=== PATIENT | female | born 1940 | race Caucasian/White ===

== ENCOUNTER → 2016-06-30 | Outpatient (CLI) | payer OTHER ==
[2015-09-18 11:22] VITALS: BP 104/57
[~2016-06-30] MED LIST: ALBU2.5V5 NEB; ALPR0.25 PO; AMLO5TAB2 PO; ASPI81TA9 PO; ATOR40TA59 PO; BUPR150T11 PO; BUTA1TAB23 PO; ESCI10TA PO; IPRA3AMP NEB; LEVO50TA5 PO; LEVO75TA5 PO; LOSA100T6 PO; NICO1PAT25 TP; RANI150C PO; TOPI25TA32 PO; TRAM-29 PO; WARF5TAB PO
--- NOTE | 2016-07-01 10:13 | RAD ---
APPROVED REPORT Patient Location: OUT-PATIENT Laterality:Bilateral Indications pvd Doppler Spectral Velocity Analysis Right Left pCCA 90/15 cm/spCCA 51/07 cm/s mCCA 76/16 cm/smCCA 47/07 cm/s dCCA 72/12 cm/sdCCA 28/05 cm/s Bulb 63/16 cm/sBulb 30/07 cm/s ECA 78/ cm/sECA 111/ cm/s pICA 80/27 cm/spICA Caryn 135/28 cm/smICA dICA 76/20 cm/sdICA Vert. 53/ cm/sVert. 52/ cm/s Subcl. 165/ cm/sSubcl. 145/ cm/s ICA/CCA 1.50ICA/CCA Findings Grayscale images of the bilateral carotid arterial vessels was performed including the external and i nternal kart arteries as well as a vertebral vessels. Grayscale imaging reveals moderate diffuse aft er squatting plaque in the carotid bulbs. On the left the internal carotid artery appears to be occl uded. On the right internal carotid artery appears to have mild to moderate disease. Based on spectral tracing in velocity profiles the right internal carotid artery has approximately a 50-69% stenosis but the vessel was not well visualized distally due to tortuosity. The left internal carotid artery appears to be occluded in the proximal to mid segment. The bilateral external caroti d arteries are patent and have minimally elevated velocities. The bilateral vertebral arteries are antegrade and patent. Critical Notification Critical Value: Yes <Conclusion> 1. Left internal carotid artery occlusion. 2. Moderate disease noted in the right internal carotid artery.
== END | disposition home or self-care (01) ==
LOC: US 07:45
PROVIDERS: ATTEND Internal Medicine Cardiovascular Disease
DX: I65.22 Occlusion and stenosis of left carotid artery (principal)
CPT/HCPCS: 93880

== ENCOUNTER → 2016-12-09 | Outpatient (CLI) | payer OTHER ==
[2015-09-18 11:22] VITALS: BP 104/57
[~2016-12-09] MED LIST changes: +ASPI-612 PO; -ASPI81TA9 PO; -ESCI10TA PO; +ESCITALOPRAM OX10 MG PO; +IOHEXOL 300 MG/ML 75 ML VIAL IV ONE; -TOPI25TA32 PO; +TOPI25TA52 PO; -TRAM-29 PO; +TRAM-48 PO; +WARF-78 PO; -WARF5TAB PO
[2016-12-09 15:31] LABS: CREATININE 0.7 mg/dL (0.6-1.0); GFR 81.8
--- NOTE | 2016-12-09 16:09 | RAD ---
Indication: Pain and swelling to bilateral lower extremities. Grayscale, color-flow and duplex Doppler evaluation of bilateral lower extremity deep venous systems was performed. FINDINGS: There is no evidence of right or left lower extremity DVT. Both lower extremity deep venous systems showed normal compressibility with normal response to augmentation and Valsalva. No fluid collection or mass is detected. IMPRESSION: No evidence of right or left lower extremity DVT.
--- NOTE | 2016-12-09 16:30 | RAD ---
Indication: Elevated d-dimer and shortness of breath. Axial imaging through the chest was performed after the administration of intravenous contrast and utilizing the CT angiography protocol. Multiplanar, 3-D and MIP reformations were also performed. Evaluation of the pulmonary arterial system demonstrates the main pulmonary artery as well as right and left branches to be dilated, perhaps on the basis of pulmonary arterial hypertension. No filling defects are seen to suggest pulmonary emboli. The thoracic aorta demonstrates atherosclerotic changes but is nonaneurysmal. No dissection is identified. No pericardial or pleural fluid is identified. Parenchymal evaluation demonstrates linear scarring or atelectasis in bilateral upper lobes. No infiltrate, nodule or mass is seen. The upper abdomen is unremarkable. Impression: 1. No evidence of pulmonary embolism. 2. Dilatation of the pulmonary arteries, perhaps on the basis of pulmonary arterial hypertension. PQRS Compliance Statement: One or more of the following individualized dose reduction techniques were utilized for this examination: 1. Automated exposure control 2. Adjustment of the mA and/or kV according to patient size 3. Use of iterative reconstruction technique
== END | disposition home or self-care (01) ==
LOC: CT 13:58
PROVIDERS: ATTEND Nurse Practitioner
DX: M79.604 Pain in right leg (principal); M79.605 Pain in left leg; M79.89 Other specified soft tissue disorders; R06.02 Shortness of breath; R79.1 Abnormal coagulation profile
CPT/HCPCS: 36415; 71275; 82565; 84520; 93970; Q9967

== ENCOUNTER → 2017-02-18 | Outpatient (CLI) | payer OTHER ==
[2015-09-18 11:22] VITALS: BP 104/57
[~2017-02-18] MED LIST changes: -IOHEXOL 300 MG/ML 75 ML VIAL IV ONE
--- NOTE | 2017-02-19 10:49 | RAD ---
Bilateral lower extremity arterial ultrasound with ankle-brachial indices, 02/18/2017: History: Peripheral arterial disease Duplex evaluation of the major arteries in both lower extremities was performed including grayscale, color-flow and spectral Doppler analysis. There are mild scattered atherosclerotic plaques bilaterally. The right common femoral artery demonstrates a biphasic Doppler waveform. A mildly elevated velocity reading of 193 cm/s was noted in the right common femoral artery. The color images did not suggest high-grade stenosis at this level. The right superficial femoral and popliteal arteries demonstrate biphasic Doppler waveforms. No significant velocity acceleration is seen through those regions to suggest high-grade stenosis. Patent posterior tibial, peroneal and anterior tibial arteries are present in the right lower leg demonstrating predominantly biphasic Doppler waveforms. The right dorsalis pedis artery is patent demonstrating a good amplitude biphasic Doppler waveform. On the left, the common femoral artery demonstrates a biphasic Doppler waveform. No significant velocity acceleration is seen in the left femoral or popliteal arteries to suggest high-grade stenosis. The distal left superficial femoral and popliteal Doppler waveforms are triphasic. In the left lower leg the posterior tibial and peroneal arteries are patent demonstrating biphasic Doppler waveforms. The left anterior tibial and dorsalis pedis arteries demonstrate monophasic Doppler waveforms. The peak systolic velocity in the left dorsalis pedis artery is 35 cm/s compared to a value of 75 cm/s on the right. Resting MELISA measurements were also obtained. The right MELISA of 1.05 is in the normal range. The left MELISA of 0.89 is at the lower limits of normal. IMPRESSION: 1. Mild scattered atherosclerotic plaquing without evidence of high-grade femoral-popliteal arterial stenosis. 2. Normal right resting MELISA of 1.05. 3. Mild degradation of the distal Doppler waveforms on the left with a borderline low left resting MELISA measurement of 0.89.
== END | disposition home or self-care (01) ==
LOC: US 15:08
PROVIDERS: ATTEND Internal Medicine
DX: I73.9 Peripheral vascular disease, unspecified (principal)
CPT/HCPCS: 93922; 93925

== ENCOUNTER → 2017-04-04 | Outpatient (CLI) | payer OTHER ==
[2015-09-18 11:22] VITALS: BP 104/57
--- NOTE | 2017-04-04 12:38 | KCIC ---
EXAM: Lumbar spine MRI without contrast. HISTORY: Pain. TECHNIQUE: Multiplanar, multisequence magnetic resonance imaging of the lumbar spine was performed without contrast. COMPARISON: 06/16/2011. FINDINGS: There is mild lumbar levoscoliosis. There is grade 1 anterolisthesis of L4 and L5, measuring 2 mm. There is degenerative endplate remodeling with disc space narrowing and osteophytosis primarily at L2-L3 and L3-L4. There is disc desiccation at multiple levels. The conus terminates at L1. Epidural lipomatosis contributing to narrowing of the thecal sac at multiple levels. There are few hemangiomas. No suspicious osseous lesion is seen. There is a suspected 1.5 cm left adrenal nodule. At T10-T11, there is a large right facet joint osteophytes or complex synovial cyst projecting into the right lateral central canal. This results in suspected mild right foraminal stenosis, incompletely evaluated on the current field of view. At T11-T12, there is a broad-based posterior central to left paracentral disc protrusion with extrusion exerting 7 mm superior and 3 mm inferior to the disc space. This results in deformation of the left ventral aspect of the spinal cord and mild central canal stenosis. At T12-L1, there is a disc bulge and endplate remodeling. There is mild facet arthropathy. There is no stenosis. At L1-L2, there is a disc bulge and endplate remodeling. There is mild facet arthropathy. There is no stenosis. At L2-L3, there is a broad-based left paracentral disc protrusion superimposed on a diffuse disc bulge and endplate osteophytosis. There is mild bilateral facet arthropathy. There is hypertrophy of the ligamentum flavum. There is epidural lipomatosis. There is mild left foraminal stenosis with abutment of the exiting left L2 nerve root. There is moderate central canal stenosis. At L3-L4, there is a right foraminal to lateral disc protrusion superimposed on a right lateral predominant disc bulge and endplate osteophytosis. There is moderate facet arthropathy. There is epidural lipomatosis. There is mild right foraminal stenosis with abutment of the exiting right L3 nerve root. At L4-L5, there is a left foraminal to extraforaminal disc protrusion superimposed on a left lateral predominant disc bulge and endplate osteophytosis. There is moderate facet arthropathy. There is hypertrophy of the ligamentum flavum. There is grade 1 anterolisthesis. There is mild left foraminal stenosis with abutment of the exiting left L4 nerve root. There is mild to moderate central canal stenosis. At L5-S1, there is a left foraminal to lateral disc protrusion. There is moderate facet arthropathy. There is mild left foraminal stenosis with abutment of the exiting left L5 nerve root. IMPRESSION: 1. Multilevel degenerative change throughout the lower thoracic and lumbar spine, described in detail above. This results in suspected mild right foraminal stenosis at T10-T11, mild central canal stenosis at T11-T12, mild left foraminal and moderate central canal stenosis at L2-L3, mild right foraminal stenosis at L3-L4, mild left foraminal and [id number] central canal stenosis at L4-L5, and mild left foraminal stenosis at L5-S1. These findings are stable to slightly progressed at the majority of the thoracic and lumbar levels compared to the prior study. 2. Grade 1 anterolisthesis of L4 on L5 and mild scoliosis, minimally increased compared to the prior study. 3. Epidural lipomatosis, contributing to narrowing of the thecal sac at all lumbar levels. This is increased compared to the prior study. 4. Suspected 1.5 cm left adrenal nodule. This is excluded from the [id number] on the prior study. This can be assessed with an adrenal protocol CT or MRI. Electronically signed by: Keiko Tejada MD (04/04/2017 12:35 PM) [facility] [place]
== END | disposition home or self-care (01) ==
LOC: KCIC MRI 11:26
PROVIDERS: ATTEND Internal Medicine
DX: M51.36 Other intervertebral disc degeneration, lumbar region (principal); M48.061 Spinal stenosis, lumbar region without neurogenic claudication; M41.86 Other forms of scoliosis, lumbar region; E88.2 Lipomatosis, not elsewhere classified
CPT/HCPCS: 72148

== ENCOUNTER 2019-02-17 19:37 | Inpatient (IN) | payer OTHER ==
[~2019-02-17] VITALS: Ht 154.9 cm; Wt 89.1 kg
[~2019-02-17 19:37] MED LIST changes: +ACET325T9 PO; +ALPR0.5T6 PO; +AMLO10TA4 PO; +AMLO5TAB10 PO; -AMLO5TAB2 PO; +AMOX1TAB61 PO; +ASPI-630 PO; +BUDE10.22 IH; +CARV12.511 PO; +CLOP75TA PO; +ESCITALOPRAM OX20 MG PO; +FLUT1DIS3 IH; +FURO20TA3 PO; +GUAI5SYR PO; +HYDR-2761 PO; -IPRA3AMP NEB; +IPRA3AMP29 NEB; +LEVO88TA4 PO; +LINE600T37 PO; +LORA0.5T PO; +LOSA100T14 PO; -LOSA100T6 PO; +POTA10TA12 PO; +TRIA1CAP3 PO
[2019-02-17 20:15] LABS: BASO % 1 % (0-3); EOS # 0.6 x10^3/uL (0.0-0.7); EOS % 7 % (0-3); HEMATOCRIT 40.4 % (36.0-47.0); HEMOGLOBIN 13.8 g/dL (12.0-15.5); LYMPH # 1.4 x10^3/uL (1.0-4.8); LYMPH % 18 % (24-48); MEAN CORPUSCULAR HEMOGLOBIN 34 pg (25-35); MEAN CORPUSCULAR HGB CONC 34 g/dL (31-37); MEAN CORPUSCULAR VOLUME 98 fL (79-100); MONO # 0.5 x10^3/uL (0.0-1.1); MONO % 7 % (0-9); NEUT # 5.2 x10^3/uL (1.8-7.7); NEUT % 67 % (31-73); PLATELET COUNT 194 x10^3/uL (140-400); RED BLOOD COUNT 4.11 x10^6/uL (3.50-5.40); RED CELL DISTRIBUTION WIDTH 14.4 % (11.5-14.5); WHITE BLOOD COUNT 7.7 x10^3/uL (4.0-11.0)
[2019-02-17 20:23] LABS: PROTHROMBIN TIME PATIENT 12.1 SEC (11.7-14.0)
[2019-02-17 20:24] LABS: CALCIUM 8.8 mg/dL (8.5-10.1); CREATININE 0.8 mg/dL (0.6-1.0); GFR 69.6; POTASSIUM 3.9 mmol/L (3.5-5.1)
[2019-02-17 20:30] LABS: ALBUMIN 3.1 g/dL (3.4-5.0); ALBUMIN/GLOBULIN RATIO 0.8 (1.0-1.7); TOTAL BILIRUBIN 0.4 mg/dL (0.2-1.0); TOTAL PROTEIN 6.8 g/dL (6.4-8.2)
--- NOTE | 2019-02-17 20:33 | RAD ---
AP portable chest radiograph 02/17/2019 Clinical History: Chest heaviness. An AP erect portable digital radiograph of the chest was obtained. Comparison study is dated 11/21/2018. Patient is post right shoulder joint replacement. The cardiac silhouette is mildly enlarged. The thoracic aorta is tortuous. Atherosclerotic calcification of the thoracic aorta is seen. Right inferior hilar fullness is unchanged. No acute pulmonary infiltrate is noted. No pneumothorax or pleural effusion is seen. The osseous structures are unchanged. Impression: No acute abnormality is seen. Electronically signed by: Blaine Rodrigues MD (02/17/2019 8:30 PM) [facility]
--- NOTE | 2019-02-17 21:57 | PHYS DOC ---
Past Medical History Past Medical History: Anxiety, CAD, COPD, Depression, High Cholesterol, Hypertension, Hypothyroid, Other Additional Past Medical Histor: SLEEP APNEA,CHRONIC BACK PAIN,SCIATICA,CELLULITIS Past Surgical History: Cholecystectomy Additional Past Surgical Histo: APNEA,R SHOULDER SX Alcohol Use: None Drug Use: None Adult General Chief Complaint Chief Complaint: SHORTNESS OF BREATH [facility] HPI Patient is a 79 year old [female] who presents with [several days history of chest heaviness, SOA. Patient reports she has been under a lot of additional stress, reports she has had some issues with her her home. Patient reports she has issues like this nearly every day, and today and yesterday were no different than normal. [facility] was continuing to have some discomfort and she wanted a break from her situation at home to see if that would improve. Patient denies any nausea. Denies any dizziness. States she has a history of anxiety, has been taking anxiety medications at home, has taken 2 of her lorazepam today without with anxiety. Patient states this does feel like her normal anxiety, which causes her to have the similar discomfort in her chest that she always has] Review of Systems Review of Systems Constitutional: Denies fever or chills [] Eyes: Denies change in visual acuity, redness, or eye pain [] HENT: Denies nasal congestion or sore throat [] Respiratory: Denies cough or shortness of breath does report she feels some heaviness on her chest, but reports this is unchanged today from any other day [] Cardiovascular: No additional information not addressed in HPI [] GI: Denies abdominal pain, nausea, vomiting, bloody stools or diarrhea [] : Denies dysuria or hematuria [] Musculoskeletal: Denies back pain or joint pain [] Integument: Denies rash or skin lesions [] Neurologic: Denies headache, focal weakness or sensory changes [] Endocrine: Denies polyuria or polydipsia [] All other systems were reviewed and found to be within normal limits, except as documented in this note. Allergies Allergies Allergies Coded Allergies Type Severity Reaction Last Updated Verified naproxen Allergy Severe Hives 11/07/14 Yes morphine Adverse Reaction Severe vomiting 11/18/18 Yes Physical Exam Physical Exam Constitutional: Well developed, well nourished, no acute distress, non-toxic appearance. [] HENT: Normocephalic, atraumatic, bilateral external ears normal, oropharynx moist, no oral exudates, nose normal. [] Eyes: PERRLA, EOMI, conjunctiva normal, no discharge. [] Neck: Normal range of motion, no tenderness, supple, no stridor. [] Cardiovascular:Heart rate regular rhythm, no murmur [] Lungs & Thorax: Bilateral breath sounds clear to auscultation [] Abdomen: Bowel sounds normal, soft, no tenderness, no masses, no pulsatile masses. [] Skin: Warm, dry, no erythema, no rash. [] Back: No tenderness, no CVA tenderness. [] Extremities: No tenderness, no cyanosis, no clubbing, ROM intact, no edema. [] Neurologic: Alert and oriented X 3, normal motor function, normal sensory function, no focal deficits noted. [] Psychologic: Affect normal, judgement normal, mood normal. Anxious[] Current Patient Data Vital Signs Vital Signs Date Time Temp Pulse Resp B/P (MAP) Pulse Ox O2 Delivery O2 Flow Rate FiO2 02/17/19 21:07 81 20 154/73 (100) 98 Nasal Cannula 2.5 02/17/19 19:40 98.3 98.3 Lab Values Laboratory Tests Test 02/17/19 20:04 White Blood Count 7.7 x10^3/uL (4.0-11.0) Red Blood Count 4.11 x10^6/uL (3.50-5.40) Hemoglobin 13.8 g/dL (12.0-15.5) Hematocrit 40.4 % (36.0-47.0) Mean Corpuscular Volume 98 fL (79-100) Mean Corpuscular Hemoglobin 34 pg (25-35) Mean Corpuscular Hemoglobin Concent 34 g/dL (31-37) Red Cell Distribution Width 14.4 % (11.5-14.5) Platelet Count 194 x10^3/uL (140-400) Neutrophils (%) (Auto) 67 % (31-73) Lymphocytes (%) (Auto) 18 % (24-48) L Monocytes (%) (Auto) 7 % (0-9) Eosinophils (%) (Auto) 7 % (0-3) H Basophils (%) (Auto) 1 % (0-3) Neutrophils # (Auto) 5.2 x10^3/uL (1.8-7.7) Lymphocytes # (Auto) 1.4 x10^3/uL (1.0-4.8) Monocytes # (Auto) 0.5 x10^3/uL (0.0-1.1) Eosinophils # (Auto) 0.6 x10^3/uL (0.0-0.7) Basophils # (Auto) 0.0 x10^3/uL (0.0-0.2) Prothrombin Time 12.1 SEC (11.7-14.0) Prothrombin Time INR 0.9 (0.8-1.1) Sodium Level 144 mmol/L (136-145) Potassium Level 3.9 mmol/L (3.5-5.1) Chloride Level 105 mmol/L (98-107) Carbon Dioxide Level 33 mmol/L (21-32) H Anion Gap 6 (6-14) Blood Urea Nitrogen 18 mg/dL (7-20) Creatinine 0.8 mg/dL (0.6-1.0) Estimated GFR (Cockcroft-Gault) 69.6 BUN/Creatinine Ratio 23 (6-20) H Glucose Level 120 mg/dL (70-99) H Calcium Level 8.8 mg/dL (8.5-10.1) Total Bilirubin 0.4 mg/dL (0.2-1.0) Aspartate Amino Transferase (AST) 14 U/L (15-37) L Alanine Aminotransferase (ALT) 17 U/L (14-59) Alkaline Phosphatase 94 U/L (46-116) Troponin I Quantitative < 0.017 ng/mL (0.000-0.055) JG-Pfa-J-Type Natriuretic Peptide 1096 pg/mL (0-449) H Total Protein 6.8 g/dL (6.4-8.2) Albumin 3.1 g/dL (3.4-5.0) L Albumin/Globulin Ratio 0.8 (1.0-1.7) L Laboratory Tests 02/17/19 20:04 Laboratory Tests 02/17/19 20:04 EKG EKG Sinus rhythm, NO Stemi @ [address] Jimenes[] Radiology/Procedures Radiology/Procedures No acute abnormality is seen. Per Dr Blaine Rodrigues[] Course & Med Decision Making Course & Med Decision Making Pertinent Labs and Imaging studies reviewed. (See chart for details) [Discussed findings with patient, with her clinician for observation for cardiac. Patient in agreement with this plan, will discuss with Dr. Law.] Discussed with Dr. aLw, agrees to admit patient for observation. We'll continue cardiac evaluation and trend troponins overnight. Dragon Disclaimer Dragon Disclaimer This electronic medical record was generated, in whole or in part, using a voice recognition dictation system. Departure Departure Impression: Primary Impression: Chest pain Additional Impression: Shortness of breath Disposition: ADMITTED INPATIENT Admitting Physician: JACQUELINE Condition: STABLE Referrals: MORE NICHOLSON MD (PCP) Problem Qualifiers Primary Impression: Chest pain Chest pain type: other chest pain Qualified Codes: R07.89 - Other chest pain SANDEEP ALLISON PRESS MAINTAINER Feb 17, 2019 21:57
[2019-02-17] MEDS ORDERED: MORPHINE SULFATE 2 MG/ML VIAL. IV PRN (22:15)
[2019-02-17] MEDS: IV NORMAL SALINE 1000ML BAG 1,000 ML IV SCH (22:15)
[2019-02-17] MEDS ORDERED: LORazepam 0.5 MG TABLET PO ONE (22:15)
[2019-02-17] MEDS ORDERED: ONDANSETRON PF 4 MG/2 ML VIAL. IV PRN (22:15)
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
[2019-02-18] VITALS (7 sets, daily range): BP systolic 114–175; BP diastolic 51–77
[2019-02-18] MEDS: NICOTINE 14MG PATCH. TD SCH ×2 (00:56→08:39)
[2019-02-18] MEDS: ZOLPIDEM 5 MG TABLET. PO PRN ×2 (00:56→20:58)
[2019-02-18] MEDS ORDERED: LORA0.5T PO (03:55)
[2019-02-18] MEDS ORDERED: HYDR-2763 PO (03:55)
[2019-02-18] MEDS ORDERED: LEVO100T5 PO (03:56)
[2019-02-18 05:56] LABS: CALCIUM 8.5 mg/dL (8.5-10.1); CREATININE 0.8 mg/dL (0.6-1.0); GFR 69.6; POTASSIUM 3.9 mmol/L (3.5-5.1)
[2019-02-18 06:34] LABS: BASO % 1 % (0-3); EOS # 0.6 x10^3/uL (0.0-0.7); EOS % 8 % (0-3); HEMATOCRIT 37.7 % (36.0-47.0); HEMOGLOBIN 12.6 g/dL (12.0-15.5); LYMPH # 1.5 x10^3/uL (1.0-4.8); LYMPH % 19 % (24-48); MEAN CORPUSCULAR HEMOGLOBIN 33 pg (25-35); MEAN CORPUSCULAR HGB CONC 33 g/dL (31-37); MEAN CORPUSCULAR VOLUME 99 fL (79-100); MONO # 0.7 x10^3/uL (0.0-1.1); MONO % 9 % (0-9); NEUT % 64 % (31-73); PLATELET COUNT 163 x10^3/uL (140-400); RED BLOOD COUNT 3.81 x10^6/uL (3.50-5.40); WHITE BLOOD COUNT 7.8 x10^3/uL (4.0-11.0)
[2019-02-18] MEDS: IPRATRPIUM/ALBUTEROL 0.5/2.5MG 3 ML NEBU. NEB SCH ×4 (07:22→19:44)
[2019-02-18] MEDS: ACETAMINOPHEN 325 MG TABLET. PO PRN (08:39)
[2019-02-18] MEDS: NYSTATIN TOPICAL POWDER 15GM BOTTLE. TP SCH ×2 (09:00→20:58)
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
[2019-02-18] MEDS ORDERED: NITROGLYCERIN SUBLINGUAL 0.4 MG BOTTLE OF 25. SL ONE (10:19)
[2019-02-18] MEDS: CARVEDILOL 12.5 MG TABLET. PO SCH ×2 (10:26→17:02)
[2019-02-18] MEDS: LOSARTAN POTASSIUM 50 MG TABLET. PO SCH (10:26)
[2019-02-18] MEDS: LORazepam 0.5 MG TABLET PO PRN ×2 (10:28→20:58)
--- NOTE | 2019-02-18 10:29 | NUR ---
PATIENT REFUSING MORPHINE BECAUSE IT MAKES HER THROW UP AND IS REFUSING NITRO BECAUSE IT GIVES HER A TERRIBLE HEADACHE
[2019-02-18] MEDS ORDERED: NITROGLYCERIN SUBLINGUAL 0.4 MG BOTTLE OF 25. SL PRN (10:30)
[2019-02-18] MEDS ORDERED: hydrALAZINE 20 MG/ML VIAL. IVP PRN (10:45)
--- NOTE | 2019-02-18 10:47 | EKG ---
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
[2019-02-18] MEDS: IV NORMAL SALINE 1000ML BAG 1,000 ML IV SCH (11:35)
[2019-02-18] MEDS ORDERED: guaiFENesin DM 200MG/20MG 10 ML SYRUP PO PRN (14:45)
[2019-02-18] MEDS ORDERED: ACETAMINOPHEN 325 MG TABLET. PO PRN (14:45)
[2019-02-18] MEDS ORDERED: HYDROcodone/APAP 7.5/325MG 1 TAB TABLET PO PRN (14:45)
--- NOTE | 2019-02-18 14:49 | RAD ---
AP portable chest radiograph 02/28/2019 Clinical History: Chest pain. An AP erect portable digital radiograph of the chest was obtained. Comparison study is dated 02/17/2019. Patient is post right shoulder joint replacement. The cardiac silhouette is mildly enlarged. The thoracic aorta is tortuous. Atherosclerotic calcification of the thoracic aorta is seen. Subsegmental atelectasis is seen involving the right upper lobe. No area of consolidation is seen. No pneumothorax is noted. There may be a small left pleural effusion, unchanged. The osseous structures are unchanged. Impression: Right upper lobe subsegmental atelectasis. Electronically signed by: Blaine Rodrigues MD (02/18/2019 2:46 PM) [facility] [place]
[2019-02-18] MEDS ORDERED: NICOTINE 14MG PATCH. TD SCH (15:00)
[2019-02-18] MEDS: FUROSEMIDE 20 MG TABLET PO SCH (15:00)
[2019-02-18] MEDS: LEVOTHYROXINE 100 MCG TABLET PO SCH (15:00)
[2019-02-18] MEDS ORDERED: IPRATRPIUM/ALBUTEROL 0.5/2.5MG 3 ML NEBU. NEB SCH (16:00)
[2019-02-18] MEDS: CLOPIDOGREL BISULFATE 75 MG TABLET PO SCH (17:00)
[2019-02-18] MEDS: ASPIRIN CHEWABLE 81 MG TABLET. PO SCH (17:01)
[2019-02-18] MEDS: ENOXAPARIN 40 MG/0.4 ML SYRINGE. SQ SCH (17:04)
[2019-02-18 17:29] LABS: BASE EXCESS COOX 3 mmol/L (-3-3); HCO3 COOX 29 mmol/L (21-28); METHEMOGLOBIN 0.5 % (0.0-1.9); OXYHEMOGLOBIN 94.9 %; PCO2 COOX 50 mmHg (35-46); PO2 COOX 82 mmHg (65-108); SAT O2 COOX 96 % (92-99)
[2019-02-18] MEDS: BUDESONIDE 0.5 MG/2 ML NEBU. NEB SCH (19:44)
[2019-02-19 03:10] VITALS: BP 165/59
[2019-02-19] MEDS: ACETAMINOPHEN 325 MG TABLET. PO PRN (05:16)
[2019-02-19 07:00] VITALS: BP 167/69
[2019-02-19] MEDS: IPRATRPIUM/ALBUTEROL 0.5/2.5MG 3 ML NEBU. NEB SCH ×4 (07:17→19:26)
[2019-02-19] MEDS: BUDESONIDE 0.5 MG/2 ML NEBU. NEB SCH ×2 (08:00→19:26)
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
[2019-02-19] MEDS: FAMOTIDINE 20 MG TABLET. PO PRN (08:50)
[2019-02-19] MEDS: CARVEDILOL 12.5 MG TABLET. PO SCH ×2 (08:50→17:05)
[2019-02-19] MEDS: LOSARTAN POTASSIUM 50 MG TABLET. PO SCH (08:51)
[2019-02-19] MEDS: CLOPIDOGREL BISULFATE 75 MG TABLET PO SCH (08:51)
[2019-02-19] MEDS: ASPIRIN CHEWABLE 81 MG TABLET. PO SCH (08:51)
[2019-02-19] MEDS: FUROSEMIDE 20 MG TABLET PO SCH (08:52)
[2019-02-19] MEDS: NICOTINE 14MG PATCH. TD SCH (08:53)
[2019-02-19 09:50] LABS: CHOLESTEROL/HDL RATIO 3.8
[2019-02-19 11:00] VITALS: BP 151/58
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
[2019-02-19] MEDS: LEVOTHYROXINE 100 MCG TABLET PO SCH (11:16)
[2019-02-19] MEDS: NYSTATIN TOPICAL POWDER 15GM BOTTLE. TP SCH ×2 (11:16→21:45)
[2019-02-19] MEDS: LORazepam 0.5 MG TABLET PO PRN ×2 (11:20→20:37)
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
[2019-02-19 15:00] VITALS: BP 149/60
[2019-02-19] MEDS: PARoxetine 10 MG TABLET PO SCH (15:38)
[2019-02-19] MEDS: ENOXAPARIN 40 MG/0.4 ML SYRINGE. SQ SCH (15:41)
--- NOTE | 2019-02-19 19:50 | NUR ---
Pt in bed assessment completed vss poc explained pt anxious re: home situation will give pt anxiety medication and continue to monitor pt call light in reach will resume care .
[2019-02-19 20:14] VITALS: BP 175/71
[2019-02-19] MEDS: ZOLPIDEM 5 MG TABLET. PO PRN (21:50)
[2019-02-19 22:43] VITALS: BP 156/64
[2019-02-20 03:02] VITALS: BP 140/55
[2019-02-20 07:00] VITALS: BP 175/77
[2019-02-20] MEDS: IPRATRPIUM/ALBUTEROL 0.5/2.5MG 3 ML NEBU. NEB SCH ×2 (07:41→11:41)
[2019-02-20] MEDS: BUDESONIDE 0.5 MG/2 ML NEBU. NEB SCH (07:41)
[2019-02-20] MEDS: FAMOTIDINE 20 MG TABLET. PO PRN (09:14)
[2019-02-20] MEDS: NICOTINE 14MG PATCH. TD SCH (09:14)
[2019-02-20] MEDS: ASPIRIN CHEWABLE 81 MG TABLET. PO SCH (09:14)
[2019-02-20] MEDS: LOSARTAN POTASSIUM 50 MG TABLET. PO SCH (09:15)
[2019-02-20] MEDS: PARoxetine 10 MG TABLET PO SCH (09:15)
[2019-02-20] MEDS: FUROSEMIDE 20 MG TABLET PO SCH (09:15)
[2019-02-20] MEDS: CARVEDILOL 12.5 MG TABLET. PO SCH (09:16)
[2019-02-20] MEDS: CLOPIDOGREL BISULFATE 75 MG TABLET PO SCH (09:16)
[2019-02-20] MEDS: NYSTATIN TOPICAL POWDER 15GM BOTTLE. TP SCH (09:24)
[2019-02-20] MEDS: LORazepam 0.5 MG TABLET PO PRN (10:04)
[2019-02-20 11:00] VITALS: BP 145/68
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
--- NOTE | 2019-02-20 12:42 | NUR ---
SS following up with discharge planning. PT/OT recommended home independent. SS notarized power of collections attorney paperwork at pt's request. Pt will discharge to home with daughter. Pt's RN notified.
[2019-02-20] MEDS: LEVOTHYROXINE 100 MCG TABLET PO SCH (13:42)
--- NOTE | 2019-02-20 14:10 | NUR ---
Discharged patient to home. Discharge instruction given and patient verbalized understanding. PIV and heart monitor removed. escorted patient per wheelchair to east entrance into a private vehicle.
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
--- NOTE | 2019-02-21 23:07 | DS ---
DATE OF DISCHARGE: 02/20/2019 ADMISSION DIAGNOSIS: Chest pain. DISCHARGE DIAGNOSIS: Atypical chest pain. CONSULTS: Cardiology. PROCEDURES: None. HOSPITAL COURSE: The patient is a pleasant 79-year-old female who presented with chest pain. We admitted the patient. We did serial enzymes, serial EKGs, cardiac monitoring, consulted Cardiology. Her workup was negative. We discharged her home with close outpatient followup. DISPOSITION: Home. ACTIVITY: As tolerated. DIET: Low sodium. MEDICATIONS: Please see the MRAD. TOTAL TIME: 44 minutes. DANIEL SLATER DO DR: BENIGNO/kalpana JOB#: [id number] / [id number]
--- NOTE | 2019-02-22 13:21 | RAD ---
Examination: DOPPLER CAROTID BILAT History: Carotid artery disease Comparison/Correlation: 06/30/2016 carotid ultrasound exam FINDINGS: RIGHT: The peak systolic velocity within the common carotid artery is 118.5 cm/sec. The peak systolic velocity within the internal carotid artery is 132.5 cm/sec and the end diastolic velocity within the internal carotid artery is 33.3 cm/sec. The ICA/CCA ratio is 1.12. Grayscale images demonstrate minimal calcific involvement of the right common carotid artery. Atheromatous involvement of the right internal carotid arteries present and chronic in appearance. Minimal calcification associated with the plaque noted. LEFT: The peak systolic velocity within the common carotid artery is 64.3 cm/sec. Flow is not identified involving the left internal carotid artery. Grayscale images demonstrate calcified plaque throughout the left internal carotid artery. Left external carotid artery was 147 cm/s identified. There is antegrade flow within both vertebral arteries. IMPRESSION: Left internal carotid artery occlusion is again identified. Right internal carotid artery peak systolic velocity of 132.5 cm/s corresponds to 50 percent to 69 percent stenosis. PQRS Compliance Statement - Stenosis calculations for CT, MR and conventional angiography are based upon measurement of the distal ICA diameter in accordance with the NASCET methodology. Stenosis calculations for carotid ultrasound studies are derived from validated velocity criteria which are known to correlate with the NASCET methodology. Electronically signed by: Jose Long MD (02/22/2019 1:18 PM) [facility]
== END 2019-02-20 14:10 | disposition home or self-care (01) | DRG 311 ==
LOC: ER 19:37 → 2 NORTH 21:58 → EEVIPCON 21:58 → 2 NORTH 22:56 → OBSVTOIN 02-18 19:13
PROVIDERS: ADMIT Family Medicine; ATTEND Family Medicine
PROC: 5A09357 Assistance with Respiratory Ventilation, Less than 24 Consecutive Hours, Continuous Positive Airway Pressure (ICD-10-PCS; principal; 2019-02-18)
PROC: 5A09357 Assistance with Respiratory Ventilation, Less than 24 Consecutive Hours, Continuous Positive Airway Pressure (ICD-10-PCS; 2019-02-19)
DX: I24.8 Other forms of acute ischemic heart disease (principal); I50.32 Chronic diastolic (congestive) heart failure; L03.90 Cellulitis, unspecified; I25.10 Atherosclerotic heart disease of native coronary artery without angina pectoris; R07.89 Other chest pain; K74.60 Unspecified cirrhosis of liver; E03.9 Hypothyroidism, unspecified; E66.01 Morbid (severe) obesity due to excess calories; E78.00 Pure hypercholesterolemia, unspecified; E78.5 Hyperlipidemia, unspecified; F17.210 Nicotine dependence, cigarettes, uncomplicated; F41.1 Generalized anxiety disorder; G47.33 Obstructive sleep apnea (adult) (pediatric); I11.0 Hypertensive heart disease with heart failure; I16.0 Hypertensive urgency; I27.20 Pulmonary hypertension, unspecified; I73.9 Peripheral vascular disease, unspecified; J44.9 Chronic obstructive pulmonary disease, unspecified; M48.061 Spinal stenosis, lumbar region without neurogenic claudication; Z68.37 Body mass index [BMI] 37.0-37.9, adult; Z73.3 Stress, not elsewhere classified; Z83.3 Family history of diabetes mellitus; Z91.19 Patient's noncompliance with other medical treatment and regimen; Z91.81 History of falling; F32.9 Major depressive disorder, single episode, unspecified; G43.909 Migraine, unspecified, not intractable, without status migrainosus; K29.70 Gastritis, unspecified, without bleeding; M48.07 Spinal stenosis, lumbosacral region; M54.30 Sciatica, unspecified side; R09.02 Hypoxemia; G89.29 Other chronic pain
CPT/HCPCS: 36415; 36600; 71045; 80048; 80053; 80061; 82805; 83880; 84443; 84484; 85025; 85610; 93005; 93880; 94640; 94660; G0378; G0379; J0360; J1650; J7620; J7626; 99285-25

== ENCOUNTER → 2019-02-20 | Outpatient (CLI) | payer OTHER ==
[~2019-02-20] MED LIST changes: +HYDR-2763 PO; +LEVO100T5 PO
[2019-02-20 11:00] VITALS: BP 145/68
--- NOTE | 2019-02-21 13:00 | SLEEP ---
DATE OF STUDY: 02/20/2019 HOME SLEEP STUDY REFERRING PHYSICIAN: More Barth MD The patient is a 79-year-old who weighs 194 pounds with a BMI of 36.7. The patient's Clifton score was 16. The patient underwent home sleep study performed at [facility]. Total recording time was 273 minutes. During the night study, the patient had 34 obstructive apneas, no central apneas, 9 mixed apneas and 60 hypopneas. The patient's apnea hypopnea index was 22.6 per hour. Nocturnal oximetry study revealed an average oxygen saturation of 84%; the lowest of 75%. 230 minutes were spent in oxygen saturation less than 90%. Mean heart rate was 72 beats per minute. IMPRESSION: 1. Moderate sleep apnea-hypopnea syndrome at an AHI of 22.6 per hour. 2. Moderate to severe nocturnal hypoxia secondary obstructive sleep apnea and suspected hypoventilation. RECOMMENDATIONS: 1. The patient is clinically symptomatic with an Clifton score of 16. I would recommend the patient returned to the sleep lab for CPAP titration. 2. Once the patient's sleep apnea is treated with CPAP, then follow up in 4-6 weeks to assess compliance and to document clinical improvement. 3. Weight loss is advised. 4. Avoid [employer] depressants. 5. Caution regarding driving until symptoms of sleep apnea resolve with the use of CPAP. MERCY CHOI MD DR: YOHANA/kalpana JOB#: [id number] / [id number] [facility] MORE BARTH MD
== END | disposition home or self-care (01) ==
LOC: RT 12:40
PROVIDERS: ATTEND Internal Medicine
DX: G47.33 Obstructive sleep apnea (adult) (pediatric) (principal); G47.34 Idiopathic sleep related nonobstructive alveolar hypoventilation
CPT/HCPCS: G0399 ×2

== ENCOUNTER 2019-06-16 09:45 | Inpatient (IN) | payer MEDICARE, OTHER ==
[~2019-06-16] VITALS: Ht 157.5 cm; Wt 91.2 kg
[~2019-06-16 09:45] MED LIST changes: +LINE600T12 PO; -LINE600T37 PO
[2019-06-16 10:44] LABS: BASO % 0 % (0-3); EOS # 0.6 x10^3/uL (0.0-0.7); EOS % 7 % (0-3); HEMOGLOBIN 12.3 g/dL (12.0-15.5); LYMPH % 12 % (24-48); MEAN CORPUSCULAR HEMOGLOBIN 32 pg (25-35); MEAN CORPUSCULAR HGB CONC 33 g/dL (31-37); MEAN CORPUSCULAR VOLUME 96 fL (79-100); MONO # 0.5 x10^3/uL (0.0-1.1); MONO % 7 % (0-9); NEUT # 5.9 x10^3/uL (1.8-7.7); NEUT % 73 % (31-73); PLATELET COUNT 212 x10^3/uL (140-400); RED BLOOD COUNT 3.85 x10^6/uL (3.50-5.40); RED CELL DISTRIBUTION WIDTH 14.2 % (11.5-14.5)
--- NOTE | 2019-06-16 10:58 | PHYS DOC ---
Past Medical History Past Medical History: Anxiety, CAD, COPD, Depression, High Cholesterol, Hypertension, Hypothyroid, Other Additional Past Medical Histor: SLEEP APNEA,CHRONIC BACK PAIN,SCIATICA,CELLULITIS Past Surgical History: Cholecystectomy Additional Past Surgical Histo: APNEA,R SHOULDER SX Alcohol Use: None Drug Use: None Adult General Chief Complaint Chief Complaint: SHORTNESS OF BREATH HPI HPI Patient is a 79 year old female with past medical history of coronary artery disease, COPD, and CHF presents today with increased shortness of breath over the last 2 days. The patient denies any chest pain or palpitations, but she does admit to not taking her Lasix since she was prescribed them on her last hospital visit. In addition, she is concerned with persistent incontinence which has been ongoing for several months. She was scheduled for an MRI today for this issue. However, her daughter brought her into the emergency department due to the concern for shortness of breath. She denies any nausea, vomiting, fever, chills, diarrhea, palpitations, lightheadedness, or dizziness. Review of Systems Review of Systems Constitutional: Denies fever or chills Eyes: Denies redness or eye pain HENT: Denies nasal congestion or sore throat Respiratory: Reports dry cough and shortness of breath Cardiovascular: Denies chest pain or palpitations GI: Denies abdominal pain, nausea, or vomiting : Denies dysuria or hematuria. Reports urinary incontinence. Musculoskeletal: Reports back pain consistent with her spinal stenosis diagnosis. Integument: Reports increased redness of her lower legs, worse on the right. Neurologic: Denies headache, focal weakness or sensory changes Complete systems were reviewed and found to be within normal limits, except as documented in this note. Current Medications Current Medications Current Medications Medications (Trade) Dose Ordered Sig/Derek Start Time Stop Time Status Last Admin Dose Admin Acetaminophen (Tylenol) 500 mg 1X ONCE 06/16/19 12:30 06/16/19 12:31 DC Albuterol/ Ipratropium (Duoneb) 3 ml 1X ONCE 06/16/19 11:00 06/16/19 11:01 DC 06/16/19 10:41 3 ML Aspirin (Omid Aspirin) 325 mg 1X ONCE 06/16/19 11:00 06/16/19 11:01 DC 06/16/19 10:51 325 MG Clindamycin Phosphate 50 ml @ 100 mls/hr 1X ONCE 06/16/19 13:00 06/16/19 13:29 Fentanyl Citrate (Fentanyl 2ml Vial) 50 mcg PRN Q2HR PRN 06/16/19 12:45 Furosemide (Lasix) 40 mg 1X ONCE 06/16/19 12:30 06/16/19 12:31 DC 06/16/19 12:38 40 MG Hydralazine HCl (Apresoline Inj) 20 mg 1X ONCE 06/16/19 11:30 06/16/19 11:31 DC 06/16/19 11:44 20 MG Labetalol HCl (Normodyne Iv Push) 10 mg 1X ONCE 06/16/19 11:00 06/16/19 11:01 DC 06/16/19 10:51 10 MG Nitroglycerin (Nitro-Bid Oint) 1 inch 1X ONCE 06/16/19 11:00 06/16/19 11:01 DC 06/16/19 10:50 1 INCH Ondansetron HCl (Zofran) 4 mg PRN Q8HRS PRN 06/16/19 12:45 06/17/19 12:44 Allergies Allergies Allergies Coded Allergies Type Severity Reaction Last Updated Verified naproxen Allergy Severe Hives 11/07/14 Yes morphine Adverse Reaction Severe vomiting 11/18/18 Yes Physical Exam Physical Exam Constitutional: 79yo obese female in respiratory distress HENT: Normocephalic, atraumatic, oropharynx moist Eyes: conjunctiva normal, no discharge Cardiovascular: Heart rate normal, regular rhythm Lungs & Thorax: Wheezing present in upper lobes b/l. Crackles auscultated in lower lobes b/l. Skin: Right lower leg erythematous, hot. Extremities: No tenderness, ROM intact, no edema Neurologic: Alert and oriented X 3, normal motor function, normal sensory function, no focal deficits noted Psychologic: Affect normal, judgement normal. Current Patient Data Vital Signs Vital Signs Date Time Temp Pulse Resp B/P (MAP) Pulse Ox O2 Delivery O2 Flow Rate FiO2 06/16/19 11:58 68 20 177/74 (108) 98 Nasal Cannula 3.0 06/16/19 09:47 97.6 97.6 Lab Values Laboratory Tests Test 06/16/19 10:00 06/16/19 10:20 06/16/19 11:14 06/16/19 11:42 Prothrombin Time 12.6 SEC (11.7-14.0) Prothrombin Time INR 1.0 (0.8-1.1) Activated Partial Thromboplast Time 25 SEC (24-38) White Blood Count 8.0 x10^3/uL (4.0-11.0) Red Blood Count 3.85 x10^6/uL (3.50-5.40) Hemoglobin 12.3 g/dL (12.0-15.5) Hematocrit 37.0 % (36.0-47.0) Mean Corpuscular Volume 96 fL (79-100) Mean Corpuscular Hemoglobin 32 pg (25-35) Mean Corpuscular Hemoglobin Concent 33 g/dL (31-37) Red Cell Distribution Width 14.2 % (11.5-14.5) Platelet Count 212 x10^3/uL (140-400) Neutrophils (%) (Auto) 73 % (31-73) Lymphocytes (%) (Auto) 12 % (24-48) L Monocytes (%) (Auto) 7 % (0-9) Eosinophils (%) (Auto) 7 % (0-3) H Basophils (%) (Auto) 0 % (0-3) Neutrophils # (Auto) 5.9 x10^3/uL (1.8-7.7) Lymphocytes # (Auto) 1.0 x10^3/uL (1.0-4.8) Monocytes # (Auto) 0.5 x10^3/uL (0.0-1.1) Eosinophils # (Auto) 0.6 x10^3/uL (0.0-0.7) Basophils # (Auto) 0.0 x10^3/uL (0.0-0.2) Sodium Level 140 mmol/L (136-145) Potassium Level 3.9 mmol/L (3.5-5.1) Chloride Level 103 mmol/L (98-107) Carbon Dioxide Level 30 mmol/L (21-32) Anion Gap 7 (6-14) Blood Urea Nitrogen 19 mg/dL (7-20) Creatinine 1.0 mg/dL (0.6-1.0) Estimated GFR (Cockcroft-Gault) 53.8 BUN/Creatinine Ratio 19 (6-20) Glucose Level 115 mg/dL (70-99) H Lactic Acid Level 0.8 mmol/L (0.4-2.0) Calcium Level 8.8 mg/dL (8.5-10.1) Magnesium Level 2.0 mg/dL (1.8-2.4) Total Bilirubin 0.5 mg/dL (0.2-1.0) Aspartate Amino Transferase (AST) 14 U/L (15-37) L Alanine Aminotransferase (ALT) 28 U/L (14-59) Alkaline Phosphatase 127 U/L (46-116) H Creatine Kinase 20 U/L (26-192) L Creatine Kinase MB (Mass) 0.9 ng/mL (0.0-3.6) Creatine Kinase MB Relative Index % (0-4) Troponin I Quantitative < 0.017 ng/mL (0.000-0.055) KW-Mny-K-Type Natriuretic Peptide 3423 pg/mL (0-449) H Total Protein 6.7 g/dL (6.4-8.2) Albumin 3.1 g/dL (3.4-5.0) L Albumin/Globulin Ratio 0.9 (1.0-1.7) L Lipase 50 U/L (73-393) L Urine Collection Type U cath Urine Color Yellow Urine Clarity Clear Urine pH 8.0 Urine Specific [place] 1.010 Urine Protein Negative mg/dL (NEG-TRACE) Urine Glucose (UA) Negative mg/dL (NEG) Urine Ketones (Stick) Negative mg/dL (NEG) Urine Blood Negative (NEG) Urine Nitrite Negative (NEG) Urine Bilirubin Negative (NEG) Urine Urobilinogen Dipstick 0.2 mg/dL (0.2 mg/dL) Urine Leukocyte Esterase Negative (NEG) Urine RBC 1-2 /HPF (0-2) Urine WBC Occ /HPF (0-4) Urine Squamous Epithelial Cells Few /LPF Urine Bacteria 0 /HPF (0-FEW) Urine Hyaline Casts Few /HPF Urine Mucus Slight /LPF Laboratory Tests 06/16/19 10:20 Laboratory Tests 06/16/19 11:14 EKG EKG 06/16/2019 @10:08 shows NSR at 74bpm. No ST elevations. Irregular R-R interval present on V2, V3. Radiology/Procedures Radiology/Procedures PROCEDURE: VENOUS LOWER EXTREMITY RIGHT EXAM: Right lower extremity venous Doppler. HISTORY: Right lower extremity redness, pain and swelling. COMPARISON: None. FINDINGS: Grayscale and Doppler analysis of the right lower extremity deep venous system was performed with graded compression and augmentation. The common femoral, greater saphenous, superficial femoral, popliteal and calf veins were assessed. There is no evidence of deep venous thrombosis. Subcutaneous edema is noted. IMPRESSION: 1. No evidence of deep venous thrombosis. Electronically signed by: Janes Silva MD (06/16/2019 12:26 PM) [facility] [] PROCEDURE: CHEST PA & LATERAL PA and lateral chest. HISTORY: Short of breath PA and lateral views were taken of the chest. The heart is enlarged. Mild fullness at the hilum of the lung on the right unchanged from old studies. There is a shoulder prosthesis on the right. There is a small nodule or focal atelectasis in the left midlung laterally which is new since the prior study follow-up would be recommended. There are no other confluent areas of infiltrate. There is dorsal kyphosis. There is no pleural effusion. IMPRESSION: 1. Small nodule versus focal atelectasis left lung. 2. No other new infiltrates. 3. Cardiomegaly. Electronically signed by: Héctor Fleming MD (06/16/2019 10:54 AM) [facility] Course & Med Decision Making Course & Med Decision Making Patient is a 79-year-old female with past medical history of CAD, COPD, and CHF who presents with shortness of breath ongoing for 2 days. The patient is not complaining of any chest pain or palpitations at this time. The patient was satting in the low 90's on room air upon arrival, which increased steadily after her first breathing treatment. The patient's blood pressure was significantly elevated, prompting her administration of labetalol 10 mg IV. In addition, patient appeared fluid overloaded based on lung and lower extremity exam, prompting application of Nitropaste over the patient's chest. Patient's blood pressure remained elevated after Labetolol administration, so 20mg of Hydralazine was given, which successfully dropped her blood pressure to a safe level. Chest x-ray only showed a small lung nodule in the left lower lobe. Patient was advised on following up outpatient. EKG was not concerning. Clindamycin was administered due to patient's right lower extremity showing signs concerning for cellulitis. Patient requiring admission for further evaluation and treatment. Discussed with Dr. Law who is in agreement with admission. Discussed findings and plan with patient and family, who acknowledge understanding and agreement. Dragon Disclaimer Dragon Disclaimer This electronic medical record was generated, in whole or in part, using a voice recognition dictation system. Departure Departure Impression: Primary Impression: Hypoxia Additional Impressions: CHF exacerbation Cellulitis Abnormal radiologic finding of lung field Disposition: ADMITTED INPATIENT Admitting Physician: JACQUELINE (Rodrigo Law) Condition: GUARDED Referrals: MORE NICHOLSON MD (PCP) Problem Qualifiers Additional Impressions: CHF exacerbation Heart failure type: unspecified Qualified Codes: I50.9 - Heart failure, unspecified Cellulitis Site of cellulitis: extremity Site of cellulitis of extremity: lower extremity Laterality: right Qualified Codes: L03.115 - Cellulitis of right lower limb PAMELA BANKS DO Jun 16, 2019 10:58
[2019-06-16] MEDS ORDERED: IPRATRPIUM/ALBUTEROL 0.5/2.5MG 3 ML NEBU. NEB ONE (11:00)
[2019-06-16] MEDS ORDERED: LABETALOL 20 MG/4 ML DISP.SYRIN. IVP ONE (11:00)
[2019-06-16] MEDS ORDERED: NITROGLYCERIN OINT 1 GM PACKET. TP ONE (11:00)
[2019-06-16] MEDS ORDERED: ASPIRIN 325 MG TABLET PO ONE (11:00)
[2019-06-16 11:30] LABS: PROTHROMBIN TIME PATIENT 12.6 SEC (11.7-14.0)
[2019-06-16] MEDS ORDERED: hydrALAZINE 20 MG/ML VIAL. IVP ONE (11:30)
[2019-06-16 11:43] LABS: CALCIUM 8.8 mg/dL (8.5-10.1); GFR 53.8; POTASSIUM 3.9 mmol/L (3.5-5.1)
[2019-06-16 11:50] LABS: ALBUMIN 3.1 g/dL (3.4-5.0); ALBUMIN/GLOBULIN RATIO 0.9 (1.0-1.7); TOTAL BILIRUBIN 0.5 mg/dL (0.2-1.0); TOTAL PROTEIN 6.7 g/dL (6.4-8.2)
[2019-06-16 11:57] LABS: CREATINE KINASE 20 U/L (26-192)
[2019-06-16 12:11] LABS: BILIRUBIN,URINE NEGATIVE (NEG); CLARITY,URINE CLEAR; COLOR,URINE YELLOW; NITRITE,URINE NEGATIVE (NEG); PROTEIN,URINE NEGATIVE (NEG-TRACE); UROBILINOGEN,URINE 0.2 mg/dL (0.2 mg/dL)
[2019-06-16 12:27] LABS: HYALINE CASTS, URINE FEW /HPF; SQUAMOUS EPITHELIAL CELL,UR FEW /LPF
[2019-06-16 12:28] LABS: BACTERIA,URINE 0 /HPF (0-FEW); WBC,URINE OCC /HPF (0-4)
--- NOTE | 2019-06-16 12:28 | RAD ---
EXAM: Right lower extremity venous Doppler. HISTORY: Right lower extremity redness, pain and swelling. COMPARISON: None. FINDINGS: Grayscale and Doppler analysis of the right lower extremity deep venous system was performed with graded compression and augmentation. The common femoral, greater saphenous, superficial femoral, popliteal and calf veins were assessed. There is no evidence of deep venous thrombosis. Subcutaneous edema is noted. IMPRESSION: 1. No evidence of deep venous thrombosis. Electronically signed by: Janes Silva MD (06/16/2019 12:26 PM) [facility]
[2019-06-16] MEDS ORDERED: ACETAMINOPHEN 500 MG TABLET PO ONE (12:30)
[2019-06-16] MEDS ORDERED: fentaNYL PF VIAL 100 MCG/2 ML VIAL IV ONE (12:30)
[2019-06-16] MEDS ORDERED: FUROSEMIDE 40 MG/4 ML VIAL. IVP ONE (12:30)
[2019-06-16] MEDS ORDERED: fentaNYL PF VIAL 100 MCG/2 ML VIAL ONE (12:32)
[2019-06-16] MEDS ORDERED: fentaNYL PF VIAL 100 MCG/2 ML VIAL IV PRN (12:45)
[2019-06-16] MEDS ORDERED: ONDANSETRON PF 4 MG/2 ML VIAL. IV PRN ×2 (12:45→21:00)
[2019-06-16] MEDS ORDERED: CLINDAMYCIN 600MG PREMIX 50 ML IV ONE (13:00)
--- NOTE | 2019-06-16 13:03 | PDOC1 ---
History and Physical Date of Admission Date of Admission DATE: 06/16/19 TIME: 13:03 Identification/Chief Complaint Chief Complaint seen in er ,79 year old female with past medical history of coronary artery disease, COPD, and CHF presents today with increased shortness of breath over the last 2 days. The patient denies any chest pain or palpitations, but she does admit to not taking her Lasix since she was prescribed them on her last hospital visit. In addition, she is concerned with persistent incontinence which has been ongoing for several months. She was scheduled for an MRI today for this issue. However, her daughter brought her into the emergency department due to the concern for shortness of breath. She denies any nausea, vomiting, fever, chills, diarrhea, palpitations, lightheadedness, or dizziness. Past Medical History Past Medical History Past Medical History Past Medical History Past Medical History: Anxiety, CAD, COPD, Depression, High Cholesterol, Hypertension, Hypothyroid, Other Additional Past Medical Histor: SLEEP APNEA,CHRONIC BACK PAIN,SCIATICA,CELLULITIS Past Surgical History: Cholecystectomy Additional Past Surgical Histo: APNEA,R SHOULDER SX Alcohol Use: None Drug Use: None fhx obesity Cardiovascular: HTN, Hyperlipidemia, Pulmonary hypertension, Other Pulmonary: COPD, Other CENTRAL NERVOUS SYSTEM: Other GI: Gastritis Heme/Onc: No pertinent hx Hepatobiliary: Cirrhosis Psych: Anxiety, Depression Musculoskeletal: low back pain Rheumatologic: No pertinent hx Infectious disease: No pertinent hx Renal/: No pertinent hx Endocrine: Hypothyroidism Past Surgical History Past Surgical History: Cholecystectomy, Other Family History Family History: Diabetes Social History Smoke: No ALCOHOL: none Drugs: None Current Problem List Problem List Problems Medical Problems: (1) Cellulitis Status: Acute (2) CHF exacerbation Status: Acute (3) Hypoxia Status: Acute Current Medications Current Medications Current Medications Albuterol/ Ipratropium (Duoneb) 3 ml 1X ONCE NEB Last administered on 06/16/19at 10:41; Start 06/16/19 at 11:00; Stop 06/16/19 at 11:01; Status DC Nitroglycerin (Nitro-Bid Oint) 1 inch 1X ONCE TP Last administered on 06/16/19at 10:50; Start 06/16/19 at 11:00; Stop 06/16/19 at 11:01; Status DC Labetalol HCl (Normodyne Iv Push) 10 mg 1X ONCE IVP Last administered on 06/16/19at 10:51; Start 06/16/19 at 11:00; Stop 06/16/19 at 11:01; Status DC Aspirin (Omid Aspirin) 325 mg 1X ONCE PO Last administered on 06/16/19at 10:51; Start 06/16/19 at 11:00; Stop 06/16/19 at 11:01; Status DC Hydralazine HCl (Apresoline Inj) 20 mg 1X ONCE IVP Last administered on 06/16/19at 11:44; Start 06/16/19 at 11:30; Stop 06/16/19 at 11:31; Status DC Acetaminophen (Tylenol) 500 mg 1X ONCE PO ; Start 06/16/19 at 12:30; Stop 06/16/19 at 12:31; Status DC Furosemide (Lasix) 40 mg 1X ONCE IVP Last administered on 06/16/19at 12:38; Start 06/16/19 at 12:30; Stop 06/16/19 at 12:31; Status DC Fentanyl Citrate (Fentanyl 2ml Vial) 50 mcg 1X ONCE IV Last administered on 06/16/19at 12:38; Start 06/16/19 at 12:30; Stop 06/16/19 at 12:31; Status DC Fentanyl Citrate (Fentanyl 2ml Vial) 100 mcg STK-MED ONCE .ROUTE ; Start 06/16/19 at 12:32; Stop 06/16/19 at 12:32; Status DC Ondansetron HCl (Zofran) 4 mg PRN Q8HRS PRN IV NAUSEA/VOMITING; Start 06/16/19 at 12:45; Stop 06/17/19 at 12:44 Fentanyl Citrate (Fentanyl 2ml Vial) 50 mcg PRN Q2HR PRN IV PAIN; Start 06/16/19 at 12:45 Clindamycin Phosphate 50 ml @ 100 mls/hr 1X ONCE IV ; Start 06/16/19 at 13:00; Stop 06/16/19 at 13:29 Active Scripts Active Guaifenesin Dm Syrup (Guaifenesin/Dextromethorphan) 5 Ml Syrup 10 Ml PO PRN Q6HRS PRN MDD 1 7 Days Duoneb 0.5-3(2.5) Mg/3 Ml (Albuterol/Ipratropium) 3 Ml Ampul.neb 3 Ml NEB RTQID MDD 1 NICODERM CQ 14mg (Nicotine) 1 Each Patch.td24 1 Patch TP DAILY Reported Levothyroxine Sodium 100 Mcg Tablet 1 Tab PO DAILY Hydrocodone-Acetamin 7.5-325 (Hydrocodone/Acetaminophen) 1 Each Tablet 1 Tab PO PRN Q6HRS PRN Lorazepam 0.5 Mg Tablet 0.5 Mg PO BID PRN Carvedilol (Carvedilol) 12.5 Mg Tablet 12.5 Mg PO BIDWMEALS Aspirin 81 Mg Tab.chew 2 Tab PO DAILY Symbicort 80-4.5 Mcg Inhaler (Budesonide/Formoterol Fumarate) 10.2 Gm Hfa.aer.ad 2 Puff IH BID Tylenol (Acetaminophen) 325 Mg Tablet 2 Tab PO PRN Q6HRS Furosemide 20 Mg Tablet 1 Tab PO DAILY Clopidogrel (Clopidogrel Bisulfate) 75 Mg Tablet 1 Tab PO DAILY Losartan Potassium 100 Mg Tablet 100 Mg PO DAILY Ranitidine Hcl 150 Mg Capsule 150 Mg PO PRN BID PRN Allergies Allergies: Coded Allergies: naproxen (Verified Allergy, Severe, Hives, 11/07/14) "CAUSES CARDIAC ARREST" morphine (Verified Adverse Reaction, Severe, vomiting, 11/18/18) Pt states she can't have causes severe vomiting. ROS Review of System Review of Systems Review of Systems Constitutional: Denies fever or chills Eyes: Denies redness or eye pain HENT: Denies nasal congestion or sore throat Respiratory: Reports dry cough and shortness of breath Cardiovascular: Denies chest pain or palpitations GI: Denies abdominal pain, nausea, or vomiting : Denies dysuria or hematuria. Reports urinary incontinence. Musculoskeletal: Reports back pain consistent with her spinal stenosis diagnosis. Integument: Reports increased redness of her lower legs, worse on the right. Neurologic: Denies headache, focal weakness or sensory changes 14 pt systems were reviewed and found to be within normal limits, except as documented Respiratory: YES: Cough Musculoskeletal: Yes Joint Stiffness Physical Exam Physical Exam Physical Exam Physical Exam Constitutional: 79yo obese female in respiratory distress HENT: Normocephalic, atraumatic, oropharynx moist Eyes: conjunctiva normal, no discharge Cardiovascular: Heart rate normal, regular rhythm Lungs & Thorax: Wheezing present in upper lobes b/l. Crackles auscultated in lower lobes b/l. Skin: Right lower leg erythematous, hot. Extremities: No tenderness, ROM intact, no edema Neurologic: Alert and oriented X 3, normal motor function, normal sensory function, no focal deficits noted Psychologic: Affect normal, judgement normal. General: Alert, Oriented X3, Cooperative Breasts: Not examined Abdomen: Normal bowel sounds, Soft Vitals Vitals Vital Signs Date Time Temp Pulse Resp B/P (MAP) Pulse Ox O2 Delivery O2 Flow Rate FiO2 06/16/19 11:58 68 20 177/74 (108) 98 Nasal Cannula 3.0 06/16/19 09:47 97.6 97.6 Labs Labs Laboratory Tests Test 06/16/19 10:00 06/16/19 10:20 06/16/19 11:14 06/16/19 11:42 Prothrombin Time 12.6 SEC (11.7-14.0) Prothromb Time International Ratio 1.0 (0.8-1.1) Activated Partial Thromboplast Time 25 SEC (24-38) White Blood Count 8.0 x10^3/uL (4.0-11.0) Red Blood Count 3.85 x10^6/uL (3.50-5.40) Hemoglobin 12.3 g/dL (12.0-15.5) Hematocrit 37.0 % (36.0-47.0) Mean Corpuscular Volume 96 fL (79-100) Mean Corpuscular Hemoglobin 32 pg (25-35) Mean Corpuscular Hemoglobin Concent 33 g/dL (31-37) Red Cell Distribution Width 14.2 % (11.5-14.5) Platelet Count 212 x10^3/uL (140-400) Neutrophils (%) (Auto) 73 % (31-73) Lymphocytes (%) (Auto) 12 % (24-48) Monocytes (%) (Auto) 7 % (0-9) Eosinophils (%) (Auto) 7 % (0-3) Basophils (%) (Auto) 0 % (0-3) Neutrophils # (Auto) 5.9 x10^3/uL (1.8-7.7) Lymphocytes # (Auto) 1.0 x10^3/uL (1.0-4.8) Monocytes # (Auto) 0.5 x10^3/uL (0.0-1.1) Eosinophils # (Auto) 0.6 x10^3/uL (0.0-0.7) Basophils # (Auto) 0.0 x10^3/uL (0.0-0.2) Sodium Level 140 mmol/L (136-145) Potassium Level 3.9 mmol/L (3.5-5.1) Chloride Level 103 mmol/L (98-107) Carbon Dioxide Level 30 mmol/L (21-32) Anion Gap 7 (6-14) Blood Urea Nitrogen 19 mg/dL (7-20) Creatinine 1.0 mg/dL (0.6-1.0) Estimated GFR (Cockcroft-Gault) 53.8 BUN/Creatinine Ratio 19 (6-20) Glucose Level 115 mg/dL (70-99) Lactic Acid Level 0.8 mmol/L (0.4-2.0) Calcium Level 8.8 mg/dL (8.5-10.1) Magnesium Level 2.0 mg/dL (1.8-2.4) Total Bilirubin 0.5 mg/dL (0.2-1.0) Aspartate Amino Transf (AST/SGOT) 14 U/L (15-37) Alanine Aminotransferase (ALT/SGPT) 28 U/L (14-59) Alkaline Phosphatase 127 U/L (46-116) Creatine Kinase 20 U/L (26-192) Creatine Kinase MB (Mass) 0.9 ng/mL (0.0-3.6) Creatine Kinase MB Relative Index % (0-4) Troponin I Quantitative < 0.017 ng/mL (0.000-0.055) UJ-Yra-V-Type Natriuretic Peptide 3423 pg/mL (0-449) Total Protein 6.7 g/dL (6.4-8.2) Albumin 3.1 g/dL (3.4-5.0) Albumin/Globulin Ratio 0.9 (1.0-1.7) Lipase 50 U/L (73-393) Urine Collection Type U cath Urine Color Yellow Urine Clarity Clear Urine pH 8.0 Urine Specific [place] 1.010 Urine Protein Negative mg/dL (NEG-TRACE) Urine Glucose (UA) Negative mg/dL (NEG) Urine Ketones (Stick) Negative mg/dL (NEG) Urine Blood Negative (NEG) Urine Nitrite Negative (NEG) Urine Bilirubin Negative (NEG) Urine Urobilinogen Dipstick 0.2 mg/dL (0.2 mg/dL) Urine Leukocyte Esterase Negative (NEG) Urine RBC 1-2 /HPF (0-2) Urine WBC Occ /HPF (0-4) Urine Squamous Epithelial Cells Few /LPF Urine Bacteria 0 /HPF (0-FEW) Urine Hyaline Casts Few /HPF Urine Mucus Slight /LPF Laboratory Tests Test 06/16/19 10:00 06/16/19 10:20 06/16/19 11:14 06/16/19 11:42 Prothrombin Time 12.6 SEC (11.7-14.0) Prothromb Time International Ratio 1.0 (0.8-1.1) Activated Partial Thromboplast Time 25 SEC (24-38) White Blood Count 8.0 x10^3/uL (4.0-11.0) Red Blood Count 3.85 x10^6/uL (3.50-5.40) Hemoglobin 12.3 g/dL (12.0-15.5) Hematocrit 37.0 % (36.0-47.0) Mean Corpuscular Volume 96 fL (79-100) Mean Corpuscular Hemoglobin 32 pg (25-35) Mean Corpuscular Hemoglobin Concent 33 g/dL (31-37) Red Cell Distribution Width 14.2 % (11.5-14.5) Platelet Count 212 x10^3/uL (140-400) Neutrophils (%) (Auto) 73 % (31-73) Lymphocytes (%) (Auto) 12 % (24-48) Monocytes (%) (Auto) 7 % (0-9) Eosinophils (%) (Auto) 7 % (0-3) Basophils (%) (Auto) 0 % (0-3) Neutrophils # (Auto) 5.9 x10^3/uL (1.8-7.7) Lymphocytes # (Auto) 1.0 x10^3/uL (1.0-4.8) Monocytes # (Auto) 0.5 x10^3/uL (0.0-1.1) Eosinophils # (Auto) 0.6 x10^3/uL (0.0-0.7) Basophils # (Auto) 0.0 x10^3/uL (0.0-0.2) Sodium Level 140 mmol/L (136-145) Potassium Level 3.9 mmol/L (3.5-5.1) Chloride Level 103 mmol/L (98-107) Carbon Dioxide Level 30 mmol/L (21-32) Anion Gap 7 (6-14) Blood Urea Nitrogen 19 mg/dL (7-20) Creatinine 1.0 mg/dL (0.6-1.0) Estimated GFR (Cockcroft-Gault) 53.8 BUN/Creatinine Ratio 19 (6-20) Glucose Level 115 mg/dL (70-99) Lactic Acid Level 0.8 mmol/L (0.4-2.0) Calcium Level 8.8 mg/dL (8.5-10.1) Magnesium Level 2.0 mg/dL (1.8-2.4) Total Bilirubin 0.5 mg/dL (0.2-1.0) Aspartate Amino Transf (AST/SGOT) 14 U/L (15-37) Alanine Aminotransferase (ALT/SGPT) 28 U/L (14-59) Alkaline Phosphatase 127 U/L (46-116) Creatine Kinase 20 U/L (26-192) Creatine Kinase MB (Mass) 0.9 ng/mL (0.0-3.6) Creatine Kinase MB Relative Index % (0-4) Troponin I Quantitative < 0.017 ng/mL (0.000-0.055) MO-Spb-I-Type Natriuretic Peptide 3423 pg/mL (0-449) Total Protein 6.7 g/dL (6.4-8.2) Albumin 3.1 g/dL (3.4-5.0) Albumin/Globulin Ratio 0.9 (1.0-1.7) Lipase 50 U/L (73-393) Urine Collection Type U cath Urine Color Yellow Urine Clarity Clear Urine pH 8.0 Urine Specific [place] 1.010 Urine Protein Negative mg/dL (NEG-TRACE) Urine Glucose (UA) Negative mg/dL (NEG) Urine Ketones (Stick) Negative mg/dL (NEG) Urine Blood Negative (NEG) Urine Nitrite Negative (NEG) Urine Bilirubin Negative (NEG) Urine Urobilinogen Dipstick 0.2 mg/dL (0.2 mg/dL) Urine Leukocyte Esterase Negative (NEG) Urine RBC 1-2 /HPF (0-2) Urine WBC Occ /HPF (0-4) Urine Squamous Epithelial Cells Few /LPF Urine Bacteria 0 /HPF (0-FEW) Urine Hyaline Casts Few /HPF Urine Mucus Slight /LPF Images Images PA and lateral chest. HISTORY: Short of breath PA and lateral views were taken of the chest. The heart is enlarged. Mild fullness at the hilum of the lung on the right unchanged from old studies. There is a shoulder prosthesis on the right. There is a small nodule or focal atelectasis in the left midlung laterally which is new since the prior study follow-up would be recommended. There are no other confluent areas of infiltrate. There is dorsal kyphosis. There is no pleural effusion. IMPRESSION: 1. Small nodule versus focal atelectasis left lung. 2. No other new infiltrates. 3. Cardiomegaly. Electronically signed by: Héctor Fleming MD (06/16/2019 10:54 AM) [id number] DICTATED and SIGNED BY: HÉCTOR FLEMING MD DATE: 06/16/19 1054 EFT VENTRICLE The Left Ventricle is mildly dilated. There is mild to moderate concentric left ventricular hypertrophy. The left ventricular systolic function is normal. The Ejection Fraction is 60-65%. There is normal LV segmental wall motion. RIGHT VENTRICLE The right ventricle is normal size. The right ventricle is borderline hypertrophied. The right ventricular systolic function is normal. ATRIA The left atrium is mildly dilated. The right atrium size is normal. AORTIC VALVE The aortic valve is thickened but opens well. Doppler and Color Flow revealed trace aortic regurgitation. There is no significant aortic valvular stenosis. MITRAL VALVE The mitral valve is normal in structure and function. There is no evidence of mitral valve prolapse. There is no mitral valve stenosis. Doppler and Color-flow revealed trace mitral regurgitation. TRICUSPID VALVE The tricuspid valve is normal in structure and function. Doppler and Color Flow revealed trace tricuspid regurgitation with an estimated PAP of 36 mmHg. There is no tricuspid valve stenosis. PULMONIC VALVE The pulmonic valve is not well visualized. Doppler and Color Flow revealed no pulmonic valvular regurgitation. GREAT VESSELS The aortic root is normal in size. The IVC was not well visualized. PERICARDIAL EFFUSION There is no evidence of significant pericardial effusion. Critical Notification Critical Value: No <Conclusion> The left ventricular systolic function is normal. The Ejection Fraction is 60-65%. There is normal LV segmental wall motion. Trace mitral regurgitation. Trace tricuspid regurgitation with an estimated PAP of 36 mmHg. There is no evidence of significant pericardial effusion. Signed by : Meng Gustafson, Electronically Approved : 11/17/2018 09:50:03 DICTATED and SIGNED BY: MENG GUSTAFSON MD DATE: 11/17/18 0950 VTE Prophylaxis Ordered VTE Prophylaxis Devices: Contraindicated VTE Pharmacological Prophylaxi: Yes Assessment/Plan Assessment/Plan Impression: Hypoxia acute hypoxic resp failure CHF exacerbation Cellulitis, right lower leg Abnormal radiologic finding of lung field Small nodule versus focal atelectasis left lung. morbid obesity HX COPD ADMITTED TELE cardiology consult ID CONSULT DVT PROPHYLAXIS O2 SUPPORT IV LASI X 1 IV ANCEF 1 GM Q 8 HRS PEGGY TORREZ MD Jun 16, 2019 13:03
--- NOTE | 2019-06-16 13:45 | EKG ---
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
[2019-06-16 14:11] VITALS: BP 166/74
[2019-06-16] MEDS ORDERED: LOSA-73 PO (15:16)
[2019-06-16] MEDS ORDERED: ESCITALOPRAM OX20 MG PO (15:16)
[2019-06-16] MEDS ORDERED: LEVO125T5 PO (15:16)
[2019-06-16] MEDS ORDERED: LORazepam 0.5 MG TABLET PO PRN (15:30)
[2019-06-16] MEDS ORDERED: ACETAMINOPHEN 325 MG TABLET. PO PRN (15:30)
[2019-06-16] MEDS: NICOTINE 14MG PATCH. TD SCH (16:00)
[2019-06-16] MEDS ORDERED: FAMOTIDINE 20 MG TABLET. PO PRN (16:00)
[2019-06-16] MEDS: FUROSEMIDE 20 MG TABLET PO SCH (16:00)
[2019-06-16] MEDS: CITALOPRAM 20 MG TABLET. PO SCH (16:21)
[2019-06-16] MEDS: IPRATRPIUM/ALBUTEROL 0.5/2.5MG 3 ML NEBU. NEB SCH ×3 (16:23→23:52)
[2019-06-16 18:34] VITALS: BP 168/70
[2019-06-16] MEDS: BUDESONIDE 0.5 MG/2 ML NEBU. NEB SCH (20:31)
[2019-06-16] MEDS ORDERED: 0.9 % SODIUM CHLORIDE 10 ML DISP.SYRIN. IV PRN (21:00)
[2019-06-16] MEDS ORDERED: guaiFENesin ORAL 200 MG/10 ML LIQUID. PO PRN (21:00)
[2019-06-16] MEDS: ACETAMINOPHEN 325 MG TABLET. PO PRN (21:49)
[2019-06-16] MEDS: LORazepam 0.5 MG TABLET PO PRN (21:50)
[2019-06-16] MEDS: ceFAZolin SODIUM IV Push 1 GM VIAL. IVP SCH (21:51)
[2019-06-16 23:11] VITALS: BP 160/69
[2019-06-17] MEDS: IPRATRPIUM/ALBUTEROL 0.5/2.5MG 3 ML NEBU. NEB SCH ×5 (01:14→22:00)
[2019-06-17 03:35] VITALS: BP 182/77
[2019-06-17] MEDS: cloNIDine HCL 0.1 MG TABLET PO PRN (04:32)
[2019-06-17] MEDS: LORazepam 0.5 MG TABLET PO PRN ×2 (04:32→21:57)
[2019-06-17] MEDS: ceFAZolin SODIUM IV Push 1 GM VIAL. IVP SCH (04:44)
[2019-06-17] MEDS: LEVOTHYROXINE 125 MCG TABLET PO SCH (05:36)
[2019-06-17] MEDS: NICOTINE 14MG PATCH. TD SCH (05:39)
[2019-06-17 05:59] LABS: CHOLESTEROL/HDL RATIO 3.4
[2019-06-17 06:46] VITALS: BP 149/64
[2019-06-17] MEDS: BUDESONIDE 0.5 MG/2 ML NEBU. NEB SCH ×2 (07:47→19:45)
[2019-06-17] MEDS: FUROSEMIDE 20 MG TABLET PO SCH (08:46)
[2019-06-17] MEDS: ASPIRIN CHEWABLE 81 MG TABLET. PO SCH (08:46)
[2019-06-17] MEDS: CITALOPRAM 20 MG TABLET. PO SCH (08:47)
[2019-06-17] MEDS: ENOXAPARIN 40 MG/0.4 ML SYRINGE. SQ SCH (08:49)
[2019-06-17] MEDS: LOSARTAN POTASSIUM 50 MG TABLET. PO SCH (08:50)
--- NOTE | 2019-06-17 09:55 | PDOC ---
PROGRESS NOTES History of Present Illness History of Present Illness VTE Prophylaxis Ordered VTE Prophylaxis Devices: Contraindicated VTE Pharmacological Prophylaxi: Yes Assessment/Plan Assessment/Plan Impression: Hypoxia acute hypoxic resp failure CHF exacerbation Cellulitis, right lower leg Abnormal radiologic finding of lung field Small nodule versus focal atelectasis left lung. morbid obesity HX COPD ADMITTED TELE cardiology consult ID CONSULT DVT PROPHYLAXIS O2 SUPPORT IV LASI X 1 IV ANCEF 1 GM Q 8 HRS d/c and observe pulm consult Vitals Vitals Vital Signs Date Time Temp Pulse Resp B/P (MAP) Pulse Ox O2 Delivery O2 Flow Rate FiO2 06/17/19 08:50 72 149/64 06/17/19 07:54 96 Nasal Cannula 2.5 06/17/19 06:46 97.4 16 97.4 Physical Exam General: Alert, Oriented X3, Cooperative Lungs: Clear, Crackles Abdomen: Normal bowel sounds, Soft Labs LABS SPEC #: [id number] ESTER: 06/16/19 STATUS: RES REQ #: [id number] RECD: 06/16/19-[address]: PAMELA BANKS DO SOURCE: BLOOD ENTR: 06/16/19-[address]: [facility]SON [facility]: BC[facility] Procedure Result BLOOD CULTURE Preliminary NO GROWTH AFTER 1 DAY TDI E/Lateral E' 19.8 E/Medial E' 15.7 Pulmonary Valve PV Peak Velocity 119.8cm/s PV Peak Grad. 6mmHg Tricuspid Valve TR P. Velocity 286cm/s RAP ESTIMATE 3mmHg TR Peak Gr. 33mmHg RVSP 36mmHg Pulmonary Vein S1 Velocity 48.6cm/s D2 Velocity 42.0cm/s PVa duration 152msec LEFT VENTRICLE The Left Ventricle is mildly dilated. There is mild to moderate concentric left ventricular hypertrophy. The left ventricular systolic function is normal. The Ejection Fraction is 60-65%. There is normal LV segmental wall motion. RIGHT VENTRICLE The right ventricle is normal size. The right ventricle is borderline hypertrophied. The right ventricular systolic function is normal. ATRIA The left atrium is mildly dilated. The right atrium size is normal. AORTIC VALVE The aortic valve is thickened but opens well. Doppler and Color Flow revealed trace aortic regurgitation. There is no significant aortic valvular stenosis. MITRAL VALVE The mitral valve is normal in structure and function. There is no evidence of mitral valve prolapse. There is no mitral valve stenosis. Doppler and Color-flow revealed trace mitral regurgitation. TRICUSPID VALVE The tricuspid valve is normal in structure and function. Doppler and Color Flow revealed trace tricuspid regurgitation with an estimated PAP of 36 mmHg. There is no tricuspid valve stenosis. PULMONIC VALVE The pulmonic valve is not well visualized. Doppler and Color Flow revealed no pulmonic valvular regurgitation. GREAT VESSELS The aortic root is normal in size. The IVC was not well visualized. PERICARDIAL EFFUSION There is no evidence of significant pericardial effusion. Critical Notification Critical Value: No <Conclusion> The left ventricular systolic function is normal. The Ejection Fraction is 60-65%. There is normal LV segmental wall motion. Trace mitral regurgitation. Trace tricuspid regurgitation with an estimated PAP of 36 mmHg. There is no evidence of significant pericardial effusion. Signed by : Yousuf Izaguirre, Electronically Approved : 11/17/2018 09:50:03 Laboratory Tests Test 06/16/19 10:00 06/16/19 10:20 06/16/19 11:14 06/16/19 11:42 Prothrombin Time 12.6 SEC (11.7-14.0) Prothromb Time International Ratio 1.0 (0.8-1.1) Activated Partial Thromboplast Time 25 SEC (24-38) White Blood Count 8.0 x10^3/uL (4.0-11.0) Red Blood Count 3.85 x10^6/uL (3.50-5.40) Hemoglobin 12.3 g/dL (12.0-15.5) Hematocrit 37.0 % (36.0-47.0) Mean Corpuscular Volume 96 fL (79-100) Mean Corpuscular Hemoglobin 32 pg (25-35) Mean Corpuscular Hemoglobin Concent 33 g/dL (31-37) Red Cell Distribution Width 14.2 % (11.5-14.5) Platelet Count 212 x10^3/uL (140-400) Neutrophils (%) (Auto) 73 % (31-73) Lymphocytes (%) (Auto) 12 % (24-48) Monocytes (%) (Auto) 7 % (0-9) Eosinophils (%) (Auto) 7 % (0-3) Basophils (%) (Auto) 0 % (0-3) Neutrophils # (Auto) 5.9 x10^3/uL (1.8-7.7) Lymphocytes # (Auto) 1.0 x10^3/uL (1.0-4.8) Monocytes # (Auto) 0.5 x10^3/uL (0.0-1.1) Eosinophils # (Auto) 0.6 x10^3/uL (0.0-0.7) Basophils # (Auto) 0.0 x10^3/uL (0.0-0.2) Sodium Level 140 mmol/L (136-145) Potassium Level 3.9 mmol/L (3.5-5.1) Chloride Level 103 mmol/L (98-107) Carbon Dioxide Level 30 mmol/L (21-32) Anion Gap 7 (6-14) Blood Urea Nitrogen 19 mg/dL (7-20) Creatinine 1.0 mg/dL (0.6-1.0) Estimated GFR (Cockcroft-Gault) 53.8 BUN/Creatinine Ratio 19 (6-20) Glucose Level 115 mg/dL (70-99) Lactic Acid Level 0.8 mmol/L (0.4-2.0) Calcium Level 8.8 mg/dL (8.5-10.1) Magnesium Level 2.0 mg/dL (1.8-2.4) Total Bilirubin 0.5 mg/dL (0.2-1.0) Aspartate Amino Transf (AST/SGOT) 14 U/L (15-37) Alanine Aminotransferase (ALT/SGPT) 28 U/L (14-59) Alkaline Phosphatase 127 U/L (46-116) Creatine Kinase 20 U/L (26-192) Creatine Kinase MB (Mass) 0.9 ng/mL (0.0-3.6) Creatine Kinase MB Relative Index % (0-4) Troponin I Quantitative < 0.017 ng/mL (0.000-0.055) JS-Ytx-[id number]-Type Natriuretic Peptide 3423 pg/mL (0-449) Total Protein 6.7 g/dL (6.4-8.2) Albumin 3.1 g/dL (3.4-5.0) Albumin/Globulin Ratio 0.9 (1.0-1.7) Lipase 50 U/L (73-393) Urine Collection Type U cath Urine Color Yellow Urine Clarity Clear Urine pH 8.0 Urine Specific [place] 1.010 Urine Protein Negative mg/dL (NEG-TRACE) Urine Glucose (UA) Negative mg/dL (NEG) Urine Ketones (Stick) Negative mg/dL (NEG) Urine Blood Negative (NEG) Urine Nitrite Negative (NEG) Urine Bilirubin Negative (NEG) Urine Urobilinogen Dipstick 0.2 mg/dL (0.2 mg/dL) Urine Leukocyte Esterase Negative (NEG) Urine RBC 1-2 /HPF (0-2) Urine WBC Occ /HPF (0-4) Urine Squamous Epithelial Cells Few /LPF Urine Bacteria 0 /HPF (0-FEW) Urine Hyaline Casts Few /HPF Urine Mucus Slight /LPF Test 06/16/19 16:15 06/16/19 20:44 06/17/19 04:39 Troponin I Quantitative < 0.017 ng/mL (0.000-0.055) < 0.017 ng/mL (0.000-0.055) Triglycerides Level 50 mg/dL (0-150) Cholesterol Level 175 mg/dL (0-200) LDL Cholesterol, Calculated 113 mg/dL (0-100) VLDL Cholesterol, Calculated 10 mg/dL (0-40) Non-HDL Cholesterol Calculated 123 mg/dL (0-129) HDL Cholesterol 52 mg/dL (40-60) Cholesterol/HDL Ratio 3.4 Assessment and Plan Assessmemt and Plan Problems Medical Problems: (1) Abnormal radiologic finding of lung field Status: Acute (2) Cellulitis Status: Acute (3) CHF exacerbation Status: Acute (4) Hypoxia Status: Acute Comment Review of Relevant I have reviewed the following items vitaly (where applicable) has been applied. Labs Laboratory Tests Test 06/16/19 10:00 06/16/19 10:20 06/16/19 11:14 06/16/19 11:42 Prothrombin Time 12.6 SEC (11.7-14.0) Prothromb Time International Ratio 1.0 (0.8-1.1) Activated Partial Thromboplast Time 25 SEC (24-38) White Blood Count 8.0 x10^3/uL (4.0-11.0) Red Blood Count 3.85 x10^6/uL (3.50-5.40) Hemoglobin 12.3 g/dL (12.0-15.5) Hematocrit 37.0 % (36.0-47.0) Mean Corpuscular Volume 96 fL (79-100) Mean Corpuscular Hemoglobin 32 pg (25-35) Mean Corpuscular Hemoglobin Concent 33 g/dL (31-37) Red Cell Distribution Width 14.2 % (11.5-14.5) Platelet Count 212 x10^3/uL (140-400) Neutrophils (%) (Auto) 73 % (31-73) Lymphocytes (%) (Auto) 12 % (24-48) Monocytes (%) (Auto) 7 % (0-9) Eosinophils (%) (Auto) 7 % (0-3) Basophils (%) (Auto) 0 % (0-3) Neutrophils # (Auto) 5.9 x10^3/uL (1.8-7.7) Lymphocytes # (Auto) 1.0 x10^3/uL (1.0-4.8) Monocytes # (Auto) 0.5 x10^3/uL (0.0-1.1) Eosinophils # (Auto) 0.6 x10^3/uL (0.0-0.7) Basophils # (Auto) 0.0 x10^3/uL (0.0-0.2) Sodium Level 140 mmol/L (136-145) Potassium Level 3.9 mmol/L (3.5-5.1) Chloride Level 103 mmol/L (98-107) Carbon Dioxide Level 30 mmol/L (21-32) Anion Gap 7 (6-14) Blood Urea Nitrogen 19 mg/dL (7-20) Creatinine 1.0 mg/dL (0.6-1.0) Estimated GFR (Cockcroft-Gault) 53.8 BUN/Creatinine Ratio 19 (6-20) Glucose Level 115 mg/dL (70-99) Lactic Acid Level 0.8 mmol/L (0.4-2.0) Calcium Level 8.8 mg/dL (8.5-10.1) Magnesium Level 2.0 mg/dL (1.8-2.4) Total Bilirubin 0.5 mg/dL (0.2-1.0) Aspartate Amino Transf (AST/SGOT) 14 U/L (15-37) Alanine Aminotransferase (ALT/SGPT) 28 U/L (14-59) Alkaline Phosphatase 127 U/L (46-116) Creatine Kinase 20 U/L (26-192) Creatine Kinase MB (Mass) 0.9 ng/mL (0.0-3.6) Creatine Kinase MB Relative Index % (0-4) Troponin I Quantitative < 0.017 ng/mL (0.000-0.055) QT-Fsd-W-Type Natriuretic Peptide 3423 pg/mL (0-449) Total Protein 6.7 g/dL (6.4-8.2) Albumin 3.1 g/dL (3.4-5.0) Albumin/Globulin Ratio 0.9 (1.0-1.7) Lipase 50 U/L (73-393) Urine Collection Type U cath Urine Color Yellow Urine Clarity Clear Urine pH 8.0 Urine Specific [place] 1.010 Urine Protein Negative mg/dL (NEG-TRACE) Urine Glucose (UA) Negative mg/dL (NEG) Urine Ketones (Stick) Negative mg/dL (NEG) Urine Blood Negative (NEG) Urine Nitrite Negative (NEG) Urine Bilirubin Negative (NEG) Urine Urobilinogen Dipstick 0.2 mg/dL (0.2 mg/dL) Urine Leukocyte Esterase Negative (NEG) Urine RBC 1-2 /HPF (0-2) Urine WBC Occ /HPF (0-4) Urine Squamous Epithelial Cells Few /LPF Urine Bacteria 0 /HPF (0-FEW) Urine Hyaline Casts Few /HPF Urine Mucus Slight /LPF Test 06/16/19 16:15 06/16/19 20:44 06/17/19 04:39 Troponin I Quantitative < 0.017 ng/mL (0.000-0.055) < 0.017 ng/mL (0.000-0.055) Triglycerides Level 50 mg/dL (0-150) Cholesterol Level 175 mg/dL (0-200) LDL Cholesterol, Calculated 113 mg/dL (0-100) VLDL Cholesterol, Calculated 10 mg/dL (0-40) Non-HDL Cholesterol Calculated 123 mg/dL (0-129) HDL Cholesterol 52 mg/dL (40-60) Cholesterol/HDL Ratio 3.4 Laboratory Tests Test 06/16/19 10:00 06/16/19 10:20 06/16/19 11:14 06/16/19 11:42 Prothrombin Time 12.6 SEC (11.7-14.0) Prothromb Time International Ratio 1.0 (0.8-1.1) Activated Partial Thromboplast Time 25 SEC (24-38) White Blood Count 8.0 x10^3/uL (4.0-11.0) Red Blood Count 3.85 x10^6/uL (3.50-5.40) Hemoglobin 12.3 g/dL (12.0-15.5) Hematocrit 37.0 % (36.0-47.0) Mean Corpuscular Volume 96 fL (79-100) Mean Corpuscular Hemoglobin 32 pg (25-35) Mean Corpuscular Hemoglobin Concent 33 g/dL (31-37) Red Cell Distribution Width 14.2 % (11.5-14.5) Platelet Count 212 x10^3/uL (140-400) Neutrophils (%) (Auto) 73 % (31-73) Lymphocytes (%) (Auto) 12 % (24-48) Monocytes (%) (Auto) 7 % (0-9) Eosinophils (%) (Auto) 7 % (0-3) Basophils (%) (Auto) 0 % (0-3) Neutrophils # (Auto) 5.9 x10^3/uL (1.8-7.7) Lymphocytes # (Auto) 1.0 x10^3/uL (1.0-4.8) Monocytes # (Auto) 0.5 x10^3/uL (0.0-1.1) Eosinophils # (Auto) 0.6 x10^3/uL (0.0-0.7) Basophils # (Auto) 0.0 x10^3/uL (0.0-0.2) Sodium Level 140 mmol/L (136-145) Potassium Level 3.9 mmol/L (3.5-5.1) Chloride Level 103 mmol/L (98-107) Carbon Dioxide Level 30 mmol/L (21-32) Anion Gap 7 (6-14) Blood Urea Nitrogen 19 mg/dL (7-20) Creatinine 1.0 mg/dL (0.6-1.0) Estimated GFR (Cockcroft-Gault) 53.8 BUN/Creatinine Ratio 19 (6-20) Glucose Level 115 mg/dL (70-99) Lactic Acid Level 0.8 mmol/L (0.4-2.0) Calcium Level 8.8 mg/dL (8.5-10.1) Magnesium Level 2.0 mg/dL (1.8-2.4) Total Bilirubin 0.5 mg/dL (0.2-1.0) Aspartate Amino Transf (AST/SGOT) 14 U/L (15-37) Alanine Aminotransferase (ALT/SGPT) 28 U/L (14-59) Alkaline Phosphatase 127 U/L (46-116) Creatine Kinase 20 U/L (26-192) Creatine Kinase MB (Mass) 0.9 ng/mL (0.0-3.6) Creatine Kinase MB Relative Index % (0-4) Troponin I Quantitative < 0.017 ng/mL (0.000-0.055) CB-Tzi-D-Type Natriuretic Peptide 3423 pg/mL (0-449) Total Protein 6.7 g/dL (6.4-8.2) Albumin 3.1 g/dL (3.4-5.0) Albumin/Globulin Ratio 0.9 (1.0-1.7) Lipase 50 U/L (73-393) Urine Collection Type U cath Urine Color Yellow Urine Clarity Clear Urine pH 8.0 Urine Specific [place] 1.010 Urine Protein Negative mg/dL (NEG-TRACE) Urine Glucose (UA) Negative mg/dL (NEG) Urine Ketones (Stick) Negative mg/dL (NEG) Urine Blood Negative (NEG) Urine Nitrite Negative (NEG) Urine Bilirubin Negative (NEG) Urine Urobilinogen Dipstick 0.2 mg/dL (0.2 mg/dL) Urine Leukocyte Esterase Negative (NEG) Urine RBC 1-2 /HPF (0-2) Urine WBC Occ /HPF (0-4) Urine Squamous Epithelial Cells Few /LPF Urine Bacteria 0 /HPF (0-FEW) Urine Hyaline Casts Few /HPF Urine Mucus Slight /LPF Test 06/16/19 16:15 06/16/19 20:44 06/17/19 04:39 Troponin I Quantitative < 0.017 ng/mL (0.000-0.055) < 0.017 ng/mL (0.000-0.055) Triglycerides Level 50 mg/dL (0-150) Cholesterol Level 175 mg/dL (0-200) LDL Cholesterol, Calculated 113 mg/dL (0-100) VLDL Cholesterol, Calculated 10 mg/dL (0-40) Non-HDL Cholesterol Calculated 123 mg/dL (0-129) HDL Cholesterol 52 mg/dL (40-60) Cholesterol/HDL Ratio 3.4 Medications Current Medications Albuterol/ Ipratropium (Duoneb) 3 ml 1X ONCE NEB Last administered on 06/16/19at 10:41; Start 06/16/19 at 11:00; Stop 06/16/19 at 11:01; Status DC Nitroglycerin (Nitro-Bid Oint) 1 inch 1X ONCE TP Last administered on 06/16/19at 10:50; Start 06/16/19 at 11:00; Stop 06/16/19 at 11:01; Status DC Labetalol HCl (Normodyne Iv Push) 10 mg 1X ONCE IVP Last administered on 06/16/19at 10:51; Start 06/16/19 at 11:00; Stop 06/16/19 at 11:01; Status DC Aspirin (Omid Aspirin) 325 mg 1X ONCE PO Last administered on 06/16/19at 10:51; Start 06/16/19 at 11:00; Stop 06/16/19 at 11:01; Status DC Hydralazine HCl (Apresoline Inj) 20 mg 1X ONCE IVP Last administered on 06/16/19at 11:44; Start 06/16/19 at 11:30; Stop 06/16/19 at 11:31; Status DC Acetaminophen (Tylenol) 500 mg 1X ONCE PO Last administered on 06/16/19at 13:53; Start 06/16/19 at 12:30; Stop 06/16/19 at 12:31; Status DC Furosemide (Lasix) 40 mg 1X ONCE IVP Last administered on 06/16/19at 12:38; Start 06/16/19 at 12:30; Stop 06/16/19 at 12:31; Status DC Fentanyl Citrate (Fentanyl 2ml Vial) 50 mcg 1X ONCE IV Last administered on 06/16/19at 12:38; Start 06/16/19 at 12:30; Stop 06/16/19 at 12:31; Status DC Fentanyl Citrate (Fentanyl 2ml Vial) 100 mcg STK-MED ONCE .ROUTE ; Start 06/16/19 at 12:32; Stop 06/16/19 at 12:32; Status DC Ondansetron HCl (Zofran) 4 mg PRN Q8HRS PRN IV NAUSEA/VOMITING; Start 06/16/19 at 12:45; Stop 06/16/19 at 21:10; Status DC Fentanyl Citrate (Fentanyl 2ml Vial) 50 mcg PRN Q2HR PRN IV PAIN; Start 06/16/19 at 12:45 Clindamycin Phosphate 50 ml @ 100 mls/hr 1X ONCE IV Last administered on 06/16/19at 13:12; Start 06/16/19 at 13:00; Stop 06/16/19 at 13:29; Status DC Acetaminophen (Tylenol) 650 mg PRN Q6HRS PRN PO MILD PAIN / TEMP; Start 06/16/19 at 15:30; Stop 06/16/19 at 21:10; Status DC Aspirin (Children'S Aspirin) 162 mg DAILY PO Last administered on 06/17/19at 08:46; Start 06/17/19 at 09:00 Furosemide (Lasix) 20 mg DAILY PO Last administered on 06/17/19at 08:46; Start 06/16/19 at 16:00 Acetaminophen/ Hydrocodone Bitart (Lortab 7.5/325) 1 tab PRN Q6HRS PRN PO PAIN; Start 06/16/19 at 15:30 Albuterol/ Ipratropium (Duoneb) 3 ml RTQID NEB Last administered on 06/16/19at 20:28; Start 06/16/19 at 16:00; Stop 06/16/19 at 21:10; Status DC Levothyroxine Sodium (Synthroid) 125 mcg DAILY06 PO Last administered on 06/17/19at 05:36; Start 06/17/19 at 06:00 Lorazepam (Ativan) 0.5 mg BID PRN PO ANXIETY / AGITATION Last administered on 06/16/19at 16:26; Start 06/16/19 at 15:30; Stop 06/16/19 at 21:10; Status DC Losartan Potassium (Cozaar) 100 mg DAILY PO Last administered on 06/17/19at 08:50; Start 06/17/19 at 09:00 Nicotine (Nicoderm Cq 14mg) 1 patch DAILY TD Last administered on 06/17/19at 05:39; Start 06/16/19 at 16:00 Budesonide (Pulmicort) 0.5 mg RTBID NEB Last administered on 06/17/19at 07:47; Start 06/16/19 at 20:00 Citalopram Hydrobromide (CeleXA) 40 mg DAILY PO Last administered on 06/17/19at 08:47; Start 06/16/19 at 16:00 Famotidine (Pepcid) 20 mg PRN BID PRN PO HEARTBURN / GAS; Start 06/16/19 at 16:00 Cefazolin Sodium 50 ml @ 100 mls/hr Q8HRS IV ; Start 06/16/19 at 22:00; Status UNV Cefazolin Sodium (Ancef) 1 gm Q8HRS IVP Last administered on 06/17/19at 04:44; Start 06/16/19 at 22:00 Sodium Chloride (Normal Saline Flush) 3 ml QSHIFT PRN IV AFTER MEDS AND BLOOD DRAWS; Start 06/16/19 at 21:00 Ondansetron HCl (Zofran) 4 mg PRN Q4HRS PRN IV NAUSEA/VOMITING 1ST CHOICE; Start 1/4/20 at 21:00 Acetaminophen (Tylenol) 650 mg PRN Q4HRS PRN PO TEMP OVER 100.4F OR MILD PAIN Last administered on 06/16/19at 21:49; Start 06/16/19 at 21:00 Clonidine HCl (Catapres) 0.1 mg PRN Q6HRS PRN PO SBP>160 OR DBP>90 Last administered on 06/17/19at 04:32; Start 06/16/19 at 21:00 Docusate Sodium (Colace) 100 mg PRN BID PRN PO CONSTIPATION 1ST CHOICE; Start 06/16/19 at 21:00 Albuterol/ Ipratropium (Duoneb) 3 ml Q4HRS W/A NEB Last administered on 06/17/19at 07:49; Start 06/16/19 at 22:00 Guaifenesin (Robitussin) 200 mg PRN Q4HRS PRN PO COUGH Last administered on 06/16/19at 21:51; Start 06/16/19 at 21:00 Lorazepam (Ativan) 0.5 mg PRN Q4HRS PRN PO ANXIETY / AGITATION Last administered on 06/17/19at 04:32; Start 06/16/19 at 21:00 Enoxaparin Sodium (Lovenox 40mg Syringe) 40 mg DAILY SQ Last administered on 06/17/19at 08:49; Start 06/17/19 at 09:00 Active Scripts Active Duoneb 0.5-3(2.5) Mg/3 Ml (Albuterol/Ipratropium) 3 Ml Ampul.neb 3 Ml NEB RTQID MDD 1 NICODERM CQ 14mg (Nicotine) 1 Each Patch.td24 1 Patch TP DAILY Reported Escitalopram Oxalate 20 Mg Tablet 20 Mg PO DAILY Levothyroxine Sodium 125 Mcg Tablet 125 Mcg PO DAILYAC Losartan Potassium 50 Mg Tablet 100 Mg PO DAILY Hydrocodone-Acetamin 7.5-325 (Hydrocodone/Acetaminophen) 1 Each Tablet 1 Tab PO PRN Q6HRS PRN Lorazepam 0.5 Mg Tablet 0.5 Mg PO BID PRN Aspirin 81 Mg Tab.chew 2 Tab PO DAILY Symbicort 80-4.5 Mcg Inhaler (Budesonide/Formoterol Fumarate) 10.2 Gm Hfa.aer.ad 2 Puff IH BID Tylenol (Acetaminophen) 325 Mg Tablet 2 Tab PO PRN Q6HRS Furosemide 20 Mg Tablet 1 Tab PO DAILY Ranitidine Hcl 150 Mg Capsule 150 Mg PO PRN BID PRN Vitals/I & O Vital Sign - Last 24 Hours 06/16/19 06/16/19 06/16/19 06/16/19 10:05 10:44 10:48 10:50 Pulse 74 73 73 Resp 20 20 B/P (MAP) 234/112 (152) 209/85 (126) 209/95 Pulse Ox 96 99 O2 Delivery Nasal Cannula Nasal Cannula Nasal Cannula O2 Flow Rate 3.0 3.0 3.0 06/16/19 06/16/19 06/16/19 06/16/19 10:51 11:01 11:17 11:42 Pulse 73 65 63 67 Resp 20 20 20 B/P (MAP) 209/95 191/78 (115) 216/93 (134) 209/81 (123) Pulse Ox 96 96 96 O2 Delivery Nasal Cannula Nasal Cannula Nasal Cannula O2 Flow Rate 3.0 3.0 3.0 06/16/19 06/16/19 06/16/19 06/16/19 11:44 11:53 11:58 12:38 Pulse 67 64 68 75 Resp 20 20 20 B/P (MAP) 209/91 183/77 (112) 177/74 (108) 188/78 (114) Pulse Ox 96 98 95 O2 Delivery Nasal Cannula Nasal Cannula Nasal Cannula O2 Flow Rate 3.0 3.0 3.0 06/16/19 06/16/19 06/16/19 06/16/19 13:25 13:50 14:11 15:30 Temp 97.4 97.4 Pulse 70 75 70 Resp 20 20 18 B/P (MAP) 188/78 (114) 166/73 (104) 166/74 (104) Pulse Ox 96 96 95 O2 Delivery Nasal Cannula Nasal Cannula Nasal Cannula Nasal Cannula O2 Flow Rate 3.0 3.0 2.5 2.5 06/16/19 06/16/19 06/16/19 06/16/19 16:24 18:34 20:15 20:30 Temp 97.7 97.7 Pulse 76 Resp 18 B/P (MAP) 168/70 (102) Pulse Ox 95 O2 Delivery Nasal Cannula Nasal Cannula Nasal Cannula Nasal Cannula O2 Flow Rate 2.0 2.5 2.5 2.0 06/16/19 06/17/19 06/17/19 06/17/19 23:11 01:15 03:35 04:32 Temp 98.2 97.5 98.2 97.5 Pulse 85 67 67 Resp 18 18 B/P (MAP) 160/69 (99) 182/77 (112) 182/77 Pulse Ox 92 95 98 O2 Delivery Nasal Cannula Nasal Cannula Nasal Cannula O2 Flow Rate 2.5 2.5 2.5 06/17/19 06/17/19 06/17/19 06/17/19 06:46 07:53 07:54 08:50 Temp 97.4 97.4 Pulse 64 72 Resp 16 B/P (MAP) 149/64 (92) 149/64 Pulse Ox 98 96 96 O2 Delivery Nasal Cannula Nasal Cannula Nasal Cannula O2 Flow Rate 2.5 2.5 2.5 Intake and Output 06/16/19 06/16/19 06/17/19 15:00 23:00 07:00 Intake Total 50 ml 660 ml Output Total 950 ml 725 ml Balance 50 ml -950 ml -65 ml PEGGY TORREZ MD Jun 17, 2019 09:55
[2019-06-17 10:36] VITALS: BP 131/61
--- NOTE | 2019-06-17 11:57 | PDOC2 ---
CONSULT Date of Consult Date of Consult DATE: 06/17/19 TIME: 11:57 Reason for Consult Reason for Consult: Congestive heart failure Referring Physician Referring Physician: Dr. Law Identification/Chief Complaint Chief Complaint Shortness of breath Source Source: Chart review, Patient History of Present Illness Reason for Visit: 79-year-old female presented with progressive shortness of breath associated with chest pain. She denied any orthopnea/PND, palpitations or syncope. According to her family, patient apparently was not taking her Lasix due to her incontinence. Past Medical History Cardiovascular: HTN, Hyperlipidemia, Pulmonary hypertension, Other Pulmonary: COPD, Other CENTRAL NERVOUS SYSTEM: Other GI: Gastritis Heme/Onc: No pertinent hx Hepatobiliary: Cirrhosis Psych: Anxiety, Depression Musculoskeletal: low back pain Rheumatologic: No pertinent hx Infectious disease: No pertinent hx Renal/: No pertinent hx Endocrine: Hypothyroidism Past Surgical History Past Surgical History: Cholecystectomy, Other Family History Family History: Diabetes Social History No ALCOHOL: none Drugs: None Lives: with Family Current Problem List Problem List Problems Medical Problems: (1) Abnormal radiologic finding of lung field Status: Acute (2) Cellulitis Status: Acute (3) CHF exacerbation Status: Acute (4) Hypoxia Status: Acute Current Medications Current Medications Current Medications Albuterol/ Ipratropium (Duoneb) 3 ml 1X ONCE NEB Last administered on 06/16/19at 10:41; Start 06/16/19 at 11:00; Stop 06/16/19 at 11:01; Status DC Nitroglycerin (Nitro-Bid Oint) 1 inch 1X ONCE TP Last administered on 06/16/19at 10:50; Start 06/16/19 at 11:00; Stop 06/16/19 at 11:01; Status DC Labetalol HCl (Normodyne Iv Push) 10 mg 1X ONCE IVP Last administered on 06/16/19at 10:51; Start 06/16/19 at 11:00; Stop 06/16/19 at 11:01; Status DC Aspirin (Omid Aspirin) 325 mg 1X ONCE PO Last administered on 06/16/19at 10:51; Start 06/16/19 at 11:00; Stop 06/16/19 at 11:01; Status DC Hydralazine HCl (Apresoline Inj) 20 mg 1X ONCE IVP Last administered on 06/16/19at 11:44; Start 06/16/19 at 11:30; Stop 06/16/19 at 11:31; Status DC Acetaminophen (Tylenol) 500 mg 1X ONCE PO Last administered on 06/16/19at 13:53; Start 06/16/19 at 12:30; Stop 06/16/19 at 12:31; Status DC Furosemide (Lasix) 40 mg 1X ONCE IVP Last administered on 06/16/19at 12:38; Start 06/16/19 at 12:30; Stop 06/16/19 at 12:31; Status DC Fentanyl Citrate (Fentanyl 2ml Vial) 50 mcg 1X ONCE IV Last administered on 06/16/19at 12:38; Start 06/16/19 at 12:30; Stop 06/16/19 at 12:31; Status DC Fentanyl Citrate (Fentanyl 2ml Vial) 100 mcg STK-MED ONCE .ROUTE ; Start 06/16/19 at 12:32; Stop 06/16/19 at 12:32; Status DC Ondansetron HCl (Zofran) 4 mg PRN Q8HRS PRN IV NAUSEA/VOMITING; Start 06/16/19 at 12:45; Stop 06/16/19 at 21:10; Status DC Fentanyl Citrate (Fentanyl 2ml Vial) 50 mcg PRN Q2HR PRN IV PAIN; Start 06/16/19 at 12:45 Clindamycin Phosphate 50 ml @ 100 mls/hr 1X ONCE IV Last administered on 06/16/19at 13:12; Start 06/16/19 at 13:00; Stop 06/16/19 at 13:29; Status DC Acetaminophen (Tylenol) 650 mg PRN Q6HRS PRN PO MILD PAIN / TEMP; Start 06/16/19 at 15:30; Stop 06/16/19 at 21:10; Status DC Aspirin (Children'S Aspirin) 162 mg DAILY PO Last administered on 06/17/19at 08:46; Start 06/17/19 at 09:00 Furosemide (Lasix) 20 mg DAILY PO Last administered on 06/17/19at 08:46; Start 06/16/19 at 16:00 Acetaminophen/ Hydrocodone Bitart (Lortab 7.5/325) 1 tab PRN Q6HRS PRN PO PAIN; Start 06/16/19 at 15:30 Albuterol/ Ipratropium (Duoneb) 3 ml RTQID NEB Last administered on 06/16/19at 20:28; Start 06/16/19 at 16:00; Stop 06/16/19 at 21:10; Status DC Levothyroxine Sodium (Synthroid) 125 mcg DAILY06 PO Last administered on 06/17/19at 05:36; Start 06/17/19 at 06:00 Lorazepam (Ativan) 0.5 mg BID PRN PO ANXIETY / AGITATION Last administered on 06/16/19at 16:26; Start 06/16/19 at 15:30; Stop 06/16/19 at 21:10; Status DC Losartan Potassium (Cozaar) 100 mg DAILY PO Last administered on 06/17/19at 08:50; Start 06/17/19 at 09:00 Nicotine (Nicoderm Cq 14mg) 1 patch DAILY TD Last administered on 06/17/19at 05:39; Start 06/16/19 at 16:00 Budesonide (Pulmicort) 0.5 mg RTBID NEB Last administered on 06/17/19at 07:47; Start 06/16/19 at 20:00 Citalopram Hydrobromide (CeleXA) 40 mg DAILY PO Last administered on 06/17/19at 08:47; Start 06/16/19 at 16:00 Famotidine (Pepcid) 20 mg PRN BID PRN PO HEARTBURN / GAS; Start 06/16/19 at 16:00 Cefazolin Sodium 50 ml @ 100 mls/hr Q8HRS IV ; Start 06/16/19 at 22:00; Status UNV Cefazolin Sodium (Ancef) 1 gm Q8HRS IVP Last administered on 06/17/19at 04:44; Start 06/16/19 at 22:00 Sodium Chloride (Normal Saline Flush) 3 ml QSHIFT PRN IV AFTER MEDS AND BLOOD DRAWS; Start 06/16/19 at 21:00 Ondansetron HCl (Zofran) 4 mg PRN Q4HRS PRN IV NAUSEA/VOMITING 1ST CHOICE; Start 06/16/19 at 21:00 Acetaminophen (Tylenol) 650 mg PRN Q4HRS PRN PO TEMP OVER 100.4F OR MILD PAIN Last administered on 06/16/19at 21:49; Start 06/16/19 at 21:00 Clonidine HCl (Catapres) 0.1 mg PRN Q6HRS PRN PO SBP>160 OR DBP>90 Last administered on 06/17/19at 04:32; Start 06/16/19 at 21:00 Docusate Sodium (Colace) 100 mg PRN BID PRN PO CONSTIPATION 1ST CHOICE; Start 06/16/19 at 21:00 Albuterol/ Ipratropium (Duoneb) 3 ml Q4HRS W/A NEB Last administered on 06/17/19at 07:49; Start 06/16/19 at 22:00 Guaifenesin (Robitussin) 200 mg PRN Q4HRS PRN PO COUGH Last administered on 06/16/19at 21:51; Start 06/16/19 at 21:00 Lorazepam (Ativan) 0.5 mg PRN Q4HRS PRN PO ANXIETY / AGITATION Last administered on 06/17/19at 04:32; Start 06/16/19 at 21:00 Enoxaparin Sodium (Lovenox 40mg Syringe) 40 mg DAILY SQ Last administered on 06/17/19at 08:49; Start 06/17/19 at 09:00 Lactobacillus Rhamnosus (Culturelle) 1 cap BID PO ; Start 06/17/19 at 21:00 Active Scripts Active Duoneb 0.5-3(2.5) Mg/3 Ml (Albuterol/Ipratropium) 3 Ml Ampul.neb 3 Ml NEB RTQID MDD 1 NICODERM CQ 14mg (Nicotine) 1 Each Patch.td24 1 Patch TP DAILY Reported Escitalopram Oxalate 20 Mg Tablet 20 Mg PO DAILY Levothyroxine Sodium 125 Mcg Tablet 125 Mcg PO DAILYAC Losartan Potassium 50 Mg Tablet 100 Mg PO DAILY Hydrocodone-Acetamin 7.5-325 (Hydrocodone/Acetaminophen) 1 Each Tablet 1 Tab PO PRN Q6HRS PRN Lorazepam 0.5 Mg Tablet 0.5 Mg PO BID PRN Aspirin 81 Mg Tab.chew 2 Tab PO DAILY Symbicort 80-4.5 Mcg Inhaler (Budesonide/Formoterol Fumarate) 10.2 Gm Hfa.aer.ad 2 Puff IH BID Tylenol (Acetaminophen) 325 Mg Tablet 2 Tab PO PRN Q6HRS Furosemide 20 Mg Tablet 1 Tab PO DAILY Ranitidine Hcl 150 Mg Capsule 150 Mg PO PRN BID PRN Allergies Allergies: Coded Allergies: naproxen (Verified Allergy, Severe, Hives, 11/07/14) "CAUSES CARDIAC ARREST" morphine (Verified Adverse Reaction, Severe, vomiting, 11/18/18) Pt states she can't have causes severe vomiting. ROS PSYCHOLOGICAL ROS: No: Hallucinations Eyes: No Loss of vision HEENT: No: Epistaxis Respiratory: YES: Shortness of breath Cardiovascular: No Chest Pain Gastrointestinal: No Vomiting Genitourinary: No Hematuria Neurological: No Seizures Skin: No Rash Physical Exam General: Alert HEENT: Atraumatic Lungs: Other (bilateral basal crepitations) Heart: Regular rate Abdomen: Soft Extremities: Other (trace edema) Psych/Mental Status: Mood NL Vitals VITALS Vital Signs Date Time Temp Pulse Resp B/P (MAP) Pulse Ox O2 Delivery O2 Flow Rate FiO2 06/17/19 10:36 97.5 63 16 131/61 (84) 94 Nasal Cannula 2.5 97.5 Labs Labs Laboratory Tests Test 06/16/19 10:00 06/16/19 10:20 06/16/19 11:14 06/16/19 11:42 Prothrombin Time 12.6 SEC (11.7-14.0) Prothromb Time International Ratio 1.0 (0.8-1.1) Activated Partial Thromboplast Time 25 SEC (24-38) White Blood Count 8.0 x10^3/uL (4.0-11.0) Red Blood Count 3.85 x10^6/uL (3.50-5.40) Hemoglobin 12.3 g/dL (12.0-15.5) Hematocrit 37.0 % (36.0-47.0) Mean Corpuscular Volume 96 fL (79-100) Mean Corpuscular Hemoglobin 32 pg (25-35) Mean Corpuscular Hemoglobin Concent 33 g/dL (31-37) Red Cell Distribution Width 14.2 % (11.5-14.5) Platelet Count 212 x10^3/uL (140-400) Neutrophils (%) (Auto) 73 % (31-73) Lymphocytes (%) (Auto) 12 % (24-48) Monocytes (%) (Auto) 7 % (0-9) Eosinophils (%) (Auto) 7 % (0-3) Basophils (%) (Auto) 0 % (0-3) Neutrophils # (Auto) 5.9 x10^3/uL (1.8-7.7) Lymphocytes # (Auto) 1.0 x10^3/uL (1.0-4.8) Monocytes # (Auto) 0.5 x10^3/uL (0.0-1.1) Eosinophils # (Auto) 0.6 x10^3/uL (0.0-0.7) Basophils # (Auto) 0.0 x10^3/uL (0.0-0.2) Sodium Level 140 mmol/L (136-145) Potassium Level 3.9 mmol/L (3.5-5.1) Chloride Level 103 mmol/L (98-107) Carbon Dioxide Level 30 mmol/L (21-32) Anion Gap 7 (6-14) Blood Urea Nitrogen 19 mg/dL (7-20) Creatinine 1.0 mg/dL (0.6-1.0) Estimated GFR (Cockcroft-Gault) 53.8 BUN/Creatinine Ratio 19 (6-20) Glucose Level 115 mg/dL (70-99) Lactic Acid Level 0.8 mmol/L (0.4-2.0) Calcium Level 8.8 mg/dL (8.5-10.1) Magnesium Level 2.0 mg/dL (1.8-2.4) Total Bilirubin 0.5 mg/dL (0.2-1.0) Aspartate Amino Transf (AST/SGOT) 14 U/L (15-37) Alanine Aminotransferase (ALT/SGPT) 28 U/L (14-59) Alkaline Phosphatase 127 U/L (46-116) Creatine Kinase 20 U/L (26-192) Creatine Kinase MB (Mass) 0.9 ng/mL (0.0-3.6) Creatine Kinase MB Relative Index % (0-4) Troponin I Quantitative < 0.017 ng/mL (0.000-0.055) AE-Uui-I-Type Natriuretic Peptide 3423 pg/mL (0-449) Total Protein 6.7 g/dL (6.4-8.2) Albumin 3.1 g/dL (3.4-5.0) Albumin/Globulin Ratio 0.9 (1.0-1.7) Lipase 50 U/L (73-393) Urine Collection Type U cath Urine Color Yellow Urine Clarity Clear Urine pH 8.0 Urine Specific [place] 1.010 Urine Protein Negative mg/dL (NEG-TRACE) Urine Glucose (UA) Negative mg/dL (NEG) Urine Ketones (Stick) Negative mg/dL (NEG) Urine Blood Negative (NEG) Urine Nitrite Negative (NEG) Urine Bilirubin Negative (NEG) Urine Urobilinogen Dipstick 0.2 mg/dL (0.2 mg/dL) Urine Leukocyte Esterase Negative (NEG) Urine RBC 1-2 /HPF (0-2) Urine WBC Occ /HPF (0-4) Urine Squamous Epithelial Cells Few /LPF Urine Bacteria 0 /HPF (0-FEW) Urine Hyaline Casts Few /HPF Urine Mucus Slight /LPF Test 06/16/19 16:15 06/16/19 20:44 06/17/19 04:39 Troponin I Quantitative < 0.017 ng/mL (0.000-0.055) < 0.017 ng/mL (0.000-0.055) Triglycerides Level 50 mg/dL (0-150) Cholesterol Level 175 mg/dL (0-200) LDL Cholesterol, Calculated 113 mg/dL (0-100) VLDL Cholesterol, Calculated 10 mg/dL (0-40) Non-HDL Cholesterol Calculated 123 mg/dL (0-129) HDL Cholesterol 52 mg/dL (40-60) Cholesterol/HDL Ratio 3.4 Laboratory Tests Test 06/16/19 16:15 06/16/19 20:44 06/17/19 04:39 Troponin I Quantitative < 0.017 ng/mL (0.000-0.055) < 0.017 ng/mL (0.000-0.055) Triglycerides Level 50 mg/dL (0-150) Cholesterol Level 175 mg/dL (0-200) LDL Cholesterol, Calculated 113 mg/dL (0-100) VLDL Cholesterol, Calculated 10 mg/dL (0-40) Non-HDL Cholesterol Calculated 123 mg/dL (0-129) HDL Cholesterol 52 mg/dL (40-60) Cholesterol/HDL Ratio 3.4 Assessment/Plan Assessment/Plan 1. Congestive heart failure, acute on chronic diastolic secondary to no ncompliance with diuretics. Continue diuresis with Lasix. Recent 2-D echo November 2018 showed LVEF 60-65%. 2. Chest pain with atypical features. Myocardial infarction has been ruled out. Plan ischemic workup in the form of stress test as outpatient. 3. Accelerated hypertension: Better controlled since admission. Continue current medical regimen. 4. Cellulitis right lower extremity: Treat per ID 5. Hypothyroidism: On levo thyroxine Thank you for your consultation MENG GUSTFASON MD Jun 17, 2019 11:57
--- NOTE | 2019-06-17 13:40 | PDOC ---
Infectious Disease Note Vital Sign Vital Signs Vital Signs Date Time Temp Pulse Resp B/P (MAP) Pulse Ox O2 Delivery O2 Flow Rate FiO2 06/17/19 10:36 97.5 63 16 131/61 (84) 94 Nasal Cannula 2.5 97.5 Labs Lab Laboratory Tests Test 06/16/19 16:15 06/16/19 20:44 06/17/19 04:39 Troponin I Quantitative < 0.017 ng/mL (0.000-0.055) < 0.017 ng/mL (0.000-0.055) Triglycerides Level 50 mg/dL (0-150) Cholesterol Level 175 mg/dL (0-200) LDL Cholesterol, Calculated 113 mg/dL (0-100) VLDL Cholesterol, Calculated 10 mg/dL (0-40) Non-HDL Cholesterol Calculated 123 mg/dL (0-129) HDL Cholesterol 52 mg/dL (40-60) Cholesterol/HDL Ratio 3.4 Micro Microbiology 06/16/19 Blood Culture - Preliminary, Resulted NO GROWTH AFTER 1 DAY Objective Assessment pt seen, consult dictated Plan Plan of Care / ROSIBEL ABBOTT MD Jun 17, 2019 13:40
[2019-06-17 14:06] VITALS: BP 104/51
--- NOTE | 2019-06-17 16:56 | NUR ---
Spoke with patients daughter at bedside who requested to speak to social work by telephone before social works speaks to patient. Patient currently lives independent living side at [facility] and is in need of of assisted living. She stated that [facility] is no longer offering assisted living therefore patient needs help finding a new place to move that offers assisted living. Patients daughters name is Keiko Ruiz and her phone # is [phone]
[2019-06-17 19:30] VITALS: BP 151/67
[2019-06-17] MEDS: LACTOBACILLUS RHAMNOSUS GG 1 CAPSULE. PO SCH (21:57)
[2019-06-17] MEDS: HYDROcodone/APAP 7.5/325MG 1 TAB TABLET PO PRN (22:01)
[2019-06-17 23:15] VITALS: BP 155/65
--- NOTE | 2019-06-17 23:34 | CONS ---
DATE OF CONSULTATION: 06/17/2019 REQUESTING PHYSICIAN: Dr. Law. REASON FOR CONSULTATION: Cellulitis. HISTORY OF PRESENT ILLNESS: This is a 79-year-old female with multiple medical problems who lives in a high-rise independent living who came in with shortness of breath, putting on weight with swelling, anxiety, maybe redness of the leg, just worried that she is getting worse. The patient denies fever, denies any nausea, vomiting, diarrhea. Denies any chest pain, shortness of breath, abdominal pain, urinary symptoms or bowel symptoms. PAST MEDICAL HISTORY: Positive for coronary artery disease, COPD, hyperlipidemia, hypertension, pulmonary hypertension and sleep apnea. SOCIAL HISTORY: Negative for smoking, alcohol, illicit drug use. ALLERGIES: No known drug allergies. CURRENT MEDICATIONS: Reviewed. The patient is on cefazolin. REVIEW OF SYSTEMS: As per HPI, all other systems reviewed are negative. PHYSICAL EXAMINATION: GENERAL: Alert, oriented female, not in distress. VITAL SIGNS: Stable, afebrile. HEENT: NAD. NECK: Supple, no JVP, no lymphadenopathy. LUNGS: Clear. HEART: S1, S2 regular. ABDOMEN: Benign. EXTREMITIES: The patient does have extremity that is red, but cold, not warm. On elevation of the leg, the redness improves. There is no open wound. This is chronic stasis dermatitis and dependent rubor. The patient cannot elevate the leg because of her body habitus and breathing problems. NEUROLOGIC: The patient is alert, awake and appropriate. No focal neurologic deficit. LABORATORY DATA: White count is 8000. BUN and creatinine is normal. Lactic acid is normal. Urinalysis unremarkable. Blood culture done so far negative. Ultrasound done, which is negative for DVT. Chest x-ray is no acute change. IMPRESSION: 1. Lower extremity redness is stasis dermatitis and dependent rubor. There is no cellulitis. 2. Congestive heart failure. 3. Hypertension. 4. Pulmonary hypertension. 5. Obesity. 6. Anxiety disorder. RECOMMENDATIONS: We do not see the need for any antibiotics. The patient is advised to leg elevate, although she clearly says she cannot do because of her breathing. Supportive care, maybe support hose might help. Thank you very much, Dr. Law, for giving me the opportunity to participate in this patient's care. ROSIBEL ABBOTT MD DR: KIM/kalpana JOB#: [id number] / [id number]
[2019-06-18 03:15] VITALS: BP 157/71
[2019-06-18] MEDS: LEVOTHYROXINE 125 MCG TABLET PO SCH (06:44)
[2019-06-18 07:00] VITALS: BP 155/70
[2019-06-18] MEDS: BUDESONIDE 0.5 MG/2 ML NEBU. NEB SCH ×2 (08:17→19:47)
[2019-06-18] MEDS: IPRATRPIUM/ALBUTEROL 0.5/2.5MG 3 ML NEBU. NEB SCH ×5 (08:17→22:00)
[2019-06-18] MEDS: NICOTINE 14MG PATCH. TD SCH (08:33)
[2019-06-18] MEDS: ASPIRIN CHEWABLE 81 MG TABLET. PO SCH (08:33)
[2019-06-18] MEDS: LACTOBACILLUS RHAMNOSUS GG 1 CAPSULE. PO SCH ×2 (08:34→21:33)
[2019-06-18] MEDS: FUROSEMIDE 20 MG TABLET PO SCH (08:34)
[2019-06-18] MEDS: LOSARTAN POTASSIUM 50 MG TABLET. PO SCH (08:35)
[2019-06-18] MEDS: CITALOPRAM 20 MG TABLET. PO SCH (08:35)
[2019-06-18] MEDS: ENOXAPARIN 40 MG/0.4 ML SYRINGE. SQ SCH (08:35)
--- NOTE | 2019-06-18 08:39 | PDOC ---
PROGRESS NOTES Chief Complaint Chief Complaint A/P: acute hypoxic resp failure CHF exacerbation - BNP 3423 Lymphedema right lower leg Abnormal radiologic finding of lung field Small nodule versus focal atelectasis left lung. morbid obesity HX COPD Smoker ADMITTED TELE cardiology consult ID CONSULT DVT PROPHYLAXIS O2 SUPPORT IV LASI X 1 IV ANCEF 1 GM Q 8 HRS d/c and observe pulm consult History of Present Illness History of Present Illness Ms Lewis is a 79 yo female w/ PMHx COPD, CAD, HLD, HTN, Pulm HTN, Sleep apnea who lives in a high-rise independent living who came in with shortness of breath, putting on weight with swelling, anxiety, maybe redness of the leg, just worried that she is getting worse. The patient denies fever, denies any nausea, vomiting, diarrhea. Denies any chest pain, shortness of breath, abdominal pain, urinary symptoms or bowel symptoms. Seen by ID, ruled out cellulitis. Still with good UOP, has damon in place. Labs pending. No CP. Still short of breath. Vitals Vitals Vital Signs Date Time Temp Pulse Resp B/P (MAP) Pulse Ox O2 Delivery O2 Flow Rate FiO2 06/18/19 08:19 Nasal Cannula 3.0 06/18/19 03:15 97.8 57 22 157/71 (99) 99 97.8 Physical Exam General: Alert Heart: Regular rate Lungs: Clear, Crackles Abdomen: Soft Extremities: Other (trace edema) Assessment and Plan Assessmemt and Plan Problems Medical Problems: (1) Abnormal radiologic finding of lung field Status: Acute (2) Cellulitis Status: Acute (3) CHF exacerbation Status: Acute (4) Hypoxia Status: Acute Comment Review of Relevant I have reviewed the following items vitaly (where applicable) has been applied. Labs Laboratory Tests Test 06/16/19 10:00 06/16/19 10:20 06/16/19 11:14 06/16/19 11:42 Prothrombin Time 12.6 SEC (11.7-14.0) Prothromb Time International Ratio 1.0 (0.8-1.1) Activated Partial Thromboplast Time 25 SEC (24-38) White Blood Count 8.0 x10^3/uL (4.0-11.0) Red Blood Count 3.85 x10^6/uL (3.50-5.40) Hemoglobin 12.3 g/dL (12.0-15.5) Hematocrit 37.0 % (36.0-47.0) Mean Corpuscular Volume 96 fL (79-100) Mean Corpuscular Hemoglobin 32 pg (25-35) Mean Corpuscular Hemoglobin Concent 33 g/dL (31-37) Red Cell Distribution Width 14.2 % (11.5-14.5) Platelet Count 212 x10^3/uL (140-400) Neutrophils (%) (Auto) 73 % (31-73) Lymphocytes (%) (Auto) 12 % (24-48) Monocytes (%) (Auto) 7 % (0-9) Eosinophils (%) (Auto) 7 % (0-3) Basophils (%) (Auto) 0 % (0-3) Neutrophils # (Auto) 5.9 x10^3/uL (1.8-7.7) Lymphocytes # (Auto) 1.0 x10^3/uL (1.0-4.8) Monocytes # (Auto) 0.5 x10^3/uL (0.0-1.1) Eosinophils # (Auto) 0.6 x10^3/uL (0.0-0.7) Basophils # (Auto) 0.0 x10^3/uL (0.0-0.2) Sodium Level 140 mmol/L (136-145) Potassium Level 3.9 mmol/L (3.5-5.1) Chloride Level 103 mmol/L (98-107) Carbon Dioxide Level 30 mmol/L (21-32) Anion Gap 7 (6-14) Blood Urea Nitrogen 19 mg/dL (7-20) Creatinine 1.0 mg/dL (0.6-1.0) Estimated GFR (Cockcroft-Gault) 53.8 BUN/Creatinine Ratio 19 (6-20) Glucose Level 115 mg/dL (70-99) Lactic Acid Level 0.8 mmol/L (0.4-2.0) Calcium Level 8.8 mg/dL (8.5-10.1) Magnesium Level 2.0 mg/dL (1.8-2.4) Total Bilirubin 0.5 mg/dL (0.2-1.0) Aspartate Amino Transf (AST/SGOT) 14 U/L (15-37) Alanine Aminotransferase (ALT/SGPT) 28 U/L (14-59) Alkaline Phosphatase 127 U/L (46-116) Creatine Kinase 20 U/L (26-192) Creatine Kinase MB (Mass) 0.9 ng/mL (0.0-3.6) Creatine Kinase MB Relative Index % (0-4) Troponin I Quantitative < 0.017 ng/mL (0.000-0.055) PN-Uuf-S-Type Natriuretic Peptide 3423 pg/mL (0-449) Total Protein 6.7 g/dL (6.4-8.2) Albumin 3.1 g/dL (3.4-5.0) Albumin/Globulin Ratio 0.9 (1.0-1.7) Lipase 50 U/L (73-393) Urine Collection Type U cath Urine Color Yellow Urine Clarity Clear Urine pH 8.0 Urine Specific Isabel 1.010 Urine Protein Negative mg/dL (NEG-TRACE) Urine Glucose (UA) Negative mg/dL (NEG) Urine Ketones (Stick) Negative mg/dL (NEG) Urine Blood Negative (NEG) Urine Nitrite Negative (NEG) Urine Bilirubin Negative (NEG) Urine Urobilinogen Dipstick 0.2 mg/dL (0.2 mg/dL) Urine Leukocyte Esterase Negative (NEG) Urine RBC 1-2 /HPF (0-2) Urine WBC Occ /HPF (0-4) Urine Squamous Epithelial Cells Few /LPF Urine Bacteria 0 /HPF (0-FEW) Urine Hyaline Casts Few /HPF Urine Mucus Slight /LPF Test 06/16/19 16:15 06/16/19 20:44 06/17/19 04:39 Troponin I Quantitative < 0.017 ng/mL (0.000-0.055) < 0.017 ng/mL (0.000-0.055) Triglycerides Level 50 mg/dL (0-150) Cholesterol Level 175 mg/dL (0-200) LDL Cholesterol, Calculated 113 mg/dL (0-100) VLDL Cholesterol, Calculated 10 mg/dL (0-40) Non-HDL Cholesterol Calculated 123 mg/dL (0-129) HDL Cholesterol 52 mg/dL (40-60) Cholesterol/HDL Ratio 3.4 Microbiology 06/16/19 Blood Culture - Preliminary, Resulted NO GROWTH AFTER 1 DAY Medications Current Medications Albuterol/ Ipratropium (Duoneb) 3 ml 1X ONCE NEB Last administered on 06/16/19at 10:41; Start 06/16/19 at 11:00; Stop 06/16/19 at 11:01; Status DC Nitroglycerin (Nitro-Bid Oint) 1 inch 1X ONCE TP Last administered on 06/16/19at 10:50; Start 06/16/19 at 11:00; Stop 06/16/19 at 11:01; Status DC Labetalol HCl (Normodyne Iv Push) 10 mg 1X ONCE IVP Last administered on 06/16/19at 10:51; Start 06/16/19 at 11:00; Stop 06/16/19 at 11:01; Status DC Aspirin (Omid Aspirin) 325 mg 1X ONCE PO Last administered on 06/16/19at 10:51; Start 06/16/19 at 11:00; Stop 06/16/19 at 11:01; Status DC Hydralazine HCl (Apresoline Inj) 20 mg 1X ONCE IVP Last administered on 06/16/19at 11:44; Start 06/16/19 at 11:30; Stop 06/16/19 at 11:31; Status DC Acetaminophen (Tylenol) 500 mg 1X ONCE PO Last administered on 06/16/19at 13:53; Start 06/16/19 at 12:30; Stop 06/16/19 at 12:31; Status DC Furosemide (Lasix) 40 mg 1X ONCE IVP Last administered on 06/16/19at 12:38; Start 06/16/19 at 12:30; Stop 06/16/19 at 12:31; Status DC Fentanyl Citrate (Fentanyl 2ml Vial) 50 mcg 1X ONCE IV Last administered on 06/16/19at 12:38; Start 06/16/19 at 12:30; Stop 06/16/19 at 12:31; Status DC Fentanyl Citrate (Fentanyl 2ml Vial) 100 mcg STK-MED ONCE .ROUTE ; Start 06/16/19 at 12:32; Stop 06/16/19 at 12:32; Status DC Ondansetron HCl (Zofran) 4 mg PRN Q8HRS PRN IV NAUSEA/VOMITING; Start 06/16/19 at 12:45; Stop 06/16/19 at 21:10; Status DC Fentanyl Citrate (Fentanyl 2ml Vial) 50 mcg PRN Q2HR PRN IV PAIN; Start 06/16/19 at 12:45 Clindamycin Phosphate 50 ml @ 100 mls/hr 1X ONCE IV Last administered on 06/16/19at 13:12; Start 06/16/19 at 13:00; Stop 06/16/19 at 13:29; Status DC Acetaminophen (Tylenol) 650 mg PRN Q6HRS PRN PO MILD PAIN / TEMP; Start 06/16/19 at 15:30; Stop 06/16/19 at 21:10; Status DC Aspirin (Children'S Aspirin) 162 mg DAILY PO Last administered on 06/17/19at 08:46; Start 06/17/19 at 09:00 Furosemide (Lasix) 20 mg DAILY PO Last administered on 06/17/19at 08:46; Start 06/16/19 at 16:00 Acetaminophen/ Hydrocodone Bitart (Lortab 7.5/325) 1 tab PRN Q6HRS PRN PO PAIN Last administered on 06/17/19at 22:01; Start 06/16/19 at 15:30 Albuterol/ Ipratropium (Duoneb) 3 ml RTQID NEB Last administered on 06/16/19at 20:28; Start 06/16/19 at 16:00; Stop 06/16/19 at 21:10; Status DC Levothyroxine Sodium (Synthroid) 125 mcg DAILY06 PO Last administered on 06/18/19at 06:44; Start 06/17/19 at 06:00 Lorazepam (Ativan) 0.5 mg BID PRN PO ANXIETY / AGITATION Last administered on 06/16/19at 16:26; Start 06/16/19 at 15:30; Stop 06/16/19 at 21:10; Status DC Losartan Potassium (Cozaar) 100 mg DAILY PO Last administered on 06/17/19at 08:50; Start 06/17/19 at 09:00 Nicotine (Nicoderm Cq 14mg) 1 patch DAILY TD Last administered on 06/17/19at 05:39; Start 06/16/19 at 16:00 Budesonide (Pulmicort) 0.5 mg RTBID NEB Last administered on 06/18/19at 08:17; Start 06/16/19 at 20:00 Citalopram Hydrobromide (CeleXA) 40 mg DAILY PO Last administered on 06/17/19at 08:47; Start 06/16/19 at 16:00 Famotidine (Pepcid) 20 mg PRN BID PRN PO HEARTBURN / GAS; Start 06/16/19 at 16:00 Cefazolin Sodium 50 ml @ 100 mls/hr Q8HRS IV ; Start 06/16/19 at 22:00; Status UNV Cefazolin Sodium (Ancef) 1 gm Q8HRS IVP Last administered on 06/17/19at 04:44; Start 06/16/19 at 22:00; Stop 06/17/19 at 13:41; Status DC Sodium Chloride (Normal Saline Flush) 3 ml QSHIFT PRN IV AFTER MEDS AND BLOOD DRAWS; Start 06/16/19 at 21:00 Ondansetron HCl (Zofran) 4 mg PRN Q4HRS PRN IV NAUSEA/VOMITING 1ST CHOICE; Start 06/16/19 at 21:00 Acetaminophen (Tylenol) 650 mg PRN Q4HRS PRN PO TEMP OVER 100.4F OR MILD PAIN Last administered on 06/16/19at 21:49; Start 06/16/19 at 21:00 Clonidine HCl (Catapres) 0.1 mg PRN Q6HRS PRN PO SBP>160 OR DBP>90 Last administered on 06/17/19at 04:32; Start 06/16/19 at 21:00 Docusate Sodium (Colace) 100 mg PRN BID PRN PO CONSTIPATION 1ST CHOICE; Start 06/16/19 at 21:00 Albuterol/ Ipratropium (Duoneb) 3 ml Q4HRS W/A NEB Last administered on 06/18/19at 08:17; Start 06/16/19 at 22:00 Guaifenesin (Robitussin) 200 mg PRN Q4HRS PRN PO COUGH Last administered on 06/16/19 21:51; Start 06/16/19 at 21:00 Lorazepam (Ativan) 0.5 mg PRN Q4HRS PRN PO ANXIETY / AGITATION Last administered on 06/17/19 21:57; Start 06/16/19 at 21:00 Enoxaparin Sodium (Lovenox 40mg Syringe) 40 mg DAILY SQ Last administered on 1/5/20at 08:49; Start 06/17/19 at 09:00 Lactobacillus Rhamnosus (Culturelle) 1 cap BID PO Last administered on 06/17/19at 21:57; Start 06/17/19 at 21:00 Active Scripts Active Duoneb 0.5-3(2.5) Mg/3 Ml (Albuterol/Ipratropium) 3 Ml Ampul.neb 3 Ml NEB RTQID MDD 1 NICODERM CQ 14mg (Nicotine) 1 Each Patch.td24 1 Patch TP DAILY Reported Escitalopram Oxalate 20 Mg Tablet 20 Mg PO DAILY Levothyroxine Sodium 125 Mcg Tablet 125 Mcg PO DAILYAC Losartan Potassium 50 Mg Tablet 100 Mg PO DAILY Hydrocodone-Acetamin 7.5-325 (Hydrocodone/Acetaminophen) 1 Each Tablet 1 Tab PO PRN Q6HRS PRN Lorazepam 0.5 Mg Tablet 0.5 Mg PO BID PRN Aspirin 81 Mg Tab.chew 2 Tab PO DAILY Symbicort 80-4.5 Mcg Inhaler (Budesonide/Formoterol Fumarate) 10.2 Gm Hfa.aer.ad 2 Puff IH BID Tylenol (Acetaminophen) 325 Mg Tablet 2 Tab PO PRN Q6HRS Furosemide 20 Mg Tablet 1 Tab PO DAILY Ranitidine Hcl 150 Mg Capsule 150 Mg PO PRN BID PRN Vitals/I & O Vital Sign - Last 24 Hours 06/17/19 06/17/19 06/17/19 06/17/19 08:50 10:36 13:57 14:06 Temp 97.5 98.2 97.5 98.2 Pulse 72 63 70 Resp 16 16 B/P (MAP) 149/64 131/61 (84) 104/51 (68) Pulse Ox 94 96 95 O2 Delivery Nasal Cannula Nasal Cannula Nasal Cannula O2 Flow Rate 2.5 2.5 2.5 06/17/19 06/17/19 06/17/19 06/17/19 19:30 19:45 19:46 20:00 Temp 98.3 98.3 Pulse 71 Resp 20 B/P (MAP) 151/67 (95) Pulse Ox 97 95 95 O2 Delivery Nasal Cannula Nasal Cannula Nasal Cannula Nasal Cannula O2 Flow Rate 2.5 3.0 3.0 2.5 06/17/19 06/17/19 06/17/19 06/18/19 22:01 23:01 23:15 03:15 Temp 97.8 97.8 97.8 97.8 Pulse 67 57 Resp 20 20 18 22 B/P (MAP) 155/65 (95) 157/71 (99) Pulse Ox 95 98 98 99 O2 Delivery Nasal Cannula Nasal Cannula Nasal Cannula Nasal Cannula O2 Flow Rate 3.0 2.5 2.5 2.5 06/18/19 08:19 O2 Delivery Nasal Cannula O2 Flow Rate 3.0 Intake and Output 06/17/19 06/17/19 06/18/19 15:00 23:00 07:00 Intake Total 500 ml 400 ml Output Total 300 ml 450 ml Balance 200 ml -50 ml RONAK CAMPBELL MD Jun 18, 2019 08:39
[2019-06-18] MEDS ORDERED: DICLOFENAC SODIUM 1% TOPICAL GEL 100GM TUBE. TP SCH (09:00)
--- NOTE | 2019-06-18 09:00 | NUR ---
Wound Care Pt seen for wound care consultation re: BLE cellulitis. Pt assessed, no cellulitis or open wounds noted, pt has some pink, pigmented areas on bilateral pre-tibial region. Will sign off at this time.
[2019-06-18 11:00] VITALS: BP 150/64
[2019-06-18] MEDS: HYDROcodone/APAP 7.5/325MG 1 TAB TABLET PO PRN (11:27)
[2019-06-18] MEDS ORDERED: FUROSEMIDE 20 MG/2 ML VIAL. IVP ONE (14:15)
[2019-06-18 15:00] VITALS: BP 114/54
--- NOTE | 2019-06-18 16:03 | NUR ---
SS following for discharge planning. SS reviewed pt chart. Pt is from [facility] and is currently requiring oxygen. PT/OT recommended detention unit. SS met with pt to discuss detention unit and discharge planning. Pt reported that she was at [facility] in November 2018. Pt reported that she is unsure that detention unit would be beneficial to her and requested time to discuss with her daughter. SS will continue to follow for discharge planning.
--- NOTE | 2019-06-18 16:26 | PDOC ---
PULMONARY PROGRESS NOTES Vitals Vital Signs Date Time Temp Pulse Resp B/P (MAP) Pulse Ox O2 Delivery O2 Flow Rate FiO2 06/18/19 15:16 97 Nasal Cannula 3.0 06/18/19 15:00 98.0 67 20 114/54 (74) 98.0 General: Alert, No acute distress HEENT: Other Lungs: Clear, Crackles Cardiovascular: S1, S2 Abdomen: Soft, Non-tender Extremities: Other Labs Laboratory Tests Test 06/16/19 20:44 06/17/19 04:39 Troponin I Quantitative < 0.017 ng/mL (0.000-0.055) Triglycerides Level 50 mg/dL (0-150) Cholesterol Level 175 mg/dL (0-200) LDL Cholesterol, Calculated 113 mg/dL (0-100) VLDL Cholesterol, Calculated 10 mg/dL (0-40) Non-HDL Cholesterol Calculated 123 mg/dL (0-129) HDL Cholesterol 52 mg/dL (40-60) Cholesterol/HDL Ratio 3.4 Medications Active Scripts Medications Dose Route/Sig Max Daily Dose Days Date Category Escitalopram Oxalate 20 Mg Tablet 20 Mg PO DAILY 06/16/19 Reported Levothyroxine Sodium 125 Mcg Tablet 125 Mcg PO DAILYAC 06/16/19 Reported Losartan Potassium 50 Mg Tablet 100 Mg PO DAILY 06/16/19 Reported Hydrocodone-Acetamin 7.5-325 (Hydrocodone/Acetaminophen) 1 Each Tablet 1 Tab PO PRN Q6HRS PRN 02/18/19 Reported Lorazepam 0.5 Mg Tablet 0.5 Mg PO BID PRN 02/18/19 Reported Duoneb 0.5-3(2.5) Mg/3 Ml (Albuterol/Ipratropium) 3 Ml Ampul.neb 3 Ml NEB RTQID MDD 1 11/20/18 Rx Aspirin 81 Mg Tab.chew 2 Tab PO DAILY 01/13/18 Reported Symbicort 80-4.5 Mcg Inhaler (Budesonide/Formoterol Fumarate) 10.2 Gm Hfa.aer.ad 2 Puff IH BID 08/21/17 Reported Tylenol (Acetaminophen) 325 Mg Tablet 2 Tab PO PRN Q6HRS 08/21/17 Reported Furosemide 20 Mg Tablet 1 Tab PO DAILY 08/21/17 Reported NICODERM CQ 14mg (Nicotine) 1 Each Patch.td24 1 Patch TP DAILY 09/18/15 Rx Ranitidine Hcl 150 Mg Capsule 150 Mg PO PRN BID PRN 11/07/14 Reported Impression . FULL NOTE DICTATED OUT PT SLEEP STUDY WILL CHECK MY OFFICE RECORDS AGREE WITH CURRENT RX THANKS KENISHA SWIFT MD Jun 18, 2019 16:26
[2019-06-18] MEDS: DICLOFENAC SODIUM 1% TOPICAL GEL 100GM TUBE. TP SCH ×2 (17:11→21:33)
--- NOTE | 2019-06-18 17:48 | PDOC ---
PROGRESS NOTES Subjective Subjective Feeling better with improvement in dyspnea Objective Objective Vital Signs Date Time Temp Pulse Resp B/P (MAP) Pulse Ox O2 Delivery O2 Flow Rate FiO2 06/18/19 15:16 97 Nasal Cannula 3.0 06/18/19 15:00 98.0 67 20 114/54 (74) 98.0 Intake and Output 06/18/19 07:00 Intake Total 900 ml Output Total 750 ml Balance 150 ml Intake Oral 900 ml Output Urine Total 750 ml Physical Exam Abdomen: Soft Heart: Regular rate Extremities: Other (trace edema) General: Alert HEENT: Atraumatic Lungs: Other (bilateral basal crepitations) MUSCULOSKELETAL: Osteoarthritic changes both hands Psych/Mental Status: Mood NL Assessment Assessment 1. Congestive heart failure, acute on chronic diastolic secondary to noncompliance with diuretics. Better compensated with diuresis. Recent 2-D echo November 2018 showed LVEF 60-65%. 2. Chest pain with atypical features. Myocardial infarction has been ruled out. Plan ischemic workup in the form of stress test as outpatient. 3. Accelerated hypertension: Better controlled since admission. Continue current medical regimen. 4. Cellulitis right lower extremity: Treat per ID 5. Hypothyroidism: On levo thyroxine Plan Plan of Care Problems Medical Problems: (1) Abnormal radiologic finding of lung field Status: Acute (2) Cellulitis Status: Acute (3) CHF exacerbation Status: Acute (4) Hypoxia Status: Acute Comment Review of Relevant I have reviewed the following items vitaly (where applicable) has been applied. Labs Microbiology 06/16/19 Blood Culture - Preliminary, Resulted NO GROWTH AFTER 2 DAYS Medications Current Medications Diclofenac Sodium (Voltaren) 1 jason BID TP Last administered on 06/18/19at 09:20; Start 06/18/19 at 09:00; Stop 06/18/19 at 14:01; Status DC Diclofenac Sodium (Voltaren) 1 jason QID TP Last administered on 06/18/19at 17:11; Start 06/18/19 at 17:00 Furosemide (Lasix) 20 mg 1X ONCE IVP Last administered on 06/18/19at 15:43; Start 06/18/19 at 14:15; Stop 06/18/19 at 14:16; Status DC Lactobacillus Rhamnosus (Culturelle) 1 cap BID PO Last administered on 06/18/19at 08:34; Start 06/17/19 at 21:00 Vitals/I & O Vital Sign - Last 24 Hours 06/17/19 06/17/19 06/17/19 06/17/19 19:30 19:45 19:46 20:00 Temp 98.3 98.3 Pulse 71 Resp 20 B/P (MAP) 151/67 (95) Pulse Ox 97 95 95 O2 Delivery Nasal Cannula Nasal Cannula Nasal Cannula Nasal Cannula O2 Flow Rate 2.5 3.0 3.0 2.5 06/17/19 06/17/19 06/17/19 06/18/19 22:01 23:01 23:15 03:15 Temp 97.8 97.8 97.8 97.8 Pulse 67 57 Resp 20 20 18 22 B/P (MAP) 155/65 (95) 157/71 (99) Pulse Ox 95 98 98 99 O2 Delivery Nasal Cannula Nasal Cannula Nasal Cannula Nasal Cannula O2 Flow Rate 3.0 2.5 2.5 2.5 06/18/19 06/18/19 06/18/19 06/18/19 07:00 08:00 08:19 08:35 Temp 97.2 97.2 Pulse 67 66 Resp 22 B/P (MAP) 155/70 (98) 155/70 Pulse Ox 93 O2 Delivery Nasal Cannula Nasal Cannula Nasal Cannula O2 Flow Rate 2.5 2.5 3.0 06/18/19 06/18/19 06/18/19 11:00 15:00 15:16 Temp 97.4 98.0 97.4 98.0 Pulse 67 67 Resp 22 20 B/P (MAP) 150/64 (92) 114/54 (74) Pulse Ox 96 96 97 O2 Delivery Nasal Cannula Nasal Cannula Nasal Cannula O2 Flow Rate 2.5 2.5 3.0 Intake and Output 06/17/19 06/17/19 06/18/19 15:00 23:00 07:00 Intake Total 500 ml 400 ml Output Total 300 ml 450 ml Balance 200 ml -50 ml MENG GUSTAFSON MD Jun 18, 2019 17:48
[2019-06-18 19:25] VITALS: BP 143/60
[2019-06-18] MEDS: ACETAMINOPHEN 325 MG TABLET. PO PRN (21:33)
[2019-06-18] MEDS ORDERED: LORazepam 0.5 MG TABLET PO PRN (22:00)
[2019-06-18] MEDS: LORazepam 0.5 MG TABLET PO PRN (22:19)
[2019-06-18 22:45] VITALS: BP 158/61
--- NOTE | 2019-06-19 00:50 | CONS ---
DATE OF CONSULTATION: 06/18/2019 ATTENDING PHYSICIAN: Rodrigo Law MD REASON FOR CONSULTATION: The patient is seen in pulmonary consultation at the request of Dr. Law for COPD. HISTORY OF PRESENT ILLNESS: The patient is a 79-year-old well known to me from hospitalization and from previous ER outpatient department. She has obstructive sleep apnea. She is scheduled to undergo a repeat sleep study. She wears chronic oxygen at home at 2.5 liters, presenting with increasing shortness of breath, lower extremity edema, some cellulitis. She has been seen by the Infectious Disease Service and is currently being treated for cellulitis and congestive heart failure. She had a chest x-ray, which revealed no significant infiltrates. There was evidence of possibility of small nodule versus focal atelectasis in the left lung. She had venous Dopplers of the lower extremities, which were negative for DVT. She denies fever, chills, or night sweats. She is up-to-date on pneumonia and flu vaccination. She quit tobacco back in 04/2019. PAST MEDICAL HISTORY: COPD, tobacco dependence, in remission, quit in 04/2019, coronary artery disease, pulmonary hypertension, sleep apnea, hyperlipidemia and chronic diastolic heart failure. PAST SURGICAL HISTORY: No recent major surgeries. SOCIAL HISTORY: She quit tobacco. CURRENT MEDICATIONS: List was reviewed ALLERGIES: TO MORPHINE AND NAPROSYN. REVIEW OF SYSTEMS: CONSTITUTIONAL: No fever or chills. EYES: No change in visual acuity. HENT: No nasal congestion or sore throat. PULMONARY: As indicated above. CARDIOVASCULAR: No chest pain or pressure. GASTROINTESTINAL: No nausea, vomiting, or diarrhea. GENITOURINARY: No dysuria or frequency. MUSCULOSKELETAL: No localized muscle aches or joint pains. SKIN: No new skin rashes. NEUROLOGIC: No headaches, diplopia or blurred vision. PHYSICAL EXAMINATION: VITAL SIGNS: Stable. O2 saturation was greater than 92% on 2.5 liters. HEENT: Eyes, the sclerae were nonicteric. NECK: Jugular venous distention was not elevated. No lymphadenopathy. CHEST: Full expansion. LUNGS: Coarse breath sounds, no wheezes. CARDIOVASCULAR: Regular rate and rhythm with S1, S2, no S3. ABDOMEN: Soft, nontender, nondistended. EXTREMITIES: No clubbing, cyanosis or edema. There was some cellulitis of the lower extremities. LABORATORY DATA: White count was normal. Electrolytes were noted. IMPRESSION: 1. Progressive dyspnea secondary to acute exacerbation of chronic obstructive pulmonary disease. 2. Acute on chronic diastolic heart failure. 3. Small pulmonary nodule and questionable atelectasis, left lung. 4. Secondary pulmonary hypertension. 5. Obstructive sleep apnea. 6. Lower extremity venous dermatitis. PLAN: 1. Continue current support. 2. Nebulized treatments. 3. Follow up in the office with repeat sleep study. 4. If the patient has not had a CT scan within the last 12 months, we will proceed with an outpatient CT chest. I do appreciate the privilege in sharing in patient's care. KENISHA SWIFT MD DR: DIANE/kalpana JOB#: [id number] / [id number]
[2019-06-19 03:15] VITALS: BP 176/76
[2019-06-19] MEDS: cloNIDine HCL 0.1 MG TABLET PO PRN (03:32)
[2019-06-19] MEDS: LEVOTHYROXINE 125 MCG TABLET PO SCH (05:57)
[2019-06-19 06:36] LABS: CREATININE 1.2 mg/dL (0.6-1.0); GFR 43.6; MAGNESIUM 2.2 mg/dL (1.8-2.4); POTASSIUM 4.1 mmol/L (3.5-5.1)
[2019-06-19 07:00] VITALS: BP 186/76
--- NOTE | 2019-06-19 07:53 | PDOC ---
PROGRESS NOTES Chief Complaint Chief Complaint A/P: acute hypoxic resp failure CHF exacerbation - BNP 3423 Lymphedema right lower leg Abnormal radiologic finding of lung field Small nodule versus focal atelectasis left lung. morbid obesity HX COPD Smoker ADMITTED TELE cardiology consult DVT PROPHYLAXIS O2 SUPPORT IV LASI X 1 pulm consult History of Present Illness History of Present Illness Ms Lewis is a 79 yo female w/ PMHx COPD, CAD, HLD, HTN, Pulm HTN, Sleep apnea who lives in a high-rise independent living who came in with shortness of breath, putting on weight with swelling, anxiety, maybe redness of the leg, just worried that she is getting worse. The patient denies fever, denies any nausea, vomiting, diarrhea. Denies any chest pain, shortness of breath, abdominal pain, urinary symptoms or bowel symptoms. Seen by ID, ruled out cellulitis. Still with good UOP, has damon in place. Labs stable. No CP. Still short of breath on exertion. She feels her primary problem is incontinence. I have suggested acute rehab/SNF per PT/OT recommendations. Transitioned to PO meds. Vitals Vitals Vital Signs Date Time Temp Pulse Resp B/P (MAP) Pulse Ox O2 Delivery O2 Flow Rate FiO2 06/19/19 03:32 69 176/76 06/19/19 03:15 98.1 20 97 Nasal Cannula 2.5 98.1 Physical Exam General: Alert Heart: Regular rate Lungs: Clear, Crackles Abdomen: Soft Extremities: Other (trace edema) Labs LABS Laboratory Tests Test 06/19/19 05:00 Sodium Level 140 mmol/L (136-145) Potassium Level 4.1 mmol/L (3.5-5.1) Chloride Level 102 mmol/L (98-107) Carbon Dioxide Level 34 mmol/L (21-32) Anion Gap 4 (6-14) Blood Urea Nitrogen 28 mg/dL (7-20) Creatinine 1.2 mg/dL (0.6-1.0) Estimated GFR (Cockcroft-Gault) 43.6 Glucose Level 100 mg/dL (70-99) Calcium Level 8.0 mg/dL (8.5-10.1) Magnesium Level 2.2 mg/dL (1.8-2.4) Assessment and Plan Assessmemt and Plan Problems Medical Problems: (1) Abnormal radiologic finding of lung field Status: Acute (2) Cellulitis Status: Acute (3) CHF exacerbation Status: Acute (4) Hypoxia Status: Acute Comment Review of Relevant I have reviewed the following items vitaly (where applicable) has been applied. Labs Laboratory Tests Test 06/19/19 05:00 Sodium Level 140 mmol/L (136-145) Potassium Level 4.1 mmol/L (3.5-5.1) Chloride Level 102 mmol/L (98-107) Carbon Dioxide Level 34 mmol/L (21-32) Anion Gap 4 (6-14) Blood Urea Nitrogen 28 mg/dL (7-20) Creatinine 1.2 mg/dL (0.6-1.0) Estimated GFR (Cockcroft-Gault) 43.6 Glucose Level 100 mg/dL (70-99) Calcium Level 8.0 mg/dL (8.5-10.1) Magnesium Level 2.2 mg/dL (1.8-2.4) Laboratory Tests Test 06/19/19 05:00 Sodium Level 140 mmol/L (136-145) Potassium Level 4.1 mmol/L (3.5-5.1) Chloride Level 102 mmol/L (98-107) Carbon Dioxide Level 34 mmol/L (21-32) Anion Gap 4 (6-14) Blood Urea Nitrogen 28 mg/dL (7-20) Creatinine 1.2 mg/dL (0.6-1.0) Estimated GFR (Cockcroft-Gault) 43.6 Glucose Level 100 mg/dL (70-99) Calcium Level 8.0 mg/dL (8.5-10.1) Magnesium Level 2.2 mg/dL (1.8-2.4) Microbiology 06/16/19 Blood Culture - Preliminary, Resulted NO GROWTH AFTER 2 DAYS Medications Current Medications Albuterol/ Ipratropium (Duoneb) 3 ml 1X ONCE NEB Last administered on 06/16/19at 10:41; Start 06/16/19 at 11:00; Stop 06/16/19 at 11:01; Status DC Nitroglycerin (Nitro-Bid Oint) 1 inch 1X ONCE TP Last administered on 06/16/19at 10:50; Start 06/16/19 at 11:00; Stop 06/16/19 at 11:01; Status DC Labetalol HCl (Normodyne Iv Push) 10 mg 1X ONCE IVP Last administered on 06/16/19at 10:51; Start 06/16/19 at 11:00; Stop 06/16/19 at 11:01; Status DC Aspirin (Omid Aspirin) 325 mg 1X ONCE PO Last administered on 06/16/19at 10:51; Start 06/16/19 at 11:00; Stop 06/16/19 at 11:01; Status DC Hydralazine HCl (Apresoline Inj) 20 mg 1X ONCE IVP Last administered on 06/16/19at 11:44; Start 06/16/19 at 11:30; Stop 06/16/19 at 11:31; Status DC Acetaminophen (Tylenol) 500 mg 1X ONCE PO Last administered on 06/16/19at 13:53; Start 06/16/19 at 12:30; Stop 06/16/19 at 12:31; Status DC Furosemide (Lasix) 40 mg 1X ONCE IVP Last administered on 06/16/19at 12:38; Start 06/16/19 at 12:30; Stop 06/16/19 at 12:31; Status DC Fentanyl Citrate (Fentanyl 2ml Vial) 50 mcg 1X ONCE IV Last administered on 06/16/19at 12:38; Start 06/16/19 at 12:30; Stop 06/16/19 at 12:31; Status DC Fentanyl Citrate (Fentanyl 2ml Vial) 100 mcg STK-MED ONCE .ROUTE ; Start 06/16/19 at 12:32; Stop 06/16/19 at 12:32; Status DC Ondansetron HCl (Zofran) 4 mg PRN Q8HRS PRN IV NAUSEA/VOMITING; Start 06/16/19 at 12:45; Stop 06/16/19 at 21:10; Status DC Fentanyl Citrate (Fentanyl 2ml Vial) 50 mcg PRN Q2HR PRN IV PAIN; Start 06/16/19 at 12:45 Clindamycin Phosphate 50 ml @ 100 mls/hr 1X ONCE IV Last administered on 06/16/19at 13:12; Start 06/16/19 at 13:00; Stop 06/16/19 at 13:29; Status DC Acetaminophen (Tylenol) 650 mg PRN Q6HRS PRN PO MILD PAIN / TEMP; Start 06/16/19 at 15:30; Stop 06/16/19 at 21:10; Status DC Aspirin (Children'S Aspirin) 162 mg DAILY PO Last administered on 06/18/19 08:33; Start 06/17/19 at 09:00 Furosemide (Lasix) 20 mg DAILY PO Last administered on 06/18/19at 08:34; Start 06/16/19 at 16:00 Acetaminophen/ Hydrocodone Bitart (Lortab 7.5/325) 1 tab PRN Q6HRS PRN PO PAIN Last administered on 06/18/19at 11:27; Start 06/16/19 at 15:30 Albuterol/ Ipratropium (Duoneb) 3 ml RTQID NEB Last administered on 06/16/19at 20:28; Start 06/16/19 at 16:00; Stop 06/16/19 at 21:10; Status DC Levothyroxine Sodium (Synthroid) 125 mcg DAILY06 PO Last administered on 06/19/19at 05:57; Start 06/17/19 at 06:00 Lorazepam (Ativan) 0.5 mg BID PRN PO ANXIETY / AGITATION Last administered on 06/16/19at 16:26; Start 06/16/19 at 15:30; Stop 06/16/19 at 21:10; Status DC Losartan Potassium (Cozaar) 100 mg DAILY PO Last administered on 06/18/19at 08:35; Start 06/17/19 at 09:00 Nicotine (Nicoderm Cq 14mg) 1 patch DAILY TD Last administered on 06/18/19at 08:33; Start 06/16/19 at 16:00 Budesonide (Pulmicort) 0.5 mg RTBID NEB Last administered on 06/18/19at 19:47; Start 06/16/19 at 20:00 Citalopram Hydrobromide (CeleXA) 40 mg DAILY PO Last administered on 06/18/19at 08:35; Start 06/16/19 at 16:00 Famotidine (Pepcid) 20 mg PRN BID PRN PO HEARTBURN / GAS; Start 06/16/19 at 16:00 Cefazolin Sodium 50 ml @ 100 mls/hr Q8HRS IV ; Start 06/16/19 at 22:00; Status UNV Cefazolin Sodium (Ancef) 1 gm Q8HRS IVP Last administered on 06/17/19at 04:44; Start 06/16/19 at 22:00; Stop 06/17/19 at 13:41; Status DC Sodium Chloride (Normal Saline Flush) 3 ml QSHIFT PRN IV AFTER MEDS AND BLOOD DRAWS; Start 06/16/19 at 21:00 Ondansetron HCl (Zofran) 4 mg PRN Q4HRS PRN IV NAUSEA/VOMITING 1ST CHOICE; Start 06/16/19 at 21:00 Acetaminophen (Tylenol) 650 mg PRN Q4HRS PRN PO TEMP OVER 100.4F OR MILD PAIN Last administered on 06/18/19 21:33; Start 06/16/19 at 21:00 Clonidine HCl (Catapres) 0.1 mg PRN Q6HRS PRN PO SBP>160 OR DBP>90 Last administered on 06/19/19at 03:32; Start 06/16/19 at 21:00 Docusate Sodium (Colace) 100 mg PRN BID PRN PO CONSTIPATION 1ST CHOICE; Start 06/16/19 at 21:00 Albuterol/ Ipratropium (Duoneb) 3 ml Q4HRS W/A NEB Last administered on 06/18/19at 19:47; Start 06/16/19 at 22:00 Guaifenesin (Robitussin) 200 mg PRN Q4HRS PRN PO COUGH Last administered on 06/16/19 21:51; Start 06/16/19 at 21:00 Lorazepam (Ativan) 0.5 mg PRN Q4HRS PRN PO ANXIETY / AGITATION Last administered on 06/17/19 21:57; Start 06/16/19 at 21:00; Stop 06/18/19 at 14:11; Status DC Enoxaparin Sodium (Lovenox 40mg Syringe) 40 mg DAILY SQ Last administered on 06/18/19at 08:35; Start 06/17/19 at 09:00 Lactobacillus Rhamnosus (Culturelle) 1 cap BID PO Last administered on 06/18/19 21:33; Start 06/17/19 at 21:00 Diclofenac Sodium (Voltaren) 1 jason BID TP Last administered on 06/18/19 09:20; Start 06/18/19 at 09:00; Stop 06/18/19 at 14:01; Status DC Diclofenac Sodium (Voltaren) 1 jason QID TP Last administered on 06/18/19at 21:33; Start 06/18/19 at 17:00 Furosemide (Lasix) 20 mg 1X ONCE IVP Last administered on 06/18/19at 15:43; Start 06/18/19 at 14:15; Stop 06/18/19 at 14:16; Status DC Lorazepam (Ativan) 0.5 mg PRN Q8HRS PRN PO ANXIETY / AGITATION Last administered on 06/18/19at 22:19; Start 06/18/19 at 22:00 Lorazepam (Ativan) 0.5 mg PRN Q8HRS PRN PO ANXIETY / AGITATION; Start 06/18/19 at 22:00; Status UNV Active Scripts Active Duoneb 0.5-3(2.5) Mg/3 Ml (Albuterol/Ipratropium) 3 Ml Ampul.neb 3 Ml NEB RTQID MDD 1 NICODERM CQ 14mg (Nicotine) 1 Each Patch.td24 1 Patch TP DAILY Reported Escitalopram Oxalate 20 Mg Tablet 20 Mg PO DAILY Levothyroxine Sodium 125 Mcg Tablet 125 Mcg PO DAILYAC Losartan Potassium 50 Mg Tablet 100 Mg PO DAILY Hydrocodone-Acetamin 7.5-325 (Hydrocodone/Acetaminophen) 1 Each Tablet 1 Tab PO PRN Q6HRS PRN Lorazepam 0.5 Mg Tablet 0.5 Mg PO BID PRN Aspirin 81 Mg Tab.chew 2 Tab PO DAILY Symbicort 80-4.5 Mcg Inhaler (Budesonide/Formoterol Fumarate) 10.2 Gm Hfa.aer.ad 2 Puff IH BID Tylenol (Acetaminophen) 325 Mg Tablet 2 Tab PO PRN Q6HRS Furosemide 20 Mg Tablet 1 Tab PO DAILY Ranitidine Hcl 150 Mg Capsule 150 Mg PO PRN BID PRN Vitals/I & O Vital Sign - Last 24 Hours 06/18/19 06/18/19 06/18/19 06/18/19 08:00 08:19 08:35 11:00 Temp 97.4 97.4 Pulse 66 67 Resp 22 B/P (MAP) 155/70 150/64 (92) Pulse Ox 96 O2 Delivery Nasal Cannula Nasal Cannula Nasal Cannula O2 Flow Rate 2.5 3.0 2.5 1/6/20 06/18/19 06/18/19 06/18/19 15:00 15:16 19:25 19:47 Temp 98.0 98.5 98.0 98.5 Pulse 67 67 Resp 20 18 B/P (MAP) 114/54 (74) 143/60 (87) Pulse Ox 96 97 95 95 O2 Delivery Nasal Cannula Nasal Cannula Nasal Cannula Nasal Cannula O2 Flow Rate 2.5 3.0 2.5 3.0 06/18/19 06/18/19 06/19/19 06/19/19 20:05 22:45 03:15 03:32 Temp 97.8 98.1 97.8 98.1 Pulse 64 64 69 Resp 20 20 B/P (MAP) 158/61 (93) 176/76 (109) 176/76 Pulse Ox 96 97 O2 Delivery Nasal Cannula Nasal Cannula Nasal Cannula O2 Flow Rate 2.5 2.5 2.5 Intake and Output 06/18/19 06/18/19 06/19/19 15:00 23:00 07:00 Intake Total 500 ml 150 ml 1020 ml Output Total 1100 ml 350 ml Balance 500 ml -950 ml 670 ml RONAK CAMPBELL MD Jun 19, 2019 07:53
[2019-06-19] MEDS ORDERED: ALBUTEROL SULFATE 2.5 MG/3 ML NEBU. NEB PRN (08:00)
[2019-06-19] MEDS: BUDESONIDE 0.5 MG/2 ML NEBU. NEB SCH ×2 (08:24→21:13)
[2019-06-19] MEDS: IPRATRPIUM/ALBUTEROL 0.5/2.5MG 3 ML NEBU. NEB SCH ×4 (08:24→21:12)
[2019-06-19] MEDS: LOSARTAN POTASSIUM 50 MG TABLET. PO SCH (08:41)
[2019-06-19] MEDS: ASPIRIN CHEWABLE 81 MG TABLET. PO SCH (08:41)
[2019-06-19] MEDS: LACTOBACILLUS RHAMNOSUS GG 1 CAPSULE. PO SCH ×2 (08:42→21:03)
[2019-06-19] MEDS: HYDROcodone/APAP 7.5/325MG 1 TAB TABLET PO PRN (08:42)
[2019-06-19] MEDS: CITALOPRAM 20 MG TABLET. PO SCH (08:42)
[2019-06-19] MEDS: FUROSEMIDE 20 MG TABLET PO SCH (08:42)
[2019-06-19] MEDS: predniSONE 20 MG TABLET PO SCH (08:42)
[2019-06-19] MEDS: NICOTINE 14MG PATCH. TD SCH (08:43)
[2019-06-19] MEDS: ENOXAPARIN 40 MG/0.4 ML SYRINGE. SQ SCH (08:43)
[2019-06-19] MEDS: DICLOFENAC SODIUM 1% TOPICAL GEL 100GM TUBE. TP SCH ×4 (09:00→21:00)
[2019-06-19] MEDS ORDERED: PRED20TA PO (10:41)
[2019-06-19] MEDS ORDERED: MONT10TA49 PO (10:41)
[2019-06-19] MEDS ORDERED: DICL100G18 TP (10:41)
--- NOTE | 2019-06-19 10:44 | SNU/HH DC ---
DISCHARGE WITH HOME HEALTH DISCHARGE INFORMATION: Discharge Date: Jun 19, 2019 Final Diagnosis: Problems Medical Problems: (1) Abnormal radiologic finding of lung field Status: Acute (2) Cellulitis Status: Acute (3) CHF exacerbation Status: Acute (4) Hypoxia Status: Acute Condition on Discharge: Stable CODE STATUS: Code Status: Full HOME HEALTH: Face to Face: I certify this patient is under my care and that I, or a nurse practitioner or physician's programs assistant working with me, had a face to face encounter that meets the physician face to face encounter requirements with this patient on 06/19/2019. Medical Complications: CHF, COPD, Other (Urinary incontinence) RN For Eval/Treatment: Yes Physical Therapy For: Evalulation/Treatment Occupational Therapy For: Evaluation/Treatment Pt Meets Homebound Status: Unsteady balance w/ amb, POST DISCHARGE ORDERS: Activity Instructions for Disc: Activity as tolerated Weight Bearing Status after Di: As tolerated DIET AFTER DISCHARGE: Cardiac CHECKS AFTER DISCHARGE: Checks after discharge: Check blood press - daily, Weigh Yourself Daily FOLLOW-UP: Follow up with: [facility] [place] Urology - Dr. Mendoza TREATMENT/EQUIPMENT ORDERS: Adaptive Equipment Issued: None Discharge Respiratory Equipmen: Oxygen, Nebulizer, MDI CERTIFICATION STATEMENT: Certification Statement: Certification Statement: Based on the above finding, I certify that this patient is confined to the home and needs intermittent fdc care, physical therapy and/or speech therapy, or continues to need occupational therapy.~ This patient is under my care, and I have initiated the establishment of the plan of care.~ This patient will be followed by myself or a community physician who will periodically review the plan of care. Home Meds Active Scripts Montelukast Sodium (MONTELUKAST SODIUM TABLET ) 10 Mg Tablet, 10 MG PO QHS for COPD for 30 Days, #30 TAB 3 Refills Prov:RONAK CAMPBELL MD 06/19/19 Prednisone (PREDNISONE) 20 Mg Tablet, 20 MG PO DAILY for COPD for 4 Days, #4 TAB Prov:RONAK CAMPBELL MD 06/19/19 Diclofenac Sodium (VOLTAREN) 100 Gm Gel..gram., 1 EVAN TP QID for Osteoarthritis for 30 Days, #120 EACH 3 Refills Prov:RONAK CAMPBELL MD 06/19/19 Ipratropium/Albuterol Sulfate (DUONEB 0.5-3(2.5) MG/3 ML) 3 Ml Ampul.neb, 3 ML NEB RTQID for soa MDD 1, #60 EACH Prov:GALO NAIK MD 11/20/18 Nicotine (NICODERM CQ 14mg) 1 Each Patch.td24, 1 PATCH TP DAILY, #14 PATCH Prov:BRODERICK CRUZ MD 09/18/15 Reported Medications Escitalopram Oxalate (ESCITALOPRAM OXALATE) 20 Mg Tablet, 20 MG PO DAILY for ANTI-DEPRESSANT, TAB 0 Refills 06/16/19 Levothyroxine Sodium (LEVOTHYROXINE SODIUM) 125 Mcg Tablet, 125 MCG PO DAILYAC for THYROID SUPPLEMENT, #30 TAB 0 Refills 06/16/19 Losartan Potassium (LOSARTAN POTASSIUM) 50 Mg Tablet, 100 MG PO DAILY for HYPERTENSION, TAB 06/16/19 Hydrocodone/Acetaminophen (Hydrocodone-Acetamin 7.5-325) 1 Each Tablet, 1 TAB PO PRN Q6HRS PRN for PAIN 02/18/19 Lorazepam (LORAZEPAM) 0.5 Mg Tablet, 0.5 MG PO BID PRN for ANXIETY / AGITATION 02/18/19 Aspirin (ASPIRIN) 81 Mg Tab.chew, 2 TAB PO DAILY, #90 TAB 3 Refills 01/13/18 Budesonide/Formoterol Fumarate (SYMBICORT 80-4.5 MCG INHALER) 10.2 Gm Hfa.aer.ad, 2 PUFF IH BID, #10.2 GM 5 Refills 08/21/17 Acetaminophen (TYLENOL) 325 Mg Tablet, 2 TAB PO PRN Q6HRS, #30 TAB 08/21/17 Furosemide (FUROSEMIDE) 20 Mg Tablet, 1 TAB PO DAILY, #90 TAB 1 Refill 08/21/17 Ranitidine Hcl (RANITIDINE HCL) 150 Mg Capsule, 150 MG PO PRN BID PRN for H EARTBURN / GAS, TAB 11/07/14 Discontinued Reported Medications Levothyroxine Sodium (LEVOTHYROXINE SODIUM) 100 Mcg Tablet, 1 TAB PO DAILY for Thyroid supplement 02/18/19 Carvedilol (CARVEDILOL ) 12.5 Mg Tablet, 12.5 MG PO BIDWMEALS, TAB 01/13/18 Losartan Potassium (LOSARTAN POTASSIUM) 100 Mg Tablet, 100 MG PO DAILY, TAB 11/07/14 RONAK CAMPBELL MD Jun 19, 2019 10:44
[2019-06-19 11:00] VITALS: BP 161/70
[2019-06-19] MEDS: OXYBUTYNIN CHLORIDE 5 MG TABLET PO SCH ×3 (11:41→21:03)
--- NOTE | 2019-06-19 13:19 | PDOC ---
ANKUR ARGUELLES CUTTER DOWN 06/19/19 1319: CARDIO Progress Notes Date and Time Date of Service 06/19/19 Time of Evaluation 1310 Subjective Subjective: No Chest Pain, No shortness of breath, No Palpitations, Other (slightly dizzy today) Vitals Vitals Vital Signs Date Time Temp Pulse Resp B/P (MAP) Pulse Ox O2 Delivery O2 Flow Rate FiO2 06/19/19 12:10 96 Nasal Cannula 3.0 06/19/19 11:00 98.0 69 20 161/70 (100) 98.0 Weight Weight [ ] Input and Output Intake and Output Intake and Output 06/19/19 07:00 Intake Total 1670 ml Output Total 1450 ml Balance 220 ml Intake Oral 1670 ml Output Urine Total 1450 ml Laboratory Labs Laboratory Tests Test 06/19/19 05:00 Sodium Level 140 mmol/L (136-145) Potassium Level 4.1 mmol/L (3.5-5.1) Chloride Level 102 mmol/L (98-107) Carbon Dioxide Level 34 mmol/L (21-32) Anion Gap 4 (6-14) Blood Urea Nitrogen 28 mg/dL (7-20) Creatinine 1.2 mg/dL (0.6-1.0) Estimated GFR (Cockcroft-Gault) 43.6 Glucose Level 100 mg/dL (70-99) Calcium Level 8.0 mg/dL (8.5-10.1) Magnesium Level 2.2 mg/dL (1.8-2.4) Microbiology Micro Microbiology 06/16/19 Blood Culture - Preliminary, Resulted NO GROWTH AFTER 3 DAYS Physical Exam HEENT: Neck Supple W Full Motion Chest: Symmetric LUNGS: Clear to Auscultation Heart: S1S2, RRR Abdomen: Soft N/T Extremities: Other (trace - 1+ bilateral LE edema ) Neurology: alert, oriented, follow commands Assessment Assessment 1. Dyspnea with AE COPD and a/c CHF 2. Acute on chronic diastolic CHF secondary to noncompliance with diuretics. Better compensated with diuresis. Recent 2-D echo November 2018 showed LVEF 60-65%. 3. Chest pain with atypical features. Myocardial infarction has been ruled out. 4. Accelerated hypertension: labile 5. Hypothyroidism: On levo thyroxine 6. Dizziness; ? vertigo Recommendations Continue oral Lasix therapy Additional PRN TSH Add Norvasc for BP control Consider meclizine if dizziness persists Plan ischemic workup in the form of stress test as outpatient. MENG GUSTAFSON MD 06/19/19 1733: CARDIO Progress Notes Assessment Assessment Patient seen and examined. Agree with ORTHOTIC/PROSTHETIC CLINICIAN's assessment and plan. Acute on chronic diastolic heart failure better compensated Blood pressure better controlled Plan ischemic evaluation as an outpatient ANKUR ARGUELLES APRN Jun 19, 2019 13:19 MENG GUSTAFSON MD Jun 19, 2019 17:33
--- NOTE | 2019-06-19 14:21 | PDOC ---
PULMONARY PROGRESS NOTES Subjective no jason feels dizzy Vitals Vital Signs Date Time Temp Pulse Resp B/P (MAP) Pulse Ox O2 Delivery O2 Flow Rate FiO2 06/19/19 12:10 96 Nasal Cannula 3.0 06/19/19 11:00 98.0 69 20 161/70 (100) 98.0 General: Alert, No acute distress HEENT: Other Lungs: Clear Cardiovascular: S1, S2 Abdomen: Soft, Non-tender Neuro Exam: Alert Extremities: No Edema Labs Laboratory Tests Test 06/19/19 05:00 Sodium Level 140 mmol/L (136-145) Potassium Level 4.1 mmol/L (3.5-5.1) Chloride Level 102 mmol/L (98-107) Carbon Dioxide Level 34 mmol/L (21-32) Anion Gap 4 (6-14) Blood Urea Nitrogen 28 mg/dL (7-20) Creatinine 1.2 mg/dL (0.6-1.0) Estimated GFR (Cockcroft-Gault) 43.6 Glucose Level 100 mg/dL (70-99) Calcium Level 8.0 mg/dL (8.5-10.1) Magnesium Level 2.2 mg/dL (1.8-2.4) Laboratory Tests Test 06/19/19 05:00 Sodium Level 140 mmol/L (136-145) Potassium Level 4.1 mmol/L (3.5-5.1) Chloride Level 102 mmol/L (98-107) Carbon Dioxide Level 34 mmol/L (21-32) Anion Gap 4 (6-14) Blood Urea Nitrogen 28 mg/dL (7-20) Creatinine 1.2 mg/dL (0.6-1.0) Estimated GFR (Cockcroft-Gault) 43.6 Glucose Level 100 mg/dL (70-99) Calcium Level 8.0 mg/dL (8.5-10.1) Magnesium Level 2.2 mg/dL (1.8-2.4) Medications Active Scripts Medications Dose Route/Sig Max Daily Dose Days Date Category Escitalopram Oxalate 20 Mg Tablet 20 Mg PO DAILY 06/16/19 Reported Levothyroxine Sodium 125 Mcg Tablet 125 Mcg PO DAILYAC 06/16/19 Reported Losartan Potassium 50 Mg Tablet 100 Mg PO DAILY 06/16/19 Reported Hydrocodone-Acetamin 7.5-325 (Hydrocodone/Acetaminophen) 1 Each Tablet 1 Tab PO PRN Q6HRS PRN 02/18/19 Reported Lorazepam 0.5 Mg Tablet 0.5 Mg PO BID PRN 02/18/19 Reported Duoneb 0.5-3(2.5) Mg/3 Ml (Albuterol/Ipratropium) 3 Ml Ampul.neb 3 Ml NEB RTQID MDD 1 11/20/18 Rx Aspirin 81 Mg Tab.chew 2 Tab PO DAILY 01/13/18 Reported Symbicort 80-4.5 Mcg Inhaler (Budesonide/Formoterol Fumarate) 10.2 Gm Hfa.aer.ad 2 Puff IH BID 08/21/17 Reported Tylenol (Acetaminophen) 325 Mg Tablet 2 Tab PO PRN Q6HRS 08/21/17 Reported Furosemide 20 Mg Tablet 1 Tab PO DAILY 08/21/17 Reported NICODERM CQ 14mg (Nicotine) 1 Each Patch.td24 1 Patch TP DAILY 09/18/15 Rx Ranitidine Hcl 150 Mg Capsule 150 Mg PO PRN BID PRN 11/07/14 Reported Impression . 1. Progressive dyspnea secondary to acute exacerbation of chronic obstructive pulmonary disease. 2. Acute on chronic diastolic heart failure. 3. Small pulmonary nodule and questionable atelectasis, left lung. 4. Secondary pulmonary hypertension. 5. Obstructive sleep apnea. claustrophobic to CPAP 6. Lower extremity venous dermatitis. Plan . 1. Continue current support. 2. Nebulized treatments. 3. Follow up in the office with repeat sleep study if patient desires nasal pillows 4. CT chest. MERCY CHOI MD Jun 19, 2019 14:21
[2019-06-19 15:00] VITALS: BP 149/67
--- NOTE | 2019-06-19 15:33 | NUR ---
SS following up with discharge planning. SS met with pt and pt's daughter in room to discuss discharge planning and correction unit. Pt and pt's daughter agreeable to [facility], ; fax [phone]. SS phoned and faxed referral to [facility]. SS will await acceptance decision and insurance determination and will proceed accordingly with discharge planning.
[2019-06-19] MEDS ORDERED: FAMOTIDINE 20 MG TABLET. PO PRN (17:00)
--- NOTE | 2019-06-19 17:16 | RAD ---
Examination: CT CHEST WO CONTRAST History: Lung nodule Comparison/Correlation: 06/16/2019 two-view chest x-ray exam Findings: Axial images of the chest were obtained without contrast. Sagittal and coronal reformatted images were provided. Right shoulder joint prosthesis is present with associated streak artifact limiting evaluation of the base of the neck. Tracheobronchial tree is unremarkable. Minimal bibasilar costophrenic sulcus atelectasis is present. Linear atelectasis involving the lingula and right middle lobe also noted. Minimal centrilobular emphysematous involvement of the lung ross noted. Cardiomegaly is present. Coronary arterial calcification is present particularly involving the proximal left anterior descending this region. No enlarged thoracic lymph nodes. Nodular contour of the liver is present compatible with cirrhosis or other hepatic fibrotic process. Cholecystectomy evident. Bony structures are unremarkable. Impression: Linear atelectasis of the lung ross noted. No suspicious pulmonary nodule or mass. Finding on 06/16/2019 chest x-ray exam corresponds to atelectasis. Nodular contour of the liver of concern for hepatic cirrhosis or other hepatic fibrotic process. PQRS Compliance Statement: One or more of the following individualized dose reduction techniques were utilized for this examination: 1. Automated exposure control 2. Adjustment of the mA and/or kV according to patient size 3. Use of iterative reconstruction technique Electronically signed by: Jose Long MD (06/19/2019 5:14 PM) [facility]
[2019-06-19 19:00] VITALS: BP 164/50
[2019-06-19] MEDS: MONTELUKAST SODIUM 10 MG TABLET. PO SCH (21:03)
[2019-06-19] MEDS: ATORVASTATIN CALCIUM 10 MG TABLET. PO SCH (21:03)
[2019-06-19] MEDS: LORazepam 0.5 MG TABLET PO PRN (21:06)
[2019-06-19 23:00] VITALS: BP 62/50
[2019-06-20 03:00] VITALS: BP 151/51
[2019-06-20] MEDS: IPRATRPIUM/ALBUTEROL 0.5/2.5MG 3 ML NEBU. NEB SCH ×4 (06:00→21:18)
[2019-06-20] MEDS: LEVOTHYROXINE 125 MCG TABLET PO SCH (06:23)
[2019-06-20 07:00] VITALS: BP 131/41
[2019-06-20] MEDS: BUDESONIDE 0.5 MG/2 ML NEBU. NEB SCH ×2 (07:01→21:18)
[2019-06-20] MEDS: DICLOFENAC SODIUM 1% TOPICAL GEL 100GM TUBE. TP SCH ×4 (08:11→21:00)
--- NOTE | 2019-06-20 08:18 | PDOC ---
PROGRESS NOTES Chief Complaint Chief Complaint A/P: acute hypoxic resp failure CHF exacerbation - BNP 3423 Lymphedema right lower leg Abnormal radiologic finding of lung field Small nodule versus focal atelectasis left lung. morbid obesity HX COPD Smoker ADMITTED TELE cardiology consult DVT PROPHYLAXIS O2 SUPPORT IV LASI X 1 pulm consult History of Present Illness History of Present Illness Ms Lewis is a 79 yo female w/ PMHx COPD, CAD, HLD, HTN, Pulm HTN, Sleep apnea who lives in a high-rise independent living who came in with shortness of breath, putting on weight with swelling, anxiety, maybe redness of the leg, just worried that she is getting worse. The patient denies fever, denies any nausea, vomiting, diarrhea. Denies any chest pain, shortness of breath, abdominal pain, urinary symptoms or bowel symptoms. Seen by ID, ruled out cellulitis. 06/19: Still with good UOP, has damon removed. Labs stable. No CP. Still short of breath on exertion. CT chest found Nodular contour of the liver of concern for hepatic cirrhosis or other hepatic fibrotic process, no suspicious pulmonary process She feels her primary problem is incontinence. I have suggested acute rehab/SNF per PT/OT recommendations. Transitioned to PO meds. CT chest reviewed. She still requires a lot of assistance with ambulation. Vitals Vitals Vital Signs Date Time Temp Pulse Resp B/P (MAP) Pulse Ox O2 Delivery O2 Flow Rate FiO2 06/20/19 07:02 98 Nasal Cannula 3.0 06/20/19 07:00 97.7 64 18 131/41 (71) 97.7 Physical Exam General: Alert Heart: Regular rate Lungs: Clear Abdomen: Soft Extremities: Other (trace edema) Assessment and Plan Assessmemt and Plan Problems Medical Problems: (1) Abnormal radiologic finding of lung field Status: Acute (2) Cellulitis Status: Acute (3) CHF exacerbation Status: Acute (4) Hypoxia Status: Acute Comment Review of Relevant I have reviewed the following items vitaly (where applicable) has been applied. Labs Laboratory Tests Test 06/19/19 05:00 Sodium Level 140 mmol/L (136-145) Potassium Level 4.1 mmol/L (3.5-5.1) Chloride Level 102 mmol/L (98-107) Carbon Dioxide Level 34 mmol/L (21-32) Anion Gap 4 (6-14) Blood Urea Nitrogen 28 mg/dL (7-20) Creatinine 1.2 mg/dL (0.6-1.0) Estimated GFR (Cockcroft-Gault) 43.6 Glucose Level 100 mg/dL (70-99) Calcium Level 8.0 mg/dL (8.5-10.1) Magnesium Level 2.2 mg/dL (1.8-2.4) Microbiology 06/16/19 Blood Culture - Preliminary, Resulted NO GROWTH AFTER 3 DAYS Medications Current Medications Albuterol/ Ipratropium (Duoneb) 3 ml 1X ONCE NEB Last administered on 06/16/19 10:41; Start 06/16/19 at 11:00; Stop 06/16/19 at 11:01; Status DC Nitroglycerin (Nitro-Bid Oint) 1 inch 1X ONCE TP Last administered on 06/16/19at 10:50; Start 06/16/19 at 11:00; Stop 06/16/19 at 11:01; Status DC Labetalol HCl (Normodyne Iv Push) 10 mg 1X ONCE IVP Last administered on 06/16/19at 10:51; Start 06/16/19 at 11:00; Stop 06/16/19 at 11:01; Status DC Aspirin (Omid Aspirin) 325 mg 1X ONCE PO Last administered on 06/16/19at 10:51; Start 06/16/19 at 11:00; Stop 06/16/19 at 11:01; Status DC Hydralazine HCl (Apresoline Inj) 20 mg 1X ONCE IVP Last administered on 06/16/19at 11:44; Start 06/16/19 at 11:30; Stop 06/16/19 at 11:31; Status DC Acetaminophen (Tylenol) 500 mg 1X ONCE PO Last administered on 06/16/19at 13:53; Start 06/16/19 at 12:30; Stop 06/16/19 at 12:31; Status DC Furosemide (Lasix) 40 mg 1X ONCE IVP Last administered on 06/16/19at 12:38; Start 06/16/19 at 12:30; Stop 06/16/19 at 12:31; Status DC Fentanyl Citrate (Fentanyl 2ml Vial) 50 mcg 1X ONCE IV Last administered on 06/16/19at 12:38; Start 06/16/19 at 12:30; Stop 06/16/19 at 12:31; Status DC Fentanyl Citrate (Fentanyl 2ml Vial) 100 mcg STK-MED ONCE .ROUTE ; Start 06/16/19 at 12:32; Stop 06/16/19 at 12:32; Status DC Ondansetron HCl (Zofran) 4 mg PRN Q8HRS PRN IV NAUSEA/VOMITING; Start 06/16/19 a t 12:45; Stop 06/16/19 at 21:10; Status DC Fentanyl Citrate (Fentanyl 2ml Vial) 50 mcg PRN Q2HR PRN IV PAIN; Start 06/16/19 at 12:45 Clindamycin Phosphate 50 ml @ 100 mls/hr 1X ONCE IV Last administered on 06/16/19at 13:12; Start 06/16/19 at 13:00; Stop 06/16/19 at 13:29; Status DC Acetaminophen (Tylenol) 650 mg PRN Q6HRS PRN PO MILD PAIN / TEMP; Start 06/16/19 at 15:30; Stop 06/16/19 at 21:10; Status DC Aspirin (Children'S Aspirin) 162 mg DAILY PO Last administered on 06/19/19at 08:41; Start 06/17/19 at 09:00 Furosemide (Lasix) 20 mg DAILY PO Last administered on 06/19/19at 08:42; Start 06/16/19 at 16:00 Acetaminophen/ Hydrocodone Bitart (Lortab 7.5/325) 1 tab PRN Q6HRS PRN PO PAIN Last administered on 06/19/19at 08:42; Start 06/16/19 at 15:30 Albuterol/ Ipratropium (Duoneb) 3 ml RTQID NEB Last administered on 06/16/19at 20:28; Start 06/16/19 at 16:00; Stop 06/16/19 at 21:10; Status DC Levothyroxine Sodium (Synthroid) 125 mcg DAILY06 PO Last administered on 06/20/19at 06:23; Start 06/17/19 at 06:00 Lorazepam (Ativan) 0.5 mg BID PRN PO ANXIETY / AGITATION Last administered on 06/16/19at 16:26; Start 06/16/19 at 15:30; Stop 06/16/19 at 21:10; Status DC Losartan Potassium (Cozaar) 100 mg DAILY PO Last administered on 06/19/19 08:41; Start 06/17/19 at 09:00 Nicotine (Nicoderm Cq 14mg) 1 patch DAILY TD Last administered on 06/19/19 08:43; Start 06/16/19 at 16:00 Budesonide (Pulmicort) 0.5 mg RTBID NEB Last administered on 06/20/19 07:01; Start 06/16/19 at 20:00 Citalopram Hydrobromide (CeleXA) 40 mg DAILY PO Last administered on 06/19/19 08:42; Start 06/16/19 at 16:00 Famotidine (Pepcid) 20 mg PRN BID PRN PO HEARTBURN / GAS; Start 06/16/19 at 16:00; Stop 06/19/19 at 16:52; Status DC Cefazolin Sodium 50 ml @ 100 mls/hr Q8HRS IV ; Start 06/16/19 at 22:00; Status UNV Cefazolin Sodium (Ancef) 1 gm Q8HRS IVP Last administered on 06/17/19at 04:44; Start 06/16/19 at 22:00; Stop 06/17/19 at 13:41; Status DC Sodium Chloride (Normal Saline Flush) 3 ml QSHIFT PRN IV AFTER MEDS AND BLOOD DRAWS; Start 06/16/19 at 21:00 Ondansetron HCl (Zofran) 4 mg PRN Q4HRS PRN IV NAUSEA/VOMITING 1ST CHOICE; Start 06/16/19 at 21:00 Acetaminophen (Tylenol) 650 mg PRN Q4HRS PRN PO TEMP OVER 100.4F OR MILD PAIN Last administered on 06/18/19at 21:33; Start 06/16/19 at 21:00 Clonidine HCl (Catapres) 0.1 mg PRN Q6HRS PRN PO SBP>160 OR DBP>90 Last administered on 06/19/19at 03:32; Start 06/16/19 at 21:00 Docusate Sodium (Colace) 100 mg PRN BID PRN PO CONSTIPATION 1ST CHOICE; Start 06/16/19 at 21:00 Albuterol/ Ipratropium (Duoneb) 3 ml Q4HRS W/A NEB Last administered on 06/20/19 06:00; Start 06/16/19 at 22:00 Guaifenesin (Robitussin) 200 mg PRN Q4HRS PRN PO COUGH Last administered on 06/16/19 21:51; Start 06/16/19 at 21:00 Lorazepam (Ativan) 0.5 mg PRN Q4HRS PRN PO ANXIETY / AGITATION Last administered on 06/17/19 21:57; Start 06/16/19 at 21:00; Stop 06/18/19 at 14:11; Status DC Enoxaparin Sodium (Lovenox 40mg Syringe) 40 mg DAILY SQ Last administered on 06/19/19 08:43; Start 06/17/19 at 09:00 Lactobacillus Rhamnosus (Culturelle) 1 cap BID PO Last administered on 06/19/19 21:03; Start 06/17/19 at 21:00 Diclofenac Sodium (Voltaren) 1 dorian BID TP Last administered on 06/18/19 09:20; Start 06/18/19 at 09:00; Stop 06/18/19 at 14:01; Status DC Diclofenac Sodium (Voltaren) 1 dorian QID TP Last administered on 06/19/19at 14:00; Start 06/18/19 at 17:00 Furosemide (Lasix) 20 mg 1X ONCE IVP Last administered on 06/18/19at 15:43; Start 06/18/19 at 14:15; Stop 06/18/19 at 14:16; Status DC Lorazepam (Ativan) 0.5 mg PRN Q8HRS PRN PO ANXIETY / AGITATION Last administered on 06/19/19at 21:06; Start 06/18/19 at 22:00 Lorazepam (Ativan) 0.5 mg PRN Q8HRS PRN PO ANXIETY / AGITATION; Start 06/18/19 at 22:00; Status UNV Montelukast Sodium (Singulair) 10 mg QHS PO Last administered on 06/19/19 21:03; Start 06/19/19 at 21:00 Albuterol Sulfate (Ventolin Neb Soln) 2.5 mg PRN Q4HRS PRN NEB SHORTNESS OF BREATH; Start 06/19/19 at 08:00 Prednisone (Prednisone) 20 mg DAILY PO Last administered on 1/7/20at 08:42; Start 06/19/19 at 09:00; Stop 06/23/19 at 09:01 Oxybutynin Chloride (Ditropan) 5 mg QAI410 PO Last administered on 06/19/19at 21:03; Start 06/19/19 at 10:45 Famotidine (Pepcid) 20 mg PRN DAILY PRN PO HEARTBURN / GAS; Start 06/19/19 at 17:00 Amlodipine Besylate (Norvasc) 5 mg DAILY PO ; Start 06/20/19 at 09:00 Atorvastatin Calcium (Lipitor) 10 mg QHS PO Last administered on 06/19/19at 21:03; Start 06/19/19 at 21:00 Active Scripts Active Montelukast Sodium Tablet (Montelukast Sodium) 10 Mg Tablet 10 Mg PO QHS 30 Days Prednisone 20 Mg Tablet 20 Mg PO DAILY 4 Days Voltaren (Diclofenac Sodium) 100 Gm Gel..gram. 1 Dorian TP QID 30 Days Duoneb 0.5-3(2.5) Mg/3 Ml (Albuterol/Ipratropium) 3 Ml Ampul.neb 3 Ml NEB RTQID MDD 1 NICODERM CQ 14mg (Nicotine) 1 Each Patch.td24 1 Patch TP DAILY Reported Escitalopram Oxalate 20 Mg Tablet 20 Mg PO DAILY Levothyroxine Sodium 125 Mcg Tablet 125 Mcg PO DAILYAC Losartan Potassium 50 Mg Tablet 100 Mg PO DAILY Hydrocodone-Acetamin 7.5-325 (Hydrocodone/Acetaminophen) 1 Each Tablet 1 Tab PO PRN Q6HRS PRN Lorazepam 0.5 Mg Tablet 0.5 Mg PO BID PRN Aspirin 81 Mg Tab.chew 2 Tab PO DAILY Symbicort 80-4.5 Mcg Inhaler (Budesonide/Formoterol Fumarate) 10.2 Gm Hfa.aer.ad 2 Puff IH BID Tylenol (Acetaminophen) 325 Mg Tablet 2 Tab PO PRN Q6HRS Furosemide 20 Mg Tablet 1 Tab PO DAILY Ranitidine Hcl 150 Mg Capsule 150 Mg PO PRN BID PRN Vitals/I & O Vital Sign - Last 24 Hours 06/19/19 06/19/19 06/19/19 06/19/19 08:26 08:41 11:00 12:10 Temp 98.0 98.0 Pulse 68 69 Resp 20 B/P (MAP) 186/76 161/70 (100) Pulse Ox 96 95 96 O2 Delivery Nasal Cannula Nasal Cannula Nasal Cannula O2 Flow Rate 3.0 2.5 3.0 06/19/19 06/19/19 06/19/19 06/19/19 15:00 16:36 19:00 20:00 Temp 97.5 97.9 97.5 97.9 Pulse 75 85 Resp 20 18 B/P (MAP) 149/67 (94) 164/50 (88) Pulse Ox 92 96 96 O2 Delivery Nasal Cannula Nasal Cannula Nasal Cannula Nasal Cannula O2 Flow Rate 2.5 3.0 2.5 2.5 06/19/19 06/19/19 06/19/19 06/20/19 21:12 21:15 23:00 03:00 Temp 97.9 97.5 97.9 97.5 Pulse 85 69 Resp 18 18 B/P (MAP) 62/50 (54) 151/51 (84) Pulse Ox 98 98 98 99 O2 Delivery Nasal Cannula Nasal Cannula Nasal Cannula Nasal Cannula O2 Flow Rate 3.0 3.0 2.5 2.5 06/20/19 06/20/19 07:00 07:02 Temp 97.7 97.7 Pulse 64 Resp 18 B/P (MAP) 131/41 (71) Pulse Ox 96 98 O2 Delivery Nasal Cannula Nasal Cannula O2 Flow Rate 2.5 3.0 Intake and Output 06/19/19 06/19/19 06/20/19 15:00 23:00 07:00 Intake Total 550 ml 250 ml 100 ml Balance 550 ml 250 ml [address] chest - Linear atelectasis of the lung ross noted. No suspicious pulmonary nodule or mass. Finding on 06/16/2019 chest x-ray exam corresponds to atelectasis. Nodular contour of the liver of concern for hepatic cirrhosis or other hepatic fibrotic process. RONAK CAMPBELL MD Jun 20, 2019 08:18
[2019-06-20] MEDS: amLODIPine BESYLATE 5 MG TABLET PO SCH (08:44)
[2019-06-20] MEDS: predniSONE 20 MG TABLET PO SCH (08:45)
[2019-06-20] MEDS: OXYBUTYNIN CHLORIDE 5 MG TABLET PO SCH ×3 (08:45→21:18)
[2019-06-20] MEDS: ASPIRIN CHEWABLE 81 MG TABLET. PO SCH (08:45)
[2019-06-20] MEDS: LOSARTAN POTASSIUM 50 MG TABLET. PO SCH (08:45)
[2019-06-20] MEDS: LACTOBACILLUS RHAMNOSUS GG 1 CAPSULE. PO SCH ×2 (08:45→21:18)
[2019-06-20] MEDS: FUROSEMIDE 20 MG TABLET PO SCH (08:45)
[2019-06-20] MEDS: CITALOPRAM 20 MG TABLET. PO SCH (08:45)
[2019-06-20] MEDS: ENOXAPARIN 40 MG/0.4 ML SYRINGE. SQ SCH (08:46)
[2019-06-20] MEDS: NICOTINE 14MG PATCH. TD SCH (08:46)
[2019-06-20 11:00] VITALS: BP 126/46
--- NOTE | 2019-06-20 11:33 | PDOC ---
PULMONARY PROGRESS NOTES Subjective no jason feels BETTER Vitals Vital Signs Date Time Temp Pulse Resp B/P (MAP) Pulse Ox O2 Delivery O2 Flow Rate FiO2 06/20/19 08:45 64 131/41 06/20/19 08:00 Nasal Cannula 2.5 06/20/19 07:02 98 06/20/19 07:00 97.7 18 97.7 General: Alert, No acute distress HEENT: Other Lungs: Clear Cardiovascular: S1, S2 Abdomen: Soft, Non-tender Neuro Exam: Alert Extremities: No Edema Labs Laboratory Tests Test 06/19/19 05:00 Sodium Level 140 mmol/L (136-145) Potassium Level 4.1 mmol/L (3.5-5.1) Chloride Level 102 mmol/L (98-107) Carbon Dioxide Level 34 mmol/L (21-32) Anion Gap 4 (6-14) Blood Urea Nitrogen 28 mg/dL (7-20) Creatinine 1.2 mg/dL (0.6-1.0) Estimated GFR (Cockcroft-Gault) 43.6 Glucose Level 100 mg/dL (70-99) Calcium Level 8.0 mg/dL (8.5-10.1) Magnesium Level 2.2 mg/dL (1.8-2.4) Medications Active Scripts Medications Dose Route/Sig Max Daily Dose Days Date Category Escitalopram Oxalate 20 Mg Tablet 20 Mg PO DAILY 06/16/19 Reported Levothyroxine Sodium 125 Mcg Tablet 125 Mcg PO DAILYAC 06/16/19 Reported Losartan Potassium 50 Mg Tablet 100 Mg PO DAILY 06/16/19 Reported Hydrocodone-Acetamin 7.5-325 (Hydrocodone/Acetaminophen) 1 Each Tablet 1 Tab PO PRN Q6HRS PRN 02/18/19 Reported Lorazepam 0.5 Mg Tablet 0.5 Mg PO BID PRN 02/18/19 Reported Duoneb 0.5-3(2.5) Mg/3 Ml (Albuterol/Ipratropium) 3 Ml Ampul.neb 3 Ml NEB RTQID MDD 1 11/20/18 Rx Aspirin 81 Mg Tab.chew 2 Tab PO DAILY 01/13/18 Reported Symbicort 80-4.5 Mcg Inhaler (Budesonide/Formoterol Fumarate) 10.2 Gm Hfa.aer.ad 2 Puff IH BID 08/21/17 Reported Tylenol (Acetaminophen) 325 Mg Tablet 2 Tab PO PRN Q6HRS 08/21/17 Reported Furosemide 20 Mg Tablet 1 Tab PO DAILY 08/21/17 Reported NICODERM CQ 14mg (Nicotine) 1 Each Patch.td24 1 Patch TP DAILY 09/18/15 Rx Ranitidine Hcl 150 Mg Capsule 150 Mg PO PRN BID PRN 11/07/14 Reported Impression . 1. Progressive dyspnea secondary to acute exacerbation of chronic obstructive pulmonary disease. RESOLVED 2. Acute on chronic diastolic heart failure. 3. Small pulmonary nodule and questionable atelectasis, left lung. 4. Secondary pulmonary hypertension. 5. Obstructive sleep apnea. claustrophobic to CPAP 6. Lower extremity venous dermatitis. Plan . 1. Continue current support. 2. Nebulized treatments. 3. Follow up in the office with repeat sleep study if patient desires nasal pillows 4. CT chest 06/19 WITH ATELECTASIS OK WITH [facility] MD Jun 20, 2019 11:32
--- NOTE | 2019-06-20 14:45 | NUR ---
JAMIL following. Discussed with RN, pt has been accepted at [facility], pending insurance auth. [facility] requested pt bring Symbicort inhaler from home. JAMIL spoke with pt's daughter, Keiko ([phone]), Keiko is agreeable and can bring inhaler from home. JAMIL awaiting insurance auth. RN notified.
[2019-06-20 15:00] VITALS: BP 154/55
[2019-06-20 19:00] VITALS: BP 146/51
[2019-06-20] MEDS: ATORVASTATIN CALCIUM 10 MG TABLET. PO SCH (21:18)
[2019-06-20] MEDS: LORazepam 0.5 MG TABLET PO PRN (21:18)
[2019-06-20] MEDS: MONTELUKAST SODIUM 10 MG TABLET. PO SCH (21:18)
[2019-06-20 23:00] VITALS: BP 127/42
[2019-06-21 03:00] VITALS: BP 121/45
[2019-06-21] MEDS: LEVOTHYROXINE 125 MCG TABLET PO SCH (05:46)
[2019-06-21 07:00] VITALS: BP 140/52
[2019-06-21] MEDS: BUDESONIDE 0.5 MG/2 ML NEBU. NEB SCH ×2 (07:09→20:26)
[2019-06-21] MEDS: IPRATRPIUM/ALBUTEROL 0.5/2.5MG 3 ML NEBU. NEB SCH ×5 (07:09→22:00)
[2019-06-21] MEDS: DICLOFENAC SODIUM 1% TOPICAL GEL 100GM TUBE. TP SCH (08:22)
[2019-06-21] MEDS: NICOTINE 14MG PATCH. TD SCH (08:28)
[2019-06-21] MEDS: ASPIRIN CHEWABLE 81 MG TABLET. PO SCH (08:29)
[2019-06-21] MEDS: CITALOPRAM 20 MG TABLET. PO SCH (08:29)
[2019-06-21] MEDS: LOSARTAN POTASSIUM 50 MG TABLET. PO SCH (08:29)
[2019-06-21] MEDS: LACTOBACILLUS RHAMNOSUS GG 1 CAPSULE. PO SCH ×2 (08:29→20:39)
[2019-06-21] MEDS: OXYBUTYNIN CHLORIDE 5 MG TABLET PO SCH ×3 (08:29→20:39)
[2019-06-21] MEDS: predniSONE 20 MG TABLET PO SCH (08:29)
[2019-06-21] MEDS: amLODIPine BESYLATE 5 MG TABLET PO SCH (08:30)
[2019-06-21] MEDS: FUROSEMIDE 20 MG TABLET PO SCH (08:30)
[2019-06-21] MEDS: ENOXAPARIN 40 MG/0.4 ML SYRINGE. SQ SCH (08:30)
[2019-06-21 11:00] VITALS: BP 135/52
[2019-06-21] MEDS ORDERED: DICLOFENAC SODIUM 1% TOPICAL GEL 100GM TUBE. TP PRN (12:15)
--- NOTE | 2019-06-21 12:43 | PDOC ---
PULMONARY PROGRESS NOTES Subjective no jason feels BETTER Vitals Vital Signs Date Time Temp Pulse Resp B/P (MAP) Pulse Ox O2 Delivery O2 Flow Rate FiO2 06/21/19 10:59 99 Nasal Cannula 3.0 06/21/19 08:30 66 140/50 06/21/19 07:00 97.8 18 97.8 General: Alert, No acute distress HEENT: Other Lungs: Clear Cardiovascular: S1, S2 Abdomen: Soft, Non-tender Neuro Exam: Alert Extremities: No Edema Medications Active Scripts Medications Dose Route/Sig Max Daily Dose Days Date Category Escitalopram Oxalate 20 Mg Tablet 20 Mg PO DAILY 06/16/19 Reported Levothyroxine Sodium 125 Mcg Tablet 125 Mcg PO DAILYAC 06/16/19 Reported Losartan Potassium 50 Mg Tablet 100 Mg PO DAILY 06/16/19 Reported Hydrocodone-Acetamin 7.5-325 (Hydrocodone/Acetaminophen) 1 Each Tablet 1 Tab PO PRN Q6HRS PRN 02/18/19 Reported Lorazepam 0.5 Mg Tablet 0.5 Mg PO BID PRN 02/18/19 Reported Duoneb 0.5-3(2.5) Mg/3 Ml (Albuterol/Ipratropium) 3 Ml Ampul.neb 3 Ml NEB RTQID MDD 1 11/20/18 Rx Aspirin 81 Mg Tab.chew 2 Tab PO DAILY 01/13/18 Reported Symbicort 80-4.5 Mcg Inhaler (Budesonide/Formoterol Fumarate) 10.2 Gm Hfa.aer.ad 2 Puff IH BID 08/21/17 Reported Tylenol (Acetaminophen) 325 Mg Tablet 2 Tab PO PRN Q6HRS 08/21/17 Reported Furosemide 20 Mg Tablet 1 Tab PO DAILY 08/21/17 Reported NICODERM CQ 14mg (Nicotine) 1 Each Patch.td24 1 Patch TP DAILY 09/18/15 Rx Ranitidine Hcl 150 Mg Capsule 150 Mg PO PRN BID PRN 11/07/14 Reported Impression . 1. Progressive dyspnea secondary to acute exacerbation of chronic obstructive pulmonary disease. RESOLVED 2. Acute on chronic diastolic heart failure. 3. Small pulmonary nodule and questionable atelectasis, left lung. 4. Secondary pulmonary hypertension. 5. Obstructive sleep apnea. claustrophobic to CPAP 6. Lower extremity venous dermatitis. Plan . 1. Continue current support. 2. Nebulized treatments. 3. Follow up in the office with repeat sleep study if patient desires nasal pillows 4. CT chest 06/19 WITH ATELECTASIS OK WITH [facility] MD Jun 21, 2019 12:43
--- NOTE | 2019-06-21 14:00 | NUR ---
JAMIL following. Pt accepted at [facility] pending insurance auth.
[2019-06-21 15:00] VITALS: BP_SYST 126; BP_SYST 129; BP_DIAS 37; BP_DIAS 39
[2019-06-21] MEDS: DOCUSATE SODIUM 100 MG CAPSULE. PO PRN (18:02)
[2019-06-21 19:00] VITALS: BP 155/57
[2019-06-21] MEDS: MONTELUKAST SODIUM 10 MG TABLET. PO SCH (20:39)
[2019-06-21] MEDS: ATORVASTATIN CALCIUM 10 MG TABLET. PO SCH (20:39)
[2019-06-21] MEDS: HYDROcodone/APAP 7.5/325MG 1 TAB TABLET PO PRN (20:43)
--- NOTE | 2019-06-21 22:05 | PDOC ---
PROGRESS NOTES Chief Complaint Chief Complaint A/P: acute hypoxic resp failure CHF exacerbation - BNP 3423 Lymphedema right lower leg Abnormal radiologic finding of lung field Small nodule versus focal atelectasis left lung. morbid obesity HX COPD Smoker ADMITTED TELE cardiology consult DVT PROPHYLAXIS O2 SUPPORT IV LASI X 1 pulm consult History of Present Illness History of Present Illness Ms Lewis is a 79 yo female w/ PMHx COPD, CAD, HLD, HTN, Pulm HTN, Sleep apnea who lives in a high-rise independent living who came in with shortness of breath, putting on weight with swelling, anxiety, maybe redness of the leg, just worried that she is getting worse. The patient denies fever, denies any nausea, vomiting, diarrhea. Denies any chest pain, shortness of breath, abdominal pain, urinary symptoms or bowel symptoms. Seen by ID, ruled out cellulitis. 06/19: Still with good UOP, has damon removed. Labs stable. No CP. Still short of breath on exertion. CT chest found Nodular contour of the liver of concern for hepatic cirrhosis or other hepatic fibrotic process, no suspicious pulmonary process 06/20: She feels her primary problem is incontinence. I have suggested acute rehab/SNF per PT/OT recommendations. Transitioned to PO meds. CT chest reviewed. She still requires a lot of assistance with ambulation. Incontinence improved with ditropan. She is c/o some weakness and low BP on standing. No CP. SOB is better. cannot get to the restroom without assistance currently. Needs rehab. Vitals Vitals Vital Signs Date Time Temp Pulse Resp B/P (MAP) Pulse Ox O2 Delivery O2 Flow Rate FiO2 06/21/19 20:26 99 Nasal Cannula 3.0 06/21/19 19:00 98.3 63 18 155/57 (89) 98.3 Physical Exam General: Alert Heart: Regular rate Lungs: Clear Abdomen: Soft Extremities: Other (trace edema) Assessment and Plan Assessmemt and Plan Problems Medical Problems: (1) Abnormal radiologic finding of lung field Status: Acute (2) Cellulitis Status: Acute (3) CHF exacerbation Status: Acute (4) Hypoxia Status: Acute Comment Review of Relevant I have reviewed the following items vitaly (where applicable) has been applied. Labs Microbiology 06/16/19 Blood Culture - Final, Complete NO GROWTH AFTER 5 DAYS Medications Current Medications Albuterol/ Ipratropium (Duoneb) 3 ml 1X ONCE NEB Last administered on 06/16/19at 10:41; Start 06/16/19 at 11:00; Stop 06/16/19 at 11:01; Status DC Nitroglycerin (Nitro-Bid Oint) 1 inch 1X ONCE TP Last administered on 06/16/19at 10:50; Start 06/16/19 at 11:00; Stop 06/16/19 at 11:01; Status DC Labetalol HCl (Normodyne Iv Push) 10 mg 1X ONCE IVP Last administered on 06/16/19at 10:51; Start 06/16/19 at 11:00; Stop 06/16/19 at 11:01; Status DC Aspirin (Omid Aspirin) 325 mg 1X ONCE PO Last administered on 06/16/19at 10:51; Start 06/16/19 at 11:00; Stop 06/16/19 at 11:01; Status DC Hydralazine HCl (Apresoline Inj) 20 mg 1X ONCE IVP Last administered on 06/16/19at 11:44; Start 06/16/19 at 11:30; Stop 06/16/19 at 11:31; Status DC Acetaminophen (Tylenol) 500 mg 1X ONCE PO Last administered on 06/16/19at 13:53; Start 06/16/19 at 12:30; Stop 06/16/19 at 12:31; Status DC Furosemide (Lasix) 40 mg 1X ONCE IVP Last administered on 06/16/19at 12:38; Start 06/16/19 at 12:30; Stop 06/16/19 at 12:31; Status DC Fentanyl Citrate (Fentanyl 2ml Vial) 50 mcg 1X ONCE IV Last administered on 06/16/19at 12:38; Start 06/16/19 at 12:30; Stop 06/16/19 at 12:31; Status DC Fentanyl Citrate (Fentanyl 2ml Vial) 100 mcg STK-MED ONCE .ROUTE ; Start 06/16/19 at 12:32; Stop 06/16/19 at 12:32; Status DC Ondansetron HCl (Zofran) 4 mg PRN Q8HRS PRN IV NAUSEA/VOMITING; Start 06/16/19 at 12:45; Stop 06/16/19 at 21:10; Status DC Fentanyl Citrate (Fentanyl 2ml Vial) 50 mcg PRN Q2HR PRN IV PAIN; Start 06/16/19 at 12:45 Clindamycin Phosphate 50 ml @ 100 mls/hr 1X ONCE IV Last administered on 06/16/19at 13:12; Start 06/16/19 at 13:00; Stop 06/16/19 at 13:29; Status DC Acetaminophen (Tylenol) 650 mg PRN Q6HRS PRN PO MILD PAIN / TEMP; Start 06/16/19 at 15:30; Stop 06/16/19 at 21:10; Status DC Aspirin (Children'S Aspirin) 162 mg DAILY PO Last administered on 06/21/19 08:29; Start 06/17/19 at 09:00 Furosemide (Lasix) 20 mg DAILY PO Last administered on 06/21/19 08:30; Start 06/16/19 at 16:00 Acetaminophen/ Hydrocodone Bitart (Lortab 7.5/325) 1 tab PRN Q6HRS PRN PO MODERATE/ SEVERE PAIN Last administered on 06/21/19at 20:43; Start 06/16/19 at 15:30 Albuterol/ Ipratropium (Duoneb) 3 ml RTQID NEB Last administered on 06/16/19 20:28; Start 06/16/19 at 16:00; Stop 06/16/19 at 21:10; Status DC Levothyroxine Sodium (Synthroid) 125 mcg DAILY06 PO Last administered on 06/21/19 05:46; Start 06/17/19 at 06:00 Lorazepam (Ativan) 0.5 mg BID PRN PO ANXIETY / AGITATION Last administered on 06/16/19 16:26; Start 06/16/19 at 15:30; Stop 06/16/19 at 21:10; Status DC Losartan Potassium (Cozaar) 100 mg DAILY PO Last administered on 06/21/19 08:29; Start 06/17/19 at 09:00 Nicotine (Nicoderm Cq 14mg) 1 patch DAILY TD Last administered on 06/21/19 08:28; Start 06/16/19 at 16:00 Budesonide (Pulmicort) 0.5 mg RTBID NEB Last administered on 06/21/19at 20:26; Start 06/16/19 at 20:00 Citalopram Hydrobromide (CeleXA) 40 mg DAILY PO Last administered on 06/21/19 08:29; Start 06/16/19 at 16:00 Famotidine (Pepcid) 20 mg PRN BID PRN PO HEARTBURN / GAS; Start 06/16/19 at 16:0 0; Stop 06/19/19 at 16:52; Status DC Cefazolin Sodium 50 ml @ 100 mls/hr Q8HRS IV ; Start 06/16/19 at 22:00; Status UNV Cefazolin Sodium (Ancef) 1 gm Q8HRS IVP Last administered on 06/17/19at 04:44; Start 06/16/19 at 22:00; Stop 06/17/19 at 13:41; Status DC Sodium Chloride (Normal Saline Flush) 3 ml QSHIFT PRN IV AFTER MEDS AND BLOOD DRAWS; Start 06/16/19 at 21:00 Ondansetron HCl (Zofran) 4 mg PRN Q4HRS PRN IV NAUSEA/VOMITING 1ST CHOICE; Start 06/16/19 at 21:00 Acetaminophen (Tylenol) 650 mg PRN Q4HRS PRN PO TEMP OVER 100.4F OR MILD PAIN Last administered on 06/18/19at 21:33; Start 06/16/19 at 21:00 Clonidine HCl (Catapres) 0.1 mg PRN Q6HRS PRN PO SBP>160 OR DBP>90 Last administered on 06/19/19at 03:32; Start 06/16/19 at 21:00 Docusate Sodium (Colace) 100 mg PRN BID PRN PO CONSTIPATION 1ST CHOICE Last administered on 06/21/19 18:02; Start 06/16/19 at 21:00 Albuterol/ Ipratropium (Duoneb) 3 ml Q4HRS W/A NEB Last administered on 06/21/19 20:26; Start 06/16/19 at 22:00 Guaifenesin (Robitussin) 200 mg PRN Q4HRS PRN PO COUGH Last administered on 06/16/19 21:51; Start 06/16/19 at 21:00 Lorazepam (Ativan) 0.5 mg PRN Q4HRS PRN PO ANXIETY / AGITATION Last administered on 1/5/20at 21:57; Start 06/16/19 at 21:00; Stop 06/18/19 at 14:11; Status DC Enoxaparin Sodium (Lovenox 40mg Syringe) 40 mg DAILY SQ Last administered on 06/21/19at 08:30; Start 06/17/19 at 09:00 Lactobacillus Rhamnosus (Culturelle) 1 cap BID PO Last administered on 06/21/19at 20:39; Start 06/17/19 at 21:00 Diclofenac Sodium (Voltaren) 1 dorian BID TP Last administered on 06/18/19at 09:20; Start 06/18/19 at 09:00; Stop 06/18/19 at 14:01; Status DC Diclofenac Sodium (Voltaren) 1 dorian QID TP Last administered on 06/19/19at 14:00; Start 06/18/19 at 17:00; Stop 06/21/19 at 12:11; Status DC Furosemide (Lasix) 20 mg 1X ONCE IVP Last administered on 06/18/19at 15:43; Start 06/18/19 at 14:15; Stop 06/18/19 at 14:16; Status DC Lorazepam (Ativan) 0.5 mg PRN Q8HRS PRN PO ANXIETY / AGITATION Last administered on 06/20/19at 21:18; Start 06/18/19 at 22:00 Lorazepam (Ativan) 0.5 mg PRN Q8HRS PRN PO ANXIETY / AGITATION; Start 06/18/19 at 22:00; Status UNV Montelukast Sodium (Singulair) 10 mg QHS PO Last administered on 06/21/19at 20:39; Start 06/19/19 at 21:00 Albuterol Sulfate (Ventolin Neb Soln) 2.5 mg PRN Q4HRS PRN NEB SHORTNESS OF BREATH; Start 06/19/19 at 08:00 Prednisone (Prednisone) 20 mg DAILY PO Last administered on 06/21/19at 08:29; Start 06/19/19 at 09:00; Stop 06/23/19 at 09:01 Oxybutynin Chloride (Ditropan) 5 mg [id number] PO Last administered on 06/21/19at 20:39; Start 06/19/19 at 10:45 Famotidine (Pepcid) 20 mg PRN DAILY PRN PO HEARTBURN / GAS Last administered on 06/21/19at 18:02; Start 06/19/19 at 17:00 Amlodipine Besylate (Norvasc) 5 mg DAILY PO Last administered on 06/21/19at 08:30; Start 06/20/19 at 09:00 Atorvastatin Calcium (Lipitor) 10 mg QHS PO Last administered on 06/21/19at 20:39; Start 06/19/19 at 21:00 Diclofenac Sodium (Voltaren) 1 dorian PRN QID PRN TP pain ; Start 06/21/19 at 12:15 Active Scripts Active Montelukast Sodium Tablet (Montelukast Sodium) 10 Mg Tablet 10 Mg PO QHS 30 Days Prednisone 20 Mg Tablet 20 Mg PO DAILY 4 Days Voltaren (Diclofenac Sodium) 100 Gm Gel..gram. 1 Dorian TP QID 30 Days Duoneb 0.5-3(2.5) Mg/3 Ml (Albuterol/Ipratropium) 3 Ml Ampul.neb 3 Ml NEB RTQID MDD 1 NICODERM CQ 14mg (Nicotine) 1 Each Patch.td24 1 Patch TP DAILY Reported Escitalopram Oxalate 20 Mg Tablet 20 Mg PO DAILY Levothyroxine Sodium 125 Mcg Tablet 125 Mcg PO DAILYAC Losartan Potassium 50 Mg Tablet 100 Mg PO DAILY Hydrocodone-Acetamin 7.5-325 (Hydrocodone/Acetaminophen) 1 Each Tablet 1 Tab PO PRN Q6HRS PRN Lorazepam 0.5 Mg Tablet 0.5 Mg PO BID PRN Aspirin 81 Mg Tab.chew 2 Tab PO DAILY Symbicort 80-4.5 Mcg Inhaler (Budesonide/Formoterol Fumarate) 10.2 Gm Hfa.aer.ad 2 Puff IH BID Tylenol (Acetaminophen) 325 Mg Tablet 2 Tab PO PRN Q6HRS Furosemide 20 Mg Tablet 1 Tab PO DAILY Ranitidine Hcl 150 Mg Capsule 150 Mg PO PRN BID PRN Vitals/I & O Vital Sign - Last 24 Hours 06/20/19 06/21/19 06/21/19 06/21/19 23:00 03:00 07:00 07:11 Temp 98.2 98.0 97.8 98.2 98.0 97.8 Pulse 73 70 66 Resp 18 18 18 B/P (MAP) 127/42 (70) 121/45 (70) 140/52 (81) Pulse Ox 97 96 98 99 O2 Delivery Nasal Cannula Nasal Cannula Nasal Cannula Nasal Cannula O2 Flow Rate 2.5 2.5 2.5 3.0 06/21/19 06/21/19 06/21/19 06/21/19 08:00 08:29 08:30 10:59 Pulse 66 66 B/P (MAP) 140/50 140/50 Pulse Ox 99 O2 Delivery Nasal Cannula Nasal Cannula O2 Flow Rate 2.5 3.0 06/21/19 06/21/19 06/21/19 06/21/19 11:00 15:00 15:00 15:26 Temp 98.0 98.0 98.0 98.0 Pulse 71 70 72 Resp 16 16 B/P (MAP) 135/52 (79) 129/37 (67) 126/39 (68) Pulse Ox 93 96 99 O2 Delivery Nasal Cannula Nasal Cannula Nasal Cannula O2 Flow Rate 2.5 2.5 3.0 06/21/19 06/21/19 19:00 20:26 Temp 98.3 98.3 Pulse 63 Resp 18 B/P (MAP) 155/57 (89) Pulse Ox 96 99 O2 Delivery Nasal Cannula Nasal Cannula O2 Flow Rate 2.5 3.0 Intake and Output 06/20/19 06/20/19 06/21/19 15:00 23:00 07:00 Intake Total 260 ml 560 ml 250 ml Balance 260 ml 560 ml 250 ml RONAK CAMPBELL MD Jun 21, 2019 22:05
[2019-06-21 23:00] VITALS: BP 148/53
[2019-06-21] MEDS: ACETAMINOPHEN 325 MG TABLET. PO PRN (23:20)
[2019-06-22 03:00] VITALS: BP 143/78
[2019-06-22] MEDS: LEVOTHYROXINE 125 MCG TABLET PO SCH (05:51)
[2019-06-22] MEDS: IPRATRPIUM/ALBUTEROL 0.5/2.5MG 3 ML NEBU. NEB SCH ×3 (06:00→14:00)
[2019-06-22 07:00] VITALS: BP 145/49
[2019-06-22] MEDS: BUDESONIDE 0.5 MG/2 ML NEBU. NEB SCH ×2 (08:00→11:08)
--- NOTE | 2019-06-22 09:06 | PDOC ---
PROGRESS NOTES Chief Complaint Chief Complaint A/P: Acute hypoxic resp failure CHF exacerbation - BNP 3423 Lymphedema right lower leg Abnormal radiologic finding of lung field Small nodule versus focal atelectasis left lung. morbid obesity HX COPD Smoker ADMITTED TELE cardiology consult DVT PROPHYLAXIS O2 SUPPORT IV LASI X 1 pulm consult History of Present Illness History of Present Illness Ms Lewis is a 79 yo female w/ PMHx COPD, CAD, HLD, HTN, Pulm HTN, Sleep apnea who lives in a high-rise independent living who came in with shortness of breath, putting on weight with swelling, anxiety, maybe redness of the leg, just worried that she is getting worse. The patient denies fever, denies any nausea, vomiting, diarrhea. Denies any chest pain, shortness of breath, abdominal pain, urinary symptoms or bowel symptoms. Seen by ID, ruled out cellulitis. 06/19: Still with good UOP, has damon removed. Labs stable. No CP. Still short of breath on exertion. CT chest found Nodular contour of the liver of concern for hepatic cirrhosis or other hepatic fibrotic process, no suspicious pulmonary process 06/20: She feels her primary problem is incontinence. I have suggested acute rehab/SNF per PT/OT recommendations. Transitioned to PO meds. CT chest reviewed. She still requires a lot of assistance with ambulation. 06/21: Incontinence improved with ditropan. She is c/o some weakness and low BP on standing. No CP. SOB is better. cannot get to the restroom without assistance currently. Needs rehab. Still very weak today. Breathing improved, stable. No CP. Urination improved so far. Plan for d/c to rehab. Vitals Vitals Vital Signs Date Time Temp Pulse Resp B/P (MAP) Pulse Ox O2 Delivery O2 Flow Rate FiO2 06/22/19 03:00 97.8 53 18 143/78 (99) 98 Nasal Cannula 2.5 97.8 Physical Exam General: Alert Heart: Regular rate Lungs: Clear Abdomen: Soft Extremities: Other (trace edema) Assessment and Plan Assessmemt and Plan Problems Medical Problems: (1) Abnormal radiologic finding of lung field Status: Acute (2) Cellulitis Status: Acute (3) CHF exacerbation Status: Acute (4) Hypoxia Status: Acute Comment Review of Relevant I have reviewed the following items vitaly (where applicable) has been applied. Labs Microbiology 06/16/19 Blood Culture - Final, Complete NO GROWTH AFTER 5 DAYS Medications Current Medications Albuterol/ Ipratropium (Duoneb) 3 ml 1X ONCE NEB Last administered on 06/16/19at 10:41; Start 06/16/19 at 11:00; Stop 06/16/19 at 11:01; Status DC Nitroglycerin (Nitro-Bid Oint) 1 inch 1X ONCE TP Last administered on 06/16/19at 10:50; Start 06/16/19 at 11:00; Stop 06/16/19 at 11:01; Status DC Labetalol HCl (Normodyne Iv Push) 10 mg 1X ONCE IVP Last administered on 06/16/19at 10:51; Start 06/16/19 at 11:00; Stop 06/16/19 at 11:01; Status DC Aspirin (Omid Aspirin) 325 mg 1X ONCE PO Last administered on 06/16/19at 10:51; Start 06/16/19 at 11:00; Stop 06/16/19 at 11:01; Status DC Hydralazine HCl (Apresoline Inj) 20 mg 1X ONCE IVP Last administered on 06/16/19at 11:44; Start 06/16/19 at 11:30; Stop 06/16/19 at 11:31; Status DC Acetaminophen (Tylenol) 500 mg 1X ONCE PO Last administered on 06/16/19at 13:53; Start 06/16/19 at 12:30; Stop 06/16/19 at 12:31; Status DC Furosemide (Lasix) 40 mg 1X ONCE IVP Last administered on 06/16/19at 12:38; Start 06/16/19 at 12:30; Stop 06/16/19 at 12:31; Status DC Fentanyl Citrate (Fentanyl 2ml Vial) 50 mcg 1X ONCE IV Last administered on 06/16/19at 12:38; Start 06/16/19 at 12:30; Stop 06/16/19 at 12:31; Status DC Fentanyl Citrate (Fentanyl 2ml Vial) 100 mcg STK-MED ONCE .ROUTE ; Start 06/16/19 at 12:32; Stop 06/16/19 at 12:32; Status DC Ondansetron HCl (Zofran) 4 mg PRN Q8HRS PRN IV NAUSEA/VOMITING; Start 06/16/19 at 12:45; Stop 06/16/19 at 21:10; Status DC Fentanyl Citrate (Fentanyl 2ml Vial) 50 mcg PRN Q2HR PRN IV PAIN; Start 06/16/19 at 12:45 Clindamycin Phosphate 50 ml @ 100 mls/hr 1X ONCE IV Last administered on 06/16/19at 13:12; Start 06/16/19 at 13:00; Stop 06/16/19 at 13:29; Status DC Acetaminophen (Tylenol) 650 mg PRN Q6HRS PRN PO MILD PAIN / TEMP; Start 06/16/19 at 15:30; Stop 06/16/19 at 21:10; Status DC Aspirin (Children'S Aspirin) 162 mg DAILY PO Last administered on 06/21/19at 08:29; Start 06/17/19 at 09:00 Furosemide (Lasix) 20 mg DAILY PO Last administered on 06/21/19at 08:30; Start 06/16/19 at 16:00 Acetaminophen/ Hydrocodone Bitart (Lortab 7.5/325) 1 tab PRN Q6HRS PRN PO MODER ATE/ SEVERE PAIN Last administered on 06/21/19at 20:43; Start 06/16/19 at 15:30 Albuterol/ Ipratropium (Duoneb) 3 ml RTQID NEB Last administered on 06/16/19at 20:28; Start 06/16/19 at 16:00; Stop 06/16/19 at 21:10; Status DC Levothyroxine Sodium (Synthroid) 125 mcg DAILY06 PO Last administered on 06/22/19at 05:51; Start 06/17/19 at 06:00 Lorazepam (Ativan) 0.5 mg BID PRN PO ANXIETY / AGITATION Last administered on 06/16/19 16:26; Start 06/16/19 at 15:30; Stop 06/16/19 at 21:10; Status DC Losartan Potassium (Cozaar) 100 mg DAILY PO Last administered on 06/21/19at 08:29; Start 06/17/19 at 09:00 Nicotine (Nicoderm Cq 14mg) 1 patch DAILY TD Last administered on 06/21/19at 08:28; Start 06/16/19 at 16:00 Budesonide (Pulmicort) 0.5 mg RTBID NEB Last administered on 06/21/19 20:26; Start 06/16/19 at 20:00 Citalopram Hydrobromide (CeleXA) 40 mg DAILY PO Last administered on 06/21/19at 08:29; Start 06/16/19 at 16:00 Famotidine (Pepcid) 20 mg PRN BID PRN PO HEARTBURN / GAS; Start 06/16/19 at 16:00; Stop 06/19/19 at 16:52; Status DC Cefazolin Sodium 50 ml @ 100 mls/hr Q8HRS IV ; Start 06/16/19 at 22:00; Status UNV Cefazolin Sodium (Ancef) 1 gm Q8HRS IVP Last administered on 06/17/19at 04:44; Start 06/16/19 at 22:00; Stop 06/17/19 at 13:41; Status DC Sodium Chloride (Normal Saline Flush) 3 ml QSHIFT PRN IV AFTER MEDS AND BLOOD DRAWS; Start 06/16/19 at 21:00 Ondansetron HCl (Zofran) 4 mg PRN Q4HRS PRN IV NAUSEA/VOMITING 1ST CHOICE; Start 06/16/19 at 21:00 Acetaminophen (Tylenol) 650 mg PRN Q4HRS PRN PO TEMP OVER 100.4F OR MILD PAIN Last administered on 06/21/19 23:20; Start 06/16/19 at 21:00 Clonidine HCl (Catapres) 0.1 mg PRN Q6HRS PRN PO SBP>160 OR DBP>90 Last administered on 06/19/19 03:32; Start 06/16/19 at 21:00 Docusate Sodium (Colace) 100 mg PRN BID PRN PO CONSTIPATION 1ST CHOICE Last administered on 06/21/19 18:02; Start 06/16/19 at 21:00 Albuterol/ Ipratropium (Duoneb) 3 ml Q4HRS W/A NEB Last administered on 06/21/19 20:26; Start 06/16/19 at 22:00 Guaifenesin (Robitussin) 200 mg PRN Q4HRS PRN PO COUGH Last administered on 06/16/19 21:51; Start 06/16/19 at 21:00 Lorazepam (Ativan) 0.5 mg PRN Q4HRS PRN PO ANXIETY / AGITATION Last administered on 06/17/19at 21:57; Start 06/16/19 at 21:00; Stop 06/18/19 at 14:11; Status DC Enoxaparin Sodium (Lovenox 40mg Syringe) 40 mg DAILY SQ Last administered on 06/21/19at 08:30; Start 06/17/19 at 09:00 Lactobacillus Rhamnosus (Culturelle) 1 cap BID PO Last administered on 06/21/19at 20:39; Start 06/17/19 at 21:00 Diclofenac Sodium (Voltaren) 1 dorian BID TP Last administered on 06/18/19at 09:20; Start 06/18/19 at 09:00; Stop 06/18/19 at 14:01; Status DC Diclofenac Sodium (Voltaren) 1 dorian QID TP Last administered on 06/19/19at 14:00; Start 06/18/19 at 17:00; Stop 06/21/19 at 12:11; Status DC Furosemide (Lasix) 20 mg 1X ONCE IVP Last administered on 06/18/19at 15:43; Start 06/18/19 at 14:15; Stop 06/18/19 at 14:16; Status DC Lorazepam (Ativan) 0.5 mg PRN Q8HRS PRN PO ANXIETY / AGITATION Last administered on 06/20/19at 21:18; Start 06/18/19 at 22:00 Lorazepam (Ativan) 0.5 mg PRN Q8HRS PRN PO ANXIETY / AGITATION; Start 06/18/19 at 22:00; Status UNV Montelukast Sodium (Singulair) 10 mg QHS PO Last administered on 06/21/19at 20:39; Start 06/19/19 at 21:00 Albuterol Sulfate (Ventolin Neb Soln) 2.5 mg PRN Q4HRS PRN NEB SHORTNESS OF BREATH; Start 06/19/19 at 08:00 Prednisone (Prednisone) 20 mg DAILY PO Last administered on 06/21/19at 08:29; Start 06/19/19 at 09:00; Stop 06/23/19 at 09:01 Oxybutynin Chloride (Ditropan) 5 mg [id number] PO Last administered on 06/21/19at 20:39; Start 06/19/19 at 10:45 Famotidine (Pepcid) 20 mg PRN DAILY PRN PO HEARTBURN / GAS Last administered on 06/21/19at 18:02; Start 06/19/19 at 17:00 Amlodipine Besylate (Norvasc) 5 mg DAILY PO Last administered on 06/21/19at 08:30; Start 06/20/19 at 09:00 Atorvastatin Calcium (Lipitor) 10 mg QHS PO Last administered on 06/21/19at 20:39; Start 06/19/19 at 21:00 Diclofenac Sodium (Voltaren) 1 dorian PRN QID PRN TP pain ; Start 06/21/19 at 12:15 Active Scripts Active Montelukast Sodium Tablet (Montelukast Sodium) 10 Mg Tablet 10 Mg PO QHS 30 Days Prednisone 20 Mg Tablet 20 Mg PO DAILY 4 Days Voltaren (Diclofenac Sodium) 100 Gm Gel..gram. 1 Dorian TP QID 30 Days Duoneb 0.5-3(2.5) Mg/3 Ml (Albuterol/Ipratropium) 3 Ml Ampul.neb 3 Ml NEB RTQID MDD 1 NICODERM CQ 14mg (Nicotine) 1 Each Patch.td24 1 Patch TP DAILY Reported Escitalopram Oxalate 20 Mg Tablet 20 Mg PO DAILY Levothyroxine Sodium 125 Mcg Tablet 125 Mcg PO DAILYAC Losartan Potassium 50 Mg Tablet 100 Mg PO DAILY Hydrocodone-Acetamin 7.5-325 (Hydrocodone/Acetaminophen) 1 Each Tablet 1 Tab PO PRN Q6HRS PRN Lorazepam 0.5 Mg Tablet 0.5 Mg PO BID PRN Aspirin 81 Mg Tab.chew 2 Tab PO DAILY Symbicort 80-4.5 Mcg Inhaler (Budesonide/Formoterol Fumarate) 10.2 Gm Hfa.aer.ad 2 Puff IH BID Tylenol (Acetaminophen) 325 Mg Tablet 2 Tab PO PRN Q6HRS Furosemide 20 Mg Tablet 1 Tab PO DAILY Ranitidine Hcl 150 Mg Capsule 150 Mg PO PRN BID PRN Vitals/I & O Vital Sign - Last 24 Hours 06/21/19 06/21/19 06/21/19 06/21/19 10:59 11:00 15:00 15:00 Temp 98.0 98.0 98.0 98.0 Pulse 71 70 72 Resp 16 16 B/P (MAP) 135/52 (79) 129/37 (67) 126/39 (68) Pulse Ox 99 93 96 O2 Delivery Nasal Cannula Nasal Cannula Nasal Cannula O2 Flow Rate 3.0 2.5 2.5 06/21/19 06/21/19 06/21/19 06/21/19 15:26 19:00 20:00 20:26 Temp 98.3 98.3 Pulse 63 Resp 18 B/P (MAP) 155/57 (89) Pulse Ox 99 96 99 O2 Delivery Nasal Cannula Nasal Cannula Nasal Cannula Nasal Cannula O2 Flow Rate 3.0 2.5 2.5 3.0 06/21/19 06/22/19 23:00 03:00 Temp 98.1 97.8 98.1 97.8 Pulse 69 53 Resp 18 18 B/P (MAP) 148/53 (84) 143/78 (99) Pulse Ox 96 98 O2 Delivery Nasal Cannula Nasal Cannula O2 Flow Rate 2.5 2.5 Intake and Output 06/21/19 06/21/19 06/22/19 15:00 23:00 07:00 Intake Total 360 ml 300 ml Balance 360 ml 300 ml RONAK CAMPBELL MD Jun 22, 2019 09:06
[2019-06-22] MEDS: OXYBUTYNIN CHLORIDE 5 MG TABLET PO SCH ×2 (09:45→15:09)
[2019-06-22] MEDS: CITALOPRAM 20 MG TABLET. PO SCH (09:45)
[2019-06-22] MEDS: FUROSEMIDE 20 MG TABLET PO SCH (09:45)
[2019-06-22] MEDS: DOCUSATE SODIUM 100 MG CAPSULE. PO PRN (09:45)
[2019-06-22] MEDS: ASPIRIN CHEWABLE 81 MG TABLET. PO SCH (09:45)
[2019-06-22] MEDS: LOSARTAN POTASSIUM 50 MG TABLET. PO SCH (09:45)
[2019-06-22] MEDS: LACTOBACILLUS RHAMNOSUS GG 1 CAPSULE. PO SCH (09:46)
[2019-06-22] MEDS: predniSONE 20 MG TABLET PO SCH (09:46)
[2019-06-22] MEDS: ENOXAPARIN 40 MG/0.4 ML SYRINGE. SQ SCH (09:46)
[2019-06-22] MEDS: amLODIPine BESYLATE 5 MG TABLET PO SCH (09:46)
[2019-06-22] MEDS: NICOTINE 14MG PATCH. TD SCH (09:47)
[2019-06-22 11:00] VITALS: BP 143/52
--- NOTE | 2019-06-22 11:06 | PDOC ---
PULMONARY PROGRESS NOTES Subjective no jason feels BETTER Vitals Vital Signs Date Time Temp Pulse Resp B/P (MAP) Pulse Ox O2 Delivery O2 Flow Rate FiO2 06/22/19 09:46 58 145/49 06/22/19 07:00 97.3 16 97 Nasal Cannula 2.0 97.3 General: Alert, No acute distress HEENT: Other Lungs: Clear Cardiovascular: S1, S2 Abdomen: Soft, Non-tender Neuro Exam: Alert Extremities: No Edema Medications Active Scripts Medications Dose Route/Sig Max Daily Dose Days Date Category Escitalopram Oxalate 20 Mg Tablet 20 Mg PO DAILY 06/16/19 Reported Levothyroxine Sodium 125 Mcg Tablet 125 Mcg PO DAILYAC 06/16/19 Reported Losartan Potassium 50 Mg Tablet 100 Mg PO DAILY 06/16/19 Reported Hydrocodone-Acetamin 7.5-325 (Hydrocodone/Acetaminophen) 1 Each Tablet 1 Tab PO PRN Q6HRS PRN 02/18/19 Reported Lorazepam 0.5 Mg Tablet 0.5 Mg PO BID PRN 02/18/19 Reported Duoneb 0.5-3(2.5) Mg/3 Ml (Albuterol/Ipratropium) 3 Ml Ampul.neb 3 Ml NEB RTQID MDD 1 11/20/18 Rx Aspirin 81 Mg Tab.chew 2 Tab PO DAILY 01/13/18 Reported Symbicort 80-4.5 Mcg Inhaler (Budesonide/Formoterol Fumarate) 10.2 Gm Hfa.aer.ad 2 Puff IH BID 08/21/17 Reported Tylenol (Acetaminophen) 325 Mg Tablet 2 Tab PO PRN Q6HRS 08/21/17 Reported Furosemide 20 Mg Tablet 1 Tab PO DAILY 08/21/17 Reported NICODERM CQ 14mg (Nicotine) 1 Each Patch.td24 1 Patch TP DAILY 09/18/15 Rx Ranitidine Hcl 150 Mg Capsule 150 Mg PO PRN BID PRN 11/07/14 Reported Impression . 1. Progressive dyspnea secondary to acute exacerbation of chronic obstructive pulmonary disease. RESOLVED 2. Acute on chronic diastolic heart failure. 3. Small pulmonary nodule and questionable atelectasis, left lung. 4. Secondary pulmonary hypertension. 5. Obstructive sleep apnea. claustrophobic to CPAP 6. Lower extremity venous dermatitis. 7. ct with cirrhosis Plan . 1. Continue current support. 2. Nebulized treatments. 3. Follow up in the office with repeat sleep study if patient desires nasal pillows 4. CT chest 06/19 WITH ATELECTASIS OK WITH DC pulmonary sherman will sign off MERCY CHOI MD Jun 22, 2019 11:06
--- NOTE | 2019-06-22 11:41 | NUR ---
JAMIL following. HCR advised pt referral bneing reviewed by the insurance medical records manager, awaiting acceptance decision. JAMIL will continue to follow. Addendum: 06/22/19 at 1217 by TRACIE NEGRON Insurance denied SNU placement. Dr. Hutson agreeable to a peer to peer. Garrick Senior Security Engineer setting up peer to peer. Needs to be scheduled by 1630 today and completed by [facility] on Tuesday06/25/2019, number is [phone]. RN notified. JAMIL will continue to follow.
--- NOTE | 2019-06-22 12:11 | NUR ---
Pt requested Tylenol for headache. Went to admin meds, pt was asleep in chair.
--- NOTE | 2019-06-22 14:21 | SNU/HH DC ---
DISCHARGE ORDERS DISCHARGE INFORMATION: DISCHARGE DATE: Jun 22, 2019 FINAL DIAGNOSIS Problems Medical Problems: (1) Abnormal radiologic finding of lung field Status: Acute (2) Cellulitis Status: Acute (3) CHF exacerbation Status: Acute (4) Hypoxia Status: Acute CONDITION ON DISCHARGE: Stable CODE STATUS: Code Status: Full JAIL: SNF STAY <30 DAYS: Yes POST DISCHARGE ORDERS: ACTIVITY ORDERS: Activity as tolerated WEIGHT BEARING STATUS: As tolerated DIET AFTER DISCHARGE: Cardiac CHECKS AFTER DISCHARGE: CHECKS AFTER DISCHARGE: Check blood press - daily, Weigh Yourself Daily FOLLOW-UP: PHYSICIAN FOLLOW-UP: [facility] - Dr. Mendoza TREATMENT/EQUIPMENT ORDERS: ADAPTIVE EQUIPMENT NEEDED: None RESPIRATORY EQUIPMENT NEEDED: Oxygen, Nebulizer, MDI Physical Therapy For: Evalulation/Treatment Occupational Therapy For: Evaluation/Treatment DISCHARGE MEDICATIONS: Home Meds Active Scripts Oxybutynin Chloride (OXYBUTYNIN CHLORIDE) 5 Mg Tablet, 5 MG PO [id number] for Stress incontinence for 30 Days, #90 TAB Prov:RONAK CAMPBELL MD 06/22/19 Montelukast Sodium (MONTELUKAST SODIUM TABLET ) 10 Mg Tablet, 10 MG PO QHS for COPD for 30 Days, #30 TAB 3 Refills Prov:RONAK CAMPBELL MD 06/19/19 Prednisone (PREDNISONE) 20 Mg Tablet, 20 MG PO DAILY for COPD for 4 Days, #4 TAB Prov:RONAK CAMPBELL MD 06/19/19 Diclofenac Sodium (VOLTAREN) 100 Gm Gel..gram., 1 EVAN TP QID for Osteoarthritis for 30 Days, #120 EACH 3 Refills Prov:RONAK CAMPBELL MD 06/19/19 Ipratropium/Albuterol Sulfate (DUONEB 0.5-3(2.5) MG/3 ML) 3 Ml Ampul.neb, 3 ML NEB RTQID for soa MDD 1, #60 EACH Prov:GALO NAIK MD 11/20/18 Nicotine (NICODERM CQ 14mg) 1 Each Patch.td24, 1 PATCH TP DAILY, #14 PATCH Prov:BRODERICK CRUZ MD 09/18/15 Reported Medications Escitalopram Oxalate (ESCITALOPRAM OXALATE) 20 Mg Tablet, 20 MG PO DAILY for ANTI-DEPRESSANT, TAB 0 Refills 06/16/19 Levothyroxine Sodium (LEVOTHYROXINE SODIUM) 125 Mcg Tablet, 125 MCG PO DAILYAC for THYROID SUPPLEMENT, #30 TAB 0 Refills 06/16/19 Losartan Potassium (LOSARTAN POTASSIUM) 50 Mg Tablet, 100 MG PO DAILY for HYPERTENSION, TAB 06/16/19 Hydrocodone/Acetaminophen (Hydrocodone-Acetamin 7.5-325) 1 Each Tablet, 1 TAB PO PRN Q6HRS PRN for PAIN 02/18/19 Lorazepam (LORAZEPAM) 0.5 Mg Tablet, 0.5 MG PO BID PRN for ANXIETY / AGITATION 02/18/19 Aspirin (ASPIRIN) 81 Mg Tab.chew, 2 TAB PO DAILY, #90 TAB 3 Refills 01/13/18 Budesonide/Formoterol Fumarate (SYMBICORT 80-4.5 MCG INHALER) 10.2 Gm Hfa.aer.ad, 2 PUFF IH BID, #10.2 GM 5 Refills 08/21/17 Acetaminophen (TYLENOL) 325 Mg Tablet, 2 TAB PO PRN Q6HRS, #30 TAB 08/21/17 Furosemide (FUROSEMIDE) 20 Mg Tablet, 1 TAB PO DAILY, #90 TAB 1 Refill 08/21/17 Ranitidine Hcl (RANITIDINE HCL) 150 Mg Capsule, 150 MG PO PRN BID PRN for HEARTBURN / GAS, TAB 11/07/14 Discontinued Reported Medications Levothyroxine Sodium (LEVOTHYROXINE SODIUM) 100 Mcg Tablet, 1 TAB PO DAILY for Thyroid supplement 02/18/19 Carvedilol (CARVEDILOL ) 12.5 Mg Tablet, 12.5 MG PO BIDWMEALS, TAB 01/13/18 Losartan Potassium (LOSARTAN POTASSIUM) 100 Mg Tablet, 100 MG PO DAILY, TAB 11/07/14 RONAK CAMPBELL MD Jun 22, 2019 14:21
[2019-06-22 15:00] VITALS: BP 153/61
[2019-06-22] MEDS ORDERED: OXYB5TAB10 PO (18:27)
--- NOTE | 2019-06-22 18:29 | PDOC3 ---
Discharge Summary Visit Information Date of Admission: Jun 16, 2019 Date of Discharge: Jun 22, 2019 Admitting Diagnosis: Acute CHF exacerbation Final Diagnosis Problems Medical Problems: (1) Abnormal radiologic finding of lung field Status: Acute (2) Cellulitis Status: Acute (3) CHF exacerbation Status: Acute (4) Hypoxia Status: Acute Brief Hospital Course Allergies Allergies Coded Allergies Type Severity Reaction Last Updated Verified naproxen Allergy Severe Hives 11/07/14 Yes morphine Adverse Reaction Severe vomiting 11/18/18 Yes Vital Signs Vital Signs Date Time Temp Pulse Resp B/P (MAP) Pulse Ox O2 Delivery O2 Flow Rate FiO2 06/22/19 15:00 97.5 72 18 153/61 (91) 90 Nasal Cannula 2.0 97.5 Brief Hospital Course Ms Lewis is a 79 yo female w/ PMHx COPD, CAD, HLD, HTN, Pulm HTN, Sleep apnea who lives in a high-rise independent living who came in with shortness of breath, putting on weight with swelling, anxiety, maybe redness of the leg, just worried that she is getting worse. The patient denies fever, denies any nausea, vomiting, diarrhea. Denies any chest pain, shortness of breath, abdominal pain, urinary symptoms or bowel symptoms. Seen by ID, ruled out cellulitis. 06/19: Still with good UOP, has damon removed. Labs stable. No CP. Still short of breath on exertion. CT chest found Nodular contour of the liver of concern for hepatic cirrhosis or other hepatic fibrotic process, no suspicious pulmonary process 06/20: She feels her primary problem is incontinence. I have suggested acute rehab/SNF per PT/OT recommendations. Transitioned to PO meds. CT chest reviewed. She still requires a lot of assistance with ambulation. 06/21: Incontinence improved with ditropan. She is c/o some weakness and low BP on standing. No CP. SOB is better. cannot get to the restroom without assistance currently. Needs rehab. Still very weak today. Breathing improved, stable. No CP. Urination improved so far. Plan for d/c to rehab. Problem list: Acute hypoxic resp failure CHF exacerbation - BNP 3423 Lymphedema right lower leg Abnormal radiologic finding of lung field Small nodule versus focal atelectasis left lung. morbid obesity HX COPD Smoker Weakness and debility Stress urinary incontinence Greater than 30 minutes spent on d/c Discharge Information Condition at Discharge: Improved Follow Up: Weeks (2) Disposition/Orders: D/C to Another Facility Scheduled Acetaminophen (Tylenol) 325 Mg Tablet, 2 TAB PO PRN Q6HRS, #30 (Reported) Entered as Reported by: TRINA COOLEY on 08/21/171533 Last Action: Continued on 06/16/191525 by Laquita Marroquin Aspirin (Aspirin) 81 Mg Tab.chew, 2 TAB PO DAILY, #90 Ref 3 (Reported) Entered as Reported by: GHASSAN PATEL on 01/13/18 0115 Last Taken: Unknown Dose on 06/16/19 Last Action: Continued on 06/16/191525 by Laquita Marroquin Budesonide/Formoterol Fumarate (Symbicort 80-4.5 Mcg Inhaler) 10.2 Gm Hfa.aer.ad, 2 PUFF IH BID, #10.2 Ref 5 (Reported) Entered as Reported by: TRINA COOLEY on 08/21/171534 Last Action: Converted on 06/16/191525 by Laquita Marroquin Diclofenac Sodium (Voltaren) 100 Gm Gel..gram., 1 EVAN TP QID for Osteoarthritis for 30 Days, #120 Ref 3 Prescribed by: RONAK CAMPBELL MD on 06/19/19 1041 Escitalopram Oxalate (Escitalopram Oxalate) 20 Mg Tablet, 20 MG PO DAILY for ANTI-DEPRESSANT, Ref 0 (Reported) Entered as Reported by: Laquita Marroquin on 06/16/191515 Last Taken: 20 on Unknown Date & Time Last Action: Converted on 06/16/191525 by Laquita Marroquin Furosemide (Furosemide) 20 Mg Tablet, 1 TAB PO DAILY, #90 Ref 1 (Reported) Entered as Reported by: TRINA COOLEY on 08/21/171533 Last Action: Continued on 06/16/191525 by Laquita Marroquin Ipratropium/Albuterol Sulfate (Duoneb 0.5-3(2.5) Mg/3 Ml) 3 Ml Ampul.neb, 3 ML NEB RTQID for soa MDD 1, #60 Prescribed by: GALO NAIK on 11/20/18 0837 Last Taken: Unknown Dose on 06/16/19 Last Action: Continued on 06/16/191525 by Laquita Marroquin Levothyroxine Sodium (Levothyroxine Sodium) 125 Mcg Tablet, 125 MCG PO DAILYAC for THYROID SUPPLEMENT, #30 Ref 0 (Reported) Entered as Reported by: Laquita Marroquin on 06/16/191515 Last Taken: Unknown Dose on 06/16/19 Last Action: Continued on 06/16/191525 by Laquita Marroquin Losartan Potassium (Losartan Potassium) 50 Mg Tablet, 100 MG PO DAILY for HYPERTENSION, (Reported) Entered as Reported by: Laquita Marroquin on 06/16/191515 Last Taken: Unknown Dose on 06/15/19 Last Action: Continued on 06/16/191525 by Laquita Marroquin Montelukast Sodium (Montelukast Sodium Tablet ) 10 Mg Tablet, 10 MG PO QHS for COPD for 30 Days, #30 Ref 3 Prescribed by: RONAK CAMPBELL MD on 06/19/19 1041 Nicotine (NICODERM CQ 14mg) 1 Each Patch.td24, 1 PATCH TP DAILY, #14 Prescribed by: BRODERICK CRUZ on 09/18/15 0933 Last Taken: Unknown Dose on 06/16/19 Last Action: Continued on 06/16/191525 by Laquita Marroquin Oxybutynin Chloride (Oxybutynin Chloride) 5 Mg Tablet, 5 MG PO [id number] for Stress incontinence for 30 Days, #90 Prescribed by: RONAK CAMPBELL MD on 06/22/19 1827 Prednisone (Prednisone) 20 Mg Tablet, 20 MG PO DAILY for COPD for 4 Days, #4 Prescribed by: RONAK CAMPBELL MD on 06/19/19 1041 Scheduled PRN Hydrocodone/Acetaminophen (Hydrocodone-Acetamin 7.5-325) 1 Each Tablet, 1 TAB PO PRN Q6HRS PRN for PAIN, (Reported) Entered as Reported by: FLACO ESCOBEDO RN on 02/18/19 0355 Last Action: Continued on 06/16/191525 by Laquita Marroquin Lorazepam (Lorazepam) 0.5 Mg Tablet, 0.5 MG PO BID PRN for ANXIETY / AGITATION, (Reported) Entered as Reported by: FLACO ESCOBEDO RN on 02/18/19354 Last Action: Continued on 06/16/191525 by Laquita Marroquin Ranitidine Hcl (Ranitidine Hcl) 150 Mg Capsule, 150 MG PO PRN BID PRN for HEARTBURN / GAS, (Reported) Entered as Reported by: ABRAM RIVAS RN on 11/07/14 437 Last Action: Converted on 06/16/191525 by Laquita Marroquin Discontinued Medications Carvedilol (Carvedilol ) 12.5 Mg Tablet, 12.5 MG PO BIDWMEALS, (Reported) Entered as Reported by: GHASSAN PATEL on 01/13/18114 Last Action: Discontinued on 06/16/191515 by Laquita Marroquin Levothyroxine Sodium (Levothyroxine Sodium) 100 Mcg Tablet, 1 TAB PO DAILY for Thyroid supplement , (Reported) Discontinued Reason: Prescription changed Entered as Reported by: FLACO ESCOBEDO RN on 02/18/19355 Losartan Potassium (Losartan Potassium) 100 Mg Tablet, 100 MG PO DAILY, (Reported) Discontinued Reason: Prescription changed Entered as Reported by: ABRAM RIVAS RN on 11/07/142321 RONAK CAMPBELL MD Jun 22, 2019 18:29
== END 2019-06-22 15:00 | DRG 291 ==
LOC: ER 09:45 → 2 SOUTH 12:39 → 5 SOUTH 06-19 18:35
PROVIDERS: ADMIT Family Medicine; ATTEND Family Medicine
DX: I11.0 Hypertensive heart disease with heart failure (principal); J96.01 Acute respiratory failure with hypoxia; J44.1 Chronic obstructive pulmonary disease with (acute) exacerbation; J98.11 Atelectasis; I50.33 Acute on chronic diastolic (congestive) heart failure; E03.9 Hypothyroidism, unspecified; E66.01 Morbid (severe) obesity due to excess calories; E78.00 Pure hypercholesterolemia, unspecified; E78.5 Hyperlipidemia, unspecified; F17.200 Nicotine dependence, unspecified, uncomplicated; F40.240 Claustrophobia; G47.33 Obstructive sleep apnea (adult) (pediatric); I25.10 Atherosclerotic heart disease of native coronary artery without angina pectoris; I27.29 Other secondary pulmonary hypertension; K74.60 Unspecified cirrhosis of liver; L30.9 Dermatitis, unspecified; Z83.3 Family history of diabetes mellitus; Z91.14 Patient's other noncompliance with medication regimen; Z91.19 Patient's noncompliance with other medical treatment and regimen; Z99.81 Dependence on supplemental oxygen; F32.9 Major depressive disorder, single episode, unspecified; G89.29 Other chronic pain
CPT/HCPCS: 36415; 51702; 71046; 71250; 80048; 80053; 80061; 81001; 82553; 83605; 83690; 83735; 83880; 84484; 85025; 85610; 85730; 87040; 93005; 93971; 94640; 94760; 96365; 96375; J0360; J0690; J1650; J1940; J3010; J3490; J7512; J7620; J7626; 97116; 97530; 97535; 99285-25; G0378

== ENCOUNTER 2019-12-09 17:08 | Inpatient (IN) | payer MEDICARE, OTHER ==
[~2019-12-09] VITALS: Ht 157.5 cm; Wt 96.8 kg
[~2019-12-09 17:08] MED LIST changes: -ASPI-612 PO; +ASPI-886 PO; +DICL100G54 TP; +LEVO125T5 PO; +LOSA-73 PO; +MONT10TA49 PO; +OXYB5TAB10 PO; +PRED20TA PO; -WARF-78 PO; +WARF5TAB2 PO
--- NOTE | 2019-12-09 17:40 | PHYS DOC ---
Past Medical History Past Medical History: Anxiety, CAD, CHF, COPD, Depression, High Cholesterol, Hypertension, Hypothyroid, Other Additional Past Medical Histor: SLEEP APNEA,CHRONIC BACK PAIN,SCIATIC A,CELLULITIS Past Surgical History: Cholecystectomy Additional Past Surgical Histo: APNEA,R SHOULDER SX Smoking Status: Former Smoker Alcohol Use: None Drug Use: None General Adult EDM: Chief Complaint: CHEST PAIN HPI: HPI: Patient is a 79 year old female who presents with here by EMS from [facility] with approximately 1530 had left-sided chest pain that was radiating into the left jaw and neck. [facility] states that they gave her 1 nitro and the pain resolved. Patient states she was also very anxious. The group home states that they gave her Ativan 0.5 mg by mouth prior to coming. Patient states that her pain is now gone after the nitro was given but she still feels slightly short of air. She states she feels anxious. Patient denies nausea, vomiting, abdominal pain, fever, cough, headache, dizziness, vision changes, numbness or tingling, focal weakness, LOC, falls. Review of Systems: Review of Systems: Constitutional: Denies fever or chills. [] Eyes: Denies change in visual acuity. [] HENT: Denies nasal congestion or sore throat. [] Respiratory: Denies cough. +shortness of breath. [] Cardiovascular: chest pain or edema. [] GI: Denies abdominal pain, nausea, vomiting, bloody stools or diarrhea. [] : Denies dysuria. [] Musculoskeletal: Denies back pain or joint pain. [] Integument: Denies rash. [] Neurologic: Denies headache, focal weakness or sensory changes. [] Endocrine: Denies polyuria or polydipsia. [] Lymphatic: Denies swollen glands. [] Psychiatric: Denies depression. +anxiety. [] Heart Score: HEART Score for Chest Pain: HEART Score for Chest Pain Response (Comments) Value History Slighlty/Non-Suspicious 0 ECG Nonspecific Repolarizatio 1 Age > 65 2 Risk Factors >3 Risk Factors or Hx CAD 2 Troponin < Normal Limit 0 Total 5 Risk Factors: Risk Factors: DM, Current or recent (<one month) smoker, HTN, HLP, family history of CAD, obesity. Risk Scores: Score 0 - 3: 2.5% MACE over next 6 weeks - Discharge Home Score 4 - 6: 20.3% MACE over next 6 weeks - Admit for Clinical Observation Score 7 - 10: 72.7% MACE over next 6 weeks - Early Invasive Strategies Allergies: Allergies: Allergies Coded Allergies Type Severity Reaction Last Updated Verified naproxen Allergy Severe Hives 11/07/14 Yes morphine Adverse Reaction Severe vomiting 11/18/18 Yes Physical Exam: PE: Constitutional: Well developed, well nourished, no acute distress, non-toxic appearance. [] HENT: Normocephalic, atraumatic, bilateral external ears normal, oropharynx moist, no oral exudates, nose normal. [] Eyes: PERRLA, EOMI, conjunctiva normal, no discharge. [] Neck: Normal range of motion, no tenderness, supple, no stridor. [] Cardiovascular:Heart rate regular rhythm, no murmur [] Lungs & Thorax: Bilateral upper breath sounds clear and lower diminished to auscultation [] Abdomen: Bowel sounds normal, soft, no tenderness, no masses, no pulsatile masses. [] Skin: Warm, dry, no erythema, no rash. Bilateral lower legs pink and warm. [] Back: No tenderness, no CVA tenderness. [] Extremities: No tenderness, no cyanosis, no clubbing, ROM intact, bilateral lower 2+ edema. [] Neurologic: Alert and oriented X 3, normal motor function, normal sensory function, no focal deficits noted. [] Psychologic: Affect normal, judgement normal, mood normal. [] EKG: EK and read by Dr Saini as Sinus Rhythm and no STEMI[] Radiology/Procedures: Radiology/Procedures: [] Impression: [facility] [id number] [place], [place] [id number] IMAGING REPORT Signed PATIENT: JONNY VACA ACCOUNT: [id number] : 1940 LOCATION: ER AGE: 79 SEX: F EXAM STATUS: PRE ER ORD. PHYSICIAN: KRYSTA SAINI DO REASON: pain PROCEDURE: CHEST AP ONLY Exam: Chest one view INDICATION: Pain TECHNIQUE: Frontal view of the chest Comparisons: 06/16/2019 FINDINGS: Heart is enlarged. Pulmonary vessels are within normal limits. The lung and pleural spaces are clear. Right shoulder arthroplasty again noted. IMPRESSION: Cardiomegaly without acute pulmonary process. Electronically signed by: Joshua Soliman MD (12/09/2019 5:45 PM) [id number] DICTATED and SIGNED BY: JOSHUA SOLIMAN MD DATE: 12/09/19 1745 Course & Med Decision Making: Course & Med Decision Making Pertinent Labs and Imaging studies reviewed. (See chart for details) Alert and oriented. Bilateral lower extremities 2+ edema. Lungs are clear to auscultation upper lobes but diminished in lower lobes. Speaks in full clear sentences. Skin pink warm and dry. She does have bilateral lower extremity pinkness and warmness to the skin but there is no drainage or wounds. Abdomen is soft and nontender. Her chest pain cannot be re-created with palpation or movement. Vital signs are within normal limits. She had a negative cover test 1 month ago. Patient has a history of heart failure, generalized muscle weakness, urinary incontinence, low back pain, anxiety, hypothyroidism, hyperlipidemia, sleep apnea, depression, hypertension, peripheral vascular disease, heart disease, COPD, GERD. I have spoken to Dr Raygoza who states to place the patient on [id number]@75. He states to order a renal ultrasound for in the morning. I spoken to Dr. Hutson for admission. [] Sarah Disclaimer: Sarah Disclaimer: This electronic medical record was generated, in whole or in part, using a voice recognition dictation system. Departure Departure Impression: Primary Impression: Acute renal failure Qualified Codes: N17.9 - Acute kidney failure, unspecified Additional Impression: Chest pain Qualified Codes: R07.9 - Chest pain, unspecified Disposition: ADMITTED INPATIENT Admitting Physician: HIMLydia Condition: STABLE Referrals: MORE NICHOLSON MD (PCP) Justicifation of Admission Dx: Justifications for Admission: Justification of Admission Dx: Yes Comments: CHEST PAIN, LUIZA YOJANA JARAMILLO PRINCIPAL ADMINISTRATIVE CLERK Dec 09, 2019 17:40
--- NOTE | 2019-12-09 17:47 | RAD ---
Exam: Chest one view INDICATION: Pain TECHNIQUE: Frontal view of the chest Comparisons: 06/16/2019 FINDINGS: Heart is enlarged. Pulmonary vessels are within normal limits. The lung and pleural spaces are clear. Right shoulder arthroplasty again noted. IMPRESSION: Cardiomegaly without acute pulmonary process. Electronically signed by: Joshua Reilly MD (12/09/2019 5:45 PM) [id number]
--- NOTE | 2019-12-09 18:01 | PDOC1 ---
History and Physical Date of Admission Date of Admission DATE: 12/09/19 TIME: 18:00 Identification/Chief Complaint Chief Complaint Chest pain Source Source: Patient History of Present Illness History of Present Illness Ms Lewis is a 79 yo female w/ PMHx COPD on 2L NCO2, CAD, HLD, HTN, Pulm HTN, Sleep apnea who lives in [facility] after a June hospital stay, now coming with EMS c/o chest pain. Pain is substernal, sharp, radiates to right jaw. EMS was contacted and she received 324mg ASA and 0.4mg NTG enroute with resolution of her pain. She still does c/o shortness of breath, putting on weight with swelling, anxiety, bilateral redness of the legs, worried that she is getting worse. She has been feeling more short of breath for the past 4 days. Tested negative for COVID 19 1 month ago and is coming from a facility with a very large outbreak 2 months ago. The patient denies fever, denies any nausea, vomiting, diarrhea. Denies abdominal pain or bowel symptoms. She does endorse stress incontinence but wears an adult diaper. CXR unchanged from prior. Bilateral venous lower extremity dopplers positive for soft tissue swelling, negative for DVT. Labs significant for Cr 2.4, up from baseline 1. BNP 1593, down from 3000+ previously. Albumin 3.3, Hb 11.2, WBC 8, Trop negative. EKG sinus rhythm unchanged from prior Admitted for further treatment. Past Medical History Cardiovascular: HTN, Hyperlipidemia, Pulmonary hypertension, Other Pulmonary: COPD, Other CENTRAL NERVOUS SYSTEM: Other GI: Gastritis Heme/Onc: No pertinent hx Hepatobiliary: Cirrhosis Psych: Anxiety, Depression Musculoskeletal: low back pain Rheumatologic: No pertinent hx Infectious disease: No pertinent hx Renal/: No pertinent hx Endocrine: Hypothyroidism Past Surgical History Past Surgical History: Cholecystectomy, Other Family History Family History: Diabetes Social History ALCOHOL: none Drugs: None Current Medications Current Medications Active Scripts Active Oxybutynin Chloride 5 Mg Tablet 5 Mg PO [id number] 30 Days Montelukast Sodium Tablet (Montelukast Sodium) 10 Mg Tablet 10 Mg PO QHS 30 Days Prednisone 20 Mg Tablet 20 Mg PO DAILY 4 Days Voltaren (Diclofenac Sodium) 100 Gm Gel..gram. 1 Dorian TP QID 30 Days Duoneb 0.5-3(2.5) Mg/3 Ml (Albuterol/Ipratropium) 3 Ml Ampul.neb 3 Ml NEB RTQID MDD 1 NICODERM CQ 14mg (Nicotine) 1 Each Patch.td24 1 Patch TP DAILY Reported Escitalopram Oxalate 20 Mg Tablet 20 Mg PO DAILY Levothyroxine Sodium 125 Mcg Tablet 125 Mcg PO DAILYAC Losartan Potassium 50 Mg Tablet 100 Mg PO DAILY Hydrocodone-Acetamin 7.5-325 (Hydrocodone/Acetaminophen) 1 Each Tablet 1 Tab PO PRN Q6HRS PRN Lorazepam 0.5 Mg Tablet 0.5 Mg PO BID PRN Aspirin 81 Mg Tab.chew 2 Tab PO DAILY Symbicort 80-4.5 Mcg Inhaler (Budesonide/Formoterol Fumarate) 10.2 Gm Hfa.aer.ad 2 Puff IH BID Tylenol (Acetaminophen) 325 Mg Tablet 2 Tab PO PRN Q6HRS Furosemide 20 Mg Tablet 1 Tab PO DAILY Ranitidine Hcl 150 Mg Capsule 150 Mg PO PRN BID PRN Allergies Allergies: Coded Allergies: naproxen (Verified Allergy, Severe, Hives, 11/07/14) "CAUSES CARDIAC ARREST" morphine (Verified Adverse Reaction, Severe, vomiting, 11/18/18) Pt states she can't have causes severe vomiting. ROS General: YES: Fatigue, Malaise; No: Chills, Night Sweats, Appetite, Other PSYCHOLOGICAL ROS: YES: Anxiety; No: Behavioral Disorder, Concentration difficultie, Decreased libido, Depression, Disorientation, Hallucinations, Hostility, Irritablity, Memory difficulties, Mood Swings, Obsessive thoughts, Physical abuse, Sexual abuse, Sleep disturbances, Suicidal ideation, Other Eyes: No Blurry vision, No Decreased vision, No Double vision, No Dry eyes, No Excessive tearing, No Eye Pain, No Itchy Eyes, No Loss of vision, No Photophobia, No Scotomata, No Uses contacts, No Uses glasses, No Other HEENT: No: Heacaches, Visual Changes, Hearing change, Nasal congestion, Nasal discharge, Oral lesions, Sinus pain, Sore Throat, Epistaxis, Sneezing, Snoring, Tinnitus, Vertigo, Vocal changes, Other ALLERGY AND IMMUNOLOGY: No: Hives, Insect Bite Sensitivity, Itchy/Watery Eyes, Nasal Congestion, Post Nasal Drip, Seasonal Allergies, Other Hematological and Lymphatic: No: Bleeding Problems, Blood Clots, Blood Transfusions, Brusing, Night Sweats, Pallor, Swollen Lymph Nodes, Other ENDOCRINE: No: Breast Changes, Galactorrhea, Hair Pattern Changes, Hot Flashes, Malaise/lethargy, Mood Swings, Palpitations, Polydipsia/polyuria, Skin Changes, Temperature Intolerance, Unexpected Weight Changes, Other Breast: No New/Changing Breast Lumps, No Nipple changes, No Nipple discharge, No Other Respiratory: YES: Shortness of breath; No: Cough, Hemoptysis, Orthopnea, Pleuritic Pain, SOB with excertion, Sputum Changes, Stridor, Tachypnea, Wheezing, Other Cardiovascular: yes Chest Pain; No Palpitations, No Orthopnea, No Paroxysmal Noc. Dyspnea, No Edema, No Lt Headedness, No Other Gastrointestinal: No Nausea, No Vomiting, No Abdominal Pain, No Diarrhea, No Constipation, No Melena, No Hematochezia, No Other Genitourinary: No Dysuria, No Frequency, No Incontinence, No Hematuria, No Retention, No Discharge, No Urgency, No Pain, No Flank Pain, No Other, No , No , No , No , No , No , No Musculoskeletal: No Gait Disturbance, No Joint Pain, No Joint Stiffness, No Joint Swelling, No Muscle Pain, No Muscular Weakness, No Pain In:, No Swelling In:, No Other Neurological: No Behavorial Changes, No Bowel/Bladder ControlChng, No Confusi on, No Dizziness, No Gait Disturbance, No Headaches, No Impaired Coord/balance, No Memory Loss, No Numbness/Tingling, No Seizures, No Speech Problems, No Tremors, No Visual Changes, No Weakness, No Other Skin: No Dry Skin, No Eczema, No Hair Changes, No Lumps, No Mole Changes, No Mottling, No Nail Changes, No Pruritus, No Rash, No Skin Lesion Changes, No Other, No Acne Physical Exam General: Alert, Oriented X3, Cooperative, mild distress HEENT: Atraumatic, PERRLA, EOMI, Mucous membr. moist/pink Lungs: Other (Prolonged expiratory phase, wheezing) Heart: S1S2, RRR, no thrills, no rubs, no gallops, no murmurs Abdomen: Normal bowel sounds, Soft, No tenderness, No hepatosplenomegaly, No masses Rectal Exam: not examined Extremities: No clubbing, No cyanosis, Normal pulses, No tenderness/swelling, Other (2+ edema) Skin: Other (Venous stasis dermatitis, rubor, no warmth) Neuro: Normal gait, Normal speech, Strength at 5/5 X4 ext, Normal tone, Sensation intact, Cranial nerves 3-12 NL, Reflexes 2+ Psych/Mental Status: Mental status NL, Mood NL Vitals Vitals Vital Signs Date Time Temp Pulse Resp B/P (MAP) Pulse Ox O2 Delivery O2 Flow Rate FiO2 12/09/19 17:10 98.1 66 23 160/70 (100) 100 Nasal Cannula 2.0 98.1 Images Images CXR: Heart is enlarged. Pulmonary vessels are within normal limits. The lung and pleural spaces are clear. Right shoulder arthroplasty again noted. IMPRESSION: Cardiomegaly without acute pulmonary process. Venous Doppler US bilateral LE: RIGHT: No thrombus identified in the common femoral vein, femoral vein, popliteal vein or visualized calf veins. LEFT: No thrombus identified in the common femoral vein, femoral vein, poplitealvein or visualized calf veins. Some limitation and calf veins secondary to overlying structures. IMPRESSION: * No thrombus identified in deep venous system of bilateral lower extremities * Edema of the soft tissues. VTE Prophylaxis Ordered VTE Prophylaxis Devices: Yes VTE Pharmacological Prophylaxi: Yes Assessment/Plan Assessment/Plan A/P: Chest pain - concerning as anginal equivalent with improvement after NTG. Will add imdur and d/c amlodipine in favor of going back on BB (change from coreg to toprol xl given COPD hx) LUIZA - likely vasomotor nephropathy. Will hold diuretics, consult nephrology, IVF overnight for 1 liter. Follow renal function. Renal US ordered. Acute on chronic hypoxic resp failure - with pulmonary HTN, has mostly WHO Group III COPD and NEGAR related issues, will cont nebs, consult pulm. Chronic diastolic CHF - changed to amlodipine from Coreg. Will d/c amlodipine given her LE edema and change to toprol XL. Hold losartan for LUIZA and use hydralazine/imdur combo, ASA, statin Lymphedema bilateral lower legs - does not appear to be currently CHF related. D/c amlodipine, OT for lymphedema wrap, elevate legs Pulm HTN - diagnosed by echo, no RHC on file. Mostly WHO Group III by history with NEGAR and COPD, and some diastolic CHF to contribute to Group II. Treatment as above Obesity - counseled on weight loss, diet, exercise COPD - nebs, pulm consult Smoker - quit last March 2019 Weakness and debility - related to chronic diseases, will try PT Stress urinary incontinence - ditropan has helped, will continue Anxiety - will add zyprexa BID prn NEGAR - stopped using last year and now in SNF, would recommend restarting BIPAP given her pulmonary HTN. Consult pulm for recs Hypothyroidism - on levothyroxine, will check repeat TSH, was elevated at 7 approximately 6 months ago. FEN - Cardiac diet PPX - Heparin CODE - d/w patient in depth, she is FULL CODE Dispo - inpatient for at least 2 midnights. Justicifation of Admission Dx: Justifications for Admission: Justification of Admission Dx: Yes Respiratory Failure: Severe Resp Distress Angina: Symp at Rest RONAK CAMPBELL MD Dec 09, 2019 18:01
[2019-12-09] MEDS ORDERED: fentaNYL PF VIAL 100 MCG/2 ML VIAL IV PRN (18:45)
[2019-12-09] MEDS ORDERED: ONDANSETRON PF 4 MG/2 ML VIAL. IV PRN ×2 (18:45→21:45)
[2019-12-09 19:47] LABS: BASO % 1 % (0-3); EOS # 0.8 x10^3/uL (0.0-0.7); EOS % 10 % (0-3); HEMATOCRIT 32.8 % (36.0-47.0); HEMOGLOBIN 11.2 g/dL (12.0-15.5); LYMPH # 1.4 x10^3/uL (1.0-4.8); LYMPH % 17 % (24-48); MEAN CORPUSCULAR HEMOGLOBIN 33 pg (25-35); MEAN CORPUSCULAR HGB CONC 34 g/dL (31-37); MEAN CORPUSCULAR VOLUME 97 fL (79-100); MONO # 0.6 x10^3/uL (0.0-1.1); MONO % 7 % (0-9); NEUT # 5.3 x10^3/uL (1.8-7.7); NEUT % 65 % (31-73); PLATELET COUNT 196 x10^3/uL (140-400); RED BLOOD COUNT 3.37 x10^6/uL (3.50-5.40); RED CELL DISTRIBUTION WIDTH 13.4 % (11.5-14.5)
[2019-12-09 19:55] LABS: CALCIUM 7.9 mg/dL (8.5-10.1); CREATININE 2.4 mg/dL (0.6-1.0); GFR 19.6; POTASSIUM 4.9 mmol/L (3.5-5.1)
[2019-12-09 20:00] LABS: ALBUMIN 3.3 g/dL (3.4-5.0); ALBUMIN/GLOBULIN RATIO 0.9 (1.0-1.7); TOTAL BILIRUBIN 0.2 mg/dL (0.2-1.0); TOTAL PROTEIN 6.8 g/dL (6.4-8.2)
--- NOTE | 2019-12-09 20:02 | RAD ---
INDICATION: Reason: Swelling, pain, shortness of breath, concern for DVT / Spl. Instructions: / History: COMPARISON: Right leg ultrasound from June 16, 2019 TECHNIQUE: Grayscale, color and doppler ultrasound images were obtained of the bilateral lower extremity venous vasculature. RIGHT: No thrombus identified in the common femoral vein, femoral vein, popliteal vein or visualized calf veins. LEFT: No thrombus identified in the common femoral vein, femoral vein, popliteal vein or visualized calf veins. Some limitation and calf veins secondary to overlying structures. IMPRESSION: * No thrombus identified in deep venous system of bilateral lower extremities. * Edema of the soft tissues. Electronically signed by: Goyo Chen MD (12/09/2019 7:59 PM) [id number]
[2019-12-09] MEDS ORDERED: IV NORMAL SALINE 1000ML BAG 1,000 ML IV ONE ×2 (20:15→20:45)
[2019-12-09 21:20] VITALS: BP 181/57
[2019-12-09 21:38] VITALS: BP 181/57
[2019-12-09] MEDS ORDERED: AMLO10TA8 PO (21:58)
[2019-12-09] MEDS ORDERED: MICO113C TP (21:58)
[2019-12-09] MEDS ORDERED: LOPE2TAB27 PO (21:58)
[2019-12-09] MEDS ORDERED: ACET325T21 PO (21:58)
[2019-12-09] MEDS ORDERED: DOCU100C28 PO (21:58)
[2019-12-09] MEDS ORDERED: HYDR-2761 PO (21:58)
[2019-12-09] MEDS ORDERED: HYDR-2867 PO (21:58)
[2019-12-09] MEDS ORDERED: BUSP5TAB PO (21:58)
[2019-12-09] MEDS ORDERED: POTA10TA12 PO (21:58)
[2019-12-09] MEDS ORDERED: CALC500T31 PO (21:58)
[2019-12-09] MEDS ORDERED: OXYB5TAB10 PO (21:58)
[2019-12-09] MEDS ORDERED: NITROGLYCERIN SUBLINGUAL 0.4 MG BOTTLE OF 25. SL PRN (22:00)
[2019-12-09] MEDS ORDERED: LOPERAMIDE 2 MG CAPSULE PO PRN (22:15)
[2019-12-09] MEDS ORDERED: CALCIUM CARBONATE 500 MG TAB.CHEW PO PRN (22:15)
[2019-12-09] MEDS ORDERED: ALBUTEROL SULFATE 2.5 MG/3 ML NEBU. NEB PRN (22:15)
[2019-12-09] MEDS ORDERED: MINERAL OIL/PETROLATUM TOPICAL CREAM 113GM JAR. TP PRN (22:15)
[2019-12-09] MEDS: PSYLLIUM HUSK (SUGAR FREE) 1 PKT PACKET PO SCH (22:30)
[2019-12-09] MEDS ORDERED: METOPROLOL SUCC 24HR ER 25 MG TAB.ER.24H. PO ONE (22:30)
[2019-12-09] MEDS: HYDROcodone/APAP 5/325MG 1 TAB TABLET PO PRN (22:52)
[2019-12-09] MEDS: OXYBUTYNIN CHLORIDE 5 MG TABLET PO SCH (22:52)
[2019-12-09] MEDS: hydrALAZINE 10 MG TABLET PO SCH (22:53)
[2019-12-09] MEDS: MICONAZOLE NITRATE 2% TOPICAL CREAM 28GM TUBE. TP SCH (22:53)
[2019-12-09] MEDS: busPIRone 5 MG TABLET. PO SCH (22:53)
[2019-12-09 23:00] VITALS: BP 178/65
[2019-12-09] MEDS: HEPARIN for SUB-Q USE 5,000 UNIT/ML VIAL. SQ SCH (23:02)
[2019-12-10] VITALS (8 sets, daily range): BP systolic 140–190; BP diastolic 50–69
[2019-12-10 03:30] LABS: CALCIUM 7.5 mg/dL (8.5-10.1); CREATININE 1.9 mg/dL (0.6-1.0); GFR 25.6; MAGNESIUM 2.2 mg/dL (1.8-2.4); POTASSIUM 4.8 mmol/L (3.5-5.1)
--- NOTE | 2019-12-10 06:25 | RAD ---
Renal ultrasound complete. HISTORY: Acute renal failure Ultrasound was used to evaluate kidneys and bladder. Right kidney is 11.3 cm in length. There is no right hydronephrosis. Kidneys are not optimally evaluated. Left kidney is 10.9 cm in length without hydronephrosis. Bladder was moderately distended. A bladder lesion was not identified. IMPRESSION: 1. No hydronephrosis in the kidneys. 2. Distended bladder. Electronically signed by: Héctor Fleming MD (12/10/2019 6:22 AM) [id number]
[2019-12-10] MEDS: LEVOTHYROXINE 125 MCG TABLET PO SCH (06:43)
[2019-12-10] MEDS: HEPARIN for SUB-Q USE 5,000 UNIT/ML VIAL. SQ SCH ×3 (06:45→21:31)
[2019-12-10] MEDS: BUDESONIDE 0.5 MG/2 ML NEBU. NEB SCH ×2 (07:19→20:58)
[2019-12-10] MEDS: ALBUTEROL SULFATE 2.5 MG/3 ML NEBU. NEB SCH ×4 (07:19→20:58)
[2019-12-10] MEDS: ASPIRIN CHEWABLE 81 MG TABLET. PO SCH (08:12)
[2019-12-10] MEDS: METOPROLOL SUCC 24HR ER 25 MG TAB.ER.24H. PO SCH (08:12)
[2019-12-10] MEDS: CITALOPRAM 20 MG TABLET. PO SCH (08:13)
[2019-12-10] MEDS: ISOSORBIDE MONONITRATE ER 30 MG TAB.ER.24H PO SCH (08:13)
[2019-12-10] MEDS: hydrALAZINE 10 MG TABLET PO SCH ×3 (08:13→21:03)
[2019-12-10] MEDS: MICONAZOLE NITRATE 2% TOPICAL CREAM 28GM TUBE. TP SCH ×2 (08:19→20:55)
[2019-12-10] MEDS: busPIRone 5 MG TABLET. PO SCH ×2 (08:19→20:53)
[2019-12-10] MEDS ORDERED: NON FORMULARY ITEM (Budesonide/Formoterol Fumarate (Symbicort 80-4.5 Mcg Inhaler) 2 PUFF) IH SCH (09:00)
--- NOTE | 2019-12-10 09:26 | PDOC ---
PROGRESS NOTES History of Present Illness History of Present Illness VTE Prophylaxis Ordered VTE Prophylaxis Devices: Yes VTE Pharmacological Prophylaxi: Yes Assessment/Plan Assessment/Plan A/P: Chest pain - concerning as anginal equivalent with improvement after NTG. Will add imdur and d/c amlodipine in favor of going back on BB (change from coreg to toprol xl given COPD hx) LUIZA - likely vasomotor nephropathy. Will hold diuretics, consult nephrology, IVF overnight for 1 liter. Follow renal function. Renal US ordered. No hydronephrosis in the kidneys. 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 Chronic diastolic CHF - changed to amlodipine from Coreg. Will d/c amlodipine given her LE edema and change to toprol XL. Hold losartan for LUIZA and use hydralazine/imdur combo, ASA, statin Lymphedema bilateral lower legs - does not appear to be currently CHF related. D/c amlodipine, OT for lymphedema wrap, elevate legs, stasis dermatitis vs cellulitis Pulm HTN - diagnosed by echo, no RHC on file. Mostly WHO Group III by history with NEGAR and COPD, and some diastolic CHF to contribute to Group II. Treatment as above Obesity - counseled on weight loss, diet, exercise COPD - nebs, pulm consult Smoker - quit last March 2019 Weakness and debility - related to chronic diseases, will try PT Stress urinary incontinence - ditropan has helped, will continue Anxiety - will add zyprexa BID prn NEGAR - stopped using last year and now in SNF, would recommend restarting BIPAP given her pulmonary HTN. Consult pulm for recs Hypothyroidism - on levothyroxine, will check repeat TSH, was elevated at 7 approximately 6 months ago. FEN - Cardiac diet PPX - Heparin CODE - d/w patient in depth, she is FULL CODE Dispo - inpatient for at least 2 midnights. iv ancef 1 gm iv q 8 hrs D/W RN Justicifation of Admission Dx: Justicifation of Admission Dx: Justifications for Admission: Justification of Admission Dx: Yes Respiratory Failure: Severe Resp Distress Angina: Symp at Rest Vitals Vitals Vital Signs Date Time Temp Pulse Resp B/P (MAP) Pulse Ox O2 Delivery O2 Flow Rate FiO2 12/10/19 08:13 70 12/10/19 08:00 Nasal Cannula 2.5 12/10/19 07:21 99 12/10/19 07:00 97.5 20 166/61 (96) 97.5 Physical Exam General: Alert, Oriented X3, Cooperative, mild distress Lungs: Clear Abdomen: Normal bowel sounds, Soft, No tenderness, No hepatosplenomegaly, No masses Extremities: No clubbing, No cyanosis, Normal pulses, No tenderness/swelling, Other (2+ edema) Skin: Other (Venous stasis dermatitis, rubor, no warmth) Labs LABS Exam: Chest one view INDICATION: Pain TECHNIQUE: Frontal view of the chest Comparisons: 06/16/2019 FINDINGS: Heart is enlarged. Pulmonary vessels are within normal limits. The lung and pleural spaces are clear. Right shoulder arthroplasty again noted. IMPRESSION: Cardiomegaly without acute pulmonary process. Electronically signed by: Joshua Soliman MD (12/09/2019 5:45 PM) [id number] DICTATED and SIGNED BY: JOSHUA SOLIMAN MD DATE: 12/09/191744 INDICATION: Reason: Swelling, pain, shortness of breath, concern for DVT / Spl. Instructions: / History: COMPARISON: Right leg ultrasound from June 16, 2019 TECHNIQUE: Grayscale, color and doppler ultrasound images were obtained of the bilateral lower extremity venous vasculature. RIGHT: No thrombus identified in the common femoral vein, femoral vein, popliteal vein or visualized calf veins. LEFT: No thrombus identified in the common femoral vein, femoral vein, popliteal vein or visualized calf veins. Some limitation and calf veins secondary to overlying structures. IMPRESSION: * No thrombus identified in deep venous system of bilateral lower extremities. * Edema of the soft tissues. Electronically signed by: Gurwinder Servin MD (12/09/2019 7:59 PM) [id number] DICTATED and SIGNED BY: GURWINDER SERVIN MD DATE: 12/09/191958 Renal ultrasound complete. HISTORY: Acute renal failure Ultrasound was used to evaluate kidneys and bladder. Right kidney is 11.3 cm in length. There is no right hydronephrosis. Kidneys are not optimally evaluated. Left kidney is 10.9 cm in length without hydronephrosis. Bladder was moderately distended. A bladder lesion was not identified. IMPRESSION: 1. No hydronephrosis in the kidneys. 2. Distended bladder. Electronically signed by: Héctor Fleming MD (12/10/2019 6:22 AM) [id number] DICTATED and SIGNED BY: HÉCTOR FLEMING MD DATE: 12/10/19621 Laboratory Tests Test 12/09/19 19:15 12/10/19 02:48 12/10/19 06:10 White Blood Count 8.0 x10^3/uL (4.0-11.0) Red Blood Count 3.37 x10^6/uL (3.50-5.40) Hemoglobin 11.2 g/dL (12.0-15.5) Hematocrit 32.8 % (36.0-47.0) Mean Corpuscular Volume 97 fL (79-100) Mean Corpuscular Hemoglobin 33 pg (25-35) Mean Corpuscular Hemoglobin Concent 34 g/dL (31-37) Red Cell Distribution Width 13.4 % (11.5-14.5) Platelet Count 196 x10^3/uL (140-400) Neutrophils (%) (Auto) 65 % (31-73) Lymphocytes (%) (Auto) 17 % (24-48) Monocytes (%) (Auto) 7 % (0-9) Eosinophils (%) (Auto) 10 % (0-3) Basophils (%) (Auto) 1 % (0-3) Neutrophils # (Auto) 5.3 x10^3/uL (1.8-7.7) Lymphocytes # (Auto) 1.4 x10^3/uL (1.0-4.8) Monocytes # (Auto) 0.6 x10^3/uL (0.0-1.1) Eosinophils # (Auto) 0.8 x10^3/uL (0.0-0.7) Basophils # (Auto) 0.0 x10^3/uL (0.0-0.2) Sodium Level 140 mmol/L (136-145) 143 mmol/L (136-145) Potassium Level 4.9 mmol/L (3.5-5.1) 4.8 mmol/L (3.5-5.1) Chloride Level 102 mmol/L (98-107) 105 mmol/L (98-107) Carbon Dioxide Level 35 mmol/L (21-32) 31 mmol/L (21-32) Anion Gap 3 (6-14) 7 (6-14) Blood Urea Nitrogen 31 mg/dL (7-20) 29 mg/dL (7-20) Creatinine 2.4 mg/dL (0.6-1.0) 1.9 mg/dL (0.6-1.0) Estimated GFR (Cockcroft-Gault) 19.6 25.6 BUN/Creatinine Ratio 13 (6-20) Glucose Level 103 mg/dL (70-99) 91 mg/dL (70-99) Calcium Level 7.9 mg/dL (8.5-10.1) 7.5 mg/dL (8.5-10.1) Total Bilirubin 0.2 mg/dL (0.2-1.0) Aspartate Amino Transf (AST/SGOT) 28 U/L (15-37) Alanine Aminotransferase (ALT/SGPT) 49 U/L (14-59) Alkaline Phosphatase 167 U/L (46-116) Troponin I Quantitative < 0.017 ng/mL (0.000-0.055) < 0.017 ng/mL (0.000-0.055) < 0.017 ng/mL (0.000-0.055) JY-Zmj-Y-Type Natriuretic Peptide 1593 pg/mL (0-449) Total Protein 6.8 g/dL (6.4-8.2) Albumin 3.3 g/dL (3.4-5.0) Albumin/Globulin Ratio 0.9 (1.0-1.7) Lipase 68 U/L (73-393) Thyroid Stimulating Hormone (TSH) 10.476 uIU/mL (0.358-3.74) Magnesium Level 2.2 mg/dL (1.8-2.4) Assessment and Plan Assessmemt and Plan Problems Medical Problems: (1) Acute renal failure Status: Acute (2) Chest pain Status: Acute Comment Review of Relevant I have reviewed the following items vitaly (where applicable) has been applied. Labs Laboratory Tests Test 12/09/19 19:15 12/10/19 02:48 12/10/19 06:10 White Blood Count 8.0 x10^3/uL (4.0-11.0) Red Blood Count 3.37 x10^6/uL (3.50-5.40) Hemoglobin 11.2 g/dL (12.0-15.5) Hematocrit 32.8 % (36.0-47.0) Mean Corpuscular Volume 97 fL (79-100) Mean Corpuscular Hemoglobin 33 pg (25-35) Mean Corpuscular Hemoglobin Concent 34 g/dL (31-37) Red Cell Distribution Width 13.4 % (11.5-14.5) Platelet Count 196 x10^3/uL (140-400) Neutrophils (%) (Auto) 65 % (31-73) Lymphocytes (%) (Auto) 17 % (24-48) Monocytes (%) (Auto) 7 % (0-9) Eosinophils (%) (Auto) 10 % (0-3) Basophils (%) (Auto) 1 % (0-3) Neutrophils # (Auto) 5.3 x10^3/uL (1.8-7.7) Lymphocytes # (Auto) 1.4 x10^3/uL (1.0-4.8) Monocytes # (Auto) 0.6 x10^3/uL (0.0-1.1) Eosinophils # (Auto) 0.8 x10^3/uL (0.0-0.7) Basophils # (Auto) 0.0 x10^3/uL (0.0-0.2) Sodium Level 140 mmol/L (136-145) 143 mmol/L (136-145) Potassium Level 4.9 mmol/L (3.5-5.1) 4.8 mmol/L (3.5-5.1) Chloride Level 102 mmol/L (98-107) 105 mmol/L (98-107) Carbon Dioxide Level 35 mmol/L (21-32) 31 mmol/L (21-32) Anion Gap 3 (6-14) 7 (6-14) Blood Urea Nitrogen 31 mg/dL (7-20) 29 mg/dL (7-20) Creatinine 2.4 mg/dL (0.6-1.0) 1.9 mg/dL (0.6-1.0) Estimated GFR (Cockcroft-Gault) 19.6 25.6 BUN/Creatinine Ratio 13 (6-20) Glucose Level 103 mg/dL (70-99) 91 mg/dL (70-99) Calcium Level 7.9 mg/dL (8.5-10.1) 7.5 mg/dL (8.5-10.1) Total Bilirubin 0.2 mg/dL (0.2-1.0) Aspartate Amino Transf (AST/SGOT) 28 U/L (15-37) Alanine Aminotransferase (ALT/SGPT) 49 U/L (14-59) Alkaline Phosphatase 167 U/L (46-116) Troponin I Quantitative < 0.017 ng/mL (0.000-0.055) < 0.017 ng/mL (0.000-0.055) < 0.017 ng/mL (0.000-0.055) UK-Yep-B-Type Natriuretic Peptide 1593 pg/mL (0-449) Total Protein 6.8 g/dL (6.4-8.2) Albumin 3.3 g/dL (3.4-5.0) Albumin/Globulin Ratio 0.9 (1.0-1.7) Lipase 68 U/L (73-393) Thyroid Stimulating Hormone (TSH) 10.476 uIU/mL (0.358-3.74) Magnesium Level 2.2 mg/dL (1.8-2.4) Laboratory Tests Test 12/09/19 19:15 12/10/19 02:48 12/10/19 06:10 White Blood Count 8.0 x10^3/uL (4.0-11.0) Red Blood Count 3.37 x10^6/uL (3.50-5.40) Hemoglobin 11.2 g/dL (12.0-15.5) Hematocrit 32.8 % (36.0-47.0) Mean Corpuscular Volume 97 fL (79-100) Mean Corpuscular Hemoglobin 33 pg (25-35) Mean Corpuscular Hemoglobin Concent 34 g/dL (31-37) Red Cell Distribution Width 13.4 % (11.5-14.5) Platelet Count 196 x10^3/uL (140-400) Neutrophils (%) (Auto) 65 % (31-73) Lymphocytes (%) (Auto) 17 % (24-48) Monocytes (%) (Auto) 7 % (0-9) Eosinophils (%) (Auto) 10 % (0-3) Basophils (%) (Auto) 1 % (0-3) Neutrophils # (Auto) 5.3 x10^3/uL (1.8-7.7) Lymphocytes # (Auto) 1.4 x10^3/uL (1.0-4.8) Monocytes # (Auto) 0.6 x10^3/uL (0.0-1.1) Eosinophils # (Auto) 0.8 x10^3/uL (0.0-0.7) Basophils # (Auto) 0.0 x10^3/uL (0.0-0.2) Sodium Level 140 mmol/L (136-145) 143 mmol/L (136-145) Potassium Level 4.9 mmol/L (3.5-5.1) 4.8 mmol/L (3.5-5.1) Chloride Level 102 mmol/L (98-107) 105 mmol/L (98-107) Carbon Dioxide Level 35 mmol/L (21-32) 31 mmol/L (21-32) Anion Gap 3 (6-14) 7 (6-14) Blood Urea Nitrogen 31 mg/dL (7-20) 29 mg/dL (7-20) Creatinine 2.4 mg/dL (0.6-1.0) 1.9 mg/dL (0.6-1.0) Estimated GFR (Cockcroft-Gault) 19.6 25.6 BUN/Creatinine Ratio 13 (6-20) Glucose Level 103 mg/dL (70-99) 91 mg/dL (70-99) Calcium Level 7.9 mg/dL (8.5-10.1) 7.5 mg/dL (8.5-10.1) Total Bilirubin 0.2 mg/dL (0.2-1.0) Aspartate Amino Transf (AST/SGOT) 28 U/L (15-37) Alanine Aminotransferase (ALT/SGPT) 49 U/L (14-59) Alkaline Phosphatase 167 U/L (46-116) Troponin I Quantitative < 0.017 ng/mL (0.000-0.055) < 0.017 ng/mL (0.000-0.055) < 0.017 ng/mL (0.000-0.055) DG-Wdd-V-Type Natriuretic Peptide 1593 pg/mL (0-449) Total Protein 6.8 g/dL (6.4-8.2) Albumin 3.3 g/dL (3.4-5.0) Albumin/Globulin Ratio 0.9 (1.0-1.7) Lipase 68 U/L (73-393) Thyroid Stimulating Hormone (TSH) 10.476 uIU/mL (0.358-3.74) Magnesium Level 2.2 mg/dL (1.8-2.4) Medications Current Medications Ondansetron HCl (Zofran) 4 mg PRN Q8HRS PRN IV NAUSEA/VOMITING; Start 12/09/19 at 18:45; Stop 12/09/19 at 21:44; Status DC Fentanyl Citrate (Fentanyl 2ml Vial) 50 mcg PRN Q1HR PRN IV PAIN; Start 12/09/19 at 18:45; Stop 12/10/19 at 18:44 Sodium Chloride 1,000 ml @ 1,000 mls/hr 1X ONCE IV Last administered on 12/09/19at 21:12; Start 12/09/19 at 20:15; Stop 12/09/19 at 21:14; Status DC Sodium Chloride 1,000 ml @ 75 mls/hr 1X ONCE IV Last administered on 12/09/19at 22:54; Start 12/09/19 at 20:45; Stop 12/10/19 at 10:04 Ondansetron HCl (Zofran) 4 mg PRN Q4HRS PRN IV NAUSEA/VOMITING; Start 12/09/19 at 21:45 Nitroglycerin (Nitrostat) 0.4 mg PRN Q5MIN PRN SL CHEST PAIN; Start 12/09/19 at 22:00 Aspirin (Aspirin Chewable) 162 mg DAILYWBKFT PO Last administered on 12/10/19at 08:12; Start 12/10/19 at 08:00 Buspirone HCl (Buspar) 7.5 mg BID PO Last administered on 12/10/19at 08:19; Start 12/09/19 at 21:30 Calcium Carbonate/ Glycine (Tums) 1,000 mg PRN Q6HRS PRN PO INDIGESTION; Start 12/09/19 at 22:15 Docusate Sodium (Colace) 100 mg QHS PO ; Start 12/10/19 at 21:00 Hydralazine HCl (Apresoline) 10 mg TID PO Last administered on 12/10/19 08:13; Start 12/09/19 at 21:30 Acetaminophen/ Hydrocodone Bitart (Lortab 5/325) 1 tab PRN Q6HRS PRN PO PAIN Last administered on 12/09/19 22:52; Start 12/09/19 at 22:15 Levothyroxine Sodium (Synthroid) 125 mcg DAILY06 PO Last administered on 12/10/19 06:43; Start 12/10/19 at 06:00 Miconazole Nitrate (Monistat-Derm) 1 dorian BID TP Last administered on 12/10/19 08:19; Start 12/09/19 at 21:30 Oxybutynin Chloride (Ditropan) 5 mg QHS PO Last administered on 12/09/19at 22:52; Start 12/09/19 at 21:30 Non-Formulary Medication (Budesonide/ Formoterol Fumarate (Symbicort 80-4.5 Mcg Inhaler)) 2 puff BID IH ; Start 12/10/19 at 09:00; Status UNV Citalopram Hydrobromide (CeleXA) 40 mg DAILY PO Last administered on 12/10/19 08:13; Start 12/10/19 at 09:00 Loperamide HCl (Imodium) 2 mg PRN Q4HRS PRN PO DIARRHEA; Start 12/09/19 at 22:15 Olanzapine (ZyPREXA ZYDIS) 5 mg PRN BID PRN PO ANXIETY / AGITATION Last administered on 12/09/19at 22:52; Start 12/09/19 at 22:15 Psyllium Hydrophilic Mucilloid (Metamucil Fiber Packet) 1 pkt QHS PO ; Start 12/09/19 at 22:30 Heparin Sodium (Porcine) (Heparin Sodium) 5,000 unit Q8HRS SQ Last administered on 12/10/19at 06:45; Start 12/09/19 at 22:15 Albuterol Sulfate (Ventolin Neb Soln) 2.5 mg PRN Q4HRS PRN NEB SHORTNESS OF BREATH; Start 12/09/19 at 22:15 Multi-Ingredient Ointment (Hydrocerin Cream) 1 dorian PRN Q1HR PRN TP DRY SKIN / SCALING; Start 12/09/19 at 22:15 Metoprolol Succinate (Toprol Xl) 12.5 mg 1X ONCE PO Last administered on 12/09/19at 22:52; Start 12/09/19 at 22:30; Stop 12/09/19 at 22:31; Status DC Metoprolol Succinate (Toprol Xl) 25 mg DAILY PO Last administered on 12/10/19at 08:12; Start 12/10/19 at 09:00 Isosorbide Mononitrate (Imdur) 30 mg DAILY PO Last administered on 12/10/19at 08:13; Start 12/10/19 at 09:00 Albuterol Sulfate (Ventolin Neb Soln) 2.5 mg RTQID NEB Last administered on 12/10/19at 07:19; Start 12/10/19 at 08:00 Budesonide (Pulmicort) 0.5 mg RTBID NEB Last administered on 12/10/19at 07:19; Start 12/10/19 at 08:00 Active Scripts Active NICODERM CQ 14mg (Nicotine) 1 Each Patch.td24 1 Patch TP DAILY Reported Oxybutynin Chloride 5 Mg Tablet 5 Mg PO QHS Klor-Con 10 (Potassium Chloride) 10 Meq Tablet.er 10 Meq PO DAILY Loperamide (Loperamide Hcl) 2 Mg Tablet 2 Mg PO PRN Q4HRS PRN Hydrocodone-Apap 5-325 (Hydrocodone Bit/Acetaminophen) 1 Tab Tablet 1 Tab PO PRN Q6HRS PRN Hydralazine Hcl 10 Mg Tablet 1 Tab PO TID Docusate Sodium 100 Mg Capsule 100 Mg PO QHS Buspirone Hcl 5 Mg Tablet 7.5 Mg PO BID Anti-Fungal Cream (Miconazole Nitrate) 113 Gm Cream..g. 1 Dorian TP BID 14 Days Calcium Carbonate 500 Mg Tablet 1,000 Mg PO PRN Q6HRS PRN Amlodipine Besylate 10 Mg Tablet 10 Mg PO DAILY Acetaminophen 325 Mg Tablet 650 Mg PO TID Escitalopram Oxalate 20 Mg Tablet 20 Mg PO DAILY Levothyroxine Sodium 125 Mcg Tablet 125 Mcg PO DAILYAC Losartan Potassium 50 Mg Tablet 100 Mg PO DAILY Lorazepam 0.5 Mg Tablet 0.5 Mg PO PRN Q8HRS PRN Aspirin 81 Mg Tab.chew 2 Tab PO DAILY Symbicort 80-4.5 Mcg Inhaler (Budesonide/Formoterol Fumarate) 10.2 Gm Hfa.aer.ad 2 Puff IH BID Tylenol (Acetaminophen) 325 Mg Tablet 2 Tab PO PRN Q6HRS Furosemide 20 Mg Tablet 2 Tab PO DAILY Vitals/I & O Vital Sign - Last 24 Hours 12/09/19 12/09/19 12/09/19 12/09/19 17:10 17:27 17:57 18:27 Temp 98.1 98.1 Pulse 66 63 78 60 Resp 23 B/P (MAP) 160/70 (100) 160/70 (100) 186/79 (114) 174/74 (107) Pulse Ox 100 100 99 96 O2 Delivery Nasal Cannula Room Air Room Air Room Air O2 Flow Rate 2.0 12/09/19 12/09/19 12/09/19 12/09/19 18:57 19:27 19:57 20:30 Pulse 64 64 64 75 B/P (MAP) 193/82 (119) 183/89 (120) 178/89 (118) 184/79 (114) Pulse Ox 99 99 97 98 O2 Delivery Nasal Cannula Nasal Cannula Nasal Cannula Nasal Cannula O2 Flow Rate 2.5 2.5 2.5 2.5 12/09/19 12/09/19 12/09/19 12/09/19 20:57 21:20 21:30 21:38 Temp 97.9 97.9 97.9 97.9 Pulse 60 72 66 Resp 20 22 B/P (MAP) 179/73 (108) 181/57 (98) 181/57 (98) Pulse Ox 97 96 96 O2 Delivery Nasal Cannula Nasal Cannula Nasal Cannula Nasal Cannula O2 Flow Rate 2.5 2.5 2.5 2.0 12/09/19 12/09/19 12/09/19 12/09/19 22:52 22:52 22:53 23:00 Temp 97.6 97.6 Pulse 66 66 70 Resp 20 20 B/P (MAP) 181/57 181/57 178/65 (102) Pulse Ox 97 98 O2 Delivery Nasal Cannula Nasal Cannula O2 Flow Rate 2.5 2.5 12/10/19 12/10/19 12/10/19 12/10/19 02:55 07:00 07:21 08:00 Temp 97.7 97.5 97.7 97.5 Pulse 64 52 Resp 20 B/P (MAP) 185/56 (99) 166/61 (96) Pulse Ox 97 97 99 O2 Delivery Nasal Cannula Nasal Cannula Nasal Cannula Nasal Cannula O2 Flow Rate 2.5 2.5 2.0 2.5 12/10/19 12/10/19 12/10/19 08:12 08:13 08:13 Pulse 70 70 70 Intake and Output 12/09/19 12/09/19 12/10/19 15:00 23:00 07:00 Intake Total 400 ml Output Total 600 ml Balance -200 ml PEGGY TORREZ MD Dec 10, 2019 09:26
--- NOTE | 2019-12-10 10:53 | PDOC2 ---
CARDIOLOGY CONSULT NOTE CHIEF COMPLAINT: Chest pain HPI: Pleasant 79-year-old woman well-known to our office who comes into the hospital with chest pain. She currently resides at [facility]. She was seen in June 2019 with similar complaints of dyspnea and diagnosed at that time with diastolic heart failure. She was due for an outpatient ischemic evaluation but that has not been completed yet according to our records here. Today the patient reports that there is been no new issues at her nursing facility. She has not had any fevers or chills or cough. She had some progressive dyspnea and chest discomfort. Upon arrival to the hospital here her cardiac enzymes have been negative and she was noted to have acute renal insufficiency. Her medications were adjusted and she has since reported feeling better. She denies any current chest pain. She actually ambulated with the physical therapist and did quite well. She is resting comfortably today. PMHX: 1. Diastolic heart failure with a last ejection fraction of 65% in 2018 2. Hypertension 3. Chronic kidney disease 4. COPD SOCHX: She lives at [facility]. Denies any alcohol, tobacco or illicit drug use FAMHX: Noncontributory CURRENT MEDS: Current Medications Medications (Trade) Dose Ordered Sig/Derek Route PRN Reason Start Time Stop Time Status Last Admin Dose Admin Sodium Chloride 1,000 ml @ 1,000 mls/hr 1X ONCE IV 12/09/19 20:15 12/09/19 21:14 DC 12/09/19 21:12 Sodium Chloride 1,000 ml @ 75 mls/hr 1X ONCE IV 12/09/19 20:45 12/10/19 10:04 DC 12/09/19 22:54 Aspirin (Aspirin Chewable) 162 mg DAILYWBKFT PO 12/10/19 08:00 12/10/19 08:12 Buspirone HCl (Buspar) 7.5 mg BID PO 12/09/19 21:30 12/10/19 08:19 Hydralazine HCl (Apresoline) 10 mg TID PO 12/09/19 21:30 12/10/19 10:39 DC 12/10/19 08:13 Acetaminophen/ Hydrocodone Bitart (Lortab 5/325) 1 tab PRN Q6HRS PRN PO PAIN 12/09/19 22:15 12/09/19 22:52 Levothyroxine Sodium (Synthroid) 125 mcg DAILY06 PO 12/10/19 06:00 12/10/19 06:43 Miconazole Nitrate (Monistat-Derm) 1 jason BID TP 12/09/19 21:30 12/10/19 08:19 Oxybutynin Chloride (Ditropan) 5 mg QHS PO 12/09/19 21:30 12/09/19 22:52 Citalopram Hydrobromide (CeleXA) 40 mg DAILY PO 12/10/19 09:00 12/10/19 08:13 Olanzapine (ZyPREXA ZYDIS) 5 mg PRN BID PRN PO ANXIETY / AGITATION 12/09/19 22:15 12/09/19 22:52 Heparin Sodium (Porcine) (Heparin Sodium) 5,000 unit Q8HRS SQ 12/09/19 22:15 12/10/19 06:45 Metoprolol Succinate (Toprol Xl) 12.5 mg 1X ONCE PO 12/09/19 22:30 12/09/19 22:31 DC 12/09/19 22:52 Metoprolol Succinate (Toprol Xl) 25 mg DAILY PO 12/10/19 09:00 12/10/19 08:12 Isosorbide Mononitrate (Imdur) 30 mg DAILY PO 12/10/19 09:00 12/10/19 08:13 Albuterol Sulfate (Ventolin Neb Soln) 2.5 mg RTQID NEB 12/10/19 08:00 12/10/19 07:19 Budesonide (Pulmicort) 0.5 mg RTBID NEB 12/10/19 08:00 12/10/19 07:19 ALLERGIES: Allergies Coded Allergies Type Severity Reaction Last Updated Verified naproxen Allergy Severe Hives 11/07/14 Yes morphine Adverse Reaction Severe vomiting 11/18/18 Yes ROS: Negative for 10 out of 14 systems reviewed unless otherwise mentioned above in HPI PHYSICAL EXAM: Vital Signs/I&O: Vital Signs Date Time Temp Pulse Resp B/P (MAP) Pulse Ox O2 Delivery O2 Flow Rate FiO2 12/10/19 08:13 70 12/10/19 08:00 Nasal Cannula 2.5 12/10/19 07:21 99 12/10/19 07:00 97.5 20 166/61 (96) 97.5 I & O 12/09/19 12/09/19 12/10/19 15:00 23:00 07:00 Intake Total 400 ml Output Total 600 ml Balance -200 ml Physical Exam: The patient appeared well nourished and normally developed. Head exam is unremarkable. No scleral icterus or corneal arcus noted. Neck is without jugular venous distension, thyromegaly, or carotid bruits. Carotid upstrokes are brisk bilaterally. Lungs are notable for diffuse bilateral rhonchi Cardiac exam reveals the PMI to be normally sized and situated. Rhythm is regular. First and second heart sounds normal. No murmurs, rubs or gallops. Abdominal exam reveals normal bowel sounds, no masses, no organomegaly and no aortic enlargement. Extremities are notable for bilateral venous stasis changes, they are maya thematous up to the mid june. There is 1+ edema bilaterally. 2+ radial and diminished pedal pulses. Msk: No traumua Neuro: No focal deficits DIAGNOSTIC TESTING: Cardiac enzymes negative x2 TSH elevated at 10 EKG is unremarkable bnp at 1500 Lab Laboratory Tests Test 12/09/19 19:15 12/10/19 02:48 White Blood Count 8.0 x10^3/uL (4.0-11.0) Red Blood Count 3.37 x10^6/uL (3.50-5.40) L Hemoglobin 11.2 g/dL (12.0-15.5) L Hematocrit 32.8 % (36.0-47.0) L Mean Corpuscular Volume 97 fL (79-100) Mean Corpuscular Hemoglobin 33 pg (25-35) Mean Corpuscular Hemoglobin Concent 34 g/dL (31-37) Red Cell Distribution Width 13.4 % (11.5-14.5) Platelet Count 196 x10^3/uL (140-400) Neutrophils (%) (Auto) 65 % (31-73) Lymphocytes (%) (Auto) 17 % (24-48) L Monocytes (%) (Auto) 7 % (0-9) Eosinophils (%) (Auto) 10 % (0-3) H Basophils (%) (Auto) 1 % (0-3) Neutrophils # (Auto) 5.3 x10^3/uL (1.8-7.7) Lymphocytes # (Auto) 1.4 x10^3/uL (1.0-4.8) Monocytes # (Auto) 0.6 x10^3/uL (0.0-1.1) Eosinophils # (Auto) 0.8 x10^3/uL (0.0-0.7) H Basophils # (Auto) 0.0 x10^3/uL (0.0-0.2) Sodium Level 140 mmol/L (136-145) 143 mmol/L (136-145) Potassium Level 4.9 mmol/L (3.5-5.1) 4.8 mmol/L (3.5-5.1) Chloride Level 102 mmol/L (98-107) 105 mmol/L (98-107) Carbon Dioxide Level 35 mmol/L (21-32) H 31 mmol/L (21-32) Anion Gap 3 (6-14) L 7 (6-14) Blood Urea Nitrogen 31 mg/dL (7-20) H 29 mg/dL (7-20) H Creatinine 2.4 mg/dL (0.6-1.0) H 1.9 mg/dL (0.6-1.0) H Estimated GFR (Cockcroft-Gault) 19.6 25.6 BUN/Creatinine Ratio 13 (6-20) Glucose Level 103 mg/dL (70-99) H 91 mg/dL (70-99) Calcium Level 7.9 mg/dL (8.5-10.1) L 7.5 mg/dL (8.5-10.1) L Total Bilirubin 0.2 mg/dL (0.2-1.0) Aspartate Amino Transf (AST/SGOT) 28 U/L (15-37) Alkaline Phosphatase 167 U/L (46-116) H Total Protein 6.8 g/dL (6.4-8.2) Albumin 3.3 g/dL (3.4-5.0) L Albumin/Globulin Ratio 0.9 (1.0-1.7) L Lipase 68 U/L (73-393) L Thyroid Stimulating Hormone (TSH) 10.476 uIU/mL (0.358-3.74) H Laboratory Tests 12/09/19 19:15 12/10/19 02:48 ASSESSMENT: 1. Chest pain - Likely due to hypertensive urgency. 2. LUIZA on CKD 3. Acute on chronic diastolic HF 4. HTN 5. COPD PLAN: 1. Currently her EKG, enzymes and symptoms are all reassuring that this is a low risk presentation. Continue med titration for better BP control. She has been able to ambulate without chest pain, and in this setting with LUIZA, would defer invasive assessment. Plan for outpt stress testing. Thanks. Pls call with questions. JAMAL BIANCHI MD Dec 10, 2019 10:53
--- NOTE | 2019-12-10 11:18 | PDOC2 ---
CONSULT Date of Consult Date of Consult DATE: 12/10/19 TIME: 11:05 Reason for Consult Reason for Consult: LUIZA Source Source: Chart review, Patient History of Present Illness Reason for Visit: Pt is a 79 yo CF w/ PMHx COPD on 2L O2 by [place] at home , CAD, , HTN, Pulm HTN, Sleep apnea who lives in [facility] after a June hospital stay, presented with EMS c/o chest pain. Pain was substernal, sharp, radiates to right jaw. She c/o shortness of breath, putting on weight with swelling, , bilateral redness of the legs, . She has been feeling more short of breath for the past 4 days. Tested negative for COVID 19 1 month ago and is coming from a facility with a very large outbreak 2 months ago. She denies fever, denies any nausea, vomiting, diarrhea. Denies abdominal pain or bowel symptoms. She denies any urinary symptoms, No dysuria, hematuria, has chronic incontinence CXR unchanged from prior. Bilateral venous lower extremity dopplers positive for soft tissue swelling, negative for DVT. Currently sleeping in chair, arousable, denies any other new complaints Past Medical History Cardiovascular: HTN, Hyperlipidemia, Pulmonary hypertension, Other Pulmonary: COPD, Other CENTRAL NERVOUS SYSTEM: Other GI: Gastritis Heme/Onc: No pertinent hx Hepatobiliary: Cirrhosis Psych: Anxiety, Depression Musculoskeletal: low back pain Rheumatologic: No pertinent hx Infectious disease: No pertinent hx Renal/: No pertinent hx Endocrine: Hypothyroidism Past Surgical History Past Surgical History: Cholecystectomy, Other Family History Family History: Diabetes Social History ALCOHOL: none Drugs: None Lives: with Family Current Problem List Problem List Problems Medical Problems: (1) Acute renal failure Status: Acute (2) Chest pain Status: Acute Current Medications Current Medications Current Medications Ondansetron HCl (Zofran) 4 mg PRN Q8HRS PRN IV NAUSEA/VOMITING; Start 12/09/19 at 18:45; Stop 12/09/19 at 21:44; Status DC Fentanyl Citrate (Fentanyl 2ml Vial) 50 mcg PRN Q1HR PRN IV PAIN; Start 12/09/19 at 18:45; Stop 12/10/19 at 18:44 Sodium Chloride 1,000 ml @ 1,000 mls/hr 1X ONCE IV Last administered on 12/09/19at 21:12; Start 12/09/19 at 20:15; Stop 12/09/19 at 21:14; Status DC Sodium Chloride 1,000 ml @ 75 mls/hr 1X ONCE IV Last administered on at 22:54; Start 12/09/19 at 20:45; Stop 12/10/19 at 10:04; Status DC Ondansetron HCl (Zofran) 4 mg PRN Q4HRS PRN IV NAUSEA/VOMITING; Start 12/09/19 at 21:45 Nitroglycerin (Nitrostat) 0.4 mg PRN Q5MIN PRN SL CHEST PAIN; Start 12/09/19 at 22:00 Aspirin (Aspirin Chewable) 162 mg DAILYWBKFT PO Last administered on 12/10/19at 08:12; Start 12/10/19 at 08:00 Buspirone HCl (Buspar) 7.5 mg BID PO Last administered on 12/10/19at 08:19; Start 12/09/19 at 21:30 Calcium Carbonate/ Glycine (Tums) 1,000 mg PRN Q6HRS PRN PO INDIGESTION; Start 12/09/19 at 22:15 Docusate Sodium (Colace) 100 mg QHS PO ; Start 12/10/19 at 21:00 Hydralazine HCl (Apresoline) 10 mg TID PO Last administered on 12/10/19at 08:13; Start 12/09/19 at 21:30; Stop 12/10/19 at 10:39; Status DC Acetaminophen/ Hydrocodone Bitart (Lortab 5/325) 1 tab PRN Q6HRS PRN PO PAIN Last administered on 12/09/19at 22:52; Start 12/09/19 at 22:15 Levothyroxine Sodium (Synthroid) 125 mcg DAILY06 PO Last administered on 12/10/19at 06:43; Start 12/10/19 at 06:00 Miconazole Nitrate (Monistat-Derm) 1 dorian BID TP Last administered on 12/10/19at 08:19; Start 12/09/19 at 21:30 Oxybutynin Chloride (Ditropan) 5 mg QHS PO Last administered on 12/09/19at 22:52; Start 12/09/19 at 21:30 Non-Formulary Medication (Budesonide/ Formoterol Fumarate (Symbicort 80-4.5 Mcg Inhaler)) 2 puff BID IH ; Start 12/10/19 at 09:00; Status UNV Citalopram Hydrobromide (CeleXA) 40 mg DAILY PO Last administered on 12/10/19at 08:13; Start 12/10/19 at 09:00 Loperamide HCl (Imodium) 2 mg PRN Q4HRS PRN PO DIARRHEA; Start 12/09/19 at 22:15 Olanzapine (ZyPREXA ZYDIS) 5 mg PRN BID PRN PO ANXIETY / AGITATION Last administered on 12/09/19at 22:52; Start 12/09/19 at 22:15 Psyllium Hydrophilic Mucilloid (Metamucil Fiber Packet) 1 pkt QHS PO ; Start 12/09/19 at 22:30 Heparin Sodium (Porcine) (Heparin Sodium) 5,000 unit Q8HRS SQ Last administered on 12/10/19at 06:45; Start 12/09/19 at 22:15 Albuterol Sulfate (Ventolin Neb Soln) 2.5 mg PRN Q4HRS PRN NEB SHORTNESS OF BREATH; Start 12/09/19 at 22:15 Multi-Ingredient Ointment (Hydrocerin Cream) 1 dorian PRN Q1HR PRN TP DRY SKIN / SCALING; Start 12/09/19 at 22:15 Metoprolol Succinate (Toprol Xl) 12.5 mg 1X ONCE PO Last administered on 12/09/19at 22:52; Start 12/09/19 at 22:30; Stop 12/09/19 at 22:31; Status DC Metoprolol Succinate (Toprol Xl) 25 mg DAILY PO Last administered on 12/10/19at 08:12; Start 12/10/19 at 09:00 Isosorbide Mononitrate (Imdur) 30 mg DAILY PO Last administered on 12/10/19at 08:13; Start 12/10/19 at 09:00 Albuterol Sulfate (Ventolin Neb Soln) 2.5 mg RTQID NEB Last administered on 12/10/19at 07:19; Start 12/10/19 at 08:00 Budesonide (Pulmicort) 0.5 mg RTBID NEB Last administered on 12/10/19at 07:19; Start 12/10/19 at 08:00 Hydralazine HCl (Apresoline) 25 mg TID PO ; Start 12/10/19 at 14:00 Active Scripts Active NICODERM CQ 14mg (Nicotine) 1 Each Patch.td24 1 Patch TP DAILY Reported Oxybutynin Chloride 5 Mg Tablet 5 Mg PO QHS Klor-Con 10 (Potassium Chloride) 10 Meq Tablet.er 10 Meq PO DAILY Loperamide (Loperamide Hcl) 2 Mg Tablet 2 Mg PO PRN Q4HRS PRN Hydrocodone-Apap 5-325 (Hydrocodone Bit/Acetaminophen) 1 Tab Tablet 1 Tab PO PRN Q6HRS PRN Hydralazine Hcl 10 Mg Tablet 1 Tab PO TID Docusate Sodium 100 Mg Capsule 100 Mg PO QHS Buspirone Hcl 5 Mg Tablet 7.5 Mg PO BID Anti-Fungal Cream (Miconazole Nitrate) 113 Gm Cream..g. 1 Dorian TP BID 14 Days Calcium Carbonate 500 Mg Tablet 1,000 Mg PO PRN Q6HRS PRN Amlodipine Besylate 10 Mg Tablet 10 Mg PO DAILY Acetaminophen 325 Mg Tablet 650 Mg PO TID Escitalopram Oxalate 20 Mg Tablet 20 Mg PO DAILY Levothyroxine Sodium 125 Mcg Tablet 125 Mcg PO DAILYAC Losartan Potassium 50 Mg Tablet 100 Mg PO DAILY Lorazepam 0.5 Mg Tablet 0.5 Mg PO PRN Q8HRS PRN Aspirin 81 Mg Tab.chew 2 Tab PO DAILY Symbicort 80-4.5 Mcg Inhaler (Budesonide/Formoterol Fumarate) 10.2 Gm Hfa.aer.ad 2 Puff IH BID Tylenol (Acetaminophen) 325 Mg Tablet 2 Tab PO PRN Q6HRS Furosemide 20 Mg Tablet 2 Tab PO DAILY Allergies Allergies: Coded Allergies: naproxen (Verified Allergy, Severe, Hives, 11/07/14) "CAUSES CARDIAC ARREST" morphine (Verified Adverse Reaction, Severe, vomiting, 11/18/18) Pt states she can't have causes severe vomiting. ROS Review of System Per HPI Physical Exam Physical Exam General: NAD , sleeping in recliner HEENT: OM moist O2 by [place] (chronic) Neck supple Lungs: Decreased at bases, Non labored Heart: S1S2, RRR, Abdomen: Normal bowel sounds, Soft, No tenderness, No hepatosplenomegaly, No masses Extremities: No clubbing, No cyanosis, 1 + LE edema Skin:Venous stasis dermatitis, No rash Neuro: Grossly normal No damon Vital Signs Vital Signs Date Time Temp Pulse Resp B/P (MAP) Pulse Ox O2 Delivery O2 Flow Rate FiO2 12/10/19 10:49 97.8 52 20 159/69 (99) 96 Nasal Cannula 2.5 97.8 Assessment & Plan LUIZA - Suspect Cardiorenal Improving 2.4-->1.9 , baseline Normal Cr in PMC records , agree with holding Losartan E-Lytes aand acid base Normal Renal US- Bladder distended , Recommend Bladder Scan to r/o Retention, Check UA Supportive care, strict I/O, avoid nephrotoxins Chest pain - concerning as anginal equivalent with improvement after NTG. Will add imdur and d/c amlodipine in favor of going back on BB (change from coreg to toprol xl given COPD hx) Acute on chronic hypoxic resp failure - with pulmonary HTN, On Chronic O2 at home Chronic diastolic CHF Lymphedema bilateral lower legs - amlodipine dced Pulm HTN - diagnosed by echo, COPD Smoker - quit last March 2019 Stress urinary incontinence - On ditropan NEGAR - stopped using last year Labs Labs Laboratory Tests Test 12/09/19 19:15 12/10/19 02:48 12/10/19 06:10 White Blood Count 8.0 x10^3/uL (4.0-11.0) Red Blood Count 3.37 x10^6/uL (3.50-5.40) Hemoglobin 11.2 g/dL (12.0-15.5) Hematocrit 32.8 % (36.0-47.0) Mean Corpuscular Volume 97 fL (79-100) Mean Corpuscular Hemoglobin 33 pg (25-35) Mean Corpuscular Hemoglobin Concent 34 g/dL (31-37) Red Cell Distribution Width 13.4 % (11.5-14.5) Platelet Count 196 x10^3/uL (140-400) Neutrophils (%) (Auto) 65 % (31-73) Lymphocytes (%) (Auto) 17 % (24-48) Monocytes (%) (Auto) 7 % (0-9) Eosinophils (%) (Auto) 10 % (0-3) Basophils (%) (Auto) 1 % (0-3) Neutrophils # (Auto) 5.3 x10^3/uL (1.8-7.7) Lymphocytes # (Auto) 1.4 x10^3/uL (1.0-4.8) Monocytes # (Auto) 0.6 x10^3/uL (0.0-1.1) Eosinophils # (Auto) 0.8 x10^3/uL (0.0-0.7) Basophils # (Auto) 0.0 x10^3/uL (0.0-0.2) Sodium Level 140 mmol/L (136-145) 143 mmol/L (136-145) Potassium Level 4.9 mmol/L (3.5-5.1) 4.8 mmol/L (3.5-5.1) Chloride Level 102 mmol/L (98-107) 105 mmol/L (98-107) Carbon Dioxide Level 35 mmol/L (21-32) 31 mmol/L (21-32) Anion Gap 3 (6-14) 7 (6-14) Blood Urea Nitrogen 31 mg/dL (7-20) 29 mg/dL (7-20) Creatinine 2.4 mg/dL (0.6-1.0) 1.9 mg/dL (0.6-1.0) Estimated GFR (Cockcroft-Gault) 19.6 25.6 BUN/Creatinine Ratio 13 (6-20) Glucose Level 103 mg/dL (70-99) 91 mg/dL (70-99) Calcium Level 7.9 mg/dL (8.5-10.1) 7.5 mg/dL (8.5-10.1) Total Bilirubin 0.2 mg/dL (0.2-1.0) Aspartate Amino Transf (AST/SGOT) 28 U/L (15-37) Alanine Aminotransferase (ALT/SGPT) 49 U/L (14-59) Alkaline Phosphatase 167 U/L (46-116) Troponin I Quantitative < 0.017 ng/mL (0.000-0.055) < 0.017 ng/mL (0.000-0.055) < 0.017 ng/mL (0.000-0.055) IG-Mra-K-Type Natriuretic Peptide 1593 pg/mL (0-449) Total Protein 6.8 g/dL (6.4-8.2) Albumin 3.3 g/dL (3.4-5.0) Albumin/Globulin Ratio 0.9 (1.0-1.7) Lipase 68 U/L (73-393) Thyroid Stimulating Hormone (TSH) 10.476 uIU/mL (0.358-3.74) Magnesium Level 2.2 mg/dL (1.8-2.4) Laboratory Tests Test 12/09/19 19:15 12/10/19 02:48 12/10/19 06:10 White Blood Count 8.0 x10^3/uL (4.0-11.0) Red Blood Count 3.37 x10^6/uL (3.50-5.40) Hemoglobin 11.2 g/dL (12.0-15.5) Hematocrit 32.8 % (36.0-47.0) Mean Corpuscular Volume 97 fL (79-100) Mean Corpuscular Hemoglobin 33 pg (25-35) Mean Corpuscular Hemoglobin Concent 34 g/dL (31-37) Red Cell Distribution Width 13.4 % (11.5-14.5) Platelet Count 196 x10^3/uL (140-400) Neutrophils (%) (Auto) 65 % (31-73) Lymphocytes (%) (Auto) 17 % (24-48) Monocytes (%) (Auto) 7 % (0-9) Eosinophils (%) (Auto) 10 % (0-3) Basophils (%) (Auto) 1 % (0-3) Neutrophils # (Auto) 5.3 x10^3/uL (1.8-7.7) Lymphocytes # (Auto) 1.4 x10^3/uL (1.0-4.8) Monocytes # (Auto) 0.6 x10^3/uL (0.0-1.1) Eosinophils # (Auto) 0.8 x10^3/uL (0.0-0.7) Basophils # (Auto) 0.0 x10^3/uL (0.0-0.2) Sodium Level 140 mmol/L (136-145) 143 mmol/L (136-145) Potassium Level 4.9 mmol/L (3.5-5.1) 4.8 mmol/L (3.5-5.1) Chloride Level 102 mmol/L (98-107) 105 mmol/L (98-107) Carbon Dioxide Level 35 mmol/L (21-32) 31 mmol/L (21-32) Anion Gap 3 (6-14) 7 (6-14) Blood Urea Nitrogen 31 mg/dL (7-20) 29 mg/dL (7-20) Creatinine 2.4 mg/dL (0.6-1.0) 1.9 mg/dL (0.6-1.0) Estimated GFR (Cockcroft-Gault) 19.6 25.6 BUN/Creatinine Ratio 13 (6-20) Glucose Level 103 mg/dL (70-99) 91 mg/dL (70-99) Calcium Level 7.9 mg/dL (8.5-10.1) 7.5 mg/dL (8.5-10.1) Total Bilirubin 0.2 mg/dL (0.2-1.0) Aspartate Amino Transf (AST/SGOT) 28 U/L (15-37) Alanine Aminotransferase (ALT/SGPT) 49 U/L (14-59) Alkaline Phosphatase 167 U/L (46-116) Troponin I Quantitative < 0.017 ng/mL (0.000-0.055) < 0.017 ng/mL (0.000-0.055) < 0.017 ng/mL (0.000-0.055) WG-Slg-C-Type Natriuretic Peptide 1593 pg/mL (0-449) Total Protein 6.8 g/dL (6.4-8.2) Albumin 3.3 g/dL (3.4-5.0) Albumin/Globulin Ratio 0.9 (1.0-1.7) Lipase 68 U/L (73-393) Thyroid Stimulating Hormone (TSH) 10.476 uIU/mL (0.358-3.74) Magnesium Level 2.2 mg/dL (1.8-2.4) Review All relevant outside records, renal labs, imaging studies, telemetry/EKG's were reviewed. Images Images CXR: Heart is enlarged. Pulmonary vessels are within normal limits. The lung and pleural spaces are clear. Right shoulder arthroplasty again noted. IMPRESSION: Cardiomegaly without acute pulmonary process. Venous Doppler US bilateral LE: RIGHT: No thrombus identified in the common femoral vein, femoral vein, popliteal vein or visualized calf veins. LEFT: No thrombus identified in the common femoral vein, femoral vein, poplitealvein or visualized calf veins. Some limitation and calf veins secondary to overlying structures. IMPRESSION: * No thrombus identified in deep venous system of bilateral lower extremities * Edema of the soft tissues. MENG LOPEZ MD Dec 10, 2019 11:18
--- NOTE | 2019-12-10 11:36 | EKG ---
[facility] [address] [place] [address] Test Date: 2019-12-09 Test Time: 17:23:47 Pat Name: JONNY VACA Department: Room: 203 1 Gender: F First Leveler: : 1940 Requested By: KRYSTA SAINI Order Number: [id number] Reading MD: Saul Garay MD Measurements Intervals [place] Rate: 62 P: TX: QRS: -1 QRSD: 76 T: 59 QT: 440 QTc: 449 Interpretive Statements CONSIDER ECTOPIC ATRIAL RHYTHM PAC WITH ABERRANT CONDUCTION Electronically Signed On 01-07-2020 9:23:36 CDT by Saul Garay MD
--- NOTE | 2019-12-10 12:27 | PDOC ---
PULMONARY PROGRESS NOTES Vitals Vital Signs Date Time Temp Pulse Resp B/P (MAP) Pulse Ox O2 Delivery O2 Flow Rate FiO2 12/10/19 11:08 94 Nasal Cannula 2.0 12/10/19 10:49 97.8 52 20 159/69 (99) 97.8 General: Alert, No acute distress HEENT: Other Lungs: Clear Cardiovascular: S1, S2 Abdomen: Soft, Non-tender Extremities: No Edema Labs Laboratory Tests Test 12/09/19 19:15 12/10/19 02:48 12/10/19 06:10 White Blood Count 8.0 x10^3/uL (4.0-11.0) Red Blood Count 3.37 x10^6/uL (3.50-5.40) Hemoglobin 11.2 g/dL (12.0-15.5) Hematocrit 32.8 % (36.0-47.0) Mean Corpuscular Volume 97 fL (79-100) Mean Corpuscular Hemoglobin 33 pg (25-35) Mean Corpuscular Hemoglobin Concent 34 g/dL (31-37) Red Cell Distribution Width 13.4 % (11.5-14.5) Platelet Count 196 x10^3/uL (140-400) Neutrophils (%) (Auto) 65 % (31-73) Lymphocytes (%) (Auto) 17 % (24-48) Monocytes (%) (Auto) 7 % (0-9) Eosinophils (%) (Auto) 10 % (0-3) Basophils (%) (Auto) 1 % (0-3) Neutrophils # (Auto) 5.3 x10^3/uL (1.8-7.7) Lymphocytes # (Auto) 1.4 x10^3/uL (1.0-4.8) Monocytes # (Auto) 0.6 x10^3/uL (0.0-1.1) Eosinophils # (Auto) 0.8 x10^3/uL (0.0-0.7) Basophils # (Auto) 0.0 x10^3/uL (0.0-0.2) Sodium Level 140 mmol/L (136-145) 143 mmol/L (136-145) Potassium Level 4.9 mmol/L (3.5-5.1) 4.8 mmol/L (3.5-5.1) Chloride Level 102 mmol/L (98-107) 105 mmol/L (98-107) Carbon Dioxide Level 35 mmol/L (21-32) 31 mmol/L (21-32) Anion Gap 3 (6-14) 7 (6-14) Blood Urea Nitrogen 31 mg/dL (7-20) 29 mg/dL (7-20) Creatinine 2.4 mg/dL (0.6-1.0) 1.9 mg/dL (0.6-1.0) Estimated GFR (Cockcroft-Gault) 19.6 25.6 BUN/Creatinine Ratio 13 (6-20) Glucose Level 103 mg/dL (70-99) 91 mg/dL (70-99) Calcium Level 7.9 mg/dL (8.5-10.1) 7.5 mg/dL (8.5-10.1) Total Bilirubin 0.2 mg/dL (0.2-1.0) Aspartate Amino Transf (AST/SGOT) 28 U/L (15-37) Alanine Aminotransferase (ALT/SGPT) 49 U/L (14-59) Alkaline Phosphatase 167 U/L (46-116) Troponin I Quantitative < 0.017 ng/mL (0.000-0.055) < 0.017 ng/mL (0.000-0.055) < 0.017 ng/mL (0.000-0.055) UT-Hfr-U-Type Natriuretic Peptide 1593 pg/mL (0-449) Total Protein 6.8 g/dL (6.4-8.2) Albumin 3.3 g/dL (3.4-5.0) Albumin/Globulin Ratio 0.9 (1.0-1.7) Lipase 68 U/L (73-393) Vitamin B12 Level 227 pg/mL (247-911) Thyroid Stimulating Hormone (TSH) 10.476 uIU/mL (0.358-3.74) Magnesium Level 2.2 mg/dL (1.8-2.4) Laboratory Tests Test 12/09/19 19:15 12/10/19 02:48 12/10/19 06:10 White Blood Count 8.0 x10^3/uL (4.0-11.0) Red Blood Count 3.37 x10^6/uL (3.50-5.40) Hemoglobin 11.2 g/dL (12.0-15.5) Hematocrit 32.8 % (36.0-47.0) Mean Corpuscular Volume 97 fL (79-100) Mean Corpuscular Hemoglobin 33 pg (25-35) Mean Corpuscular Hemoglobin Concent 34 g/dL (31-37) Red Cell Distribution Width 13.4 % (11.5-14.5) Platelet Count 196 x10^3/uL (140-400) Neutrophils (%) (Auto) 65 % (31-73) Lymphocytes (%) (Auto) 17 % (24-48) Monocytes (%) (Auto) 7 % (0-9) Eosinophils (%) (Auto) 10 % (0-3) Basophils (%) (Auto) 1 % (0-3) Neutrophils # (Auto) 5.3 x10^3/uL (1.8-7.7) Lymphocytes # (Auto) 1.4 x10^3/uL (1.0-4.8) Monocytes # (Auto) 0.6 x10^3/uL (0.0-1.1) Eosinophils # (Auto) 0.8 x10^3/uL (0.0-0.7) Basophils # (Auto) 0.0 x10^3/uL (0.0-0.2) Sodium Level 140 mmol/L (136-145) 143 mmol/L (136-145) Potassium Level 4.9 mmol/L (3.5-5.1) 4.8 mmol/L (3.5-5.1) Chloride Level 102 mmol/L (98-107) 105 mmol/L (98-107) Carbon Dioxide Level 35 mmol/L (21-32) 31 mmol/L (21-32) Anion Gap 3 (6-14) 7 (6-14) Blood Urea Nitrogen 31 mg/dL (7-20) 29 mg/dL (7-20) Creatinine 2.4 mg/dL (0.6-1.0) 1.9 mg/dL (0.6-1.0) Estimated GFR (Cockcroft-Gault) 19.6 25.6 BUN/Creatinine Ratio 13 (6-20) Glucose Level 103 mg/dL (70-99) 91 mg/dL (70-99) Calcium Level 7.9 mg/dL (8.5-10.1) 7.5 mg/dL (8.5-10.1) Total Bilirubin 0.2 mg/dL (0.2-1.0) Aspartate Amino Transf (AST/SGOT) 28 U/L (15-37) Alanine Aminotransferase (ALT/SGPT) 49 U/L (14-59) Alkaline Phosphatase 167 U/L (46-116) Troponin I Quantitative < 0.017 ng/mL (0.000-0.055) < 0.017 ng/mL (0.000-0.055) < 0.017 ng/mL (0.000-0.055) DK-Htt-N-Type Natriuretic Peptide 1593 pg/mL (0-449) Total Protein 6.8 g/dL (6.4-8.2) Albumin 3.3 g/dL (3.4-5.0) Albumin/Globulin Ratio 0.9 (1.0-1.7) Lipase 68 U/L (73-393) Vitamin B12 Level 227 pg/mL (247-911) Thyroid Stimulating Hormone (TSH) 10.476 uIU/mL (0.358-3.74) Magnesium Level 2.2 mg/dL (1.8-2.4) Medications Active Scripts Medications Dose Route/Sig Max Daily Dose Days Date Category Oxybutynin Chloride 5 Mg Tablet 5 Mg PO QHS 12/09/19 Reported Klor-Con 10 (Potassium Chloride) 10 Meq Tablet.er 10 Meq PO DAILY 12/09/19 Reported Loperamide (Loperamide Hcl) 2 Mg Tablet 2 Mg PO PRN Q4HRS PRN 12/09/19 Reported Hydrocodone-Apap 5-325 (Hydrocodone Bit/Acetaminophen) 1 Tab Tablet 1 Tab PO PRN Q6HRS PRN 12/09/19 Reported Hydralazine Hcl 10 Mg Tablet 1 Tab PO TID 12/09/19 Reported Docusate Sodium 100 Mg Capsule 100 Mg PO QHS 12/09/19 Reported Buspirone Hcl 5 Mg Tablet 7.5 Mg PO BID 12/09/19 Reported Anti-Fungal Cream (Miconazole Nitrate) 113 Gm Cream..g. 1 Dorian TP BID 14 12/09/19 Reported Calcium Carbonate 500 Mg Tablet 1,000 Mg PO PRN Q6HRS PRN 12/09/19 Reported Amlodipine Besylate 10 Mg Tablet 10 Mg PO DAILY 12/09/19 Reported Acetaminophen 325 Mg Tablet 650 Mg PO TID 12/09/19 Reported Escitalopram Oxalate 20 Mg Tablet 20 Mg PO DAILY 06/16/19 Reported Levothyroxine Sodium 125 Mcg Tablet 125 Mcg PO DAILYAC 06/16/19 Reported Losartan Potassium 50 Mg Tablet 100 Mg PO DAILY 06/16/19 Reported Lorazepam 0.5 Mg Tablet 0.5 Mg PO PRN Q8HRS PRN 02/18/19 Reported Aspirin 81 Mg Tab.chew 2 Tab PO DAILY 01/13/18 Reported Symbicort 80-4.5 Mcg Inhaler (Budesonide/Formoterol Fumarate) 10.2 Gm Hfa.aer.ad 2 Puff IH BID 08/21/17 Reported Tylenol (Acetaminophen) 325 Mg Tablet 2 Tab PO PRN Q6HRS 08/21/17 Reported Furosemide 20 Mg Tablet 2 Tab PO DAILY 08/21/17 Reported NICODERM CQ 14mg (Nicotine) 1 Each Patch.td24 1 Patch TP DAILY 09/18/15 Rx Impression . FULL NOTED DICTATED CONTINUE THE SAME OK TO DC IN AM FROM MY [facility]ANDPOINT THANKS KENISHA SWIFT MD Dec 10, 2019 12:27
--- NOTE | 2019-12-10 13:55 | NUR ---
SS following for discharge planning. SS reviewed pt chart and discussed with pt RN. Pt is LTC resident from [facility], ; fax [phone]. SS contacted [facility] and verified pt's placement. Pt is currently requiring oxygen. SS will continue to follow for discharge planning.
[2019-12-10 15:43] LABS: BILIRUBIN,URINE NEGATIVE (NEG); CLARITY,URINE CLEAR; COLOR,URINE YELLOW; NITRITE,URINE NEGATIVE (NEG); PH,URINE 6.5 (<5.0-8.0); PROTEIN,URINE NEGATIVE (NEG-TRACE); UROBILINOGEN,URINE 0.2 mg/dL (0.2 mg/dL)
[2019-12-10 15:55] LABS: BACTERIA,URINE FEW /HPF (0-FEW); RBC,URINE RARE /HPF (0-2); SQUAMOUS EPITHELIAL CELL,UR MOD /LPF; WBC,URINE OCC /HPF (0-4)
[2019-12-10] MEDS: ACETAMINOPHEN 325 MG TABLET. PO PRN (16:33)
[2019-12-10] MEDS: ceFAZolin SODIUM IV Push 1 GM VIAL. IVP SCH ×2 (16:34→20:52)
[2019-12-10] MEDS: OXYBUTYNIN CHLORIDE 5 MG TABLET PO SCH (20:54)
[2019-12-10] MEDS: DOCUSATE SODIUM 100 MG CAPSULE. PO SCH (20:54)
[2019-12-10] MEDS: PSYLLIUM HUSK (SUGAR FREE) 1 PKT PACKET PO SCH (20:55)
--- NOTE | 2019-12-10 20:58 | CONS ---
DATE OF CONSULTATION: 12/10/2019 ATTENDING PHYSICIAN: Dr. Hutson. REASON FOR CONSULTATION: The patient seen in pulmonary consultation at the request of Dr. Hutson for increasing shortness of breath. HISTORY OF PRESENT ILLNESS: The patient is a 79-year-old that presented with chest pain 2-3 days and mild shortness of breath. She had mild shortness of breath. No paroxysmal nocturnal dyspnea or pedal edema. No fever, chills or night sweats. She was seen by Cardiology who felt that the chest pain was likely due to hypertensive urgency. She had acute on chronic kidney disease and acute on chronic diastolic heart failure. PAST MEDICAL HISTORY: 1. COPD, quit tobacco in 04/2019. 2. Chronic respiratory failure, on oxygen supplementation at home. 3. Hypertension. 4. Chronic kidney disease. 5. Diastolic heart failure. PAST SURGICAL HISTORY: No recent major surgeries. SOCIAL HISTORY: She resides at [place]. Denies any alcohol intake. FAMILY HISTORY: Noncontributory. ALLERGIES: MORPHINE AND NAPROSYN. REVIEW OF SYSTEMS: As indicated above, otherwise a 10-point system was reviewed and negative. CURRENT MEDICATION: List was reviewed. PHYSICAL EXAMINATION: VITAL SIGNS: Stable. O2 saturation was greater than 92%. HEENT: Eyes, the sclerae were nonicteric. NECK: Jugular venous distention was not elevated. No lymphadenopathy. CHEST: Full expansion. LUNGS: Adequate flow, no wheezes. CARDIOVASCULAR: Regular rate and rhythm with S1, S2. No S3. ABDOMEN: Soft, nontender, and nondistended. EXTREMITIES: No clubbing or cyanosis. Some edema. SKIN: Reveals some skin changes in the lower extremities compatible with venous and arterial insufficiency. LABORATORY DATA: Reviewed. White count was normal. Hemoglobin and hematocrit were noted. Electrolytes were noted. BUN and creatinine were elevated. Troponin was not elevated. BNP was elevated. Chest x-ray revealed cardiomegaly. IMPRESSION: 1. Progressive dyspnea, multifactorial, secondary to acute on chronic diastolic heart failure, underlying chronic obstructive pulmonary disease, morbid obesity, and hypertensive urgency. 2. Hypertensive urgency. 3. Chest pain per Cardiology. 4. Acute on chronic kidney disease. 5. Obesity. 6. Tobacco dependence, in remission. 7. Hypothyroidism. PLAN: 1. Respiratory status appears to be compensated. No need for antibiotics or steroids. 2. Continue current medical management. 3. Okay to discharge in the a.m. 4. Continue home Symbicort and albuterol. 5. Follow up on the thyroid function per PCP. KENISHA SWIFT MD DR: DIANE/kalpana JOB#: [id number] / [id number]
[2019-12-10] MEDS ORDERED: TEMAZEPAM 7.5 MG CAPSULE PO PRN (21:30)
[2019-12-11] VITALS (9 sets, daily range): BP systolic 174–205; BP diastolic 64–102
[2019-12-11] MEDS: LEVOTHYROXINE 125 MCG TABLET PO SCH (05:35)
[2019-12-11] MEDS: HEPARIN for SUB-Q USE 5,000 UNIT/ML VIAL. SQ SCH ×3 (05:35→21:06)
[2019-12-11 06:16] LABS: CALCIUM 8.5 mg/dL (8.5-10.1); CREATININE 1.6 mg/dL (0.6-1.0); GFR 31.3; POTASSIUM 4.4 mmol/L (3.5-5.1)
[2019-12-11] MEDS: ALBUTEROL SULFATE 2.5 MG/3 ML NEBU. NEB SCH ×4 (07:32→20:00)
[2019-12-11] MEDS: BUDESONIDE 0.5 MG/2 ML NEBU. NEB SCH ×2 (07:32→20:00)
--- NOTE | 2019-12-11 08:13 | PDOC ---
PULMONARY PROGRESS NOTES Subjective Patient not more short of air Vitals Vital Signs Date Time Temp Pulse Resp B/P (MAP) Pulse Ox O2 Delivery O2 Flow Rate FiO2 12/11/19 07:36 96 Nasal Cannula 4.0 12/11/19 07:21 97.6 66 22 185/102 (129) 97.6 ROS: No Nausea, No Chest Pain, No Abdominal Pain, No Increase Cough General: Alert, No acute distress HEENT: Other Lungs: Clear Cardiovascular: S1, S2 Abdomen: Soft, Non-tender Extremities: No Edema Labs Laboratory Tests Test 12/09/19 19:15 12/10/19 02:48 12/10/19 06:10 12/10/19 15:29 White Blood Count 8.0 x10^3/uL (4.0-11.0) Red Blood Count 3.37 x10^6/uL (3.50-5.40) Hemoglobin 11.2 g/dL (12.0-15.5) Hematocrit 32.8 % (36.0-47.0) Mean Corpuscular Volume 97 fL (79-100) Mean Corpuscular Hemoglobin 33 pg (25-35) Mean Corpuscular Hemoglobin Concent 34 g/dL (31-37) Red Cell Distribution Width 13.4 % (11.5-14.5) Platelet Count 196 x10^3/uL (140-400) Neutrophils (%) (Auto) 65 % (31-73) Lymphocytes (%) (Auto) 17 % (24-48) Monocytes (%) (Auto) 7 % (0-9) Eosinophils (%) (Auto) 10 % (0-3) Basophils (%) (Auto) 1 % (0-3) Neutrophils # (Auto) 5.3 x10^3/uL (1.8-7.7) Lymphocytes # (Auto) 1.4 x10^3/uL (1.0-4.8) Monocytes # (Auto) 0.6 x10^3/uL (0.0-1.1) Eosinophils # (Auto) 0.8 x10^3/uL (0.0-0.7) Basophils # (Auto) 0.0 x10^3/uL (0.0-0.2) Sodium Level 140 mmol/L (136-145) 143 mmol/L (136-145) Potassium Level 4.9 mmol/L (3.5-5.1) 4.8 mmol/L (3.5-5.1) Chloride Level 102 mmol/L (98-107) 105 mmol/L (98-107) Carbon Dioxide Level 35 mmol/L (21-32) 31 mmol/L (21-32) Anion Gap 3 (6-14) 7 (6-14) Blood Urea Nitrogen 31 mg/dL (7-20) 29 mg/dL (7-20) Creatinine 2.4 mg/dL (0.6-1.0) 1.9 mg/dL (0.6-1.0) Estimated GFR (Cockcroft-Gault) 19.6 25.6 BUN/Creatinine Ratio 13 (6-20) Glucose Level 103 mg/dL (70-99) 91 mg/dL (70-99) Calcium Level 7.9 mg/dL (8.5-10.1) 7.5 mg/dL (8.5-10.1) Total Bilirubin 0.2 mg/dL (0.2-1.0) Aspartate Amino Transf (AST/SGOT) 28 U/L (15-37) Alanine Aminotransferase (ALT/SGPT) 49 U/L (14-59) Alkaline Phosphatase 167 U/L (46-116) Troponin I Quantitative < 0.017 ng/mL (0.000-0.055) < 0.017 ng/mL (0.000-0.055) < 0.017 ng/mL (0.000-0.055) OU-Dfg-J-Type Natriuretic Peptide 1593 pg/mL (0-449) Total Protein 6.8 g/dL (6.4-8.2) Albumin 3.3 g/dL (3.4-5.0) Albumin/Globulin Ratio 0.9 (1.0-1.7) Lipase 68 U/L (73-393) Vitamin B12 Level 227 pg/mL (247-911) Thyroid Stimulating Hormone (TSH) 10.476 uIU/mL (0.358-3.74) Magnesium Level 2.2 mg/dL (1.8-2.4) Urine Collection Type Unknown Urine Color Yellow Urine Clarity Clear Urine pH 6.5 (<5.0-8.0) Urine Specific [place] 1.010 (1.000-1.030) Urine Protein Negative mg/dL (NEG-TRACE) Urine Glucose (UA) Negative mg/dL (NEG) Urine Ketones (Stick) Negative mg/dL (NEG) Urine Blood Negative (NEG) Urine Nitrite Negative (NEG) Urine Bilirubin Negative (NEG) Urine Urobilinogen Dipstick 0.2 mg/dL (0.2 mg/dL) Urine Leukocyte Esterase Negative (NEG) Urine RBC Rare /HPF (0-2) Urine WBC Occ /HPF (0-4) Urine Squamous Epithelial Cells Mod /LPF Urine Bacteria Few /HPF (0-FEW) Test 12/11/19 05:01 Sodium Level 143 mmol/L (136-145) Potassium Level 4.4 mmol/L (3.5-5.1) Chloride Level 105 mmol/L (98-107) Carbon Dioxide Level 30 mmol/L (21-32) Anion Gap 8 (6-14) Blood Urea Nitrogen 29 mg/dL (7-20) Creatinine 1.6 mg/dL (0.6-1.0) Estimated GFR (Cockcroft-Gault) 31.3 Glucose Level 87 mg/dL (70-99) Calcium Level 8.5 mg/dL (8.5-10.1) Laboratory Tests Test 12/10/19 15:29 12/11/19 05:01 Urine Collection Type Unknown Urine Color Yellow Urine Clarity Clear Urine pH 6.5 (<5.0-8.0) Urine Specific [place] 1.010 (1.000-1.030) Urine Protein Negative mg/dL (NEG-TRACE) Urine Glucose (UA) Negative mg/dL (NEG) Urine Ketones (Stick) Negative mg/dL (NEG) Urine Blood Negative (NEG) Urine Nitrite Negative (NEG) Urine Bilirubin Negative (NEG) Urine Urobilinogen Dipstick 0.2 mg/dL (0.2 mg/dL) Urine Leukocyte Esterase Negative (NEG) Urine RBC Rare /HPF (0-2) Urine WBC Occ /HPF (0-4) Urine Squamous Epithelial Cells Mod /LPF Urine Bacteria Few /HPF (0-FEW) Sodium Level 143 mmol/L (136-145) Potassium Level 4.4 mmol/L (3.5-5.1) Chloride Level 105 mmol/L (98-107) Carbon Dioxide Level 30 mmol/L (21-32) Anion Gap 8 (6-14) Blood Urea Nitrogen 29 mg/dL (7-20) Creatinine 1.6 mg/dL (0.6-1.0) Estimated GFR (Cockcroft-Gault) 31.3 Glucose Level 87 mg/dL (70-99) Calcium Level 8.5 mg/dL (8.5-10.1) Medications Active Scripts Medications Dose Route/Sig Max Daily Dose Days Date Category Oxybutynin Chloride 5 Mg Tablet 5 Mg PO QHS 12/09/19 Reported Klor-Con 10 (Potassium Chloride) 10 Meq Tablet.er 10 Meq PO DAILY 12/09/19 Reported Loperamide (Loperamide Hcl) 2 Mg Tablet 2 Mg PO PRN Q4HRS PRN 12/09/19 Reported Hydrocodone-Apap 5-325 (Hydrocodone Bit/Acetaminophen) 1 Tab Tablet 1 Tab PO PRN Q6HRS PRN 12/09/19 Reported Hydralazine Hcl 10 Mg Tablet 1 Tab PO TID 12/09/19 Reported Docusate Sodium 100 Mg Capsule 100 Mg PO QHS 12/09/19 Reported Buspirone Hcl 5 Mg Tablet 7.5 Mg PO BID 12/09/19 Reported Anti-Fungal Cream (Miconazole Nitrate) 113 Gm Cream..g. 1 Dorian TP BID 14 12/09/19 Reported Calcium Carbonate 500 Mg Tablet 1,000 Mg PO PRN Q6HRS PRN 12/09/19 Reported Amlodipine Besylate 10 Mg Tablet 10 Mg PO DAILY 12/09/19 Reported Acetaminophen 325 Mg Tablet 650 Mg PO TID 12/09/19 Reported Escitalopram Oxalate 20 Mg Tablet 20 Mg PO DAILY 06/16/19 Reported Levothyroxine Sodium 125 Mcg Tablet 125 Mcg PO DAILYAC 06/16/19 Reported Losartan Potassium 50 Mg Tablet 100 Mg PO DAILY 06/16/19 Reported Lorazepam 0.5 Mg Tablet 0.5 Mg PO PRN Q8HRS PRN 02/18/19 Reported Aspirin 81 Mg Tab.chew 2 Tab PO DAILY 01/13/18 Reported Symbicort 80-4.5 Mcg Inhaler (Budesonide/Formoterol Fumarate) 10.2 Gm Hfa.aer.ad 2 Puff IH BID 08/21/17 Reported Tylenol (Acetaminophen) 325 Mg Tablet 2 Tab PO PRN Q6HRS 08/21/17 Reported Furosemide 20 Mg Tablet 2 Tab PO DAILY 08/21/17 Reported NICODERM CQ 14mg (Nicotine) 1 Each Patch.td24 1 Patch TP DAILY 09/18/15 Rx Impression . IMPRESSION: 1. Progressive dyspnea, multifactorial, secondary to acute on chronic diastolic heart failure, underlying chronic obstructive pulmonary disease, morbid obesity, and hypertensive urgency. 2. Hypertensive urgency. 3. Chest pain per Cardiology. 4. Acute on chronic kidney disease. 5. Obesity. 6. Tobacco dependence, in remission. 7. Hypothyroidism. . Plan . Okay to discharge continue Symbicort continue PRN albuterol KENISHA SWIFT MD Dec 11, 2019 08:13
[2019-12-11] MEDS: busPIRone 5 MG TABLET. PO SCH ×2 (08:32→21:04)
[2019-12-11] MEDS: ISOSORBIDE MONONITRATE ER 30 MG TAB.ER.24H PO SCH (08:32)
[2019-12-11] MEDS: CITALOPRAM 20 MG TABLET. PO SCH (08:32)
[2019-12-11] MEDS: ceFAZolin SODIUM IV Push 1 GM VIAL. IVP SCH ×2 (08:33→21:10)
[2019-12-11] MEDS: ASPIRIN CHEWABLE 81 MG TABLET. PO SCH (08:33)
[2019-12-11] MEDS: METOPROLOL SUCC 24HR ER 25 MG TAB.ER.24H. PO SCH (08:33)
[2019-12-11] MEDS: MICONAZOLE NITRATE 2% TOPICAL CREAM 28GM TUBE. TP SCH ×2 (08:33→21:00)
[2019-12-11] MEDS: hydrALAZINE 25 MG TABLET PO SCH ×2 (08:56→14:26)
--- NOTE | 2019-12-11 10:05 | PDOC ---
PROGRESS NOTES History of Present Illness History of Present Illness VTE Prophylaxis Ordered VTE Prophylaxis Devices: Yes VTE Pharmacological Prophylaxi: Yes Assessment/Plan Assessment/Plan A/P: Chest pain - concerning as anginal equivalent with improvement after NTG. Will add imdur and d/c amlodipine in favor of going back on BB (change from coreg to toprol xl given COPD hx) LUIZA - likely vasomotor nephropathy. Will hold diuretics, consult nephrology, IVF overnight for 1 liter. Follow renal function. Renal US ordered. No hydronephrosis in the kidneys. 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 Chronic diastolic CHF - changed to amlodipine from Coreg. Will d/c amlodipine given her LE edema and change to toprol XL. Hold losartan for LUIZA and use hydralazine/imdur combo, ASA, statin Lymphedema bilateral lower legs - does not appear to be currently CHF related. D/c amlodipine, OT for lymphedema wrap, elevate legs, stasis dermatitis vs cellulitis Pulm HTN - diagnosed by echo, no RHC on file. Mostly WHO Group III by history with NEGAR and COPD, and some diastolic CHF to contribute to Group II. Treatment as above Obesity - counseled on weight loss, diet, exercise COPD - nebs, pulm consult Smoker - quit last March 2019 Weakness and debility - related to chronic diseases, will try PT Stress urinary incontinence - ditropan has helped, will continue Anxiety - will add zyprexa BID prn NEGAR - stopped using last year and now in SNF, would recommend restarting BIPAP given her pulmonary HTN. Consult pulm for recs Hypothyroidism - on levothyroxine, will check repeat TSH, was elevated at 7 approximately 6 months ago. cellulitis vs stasis dermatitis both lower legs, improving 12/10 with iv ancef Likely moderate inflow disease on the left side and diffuse calcification of vessels leading to monophasic waveforms without any focal obstruction noted by arterial doppler, recent NEGAR needs repeat sleep study, consult DR SWIFT 12/10 c/o restless leg symptoms, pain FEN - Cardiac diet PPX - Heparin CODE - d/w patient in depth, she is FULL CODE Dispo - inpatient for at least 2 midnights. iv ancef 1 gm iv q 8 hrs venous doppler both legs HS CONSTANT NIGHT-TIME OXIMETRY TONIGHT Requip 0.25 mg po hs D/W RN Justicifation of Admission Dx: Justicifation of Admission Dx: Justifications for Admission: Justification of Admission Dx: Yes Respiratory Failure: Severe Resp Distress Angina: Symp at Rest Vitals Vitals Vital Signs Date Time Temp Pulse Resp B/P (MAP) Pulse Ox O2 Delivery O2 Flow Rate FiO2 12/11/19 08:56 70 12/11/19 08:00 Nasal Cannula 2.5 12/11/19 07:36 96 12/11/19 07:21 97.6 22 185/102 (129) 97.6 Physical Exam General: Alert, Oriented X3, Cooperative, No acute distress Heart: Regular rate Lungs: Clear Abdomen: Normal bowel sounds, Soft, No tenderness, No hepatosplenomegaly, No masses Extremities: No clubbing, No cyanosis, Normal pulses, No tenderness/swelling, Other (2+ edema) Skin: No breakdown, Other (Venous stasis dermatitis, rubor, mild warmth, red, tender, improving 12/10) Labs LABS APPROVED REPORT Patient Location: IN-PATIENT Indications Claudication: Edema PAD Risk Factors Hypertension Smoking VELOCITY AND DOPPLER WAVEFORM ANALYSIS RIGHT cm/sec Waveform Severity LEFT cm/sec Waveform Severity pCFA 134.6 Monophasic pCFA 219.7 Monophasic Prof Fem Art. 64.8 Monophasic Prof Fem Art. 69.4 Biphasic Fem Art Prox. 146.2 Monophasic Fem Art Prox. 165.1 Monophasic Fem Art Mid. 129.4 Monophasic Fem Art Mid. 160.9 Monophasic Fem Art Dist. 120.9 Monophasic Fem Art Dist. 126.2 Monophasic Pop Art(Fossa) 91.6 Monophasic Pop Art(AK) 107.3 Monophasic Pop Art(BK) 89.7 Monophasic Pop Art(BK) TRAVEL ATTENDANTS Prox. 79.5 Monophasic TRAVEL ATTENDANTS Prox. 75.2 Monophasic TRAVEL ATTENDANTS Dist. 90.0 Monophasic TRAVEL ATTENDANTS Dist. 77.5 Monophasic Per Art Dist. 36.3 Monophasic Per Art Dist. PRAKASH Dist. 63.1 Monophasic PRAKASH Dist. 88.0 Monophasic DPA 72 Monophasic DPA 57 Monophasic Findings Grayscale images of the bilateral lower extremity arterial vessels reveals diffuse calcification. Spectral waveforms are monophasic from the common femoral artery to both the below-knee vessels. The left common femoral artery velocities are elevated suggestive of more proximal inflow disease likely in the range of 50%. No focal high-grade stenosis is identified. Peroneal artery velocities on the right side are diminished suggestive of diffuse disease. Overall likely moderate diffuse disease and loss of arterial elasticity which is led to monophasic waveforms. Critical Notification Critical Value: No <Conclusion> 1. Likely moderate inflow disease on the left side and diffuse calcification of vessels leading to monophasic waveforms without any focal obstruction noted Signed by : Saul Garay, Electronically Approved : 11/17/2018 16:33:19 Renal ultrasound complete. HISTORY: Acute renal failure Ultrasound was used to evaluate kidneys and bladder. Right kidney is 11.3 cm in length. There is no right hydronephrosis. Kidneys are not optimally evaluated. Left kidney is 10.9 cm in length without hydronephrosis. Bladder was moderately distended. A bladder lesion was not identified. IMPRESSION: 1. No hydronephrosis in the kidneys. 2. Distended bladder. Electronically signed by: Héctor Fleming MD (12/10/2019 6:22 AM) [id number] DICTATED and SIGNED BY: HÉCTOR FLEMING MD DATE: 12/10/19621 INDICATION: Reason: Swelling, pain, shortness of breath, concern for DVT / Spl. Instructions: / History: COMPARISON: Right leg ultrasound from June 16, 2019 TECHNIQUE: Grayscale, color and doppler ultrasound images were obtained of the bilateral lower extremity venous vasculature. RIGHT: No thrombus identified in the common femoral vein, femoral vein, popliteal vein or visualized calf veins. LEFT: No thrombus identified in the common femoral vein, femoral vein, popliteal vein or visualized calf veins. Some limitation and calf veins secondary to overlying structures. IMPRESSION: * No thrombus identified in deep venous system of bilateral lower extremities. * Edema of the soft tissues. Electronically signed by: Gurwinder Servin MD (12/09/2019 7:59 PM) [id number] DICTATED and SIGNED BY: GURWINDER SERVIN MD DATE: 12/09/19 195 Laboratory Tests Test 12/10/19 15:29 12/11/19 05:01 Urine Collection Type Unknown Urine Color Yellow Urine Clarity Clear Urine pH 6.5 (<5.0-8.0) Urine Specific [place] 1.010 (1.000-1.030) Urine Protein Negative mg/dL (NEG-TRACE) Urine Glucose (UA) Negative mg/dL (NEG) Urine Ketones (Stick) Negative mg/dL (NEG) Urine Blood Negative (NEG) Urine Nitrite Negative (NEG) Urine Bilirubin Negative (NEG) Urine Urobilinogen Dipstick 0.2 mg/dL (0.2 mg/dL) Urine Leukocyte Esterase Negative (NEG) Urine RBC Rare /HPF (0-2) Urine WBC Occ /HPF (0-4) Urine Squamous Epithelial Cells Mod /LPF Urine Bacteria Few /HPF (0-FEW) Sodium Level 143 mmol/L (136-145) Potassium Level 4.4 mmol/L (3.5-5.1) Chloride Level 105 mmol/L (98-107) Carbon Dioxide Level 30 mmol/L (21-32) Anion Gap 8 (6-14) Blood Urea Nitrogen 29 mg/dL (7-20) Creatinine 1.6 mg/dL (0.6-1.0) Estimated GFR (Cockcroft-Gault) 31.3 Glucose Level 87 mg/dL (70-99) Calcium Level 8.5 mg/dL (8.5-10.1) Assessment and Plan Assessmemt and Plan Problems Medical Problems: (1) Acute renal failure Status: Acute (2) Chest pain Status: Acute Comment Review of Relevant I have reviewed the following items vitaly (where applicable) has been applied. Labs Laboratory Tests Test 12/09/19 19:15 12/10/19 02:48 12/10/19 06:10 12/10/19 15:29 White Blood Count 8.0 x10^3/uL (4.0-11.0) Red Blood Count 3.37 x10^6/uL (3.50-5.40) Hemoglobin 11.2 g/dL (12.0-15.5) Hematocrit 32.8 % (36.0-47.0) Mean Corpuscular Volume 97 fL (79-100) Mean Corpuscular Hemoglobin 33 pg (25-35) Mean Corpuscular Hemoglobin Concent 34 g/dL (31-37) Red Cell Distribution Width 13.4 % (11.5-14.5) Platelet Count 196 x10^3/uL (140-400) Neutrophils (%) (Auto) 65 % (31-73) Lymphocytes (%) (Auto) 17 % (24-48) Monocytes (%) (Auto) 7 % (0-9) Eosinophils (%) (Auto) 10 % (0-3) Basophils (%) (Auto) 1 % (0-3) Neutrophils # (Auto) 5.3 x10^3/uL (1.8-7.7) Lymphocytes # (Auto) 1.4 x10^3/uL (1.0-4.8) Monocytes # (Auto) 0.6 x10^3/uL (0.0-1.1) Eosinophils # (Auto) 0.8 x10^3/uL (0.0-0.7) Basophils # (Auto) 0.0 x10^3/uL (0.0-0.2) Sodium Level 140 mmol/L (136-145) 143 mmol/L (136-145) Potassium Level 4.9 mmol/L (3.5-5.1) 4.8 mmol/L (3.5-5.1) Chloride Level 102 mmol/L (98-107) 105 mmol/L (98-107) Carbon Dioxide Level 35 mmol/L (21-32) 31 mmol/L (21-32) Anion Gap 3 (6-14) 7 (6-14) Blood Urea Nitrogen 31 mg/dL (7-20) 29 mg/dL (7-20) Creatinine 2.4 mg/dL (0.6-1.0) 1.9 mg/dL (0.6-1.0) Estimated GFR (Cockcroft-Gault) 19.6 25.6 BUN/Creatinine Ratio 13 (6-20) Glucose Level 103 mg/dL (70-99) 91 mg/dL (70-99) Calcium Level 7.9 mg/dL (8.5-10.1) 7.5 mg/dL (8.5-10.1) Total Bilirubin 0.2 mg/dL (0.2-1.0) Aspartate Amino Transf (AST/SGOT) 28 U/L (15-37) Alanine Aminotransferase (ALT/SGPT) 49 U/L (14-59) Alkaline Phosphatase 167 U/L (46-116) Troponin I Quantitative < 0.017 ng/mL (0.000-0.055) < 0.017 ng/mL (0.000-0.055) < 0.017 ng/mL (0.000-0.055) OE-Qes-J-Type Natriuretic Peptide 1593 pg/mL (0-449) Total Protein 6.8 g/dL (6.4-8.2) Albumin 3.3 g/dL (3.4-5.0) Albumin/Globulin Ratio 0.9 (1.0-1.7) Lipase 68 U/L (73-393) Vitamin B12 Level 227 pg/mL (247-911) Thyroid Stimulating Hormone (TSH) 10.476 uIU/mL (0.358-3.74) Magnesium Level 2.2 mg/dL (1.8-2.4) Urine Collection Type Unknown Urine Color Yellow Urine Clarity Clear Urine pH 6.5 (<5.0-8.0) Urine Specific [place] 1.010 (1.000-1.030) Urine Protein Negative mg/dL (NEG-TRACE) Urine Glucose (UA) Negative mg/dL (NEG) Urine Ketones (Stick) Negative mg/dL (NEG) Urine Blood Negative (NEG) Urine Nitrite Negative (NEG) Urine Bilirubin Negative (NEG) Urine Urobilinogen Dipstick 0.2 mg/dL (0.2 mg/dL) Urine Leukocyte Esterase Negative (NEG) Urine RBC Rare /HPF (0-2) Urine WBC Occ /HPF (0-4) Urine Squamous Epithelial Cells Mod /LPF Urine Bacteria Few /HPF (0-FEW) Test 12/11/19 05:01 Sodium Level 143 mmol/L (136-145) Potassium Level 4.4 mmol/L (3.5-5.1) Chloride Level 105 mmol/L (98-107) Carbon Dioxide Level 30 mmol/L (21-32) Anion Gap 8 (6-14) Blood Urea Nitrogen 29 mg/dL (7-20) Creatinine 1.6 mg/dL (0.6-1.0) Estimated GFR (Cockcroft-Gault) 31.3 Glucose Level 87 mg/dL (70-99) Calcium Level 8.5 mg/dL (8.5-10.1) Laboratory Tests Test 12/10/19 15:29 12/11/19 05:01 Urine Collection Type Unknown Urine Color Yellow Urine Clarity Clear Urine pH 6.5 (<5.0-8.0) Urine Specific [place] 1.010 (1.000-1.030) Urine Protein Negative mg/dL (NEG-TRACE) Urine Glucose (UA) Negative mg/dL (NEG) Urine Ketones (Stick) Negative mg/dL (NEG) Urine Blood Negative (NEG) Urine Nitrite Negative (NEG) Urine Bilirubin Negative (NEG) Urine Urobilinogen Dipstick 0.2 mg/dL (0.2 mg/dL) Urine Leukocyte Esterase Negative (NEG) Urine RBC Rare /HPF (0-2) Urine WBC Occ /HPF (0-4) Urine Squamous Epithelial Cells Mod /LPF Urine Bacteria Few /HPF (0-FEW) Sodium Level 143 mmol/L (136-145) Potassium Level 4.4 mmol/L (3.5-5.1) Chloride Level 105 mmol/L (98-107) Carbon Dioxide Level 30 mmol/L (21-32) Anion Gap 8 (6-14) Blood Urea Nitrogen 29 mg/dL (7-20) Creatinine 1.6 mg/dL (0.6-1.0) Estimated GFR (Cockcroft-Gault) 31.3 Glucose Level 87 mg/dL (70-99) Calcium Level 8.5 mg/dL (8.5-10.1) Medications Current Medications Ondansetron HCl (Zofran) 4 mg PRN Q8HRS PRN IV NAUSEA/VOMITING; Start 12/09/19 at 18:45; Stop 12/09/19 at 21:44; Status DC Fentanyl Citrate (Fentanyl 2ml Vial) 50 mcg PRN Q1HR PRN IV PAIN; Start 12/09/19 at 18:45; Stop 12/10/19 at 18:44; Status DC Sodium Chloride 1,000 ml @ 1,000 mls/hr 1X ONCE IV Last administered on 12/09/19at 21:12; Start 12/09/19 at 20:15; Stop 12/09/19 at 21:14; Status DC Sodium Chloride 1,000 ml @ 75 mls/hr 1X ONCE IV Last administered on 12/09/19at 22:54; Start 12/09/19 at 20:45; Stop 12/10/19 at 10:04; Status DC Ondansetron HCl (Zofran) 4 mg PRN Q4HRS PRN IV NAUSEA/VOMITING; Start 12/09/19 at 21:45 Nitroglycerin (Nitrostat) 0.4 mg PRN Q5MIN PRN SL CHEST PAIN; Start 12/09/19 at 22:00 Aspirin (Aspirin Chewable) 162 mg DAILYWBKFT PO Last administered on 12/11/19at 08:33; Start 12/10/19 at 08:00 Buspirone HCl (Buspar) 7.5 mg BID PO Last administered on 12/11/19at 08:32; Start 12/09/19 at 21:30 Calcium Carbonate/ Glycine (Tums) 1,000 mg PRN Q6HRS PRN PO INDIGESTION; Start 12/09/19 at 22:15 Docusate Sodium (Colace) 100 mg QHS PO ; Start 12/10/19 at 21:00 Hydralazine HCl (Apresoline) 10 mg TID PO Last administered on 12/10/19at 08:13; Start 12/09/19 at 21:30; Stop 12/10/19 at 10:39; Status DC Acetaminophen/ Hydrocodone Bitart (Lortab 5/325) 1 tab PRN Q6HRS PRN PO PAIN Last administered on 12/09/19at 22:52; Start 12/09/19 at 22:15 Levothyroxine Sodium (Synthroid) 125 mcg DAILY06 PO Last administered on 12/11/19 05:35; Start 12/10/19 at 06:00 Miconazole Nitrate (Monistat-Derm) 1 dorian BID TP Last administered on 12/11/19at 08:33; Start 12/09/19 at 21:30 Oxybutynin Chloride (Ditropan) 5 mg QHS PO Last administered on 12/10/19at 20:54; Start 12/09/19 at 21:30 Non-Formulary Medication (Budesonide/ Formoterol Fumarate (Symbicort 80-4.5 Mcg Inhaler)) 2 puff BID IH ; Start 12/10/19 at 09:00; Status UNV Citalopram Hydrobromide (CeleXA) 40 mg DAILY PO Last administered on 12/11/19at 08:32; Start 12/10/19 at 09:00 Loperamide HCl (Imodium) 2 mg PRN Q4HRS PRN PO DIARRHEA; Start 12/09/19 at 22:15 Olanzapine (ZyPREXA ZYDIS) 5 mg PRN BID PRN PO ANXIETY / AGITATION Last administered on 12/11/19at 01:17; Start 12/09/19 at 22:15 Psyllium Hydrophilic Mucilloid (Metamucil Fiber Packet) 1 pkt QHS PO ; Start 12/09/19 at 22:30 Heparin Sodium (Porcine) (Heparin Sodium) 5,000 unit Q8HRS SQ Last administered on 12/11/19at 05:35; Start 12/09/19 at 22:15 Albuterol Sulfate (Ventolin Neb Soln) 2.5 mg PRN Q4HRS PRN NEB SHORTNESS OF BREATH; Start 12/09/19 at 22:15 Multi-Ingredient Ointment (Hydrocerin Cream) 1 dorian PRN Q1HR PRN TP DRY SKIN / SCALING; Start 12/09/19 at 22:15 Metoprolol Succinate (Toprol Xl) 12.5 mg 1X ONCE PO Last administered on 12/09/19at 22:52; Start 12/09/19 at 22:30; Stop 12/09/19 at 22:31; Status DC Metoprolol Succinate (Toprol Xl) 25 mg DAILY PO Last administered on 12/11/19 08:33; Start 12/10/19 at 09:00 Isosorbide Mononitrate (Imdur) 30 mg DAILY PO Last administered on 12/11/19at 08:32; Start 12/10/19 at 09:00 Albuterol Sulfate (Ventolin Neb Soln) 2.5 mg RTQID NEB Last administered on 12/11/19at 07:32; Start 12/10/19 at 08:00 Budesonide (Pulmicort) 0.5 mg RTBID NEB Last administered on 12/11/19 07:32; Start 12/10/19 at 08:00 Hydralazine HCl (Apresoline) 25 mg TID PO Last administered on 12/10/19at 21:03; Start 12/10/19 at 14:00; Stop 12/11/19 at 08:50; Status DC Cefazolin Sodium (Ancef) 1 gm Q12HR IVP Last administered on 12/11/19at 08:33; Start 12/10/19 at 16:30 Acetaminophen (Tylenol) 650 mg PRN Q6HRS PRN PO pain/temp Last administered on 12/10/19at 16:33; Start 12/10/19 at 16:30 Temazepam (Restoril) 7.5 mg PRN QHS PRN PO INSOMNIA Last administered on 12/10/19at 21:29; Start 12/10/19 at 21:30 Hydralazine HCl (Apresoline) 25 mg TID PO Last administered on 12/11/19at 08:56; Start 12/11/19 at 09:00 Active Scripts Active NICODERM CQ 14mg (Nicotine) 1 Each Patch.td24 1 Patch TP DAILY Reported Oxybutynin Chloride 5 Mg Tablet 5 Mg PO QHS Klor-Con 10 (Potassium Chloride) 10 Meq Tablet.er 10 Meq PO DAILY Loperamide (Loperamide Hcl) 2 Mg Tablet 2 Mg PO PRN Q4HRS PRN Hydrocodone-Apap 5-325 (Hydrocodone Bit/Acetaminophen) 1 Tab Tablet 1 Tab PO PRN Q6HRS PRN Hydralazine Hcl 10 Mg Tablet 1 Tab PO TID Docusate Sodium 100 Mg Capsule 100 Mg PO QHS Buspirone Hcl 5 Mg Tablet 7.5 Mg PO BID Anti-Fungal Cream (Miconazole Nitrate) 113 Gm Cream..g. 1 Dorian TP BID 14 Days Calcium Carbonate 500 Mg Tablet 1,000 Mg PO PRN Q6HRS PRN Amlodipine Besylate 10 Mg Tablet 10 Mg PO DAILY Acetaminophen 325 Mg Tablet 650 Mg PO TID Escitalopram Oxalate 20 Mg Tablet 20 Mg PO DAILY Levothyroxine Sodium 125 Mcg Tablet 125 Mcg PO DAILYAC Losartan Potassium 50 Mg Tablet 100 Mg PO DAILY Lorazepam 0.5 Mg Tablet 0.5 Mg PO PRN Q8HRS PRN Aspirin 81 Mg Tab.chew 2 Tab PO DAILY Symbicort 80-4.5 Mcg Inhaler (Budesonide/Formoterol Fumarate) 10.2 Gm Hfa.aer.ad 2 Puff IH BID Tylenol (Acetaminophen) 325 Mg Tablet 2 Tab PO PRN Q6HRS Furosemide 20 Mg Tablet 2 Tab PO DAILY Vitals/I & O Vital Sign - Last 24 Hours 12/10/19 12/10/19 12/10/19 12/10/19 10:49 11:08 14:23 15:00 Temp 97.8 97.8 97.8 97.8 Pulse 52 58 50 Resp 20 20 B/P (MAP) 159/69 (99) 155/56 (89) Pulse Ox 96 94 94 O2 Delivery Nasal Cannula Nasal Cannula Nasal Cannula O2 Flow Rate 2.5 2.0 2.5 12/10/19 12/10/19 12/10/19 12/10/19 16:22 18:44 19:28 21:00 Temp 97.8 97.8 Pulse 53 Resp 20 B/P (MAP) 140/50 (80) Pulse Ox 92 93 O2 Delivery Nasal Cannula Nasal Cannula Nasal Cannula Nasal Cannula O2 Flow Rate 2.0 2.5 2.5 2.5 12/10/19 12/10/19 12/10/19 12/10/19 21:03 22:42 22:55 23:10 Temp 97.9 97.9 Pulse 61 62 60 62 Resp 20 B/P (MAP) 199/78 190/62 (104) 165/65 (98) 167/61 (96) Pulse Ox 97 O2 Delivery Nasal Cannula O2 Flow Rate 2.5 12/11/19 12/11/19 12/11/19 12/11/19 02:12 02:21 07:21 07:34 Temp 97.6 97.6 97.6 97.6 Pulse 62 60 66 Resp 20 22 B/P (MAP) 195/64 (107) 196/83 (120) 185/102 (129) Pulse Ox 98 98 96 O2 Delivery Nasal Cannula Nasal Cannula Nasal Cannula O2 Flow Rate 2.5 4.0 4.0 12/11/19 12/11/19 12/11/19 12/11/19 07:36 08:00 08:32 08:33 Pulse 65 65 Pulse Ox 96 O2 Delivery Nasal Cannula Nasal Cannula O2 Flow Rate 4.0 2.5 12/11/19 08:56 Pulse 70 Intake and Output 12/10/19 12/10/19 12/11/19 15:00 23:00 07:00 Intake Total 650 ml 200 ml 200 ml Output Total 400 ml 650 ml Balance 650 ml -200 ml -450 ml PEGGY TORREZ MD Dec 11, 2019 10:05
--- NOTE | 2019-12-11 10:42 | PDOC ---
SUBJECTIVE ROS States doing ok except her mouth is feeling dry, she has been drinking water OBJECTIVE Vital Signs Vital Signs Date Time Temp Pulse Resp B/P (MAP) Pulse Ox O2 Delivery O2 Flow Rate FiO2 12/11/19 08:56 70 12/11/19 08:00 Nasal Cannula 2.5 12/11/19 07:36 96 12/11/19 07:21 97.6 22 185/102 (129) 97.6 I & 0 Intake and Output 12/11/19 07:00 Intake Total 1050 ml Output Total 1050 ml Balance 0 ml Intake Oral 1050 ml Output Urine Total 1050 ml PHYSICAL EXAM Physical Exam General: NAD , sleeping in recliner HEENT: OM moist O2 by NC (chronic) Neck supple Lungs: Decreased at bases, Non labored Heart: S1S2, RRR, Abdomen: Normal bowel sounds, Soft, No tenderness, No hepatosplenomegaly, No masses Extremities: No clubbing, No cyanosis, 1 + LE edema Skin:Venous stasis dermatitis, No rash Neuro: Grossly normal No damon DIAGNOSIS/ASSESSMENT Assessment & Plan LUIZA - Suspect Cardiorenal Improving 2.4-->1.9 , baseline Normal Cr in PMC records, agree with holding Losartan E-Lytes and acid base Normal Renal US- Bladder distended, Bladder Scan for PVR to r/o Retention, UA unremarkable Supportive care, strict I/O, avoid nephrotoxins Chest pain - concerning as anginal equivalent with improvement after NTG. Will add imdur and d/c amlodipine in favor of going back on BB (change from coreg to toprol xl given COPD hx) Acute on chronic hypoxic resp failure - with pulmonary HTN, On Chronic O2 at home Chronic diastolic CHF Lymphedema bilateral lower legs - amlodipine dced Pulm HTN - diagnosed by echo, COPD Smoker - quit last March 2019 Stress urinary incontinence - On ditropan NEGAR - stopped using last year COMMENT/RELEVANT DATA Meds Current Medications Medications (Trade) Dose Ordered Sig/Derek Start Time Stop Time Status Last Admin Dose Admin Acetaminophen (Tylenol) 650 mg PRN Q6HRS PRN 12/10/19 16:30 12/10/19 16:33 650 MG Acetaminophen/ Hydrocodone Bitart (Lortab 5/325) 1 tab PRN Q6HRS PRN 12/09/19 22:15 12/09/19 22:52 1 TAB Albuterol Sulfate (Ventolin Neb Soln) 2.5 mg RTQID 12/10/19 08:00 12/11/19 07:32 2.5 MG Aspirin (Aspirin Chewable) 162 mg DAILYWBKFT 12/10/19 08:00 12/11/19 08:33 162 MG Budesonide (Pulmicort) 0.5 mg RTBID 12/10/19 08:00 12/11/19 07:32 0.5 MG Buspirone HCl (Buspar) 7.5 mg BID 12/09/19 21:30 12/11/19 08:32 7.5 MG Calcium Carbonate/ Glycine (Tums) 1,000 mg PRN Q6HRS PRN 12/09/19 22:15 Cefazolin Sodium (Ancef) 1 gm Q12HR 12/10/19 16:30 12/11/19 08:33 1 GM Citalopram Hydrobromide (CeleXA) 40 mg DAILY 12/10/19 09:00 12/11/19 08:32 40 MG Docusate Sodium (Colace) 100 mg QHS 12/10/19 21:00 Fentanyl Citrate (Fentanyl 2ml Vial) 50 mcg PRN Q1HR PRN 12/09/19 18:45 12/10/19 18:44 DC Heparin Sodium (Porcine) (Heparin Sodium) 5,000 unit Q8HRS 12/09/19 22:15 12/11/19 05:35 5,000 UNIT Hydralazine HCl (Apresoline) 25 mg TID 12/11/19 09:00 12/11/19 08:56 25 MG Isosorbide Mononitrate (Imdur) 30 mg DAILY 12/10/19 09:00 12/11/19 08:32 30 MG Levothyroxine Sodium (Synthroid) 125 mcg DAILY06 12/10/19 06:00 12/11/19 05:35 125 MCG Loperamide HCl (Imodium) 2 mg PRN Q4HRS PRN 12/09/19 22:15 Metoprolol Succinate (Toprol Xl) 25 mg DAILY 12/10/19 09:00 12/11/19 08:33 25 MG Miconazole Nitrate (Monistat-Derm) 1 jason BID 12/09/19 21:30 12/11/19 08:33 1 JASON Multi-Ingredient Ointment (Hydrocerin Cream) 1 jason PRN Q1HR PRN 12/09/19 22:15 Nitroglycerin (Nitrostat) 0.4 mg PRN Q5MIN PRN 12/09/19 22:00 Non-Formulary Medication (Budesonide/ Formoterol Fumarate (Symbicort 80-4.5 Mcg Inhaler)) 2 puff BID 12/10/19 09:00 UNV Olanzapine (ZyPREXA ZYDIS) 5 mg PRN BID PRN 12/09/19 22:15 12/11/19 01:17 5 MG Ondansetron HCl (Zofran) 4 mg PRN Q4HRS PRN 12/09/19 21:45 Oxybutynin Chloride (Ditropan) 5 mg QHS 12/09/19 21:30 12/10/19 20:54 5 MG Psyllium Hydrophilic Mucilloid (Metamucil Fiber Packet) 1 pkt QHS 12/09/19 22:30 Sodium Chloride 1,000 ml @ 75 mls/hr 1X ONCE 12/09/19 20:45 12/10/19 10:04 DC 12/09/19 22:54 75 MLS/HR Temazepam (Restoril) 7.5 mg PRN QHS PRN 12/10/19 21:30 12/10/19 21:29 7.5 MG Lab Laboratory Tests Test 12/10/19 15:29 12/11/19 05:01 Urine Collection Type Unknown Urine Color Yellow Urine Clarity Clear Urine pH 6.5 (<5.0-8.0) Urine Specific [place] 1.010 (1.000-1.030) Urine Protein Negative mg/dL (NEG-TRACE) Urine Glucose (UA) Negative mg/dL (NEG) Urine Ketones (Stick) Negative mg/dL (NEG) Urine Blood Negative (NEG) Urine Nitrite Negative (NEG) Urine Bilirubin Negative (NEG) Urine Urobilinogen Dipstick 0.2 mg/dL (0.2 mg/dL) Urine Leukocyte Esterase Negative (NEG) Urine RBC Rare /HPF (0-2) Urine WBC Occ /HPF (0-4) Urine Squamous Epithelial Cells Mod /LPF Urine Bacteria Few /HPF (0-FEW) Sodium Level 143 mmol/L (136-145) Potassium Level 4.4 mmol/L (3.5-5.1) Chloride Level 105 mmol/L (98-107) Carbon Dioxide Level 30 mmol/L (21-32) Anion Gap 8 (6-14) Blood Urea Nitrogen 29 mg/dL (7-20) Creatinine 1.6 mg/dL (0.6-1.0) Estimated GFR (Cockcroft-Gault) 31.3 Glucose Level 87 mg/dL (70-99) Calcium Level 8.5 mg/dL (8.5-10.1) Results All relevant outside records, renal labs, imaging studies, telemetry/EKG's were reviewed. Justicifation of Admission Dx: Justifications for Admission: Justification of Admission Dx: Yes Respiratory Failure: Severe Resp Distress Angina: Symp at Rest MENG LOPEZ MD Dec 11, 2019 10:42
--- NOTE | 2019-12-11 15:46 | PDOC ---
KATHY YANG TINNER HELPER 12/11/19 1546: CARDIO Progress Notes Date and Time Date of Service 12/11/2019 Time of Evaluation 1500 Subjective Subjective: No Chest Pain, No shortness of breath, No Palpitations Vitals Vitals Vital Signs Date Time Temp Pulse Resp B/P (MAP) Pulse Ox O2 Delivery O2 Flow Rate FiO2 12/11/19 15:27 Nasal Cannula 2.5 12/11/19 14:34 97.8 63 18 177/73 (107) 95 97.8 Weight Weight [ ] Input and Output Intake and Output Intake and Output 12/11/19 07:00 Intake Total 1050 ml Output Total 1050 ml Balance 0 ml Intake Oral 1050 ml Output Urine Total 1050 ml Laboratory Labs Laboratory Tests Test 12/11/19 05:01 Sodium Level 143 mmol/L (136-145) Potassium Level 4.4 mmol/L (3.5-5.1) Chloride Level 105 mmol/L (98-107) Carbon Dioxide Level 30 mmol/L (21-32) Anion Gap 8 (6-14) Blood Urea Nitrogen 29 mg/dL (7-20) Creatinine 1.6 mg/dL (0.6-1.0) Estimated GFR (Cockcroft-Gault) 31.3 Glucose Level 87 mg/dL (70-99) Calcium Level 8.5 mg/dL (8.5-10.1) Physical Exam HEENT: Neck Supple W Full Motion Chest: Symmetric LUNGS: Other (diminished bases) Heart: RRR (SR) Abdomen: Soft N/T Extremities: No Calf Tenderness Neurology: alert, oriented, follow commands Assessment Assessment 1. Chest pain: possibly from uncontrolled HTN 2. Acute on chronic diastolic CHF: appears compensated 3. HTN urgency 4. LUIZA on CKD3: possible from poor hydration 5. Hypothyroidism: on replacement 6. COPD Recommendations 1. Continue current BP regimen and will adjust per BP trend. Hold lasix for now, losartan. Increase imdur and hydralazine. If BP remains labile then will consider changing toprol to coreg. 2. Plan ischemic workup in the form of stress test as outpatient. 4. Follow up with Dr. Bianchi on Jan 22 at 9AM Justicifation of Admission Dx: Justifications for Admission: Justification of Admission Dx: Yes Respiratory Failure: Severe Resp Distress Angina: Symp at Rest JAMAL BIANCHI MD 12/11/19 1745: CARDIO Progress Notes Plan Plan Patient seen and examined. Agree with above nurse practitioner note. Continue medication titration. Supportive care. KATHY YANG APRN Dec 11, 2019 15:46 JAMAL BIANCHI MD Dec 11, 2019 17:45
[2019-12-11] MEDS ORDERED: ISOSORBIDE MONONITRATE ER 30 MG TAB.ER.24H PO ONE (16:00)
[2019-12-11] MEDS: CARVEDILOL 6.25 MG TABLET. PO SCH (16:43)
[2019-12-11] MEDS: HYDROcodone/APAP 5/325MG 1 TAB TABLET PO PRN (16:43)
[2019-12-11] MEDS ORDERED: rOPINIRole 0.25 MG TABLET. PO SCH (21:00)
[2019-12-11] MEDS: PSYLLIUM HUSK (SUGAR FREE) 1 PKT PACKET PO SCH (21:00)
[2019-12-11] MEDS: ACETAMINOPHEN 325 MG TABLET. PO PRN (21:04)
[2019-12-11] MEDS: DOCUSATE SODIUM 100 MG CAPSULE. PO SCH (21:04)
[2019-12-11] MEDS: LACTOBACILLUS RHAMNOSUS GG 1 CAPSULE. PO SCH (21:04)
[2019-12-11] MEDS: OXYBUTYNIN CHLORIDE 5 MG TABLET PO SCH (21:05)
[2019-12-12] MEDS: HYDROcodone/APAP 5/325MG 1 TAB TABLET PO PRN ×2 (00:07→06:07)
[2019-12-12 03:10] VITALS: BP 208/88
[2019-12-12 03:33] VITALS: BP 193/100
[2019-12-12 03:43] VITALS: BP 217/88
[2019-12-12] MEDS ORDERED: amLODIPine BESYLATE 5 MG TABLET PO ONE ×2 (03:45→09:00)
[2019-12-12 05:03] VITALS: BP 204/79
[2019-12-12] MEDS: HEPARIN for SUB-Q USE 5,000 UNIT/ML VIAL. SQ SCH ×2 (06:06→14:00)
[2019-12-12] MEDS: LEVOTHYROXINE 125 MCG TABLET PO SCH (06:07)
[2019-12-12 07:00] VITALS: BP 175/89
[2019-12-12] MEDS: ALBUTEROL SULFATE 2.5 MG/3 ML NEBU. NEB SCH ×2 (07:37→11:31)
[2019-12-12] MEDS: BUDESONIDE 0.5 MG/2 ML NEBU. NEB SCH (07:37)
--- NOTE | 2019-12-12 08:36 | PDOC ---
PULMONARY PROGRESS NOTES Subjective Patient not more short of air Vitals Vital Signs Date Time Temp Pulse Resp B/P (MAP) Pulse Ox O2 Delivery O2 Flow Rate FiO2 12/12/19 07:38 94 Nasal Cannula 3.0 12/12/19 07:00 97.7 78 20 175/89 (117) 97.7 ROS: No Nausea, No Chest Pain, No Abdominal Pain, No Increase Cough General: Alert, No acute distress HEENT: Other Lungs: Clear Cardiovascular: S1, S2 Abdomen: Soft, Non-tender Extremities: No Edema Labs Laboratory Tests Test 12/10/19 15:29 12/11/19 05:01 Urine Collection Type Unknown Urine Color Yellow Urine Clarity Clear Urine pH 6.5 (<5.0-8.0) Urine Specific [place] 1.010 (1.000-1.030) Urine Protein Negative mg/dL (NEG-TRACE) Urine Glucose (UA) Negative mg/dL (NEG) Urine Ketones (Stick) Negative mg/dL (NEG) Urine Blood Negative (NEG) Urine Nitrite Negative (NEG) Urine Bilirubin Negative (NEG) Urine Urobilinogen Dipstick 0.2 mg/dL (0.2 mg/dL) Urine Leukocyte Esterase Negative (NEG) Urine RBC Rare /HPF (0-2) Urine WBC Occ /HPF (0-4) Urine Squamous Epithelial Cells Mod /LPF Urine Bacteria Few /HPF (0-FEW) Sodium Level 143 mmol/L (136-145) Potassium Level 4.4 mmol/L (3.5-5.1) Chloride Level 105 mmol/L (98-107) Carbon Dioxide Level 30 mmol/L (21-32) Anion Gap 8 (6-14) Blood Urea Nitrogen 29 mg/dL (7-20) Creatinine 1.6 mg/dL (0.6-1.0) Estimated GFR (Cockcroft-Gault) 31.3 Glucose Level 87 mg/dL (70-99) Calcium Level 8.5 mg/dL (8.5-10.1) Medications Active Scripts Medications Dose Route/Sig Max Daily Dose Days Date Category Oxybutynin Chloride 5 Mg Tablet 5 Mg PO QHS 12/09/19 Reported Klor-Con 10 (Potassium Chloride) 10 Meq Tablet.er 10 Meq PO DAILY 12/09/19 Reported Loperamide (Loperamide Hcl) 2 Mg Tablet 2 Mg PO PRN Q4HRS PRN 12/09/19 Reported Hydrocodone-Apap 5-325 (Hydrocodone Bit/Acetaminophen) 1 Tab Tablet 1 Tab PO PRN Q6HRS PRN 12/09/19 Reported Hydralazine Hcl 10 Mg Tablet 1 Tab PO TID 12/09/19 Reported Docusate Sodium 100 Mg Capsule 100 Mg PO QHS 12/09/19 Reported Buspirone Hcl 5 Mg Tablet 7.5 Mg PO BID 12/09/19 Reported Anti-Fungal Cream (Miconazole Nitrate) 113 Gm Cream..g. 1 Dorian TP BID 14 12/09/19 Reported Calcium Carbonate 500 Mg Tablet 1,000 Mg PO PRN Q6HRS PRN 12/09/19 Reported Amlodipine Besylate 10 Mg Tablet 10 Mg PO DAILY 12/09/19 Reported Acetaminophen 325 Mg Tablet 650 Mg PO TID 12/09/19 Reported Escitalopram Oxalate 20 Mg Tablet 20 Mg PO DAILY 06/16/19 Reported Levothyroxine Sodium 125 Mcg Tablet 125 Mcg PO DAILYAC 06/16/19 Reported Losartan Potassium 50 Mg Tablet 100 Mg PO DAILY 06/16/19 Reported Lorazepam 0.5 Mg Tablet 0.5 Mg PO PRN Q8HRS PRN 02/18/19 Reported Aspirin 81 Mg Tab.chew 2 Tab PO DAILY 01/13/18 Reported Symbicort 80-4.5 Mcg Inhaler (Budesonide/Formoterol Fumarate) 10.2 Gm Hfa.aer.ad 2 Puff IH BID 08/21/17 Reported Tylenol (Acetaminophen) 325 Mg Tablet 2 Tab PO PRN Q6HRS 08/21/17 Reported Furosemide 20 Mg Tablet 2 Tab PO DAILY 08/21/17 Reported NICODERM CQ 14mg (Nicotine) 1 Each Patch.td24 1 Patch TP DAILY 09/18/15 Rx Impression . IMPRESSION: 1. Progressive dyspnea, multifactorial, secondary to acute on chronic diastolic heart failure, underlying chronic obstructive pulmonary disease, morbid obesity, and hypertensive urgency. 2. Hypertensive urgency. 3. Chest pain per Cardiology. 4. Acute on chronic kidney disease. 5. Obesity. 6. Tobacco dependence, in remission. 7. Hypothyroidism. . Plan . Discharge today KENISHA SWIFT MD Dec 12, 2019 08:36
[2019-12-12] MEDS: LACTOBACILLUS RHAMNOSUS GG 1 CAPSULE. PO SCH (08:51)
[2019-12-12] MEDS: ceFAZolin SODIUM IV Push 1 GM VIAL. IVP SCH (08:52)
[2019-12-12] MEDS: ASPIRIN CHEWABLE 81 MG TABLET. PO SCH (08:52)
[2019-12-12] MEDS: CITALOPRAM 20 MG TABLET. PO SCH (08:52)
[2019-12-12] MEDS: CARVEDILOL 6.25 MG TABLET. PO SCH (08:52)
[2019-12-12] MEDS: busPIRone 5 MG TABLET. PO SCH (08:56)
[2019-12-12] MEDS: MICONAZOLE NITRATE 2% TOPICAL CREAM 28GM TUBE. TP SCH (08:57)
[2019-12-12] MEDS ORDERED: ISOSORBIDE MONONITRATE ER 30 MG TAB.ER.24H PO SCH (09:00)
[2019-12-12 09:46] LABS: CALCIUM 8.8 mg/dL (8.5-10.1); CREATININE 1.7 mg/dL (0.6-1.0); GFR 29.1; POTASSIUM 4.5 mmol/L (3.5-5.1)
[2019-12-12] MEDS ORDERED: ISOS30TA4 PO (10:31)
[2019-12-12] MEDS ORDERED: CARV6.2511 PO (10:31)
--- NOTE | 2019-12-12 10:33 | SNU/HH DC ---
DISCHARGE ORDERS DISCHARGE INFORMATION: DISCHARGE DATE: Dec 12, 2019 FINAL DIAGNOSIS Problems Medical Problems: (1) Acute renal failure Status: Acute (2) Chest pain Status: Acute CONDITION ON DISCHARGE: Stable CODE STATUS: Code Status: Full FPC: SNF STAY <30 DAYS: Yes POST DISCHARGE ORDERS: ACTIVITY ORDERS: No restrictions WEIGHT BEARING STATUS: No restrictions DIET AFTER DISCHARGE: Cardiac CHECKS AFTER DISCHARGE: CHECKS AFTER DISCHARGE: Check blood press - daily, Weigh Yourself Daily FOLLOW-UP: ADDITIONAL FOLLOW-UP: blood pressure TREATMENT/EQUIPMENT ORDERS: ADAPTIVE EQUIPMENT NEEDED: None RESPIRATORY EQUIPMENT NEEDED: Oxygen Physical Therapy For: Evalulation/Treatment Occupational Therapy For: Evaluation/Treatment DISCHARGE MEDICATIONS: Home Meds Active Scripts Carvedilol (CARVEDILOL ) 6.25 Mg Tablet, 6.25 MG PO BIDWMEALS for blood pressure, #60 TAB 2 Refills Prov:IAM BRADEN MD 12/12/19 Isosorbide Mononitrate (ISOSORBIDE MONONITRATE ER) 30 Mg Tab.er.24h, 60 MG PO DAILY for blood pressure, #30 TAB.SR Prov:IAM BRADEN MD 12/12/19 Reported Medications Oxybutynin Chloride (OXYBUTYNIN CHLORIDE) 5 Mg Tablet, 5 MG PO QHS for incontinence, TAB 12/09/19 Potassium Chloride (KLOR-CON 10) 10 Meq Tablet.er, 10 MEQ PO DAILY for k replacement, TAB 12/09/19 Loperamide Hcl (LOPERAMIDE) 2 Mg Tablet, 2 MG PO PRN Q4HRS PRN for DIARRHEA, TAB 12/09/19 Hydrocodone Bit/Acetaminophen (HYDROCODONE-APAP 5-325 ) 1 Tab Tablet, 1 TAB PO PRN Q6HRS PRN for PAIN, TAB 0 Refills 12/09/19 Hydralazine Hcl (HYDRALAZINE HCL) 10 Mg Tablet, 1 TAB PO TID for htn, #270 TAB 3 Refills 12/09/19 Docusate Sodium (DOCUSATE SODIUM) 100 Mg Capsule, 100 MG PO QHS for constipation, CAP 12/09/19 Buspirone Hcl (BUSPIRONE HCL) 5 Mg Tablet, 7.5 MG PO BID for anxiety, TAB 12/09/19 Miconazole Nitrate (ANTI-FUNGAL CREAM) 113 Gm Cream..g., 1 EVAN TP BID for fungus under breasts for 14 Days, GM 0 Refills 12/09/19 Calcium Carbonate (CALCIUM CARBONATE) 500 Mg Tablet, 1000 MG PO PRN Q6HRS PRN for INDIGESTION, TAB 12/09/19 Amlodipine Besylate (AMLODIPINE BESYLATE) 10 Mg Tablet, 10 MG PO DAILY for htn, TAB 12/09/19 Acetaminophen (ACETAMINOPHEN) 325 Mg Tablet, 650 MG PO TID for chronic pain, TAB 12/09/19 Escitalopram Oxalate (ESCITALOPRAM OXALATE) 20 Mg Tablet, 20 MG PO DAILY for ANTI-DEPRESSANT, TAB 0 Refills 06/16/19 Levothyroxine Sodium (LEVOTHYROXINE SODIUM) 125 Mcg Tablet, 125 MCG PO DAILYAC for THYROID SUPPLEMENT, #30 TAB 0 Refills 06/16/19 Losartan Potassium (LOSARTAN POTASSIUM) 50 Mg Tablet, 100 MG PO DAILY for HYPERTENSION, TAB 06/16/19 Lorazepam (LORAZEPAM) 0.5 Mg Tablet, 0.5 MG PO PRN Q8HRS PRN for ANXIETY / AGITATION 02/18/19 Aspirin (ASPIRIN) 81 Mg Tab.chew, 2 TAB PO DAILY, #90 TAB 3 Refills 01/13/18 Budesonide/Formoterol Fumarate (SYMBICORT 80-4.5 MCG INHALER) 10.2 Gm Hfa.a er.ad, 2 PUFF IH BID, #10.2 GM 5 Refills 08/21/17 Acetaminophen (TYLENOL) 325 Mg Tablet, 2 TAB PO PRN Q6HRS, #30 TAB 08/21/17 Furosemide (FUROSEMIDE) 20 Mg Tablet, 2 TAB PO DAILY for fluid retention, #90 TAB 1 Refill 08/21/17 Discontinued Scripts Nicotine (NICODERM CQ 14mg) 1 Each Patch.td24, 1 PATCH TP DAILY, #14 PATCH Prov:BRODERICK CRUZ MD 09/18/15 IAM BRADEN MD Dec 12, 2019 10:33
[2019-12-12] MEDS ORDERED: HYDR-2869 PO (10:35)
--- NOTE | 2019-12-12 10:37 | PDOC3 ---
Discharge Summary Visit Information Date of Admission: Dec 09, 2019 Date of Discharge: Dec 12, 2019 Final Diagnosis Chest pain - anginal equivalent with improvement after NTG. LUIZA - likely vasomotor nephropathy. Acute on chronic hypoxic resp failure - with pulmonary HTN, has mostly WHO Group III COPD and NEGAR acute on Chronic diastolic CHF - changed to amlodipine from Coreg. Lymphedema bilateral lower legs - does not appear to be currently CHF related. D/c amlodipine, OT for lymphedema wrap, elevate legs, stasis dermatitis vs cellulitis Pulm HTN - diagnosed by echo, no RHC on file. Mostly WHO Group III by history with NEGAR and COPD, and some diastolic CHF to contribute to Group II. Treatment as above Obesity - counseled on weight loss, diet, exercise COPD - nebs, pulm consult Smoker - quit last March 2019 Weakness and debility - related to chronic diseases, will try PT Stress urinary incontinence - ditropan has helped, will continue Anxiety - will add zyprexa BID prn NEGAR - stopped using last year and now in SNF, would recommend restarting BIPAP given her pulmonary HTN. Consult pulm for recs Hypothyroidism - on levothyroxine, will check repeat TSH, was elevated at 7 approximately 6 months ago. cellulitis vs stasis dermatitis both lower legs, improving 12/10 with iv ancef Likely moderate inflow disease on the left side and diffuse calcification of vessels leading to monophasic waveforms without any focal obstruction noted by arterial doppler, recent NEGAR needs repeat sleep study, consult DR SWIFT 12/10 c/o restless leg symptoms, pain Problems Medical Problems: (1) Acute renal failure Status: Acute (2) Chest pain Status: Acute Brief Hospital Course Allergies Allergies Coded Allergies Type Severity Reaction Last Updated Verified naproxen Allergy Severe Hives 11/07/14 Yes morphine Adverse Reaction Severe vomiting 11/18/18 Yes Vital Signs Vital Signs Date Time Temp Pulse Resp B/P (MAP) Pulse Ox O2 Delivery O2 Flow Rate FiO2 12/12/19 08:56 78 175/89 12/12/19 07:38 94 Nasal Cannula 3.0 12/12/19 07:00 97.7 20 97.7 Lab Results Laboratory Tests Test 12/10/19 15:29 12/11/19 05:01 12/12/19 08:55 Urine Collection Type Unknown Urine Color Yellow Urine Clarity Clear Urine pH 6.5 (<5.0-8.0) Urine Specific [place] 1.010 (1.000-1.030) Urine Protein Negative mg/dL (NEG-TRACE) Urine Glucose (UA) Negative mg/dL (NEG) Urine Ketones (Stick) Negative mg/dL (NEG) Urine Blood Negative (NEG) Urine Nitrite Negative (NEG) Urine Bilirubin Negative (NEG) Urine Urobilinogen Dipstick 0.2 mg/dL (0.2 mg/dL) Urine Leukocyte Esterase Negative (NEG) Urine RBC Rare /HPF (0-2) Urine WBC Occ /HPF (0-4) Urine Squamous Epithelial Cells Mod /LPF Urine Bacteria Few /HPF (0-FEW) Sodium Level 143 mmol/L (136-145) 142 mmol/L (136-145) Potassium Level 4.4 mmol/L (3.5-5.1) 4.5 mmol/L (3.5-5.1) Chloride Level 105 mmol/L (98-107) 103 mmol/L (98-107) Carbon Dioxide Level 30 mmol/L (21-32) 31 mmol/L (21-32) Anion Gap 8 (6-14) 8 (6-14) Blood Urea Nitrogen 29 mg/dL (7-20) 26 mg/dL (7-20) Creatinine 1.6 mg/dL (0.6-1.0) 1.7 mg/dL (0.6-1.0) Estimated GFR (Cockcroft-Gault) 31.3 29.1 Glucose Level 87 mg/dL (70-99) 125 mg/dL (70-99) Calcium Level 8.5 mg/dL (8.5-10.1) 8.8 mg/dL (8.5-10.1) Laboratory Tests Test 12/12/19 08:55 Sodium Level 142 mmol/L (136-145) Potassium Level 4.5 mmol/L (3.5-5.1) Chloride Level 103 mmol/L (98-107) Carbon Dioxide Level 31 mmol/L (21-32) Anion Gap 8 (6-14) Blood Urea Nitrogen 26 mg/dL (7-20) Creatinine 1.7 mg/dL (0.6-1.0) Estimated GFR (Cockcroft-Gault) 29.1 Glucose Level 125 mg/dL (70-99) Calcium Level 8.8 mg/dL (8.5-10.1) Brief Hospital Course Ms. Lewis is a 79 old that presented with chest pain 2-3 days and mild shortness of breath. S . No paroxysmal nocturnal dyspnea or pedal edema. No fever, chills or night sweats. She was seen by Cardiology who felt that the chest pain was likely due to hypertensive urgency. She had acute on chronic kidney disease and acute on chronic diastolic heart failure. meds changed, PT and OT PULM and CV and renal consulted, Discharge Information Condition at Discharge: Improved Follow Up: Weeks Disposition/Orders: D/C to Another Facility Scheduled Acetaminophen (Tylenol) 325 Mg Tablet, 2 TAB PO PRN Q6HRS, #30 (Reported) Entered as Reported by: TRINA COOLEY on 08/21/171533 Last Action: HELD on 12/09/192207 by RONAK CAMPBELL MD Acetaminophen (Acetaminophen) 325 Mg Tablet, 650 MG PO TID for chronic pain, (Reported) Entered as Reported by: ZAHRAA NGUYEN on 12/09/192157 Last Taken: Unknown Dose on Unknown Date & Time Last Action: HELD on 12/09/192207 by RONAK CAMPBELL MD Amlodipine Besylate (Amlodipine Besylate) 10 Mg Tablet, 10 MG PO DAILY for htn, (Reported) Entered as Reported by: ZAHRAA NGUYEN on 12/09/192157 Last Taken: Unknown Dose on Unknown Date & Time Last Action: HELD on 12/09/192207 by RONAK CAMPBELL MD Aspirin (Aspirin) 81 Mg Tab.chew, 2 TAB PO DAILY, #90 Ref 3 (Reported) Entered as Reported by: GHASSAN PATEL on 01/13/18114 Last Action: Continued on 12/09/192208 by RONAK CAMPBELL MD Budesonide/Formoterol Fumarate (Symbicort 80-4.5 Mcg Inhaler) 10.2 Gm Hfa.aer.ad, 2 PUFF IH BID, #10.2 Ref 5 (Reported) Entered as Reported by: TRINA COOLEY on 08/21/171534 Last Action: Converted on 12/09/192208 by RONAK CAMPBELL MD Buspirone Hcl (Buspirone Hcl) 5 Mg Tablet, 7.5 MG PO BID for anxiety, (Reported) Entered as Reported by: ZAHRAA NGUYEN on 12/09/192157 Last Taken: Unknown Dose on Unknown Date & Time Last Action: Continued on 12/09/192208 by RONAK CAMPBELL MD Carvedilol (Carvedilol ) 6.25 Mg Tablet, 6.25 MG PO BIDWMEALS for blood pressure, #60 Ref 2 Prescribed by: IAM BRADEN on 12/12/19 1031 Docusate Sodium (Docusate Sodium) 100 Mg Capsule, 100 MG PO QHS for constipation, (Reported) Entered as Reported by: ZAHRAA NGUYEN on 12/09/192157 Last Taken: Unknown Dose on Unknown Date & Time Last Action: Continued on 12/09/192208 by RONAK CAMPBELL MD Escitalopram Oxalate (Escitalopram Oxalate) 20 Mg Tablet, 20 MG PO DAILY for ANTI-DEPRESSANT, Ref 0 (Reported) Entered as Reported by: Laquita Marroquin on 06/16/191515 Last Action: Converted on 12/09/192208 by RONAK CAMPBELL MD Furosemide (Furosemide) 20 Mg Tablet, 2 TAB PO DAILY for fluid retention, #90 Ref 1 (Reported) Entered as Reported by: TRINA COOLEY on 08/21/17 1534 Last Action: HELD on 12/09/192207 by RONAK CAMPBELL MD Hydralazine Hcl (Hydralazine Hcl) 10 Mg Tablet, 1 TAB PO TID for htn, #270 Ref 3 (Reported) Entered as Reported by: ZAHRAA NGUYEN on 12/09/192157 Last Taken: Unknown Dose on Unknown Date & Time Last Action: Continued on 12/09/192208 by RONAK CAMPBELL MD Isosorbide Mononitrate (Isosorbide Mononitrate Er) 30 Mg Tab.er.24h, 60 MG PO DAILY for blood pressure, #30 Prescribed by: IAM BRADEN on 12/12/19 1031 Levothyroxine Sodium (Levothyroxine Sodium) 125 Mcg Tablet, 125 MCG PO DAILYAC for THYROID SUPPLEMENT, #30 Ref 0 (Reported) Entered as Reported by: Laquita Marroquin on 06/16/191515 Last Action: Continued on 12/09/192208 by RONAK CAMPBELL MD Losartan Potassium (Losartan Potassium) 50 Mg Tablet, 100 MG PO DAILY for HYPERTENSION, (Reported) Entered as Reported by: Laquita Marroquin on 06/16/191515 Last Action: HELD on 12/09/192207 by RONAK CAMPBELL MD Miconazole Nitrate (Anti-Fungal Cream) 113 Gm Cream..g., 1 EVAN TP BID for fungus under breasts for 14 Days, Ref 0 (Reported) Entered as Reported by: ZAHRAA NGUYEN on 12/09/192157 Last Taken: Unknown Dose on Unknown Date & Time Last Action: Continued on 12/09/192208 by RONAK CAMPBELL MD Oxybutynin Chloride (Oxybutynin Chloride) 5 Mg Tablet, 5 MG PO QHS for incontinence, (Reported) Entered as Reported by: ZAHRAA NGUYEN on 12/09/192157 Last Taken: Unknown Dose on Unknown Date & Time Last Action: Continued on 12/09/192208 by RONAK CAMPBELL MD Potassium Chloride (Klor-Con 10) 10 Meq Tablet.er, 10 MEQ PO DAILY for k replacement, (Reported) Entered as Reported by: ZAHRAA NGUYEN on 12/09/192157 Last Taken: Unknown Dose on Unknown Date & Time Last Action: HELD on 12/09/192207 by RONAK CAMPBELL MD Scheduled PRN Calcium Carbonate (Calcium Carbonate) 500 Mg Tablet, 1,000 MG PO PRN Q6HRS PRN for INDIGESTION, (Reported) Entered as Reported by: ZAHRAA NGUYEN on 12/09/192157 Last Taken: Unknown Dose on Unknown Date & Time Last Action: Continued on 12/09/192208 by RONAK CAMPBELL MD Hydrocodone Bit/Acetaminophen (Hydrocodone-Apap 5-325 ) 1 Tab Tablet, 1 TAB PO PRN Q6HRS PRN for PAIN, Ref 0 (Reported) Entered as Reported by: ZAHRAA NGUYEN on 12/09/192157 Last Taken: Unknown Dose on Unknown Date & Time Last Action: Continued on 12/09/192208 by RONAK CAMPBELL MD Loperamide Hcl (Loperamide) 2 Mg Tablet, 2 MG PO PRN Q4HRS PRN for DIARRHEA, (Reported) Entered as Reported by: ZAHRAA NGUYEN on 12/09/192157 Last Taken: Unknown Dose on Unknown Date & Time Last Action: Converted on 12/09/192208 by RONAK CAMPBELL MD Lorazepam (Lorazepam) 0.5 Mg Tablet, 0.5 MG PO PRN Q8HRS PRN for ANXIETY / AGITATION, (Reported) Entered as Reported by: FLACO ESCOBEDO RN on 02/18/19 0355 Last Action: HELD on 12/09/192207 by RONAK CAMPBELL MD Discontinued Medications Nicotine (NICODERM CQ 14mg) 1 Each Patch.td24, 1 PATCH TP DAILY, #14 Prescribed by: BRODERICK CRUZ on 09/18/15 0933 Last Action: Reviewed on 12/09/192157 by ZAHRAA NGUYEN Patient Instructions Patient Instructions to [facility] Justicifation of Admission Dx: Justifications for Admission: Justification of Admission Dx: Yes Respiratory Failure: Severe Resp Distress Angina: Symp at Rest IAM BRADEN MD Dec 12, 2019 10:37
[2019-12-12 11:00] VITALS: BP 137/50
--- NOTE | 2019-12-12 11:19 | PDOC ---
SUBJECTIVE ROS Stable OBJECTIVE Vital Signs Vital Signs Date Time Temp Pulse Resp B/P (MAP) Pulse Ox O2 Delivery O2 Flow Rate FiO2 12/12/19 11:00 97.8 63 20 137/50 (79) 97 Nasal Cannula 3.0 97.8 I & 0 Intake and Output 12/12/19 07:00 Intake Total 660 ml Output Total 850 ml Balance -190 ml Intake Oral 660 ml Output Urine Total 850 ml # Voids 1 # Bowel Movements 3 PHYSICAL EXAM Physical Exam General: NAD HEENT: OM moist O2 by NC (chronic) Neck supple Lungs: Decreased at bases, Non labored Heart: S1S2, RRR, Abdomen: Normal bowel sounds, Soft, No tenderness, No hepatosplenomegaly, No masses Extremities: No clubbing, No cyanosis, 1 + LE edema Skin:Venous stasis dermatitis, No rash Neuro: Grossly normal No damon DIAGNOSIS/ASSESSMENT Assessment & Plan LUIZA - Suspect Cardiorenal Improving 2.4-->1.9-->1.7 , baseline Normal Cr in PMC records E-Lytes and acid base Normal Renal US- Bladder distended, Bladder Scan for PVR to r/o Retention(Ulysses RN 12/10), UA unremarkable Supportive care, strict I/O, avoid nephrotoxins Follow up renal function closely with PCP post dc and schedule with our office next available Chest pain - concerning as anginal equivalent with improvement after NTG. Will add imdur and d/c amlodipine in favor of going back on BB (change from coreg to toprol xl given COPD hx) Acute on chronic hypoxic resp failure - with pulmonary HTN, On Chronic O2 at home Chronic diastolic CHF Lymphedema bilateral lower legs - amlodipine dced Pulm HTN - diagnosed by echo, COPD Smoker - quit last March 2019 Stress urinary incontinence - On ditropan NEGAR - stopped using last year COMMENT/RELEVANT DATA Meds Current Medications Medications (Trade) Dose Ordered Sig/Derek Start Time Stop Time Status Last Admin Dose Admin Acetaminophen (Tylenol) 650 mg PRN Q6HRS PRN 12/10/19 16:30 12/11/19 21:04 650 MG Acetaminophen/ Hydrocodone Bitart (Lortab 5/325) 1 tab PRN Q6HRS PRN 12/09/19 22:15 12/12/19 06:07 1 TAB Albuterol Sulfate (Ventolin Neb Soln) 2.5 mg RTQID 12/10/19 08:00 12/12/19 07:37 2.5 MG Amlodipine Besylate (Norvasc) 5 mg 1X ONCE 12/12/19 09:00 12/12/19 09:01 DC 12/12/19 08:56 5 MG Aspirin (Aspirin Chewable) 162 mg DAILYWBKFT 12/10/19 08:00 12/12/19 08:52 162 MG Budesonide (Pulmicort) 0.5 mg RTBID 12/10/19 08:00 12/12/19 07:37 0.5 MG Buspirone HCl (Buspar) 7.5 mg BID 12/09/19 21:30 12/12/19 08:56 7.5 MG Calcium Carbonate/ Glycine (Tums) 1,000 mg PRN Q6HRS PRN 12/09/19 22:15 Carvedilol (Coreg) 6.25 mg BIDWMEALS 12/11/19 17:00 12/12/19 08:52 6.25 MG Cefazolin Sodium (Ancef) 1 gm Q12HR 12/10/19 16:30 12/12/19 08:52 1 GM Citalopram Hydrobromide (CeleXA) 40 mg DAILY 12/10/19 09:00 12/12/19 08:52 40 MG Docusate Sodium (Colace) 100 mg QHS 12/10/19 21:00 12/11/19 21:04 100 MG Fentanyl Citrate (Fentanyl 2ml Vial) 50 mcg PRN Q1HR PRN 12/09/19 18:45 12/10/19 18:44 DC Heparin Sodium (Porcine) (Heparin Sodium) 5,000 unit Q8HRS 12/09/19 22:15 12/12/19 06:06 5,000 UNIT Hydralazine HCl (Apresoline) 50 mg 1X ONCE 12/12/19 03:45 12/12/19 03:48 DC 12/12/19 03:53 50 MG Isosorbide Mononitrate (Imdur) 30 mg 1X ONCE 12/11/19 16:00 12/11/19 16:01 DC 12/11/19 16:43 30 MG Lactobacillus Rhamnosus (Culturelle) 1 cap BID 12/11/19 21:00 12/12/19 08:51 1 CAP Levothyroxine Sodium (Synthroid) 125 mcg DAILY06 12/10/19 06:00 12/12/19 06:07 125 MCG Loperamide HCl (Imodium) 2 mg PRN Q4HRS PRN 12/09/19 22:15 Metoprolol Succinate (Toprol Xl) 25 mg DAILY 12/10/19 09:00 12/11/19 15:47 DC 12/11/19 08:33 25 MG Miconazole Nitrate (Monistat-Derm) 1 jason BID 12/09/19 21:30 12/12/19 08:57 1 JASON Multi-Ingredient Ointment (Hydrocerin Cream) 1 jason PRN Q1HR PRN 12/09/19 22:15 Nitroglycerin (Nitrostat) 0.4 mg PRN Q5MIN PRN 12/09/19 22:00 Non-Formulary Medication (Budesonide/ Formoterol Fumarate (Symbicort 80-4.5 Mcg Inhaler)) 2 puff BID 12/10/19 09:00 UNV Olanzapine (ZyPREXA ZYDIS) 5 mg PRN BID PRN 12/09/19 22:15 12/11/19 19:28 5 MG Ondansetron HCl (Zofran) 4 mg PRN Q4HRS PRN 12/09/19 21:45 Oxybutynin Chloride (Ditropan) 5 mg QHS 12/09/19 21:30 12/11/19 21:05 5 MG Psyllium Hydrophilic Mucilloid (Metamucil Fiber Packet) 1 pkt QHS 12/09/19 22:30 Ropinirole HCl (Requip) 0.25 mg HS 12/11/19 21:00 12/11/19 21:04 0.25 MG Sodium Chloride 1,000 ml @ 75 mls/hr 1X ONCE 12/09/19 20:45 12/10/19 10:04 DC 12/09/19 22:54 75 MLS/HR Temazepam (Restoril) 7.5 mg PRN QHS PRN 12/10/19 21:30 12/11/19 16:36 DC 12/10/19 21:29 7.5 MG Lab Laboratory Tests Test 12/12/19 08:55 Sodium Level 142 mmol/L (136-145) Potassium Level 4.5 mmol/L (3.5-5.1) Chloride Level 103 mmol/L (98-107) Carbon Dioxide Level 31 mmol/L (21-32) Anion Gap 8 (6-14) Blood Urea Nitrogen 26 mg/dL (7-20) Creatinine 1.7 mg/dL (0.6-1.0) Estimated GFR (Cockcroft-Gault) 29.1 Glucose Level 125 mg/dL (70-99) Calcium Level 8.8 mg/dL (8.5-10.1) Results All relevant outside records, renal labs, imaging studies, telemetry/EKG's were reviewed. Justicifation of Admission Dx: Justifications for Admission: Justification of Admission Dx: Yes Respiratory Failure: Severe Resp Distress Angina: Symp at Rest MENG LOPEZ MD Dec 12, 2019 11:19
--- NOTE | 2019-12-12 11:49 | PDOC ---
CARDIO Progress Notes Date and Time Date of Service 12/12/2019 Time of Evaluation 1135 Subjective Subjective: No Chest Pain, No shortness of breath, No Palpitations Vitals Vitals Vital Signs Date Time Temp Pulse Resp B/P (MAP) Pulse Ox O2 Delivery O2 Flow Rate FiO2 12/12/19 11:31 98 Nasal Cannula 3.0 12/12/19 11:00 97.8 63 20 137/50 (79) 97.8 Weight Weight [ ] Input and Output Intake and Output Intake and Output 12/12/19 07:00 Intake Total 660 ml Output Total 850 ml Balance -190 ml Intake Oral 660 ml Output Urine Total 850 ml # Voids 1 # Bowel Movements 3 Laboratory Labs Laboratory Tests Test 12/12/19 08:55 Sodium Level 142 mmol/L (136-145) Potassium Level 4.5 mmol/L (3.5-5.1) Chloride Level 103 mmol/L (98-107) Carbon Dioxide Level 31 mmol/L (21-32) Anion Gap 8 (6-14) Blood Urea Nitrogen 26 mg/dL (7-20) Creatinine 1.7 mg/dL (0.6-1.0) Estimated GFR (Cockcroft-Gault) 29.1 Glucose Level 125 mg/dL (70-99) Calcium Level 8.8 mg/dL (8.5-10.1) Physical Exam HEENT: Neck Supple W Full Motion Chest: Symmetric LUNGS: Other (diminished bases) Heart: RRR (SR) Abdomen: Soft N/T Extremities: No Calf Tenderness Neurology: alert, oriented, follow commands Assessment Assessment 1. Chest pain: possibly from uncontrolled HTN. none further 2. Acute on chronic diastolic CHF: appears compensated 3. HTN urgency: better with addition of norvasc 4. LUIZA on CKD3: CR stable. nephrology following 5. Hypothyroidism: on replacement 6. COPD Recommendations 1. Continue current BP regimen with the addition of norvasc and change toprol to coreg. 2. Plan ischemic workup in the form of stress test as outpatient. 4. Follow up with Dr. Garay on Jan 22 at 9AM Justicifation of Admission Dx: Justifications for Admission: Justification of Admission Dx: Yes Respiratory Failure: Severe Resp Distress Angina: Symp at Rest KATHY YANG DELIVERY ENGINEER Dec 12, 2019 11:49
--- NOTE | 2019-12-12 14:26 | NUR ---
Discharge Note: JONNY VACA [address] Discharge instructions and discharge home medications reviewed with Other facility and a copy given. All questions have been answered and understanding verbalized. Daughter, Keiko, notified of DC.
[2019-12-13] MEDS ORDERED: amLODIPine BESYLATE 5 MG TABLET PO SCH (09:00)
--- NOTE | 2019-12-21 11:18 | RESP ---
DATE OF SERVICE: 12/11/2019 ATTENDING PHYSICIAN: Dr. Hutson. The patient underwent nocturnal desaturation study on 12/11/2019. This was performed initially on 2 L. There were significant periods of oxyhemoglobin desaturation despite 3 L of oxygen supplementation. IMPRESSION AND PLAN: 1. Abnormal nocturnal desaturation study. 2. Recommend continue oxygen supplementation at bedtime. 3. Strongly recommend polysomnogram if one has not been performed. 4. The patient should avoid driving a vehicle or any motorized equipment until the above has been addressed. KENISHA SWIFT MD DR: DIANE/kalpana JOB#: [id number] / [id number]
== END 2019-12-12 14:19 | DRG 682 ==
LOC: ER 17:08 → 2 NORTH 20:45
PROVIDERS: ADMIT Internal Medicine; ATTEND Internal Medicine
DX: N17.0 Acute kidney failure with tubular necrosis (principal); I50.33 Acute on chronic diastolic (congestive) heart failure; J96.21 Acute and chronic respiratory failure with hypoxia; I13.0 Hypertensive heart and chronic kidney disease with heart failure and stage 1 through stage 4 chronic kidney disease, or unspecified chronic kidney disease; I25.118 Atherosclerotic heart disease of native coronary artery with other forms of angina pectoris; I16.0 Hypertensive urgency; E03.9 Hypothyroidism, unspecified; E66.01 Morbid (severe) obesity due to excess calories; E78.00 Pure hypercholesterolemia, unspecified; E78.5 Hyperlipidemia, unspecified; F17.201 Nicotine dependence, unspecified, in remission; F41.9 Anxiety disorder, unspecified; G25.81 Restless legs syndrome; G47.33 Obstructive sleep apnea (adult) (pediatric); I27.20 Pulmonary hypertension, unspecified; I73.9 Peripheral vascular disease, unspecified; I89.0 Lymphedema, not elsewhere classified; J44.9 Chronic obstructive pulmonary disease, unspecified; K74.60 Unspecified cirrhosis of liver; N18.3 Chronic kidney disease, stage 3 (moderate); N39.3 Stress incontinence (female) (male); Z83.3 Family history of diabetes mellitus; Z99.81 Dependence on supplemental oxygen; F32.9 Major depressive disorder, single episode, unspecified; G89.29 Other chronic pain; Z88.8 Allergy status to other drugs, medicaments and biological substances
CPT/HCPCS: 36415; 71045; 76770; 80048; 80053; 81001; 82607; 83690; 83735; 83880; 84443; 84484; 85025; 93005; 93970; 94640; 94760; 94799; J0690; J1644; J7030; 97535-GO; 99285-25; G0378; J7613; J7626

== ENCOUNTER 2019-12-23 16:07 | Emergency (ER) | payer MEDICARE, OTHER ==
[~2019-12-23] VITALS: Ht 172.7 cm; Wt 113.6 kg
[~2019-12-23 16:07] MED LIST changes: +ACET325T21 PO; +AMLO10TA8 PO; +ASPI-612 PO; -ASPI-886 PO; +BUSP5TAB PO; +CALC500T31 PO; +CARV6.2511 PO; +DOCU100C28 PO; +HYDR-2867 PO; +HYDR-2869 PO; +ISOS30TA4 PO; +LOPE2TAB27 PO; +MICO113C TP
[2019-12-23 16:39] LABS: BILIRUBIN,URINE NEGATIVE (NEG); CLARITY,URINE CLEAR; COLOR,URINE YELLOW; NITRITE,URINE NEGATIVE (NEG); PROTEIN,URINE NEGATIVE (NEG-TRACE); UROBILINOGEN,URINE 0.2 mg/dL (0.2 mg/dL)
[2019-12-23 16:43] LABS: HYALINE CASTS, URINE OCCASIONAL /HPF; SQUAMOUS EPITHELIAL CELL,UR MANY /LPF
[2019-12-23 16:44] LABS: BACTERIA,URINE 0 /HPF (0-FEW); RBC,URINE RARE /HPF (0-2); WBC,URINE RARE /HPF (0-4)
--- NOTE | 2019-12-23 17:49 | PHYS DOC ---
Past Medical History Past Medical History: Anxiety, CAD, CHF, COPD, Depression, High Cholesterol, Hypertension, Hypothyroid, Other Additional Past Medical Histor: SLEEP APNEA,CHRONIC BACK PAIN,SCIATIC A,CELLULITIS Past Surgical History: Cholecystectomy Additional Past Surgical Histo: APNEA,R SHOULDER SX Smoking Status: Former Smoker Alcohol Use: None Drug Use: None General Adult EDM: Chief Complaint: ALTERED MENTAL STATUS HPI: HPI: Patient is a 79 year old female who presents with complaints of right shoulder low back and right hip pain after falling onto her bottom this morning at 4 AM while going to the bathroom. Patient states she uses a walker to ambulate. Patient is from [facility] who sent her here for altered mental status. Patient denies hitting her head or losing consciousness. Patient is currently alert and oriented x4. Patient denies any fever or chills, patient denies any vision changes, or headaches. Patient denies any shortness of breath, cough, chest pain. Patient states that her lower legs are swollen, however patient also states that her lower extremities are always swollen and her doctor is treating them. Patient denies any abdominal pain, nausea, vomiting, diarrhea, constipation, or blood in her stools. Patient states that her back hurts her her right hip hurts and her right shoulder hurts since her fall this morning. Patient denies any depression, or anxieties. Patient denies any rash, weaknesses, or sensory changes. Patient states she is not concerned that her bones might be broken. Patient states she is only here because the residential sent her to be evaluated. Review of Systems: Review of Systems: Constitutional: Denies fever or chills. Eyes: Denies change in visual acuity. Respiratory: Denies cough or shortness of breath. Cardiovascular: Denies chest pain, reports lower extremity edema that is being treated by her primary care physician. GI: Denies abdominal pain, nausea, vomiting, bloody stools or diarrhea. : Denies dysuria. Musculoskeletal: Complains of right shoulder pain, right hip pain, and low back pain. Integument: Denies rash. Neurologic: Denies headache, focal weakness or sensory changes. Lymphatic: Denies swollen glands. Psychiatric: Denies depression or anxiety. Heart Score: Risk Factors: Risk Factors: DM, Current or recent (<one month) smoker, HTN, HLP, family history of CAD, obesity. Risk Scores: Score 0 - 3: 2.5% MACE over next 6 weeks - Discharge Home Score 4 - 6: 20.3% MACE over next 6 weeks - Admit for Clinical Observation Score 7 - 10: 72.7% MACE over next 6 weeks - Early Invasive Strategies Family History: Family History: No significant family history associated with this visit. Allergies: Allergies: Allergies Coded Allergies Type Severity Reaction Last Updated Verified naproxen Allergy Severe Hives 11/07/14 Yes morphine Adverse Reaction Severe vomiting 11/18/18 Yes Physical Exam: PE: Constitutional: Well developed, well nourished, no acute distress, non-toxic appearance. Patient uses walker to ambulate at residential. HENT: Normocephalic, atraumatic, bilateral external ears normal, oropharynx moist, no oral exudates, nose normal. Eyes: PERRLA, EOMI, conjunctiva normal, no discharge. Pupils 4 mm. Neck: Normal range of motion, no tenderness, supple, no stridor. Cardiovascular:Heart rate regular rhythm, no murmur heart sounds S1-S2, no abnormalities per auscultation. Lungs & Thorax: Bilateral breath sounds clear to auscultation all lung ross. Abdomen: Bowel sounds normal all 4 quadrants, soft, no tenderness, no masses, no pulsatile masses. Skin: Warm, dry, no erythema, no rash. Back: Low back tenderness lateral to spine on both left and right with pain radiating down right buttocks, no CVA tenderness. Extremities: Tenderness to palpation in the right scapular area with radiation to the lateral deltoid on right, right hip pain with palpation however full range of motion of the right lower extremity without crepitus noted over bony prominences, no cyanosis, no clubbing, ROM intact, no edema. Neurologic: Alert and oriented X 3, normal motor function, normal sensory function, no focal deficits noted. Psychologic: Affect normal, judgement normal, mood normal. Current Patient Data: Labs: Laboratory Tests Test 12/23/19 16:20 Urine Collection Type U cath Urine Color Yellow Urine Clarity Clear Urine pH 5.0 (<5.0-8.0) Urine Specific [place] 1.015 (1.000-1.030) Urine Protein Negative mg/dL (NEG-TRACE) Urine Glucose (UA) Negative mg/dL (NEG) Urine Ketones (Stick) Negative mg/dL (NEG) Urine Blood Negative (NEG) Urine Nitrite Negative (NEG) Urine Bilirubin Negative (NEG) Urine Urobilinogen Dipstick 0.2 mg/dL (0.2 mg/dL) Urine Leukocyte Esterase Negative (NEG) Urine RBC Rare /HPF (0-2) Urine WBC Rare /HPF (0-4) Urine Squamous Epithelial Cells Many /LPF Urine Bacteria 0 /HPF (0-FEW) Urine Hyaline Casts Occasional /HPF Vital Signs: Vital Signs Date Time Temp Pulse Resp B/P (MAP) Pulse Ox O2 Delivery O2 Flow Rate FiO2 12/23/19 16:07 97.9 56 21 126/58 (80) 100 Nasal Cannula 4.0 97.9 EKG: EKG: [] Radiology/Procedures: Radiology/Procedures: PROCEDURE: SHOULDER 2+V RIGHT SHOULDER 2+V RIGHT History: Reason: FALL, PAIN / Spl. Instructions: / History: Technique: 3 views right shoulder. Comparison: Chest x-ray December 01, 2019 Findings: Reverse right total shoulder arthroplasty. Normal alignment. No fracture. Impression: 1. No acute osseous abnormality. 2. Reverse right total shoulder arthroplasty. Electronically signed by: Grey Bates DO (12/23/2019 6:37 PM) [facility] DICTATED and SIGNED BY: GREY BATES DO DATE: 12/23/191836 Course & Med Decision Making: Course & Med Decision Making Pertinent Labs and Imaging studies reviewed. (See chart for details) 79-year-old female patient presents from from the residential via ambulance, patient reports while using a walker at approximately 430 this morning stumbled and fell onto her buttocks. Patient denies hitting head. Patient denies loss of consciousness. Patient states her low back hurts with radiation down her right buttocks that she associates with her chronic sciatica pain. Patient states that when she was lifted up onto a wheelchair after her fall her right shoulder started hurting. Report from EMS was that patient slid out of a wheelc hair this morning and complain of right shoulder pain only. Patient denies this incident from happening stating adamantly that she was using her wheelchair this morning to walk to the bathroom and after fall was then assisted by lifting into a wheelchair by residential staff. EMS also reports that residential staff told them she was having some confusion. Vital signs reviewed, a quick cath UA resulted negative non-concerning for infectious process. Patient was alert and oriented x3 for both nursing staff and ED provider physical examination. Patient had right scapular pain for palpation that radiated into the right lateral deltoid area no swelling noted no deformity noted no crepitus noted with AROM/PROM, no loss of sensation down right extremity +2 bilateral radial pulses, bilateral upper extremity cap refill less than 2 seconds. Patient had pain to palpation in low back lateral left and lateral right of the spine, no pain midline spine to palpation. Pain radiated down right buttocks. Bilateral hip examination elicited pain to the right hip, however patient had full range of motion of right and left lower extremity without crepitus, without lateral rotation of feet. Bilateral lower extremities 2+ pulses. Bilateral lower extremities had 1+ pitting edema, patient reports her doctor is aware of this and and is treating this in the residential. Patient states that she does not hurt bad enough to come to the ER, she was sent here by the residential staff for evaluation. Imaging was ordered of the right shoulder, L-spine, hip and pelvis. Only the right shoulder x-ray was completed and read negative per radiologist. Patient refused L-spine and hip/pelvis x-rays stating that she cannot lay down for these x-rays because she fears that she cannot breathe. Counseled patient regarding need to obtain these x-rays to rule out fractures. Patient states that she had something for her anxiety that she may be able to lay down for these x-rays. 1/2 mg Ativan p.o. was given to patient after approximately 30-minute wait x-rays attempted again, however patient was adamant that she did not want these x-rays done. Daughter contacted who is D POA of patient, advised that patient was refusing x-rays. Patient then refused further care and signed out AGAINST MEDICAL ADVICE back to residential, and AMA form was filled out by nursing staff and reviewed with patient who gave verbal understanding of what she was signing along with patient advised of risk/benefits of refusing care and signed an AMA form. It is of my opinion patient was alert and oriented x3 and capable of making her own medical decisions. AMA form completed and patient was sent back to residential. Patient's D POA/daughter was contacted and advised that patient signed out AMA and went back to residential. Patient's D POA/daughter stated she would talk to her mother and if any further complaints or concerns arise that she would have her come back for a complete evaluation. Patient had no further questions or concerns. Sarah Disclaimer: Sarah Disclaimer: This electronic medical record was generated, in whole or in part, using a voice recognition dictation system. Departure Departure Impression: Primary Impression: Shoulder pain, right Qualified Codes: M25.511 - Pain in right shoulder Additional Impressions: Low back pain Qualified Codes: M54.41 - Lumbago with sciatica, right side; G89.29 - Other chronic pain Hip pain, right Disposition: 07 AGAINST MEDICAL ADVICE Condition: STABLE Referrals: NON,STAFF (PCP) Justicifation of Admission Dx: Justifications for Admission: Justification of Admission Dx: N/A Respiratory Failure: Severe Resp Distress Angina: Symp at Rest PAMELA BURGESS APRN Dec 23, 2019 17:49
--- NOTE | 2019-12-23 18:40 | RAD ---
SHOULDER 2+V RIGHT History: Reason: FALL, PAIN / Spl. Instructions: / History: Technique: 3 views right shoulder. Comparison: Chest x-ray December 01, 2019 Findings: Reverse right total shoulder arthroplasty. Normal alignment. No fracture. Impression: 1. No acute osseous abnormality. 2. Reverse right total shoulder arthroplasty. Electronically signed by: Ezra Ruiz DO (12/23/2019 6:37 PM) [facility]
[2019-12-23] MEDS ORDERED: LORazepam 0.5 MG TABLET PO ONE (20:15)
[2019-12-23 21:30] VITALS: BP 167/71
== END 2019-12-23 21:55 | disposition left against medical advice (07) ==
LOC: ER 16:07
DX: M25.511 Pain in right shoulder (principal); M54.41 Lumbago with sciatica, right side; M25.551 Pain in right hip; G89.29 Other chronic pain; F41.9 Anxiety disorder, unspecified; J44.9 Chronic obstructive pulmonary disease, unspecified; F32.9 Major depressive disorder, single episode, unspecified; E78.00 Pure hypercholesterolemia, unspecified; E03.9 Hypothyroidism, unspecified; I11.9 Hypertensive heart disease without heart failure; R41.82 Altered mental status, unspecified; Z90.49 Acquired absence of other specified parts of digestive tract; Z87.891 Personal history of nicotine dependence; Z98.890 Other specified postprocedural states; Z88.6 Allergy status to analgesic agent; Z88.8 Allergy status to other drugs, medicaments and biological substances
CPT/HCPCS: 73030; 81001; 99285